=== PATIENT | male | born 1955 | race Caucasian/White ===

== ENCOUNTER 2020-10-02 19:31 | Emergency (ER) | payer OTHER, SELFPAY ==
--- NOTE | 2020-10-02 | ECG_ITS ---
Test Reason : CHEST PAIN Blood Pressure : / mmHG Vent. Rate : 066 BPM Atrial Rate : 066 BPM P-R Int : 194 ms QRS Dur : 096 ms QT Int : 420 ms P-R-T Axes : 051 048 073 degrees QTc Int : 440 ms Normal sinus rhythm Cannot rule out Inferior infarct , age undetermined - could be normal variant Nonspecific ST and T wave abnormality Abnormal ECG When compared with ECG of 11-APR-2020 12:07, Minimal criteria for Inferior infarct are now Present T wave inversion no longer evident in Inferior leads Referred By: Generic ED Physician Electronically Signed By:SHANEKA FERGUSON
[2020-10-02 20:00] VITALS: BP 192/101; PULSE 70; RESP 16; TEMP 36.8; O2SAT 98; BMI 23.7
--- NOTE | 2020-10-02 21:23 | PC.NURSE ---
CALLED FOR ROOM ASSIGNMENT AT 2099 AND AGAIN NOW AT 2122. NO RESPONSE, PATIENT LWT
== END 2020-10-02 21:20 | disposition left against medical advice (07) ==
PROVIDERS: Emergency Provider Emergency Medicine; PCP Physician Assistant
DX: R07.9 Chest pain, unspecified (principal); J44.9 Chronic obstructive pulmonary disease, unspecified; I10 Essential (primary) hypertension; I25.2 Old myocardial infarction; F17.210 Nicotine dependence, cigarettes, uncomplicated
CPT/HCPCS: 93005; 99282; 99283

== ENCOUNTER 2020-10-03 16:14 | Emergency (ER) | payer OTHER, SELFPAY ==
--- NOTE | 2020-10-03 16:16 | ECG_ITS ---
Test Reason : CHEST PAIN Blood Pressure : / mmHG Vent. Rate : 056 BPM Atrial Rate : 056 BPM P-R Int : 184 ms QRS Dur : 094 ms QT Int : 446 ms P-R-T Axes : 060 067 060 degrees QTc Int : 430 ms Sinus bradycardia Nonspecific T wave abnormality Borderline ECG When compared with ECG of 02-OCT-2020 19:51, No significant change was found Referred By: Generic ED Physician Electronically Signed By:SHANEKA FERGUSON
== END 2020-10-03 18:19 | disposition left against medical advice (07) ==
PROVIDERS: Emergency Provider Emergency Medicine; PCP Physician Assistant
DX: R07.9 Chest pain, unspecified (principal); J44.9 Chronic obstructive pulmonary disease, unspecified; I10 Essential (primary) hypertension; I25.2 Old myocardial infarction; F17.210 Nicotine dependence, cigarettes, uncomplicated
CPT/HCPCS: 93005; 99283

== ENCOUNTER 2020-10-03 16:58 | Outpatient (REF) | payer OTHER, SELFPAY ==
[2020-10-03 18:05] LABS: MANUAL DIFF FLAG NO
[2020-10-03 18:15] LABS: Basophils Percent Auto 0.5 % (0-2); Eosinophils Absolute Auto 0.3 X10*3/uL (0.0-0.4); Hematocrit 48.2 % (42-52); Hemoglobin 16.3 g/dl (14.0-18.0); Imm Gran Abs Auto 0.02 X10*3/uL (0.00-0.03); Imm Gran Pct Auto 0.3 % (0.0-0.4); Lymphocytes Absolute Auto 2.1 X10*3/uL (1.2-4.9); Lymphocytes Percent Auto 27.8 % (20-40); Mean Corpuscular HGB Conc 33.8 g/dl (31.0-36.0); Mean Corpuscular Hemoglobin 30.7 pg (27.0-33.0); Mean Corpuscular Volume 90.8 fL (80-98); Mean Platelet Volume 9.5 fL (9.4-12.4); Monocytes Absolute Auto 0.8 X10*3/uL (0.1-1.2); Monocytes Percent Auto 9.9 % (2-11); Neutrophils Absolute Auto 4.4 X10*3/uL (2.0-8.3); Neutrophils Percent Auto 57.5 % (45-73); Platelet Count 241 X10*3/uL (160-400); Red Blood Count 5.31 X10*6/uL (4.60-5.80); Red Cell Distribution Width 12.6 % (11.0-16.0); White Blood Count 7.7 X10*3/uL (4.8-10.8)
[2020-10-03 18:31] LABS: Estimated Average Glucose 105 mg/dL; Hemoglobin A1c % 5.3 %
[2020-10-03 18:34] LABS: Creatinine Urine 54.85 mg/dL; Microalbum/Creatinine Ratio Ur 12.7 ug/mg cr
[2020-10-03 18:36] LABS: Alanine Aminotransferase 23 U/L (0-40); Albumin Level 4.2 g/dL (3.5-5.0); Alkaline Phosphatase 105 U/L (39-117); Anion Gap 16 (12-20); Aspartate Amino Transferase 26 U/L (5-37); Bilirubin Total 0.6 mg/dL (0.0-1.0); Blood Urea Nitrogen 19 mg/dL (9-16); Calcium 9.2 mg/dL (8.4-10.2); Carbon Dioxide 24 mmol/L (22-29); Chloride 101 mmol/L (96-108); Cholesterol 196 mg/dL; Estimated Glomerular Filt Rate > 60; Glucose Fasting 81 mg/dL (60-99); HDL Cholesterol 48 mg/dL; LDL Cholesterol Calculated 134 mg/dl; Potassium 4.2 mmol/L (3.3-5.1); Sodium 137 mmol/L (135-145); Total Protein 7.2 g/dL (6.5-8.0); Triglycerides 73 mg/dL
[2020-10-03 18:57] LABS: TSH reflex Free T4 1.16 uIU/mL (0.32-4.0)
== END 2020-10-03 16:59 | disposition home or self-care (01) ==
LOC: HO.LAB 16:58
PROVIDERS: PCP Physician Assistant; Visit Provider Physician Assistant
DX: I10 Essential (primary) hypertension (principal); I25.118 Atherosclerotic heart disease of native coronary artery with other forms of angina pectoris; Z95.5 Presence of coronary angioplasty implant and graft
CPT/HCPCS: 36415; 80053; 80061; 82043; 83036; 84443; 85025

== ENCOUNTER 2020-10-04 16:06 | Outpatient (REF) | payer OTHER, SELFPAY ==
[2020-10-08 15:22] LABS: Testosterone, Free 35.5 pg/mL (35.0-155.0); Testosterone, Total 390 ng/dL (250-1100)
== END 2020-10-04 16:07 | disposition home or self-care (01) ==
LOC: HO.LAB 16:06
PROVIDERS: PCP Physician Assistant; Visit Provider Physician Assistant
DX: Z79.890 Hormone replacement therapy (principal)
CPT/HCPCS: 36415; 84402; 84403

== ENCOUNTER 2020-10-08 12:03 | Emergency (ER) | payer OTHER, SELFPAY ==
[2020-10-08] VITALS (7 sets, daily range): BP systolic 153–195; BP diastolic 94–120; PULSE 64–73; RESP 16–18; TEMP 36.5–36.8; O2SAT 95–100; BMI 23.6
--- NOTE | 2020-10-08 | ECG_ITS ---
Test Reason : CP Blood Pressure : / mmHG Vent. Rate : 069 BPM Atrial Rate : 069 BPM P-R Int : 168 ms QRS Dur : 090 ms QT Int : 424 ms P-R-T Axes : 065 059 014 degrees QTc Int : 454 ms Normal sinus rhythm Nonspecific ST changes Abnormal ECG When compared with ECG of 03-OCT-2020 16:23, Nonspecific T wave abnormality, improved in Lateral leads Referred By: Generic ED Physician Electronically Signed By:Alverto Mcfadden
--- NOTE | ~2020-10-08 | XR_ITS ---
EXAMINATION: XR CHEST CLINICAL INFORMATION: Chest pain, SOB. COMPARISON: Chest 04/11/2020 TECHNIQUE: Frontal view of the chest was obtained. FINDINGS: The lungs are well-expanded and clear of acute process. The heart size and pulmonary vascularity is normal. No gross bony abnormality. XR/XR chest 1V IMPRESSION: Unremarkable chest examination.
--- NOTE | 2020-10-08 14:12 | ED.CHESTPAIN ---
HPI - Chest Pain General Chief Complaint: Chest Pain <ALLISON Camara - Last Filed: 10/08/20 16:36> Stated Complaint: CHEST PRESSURE <ALLISON Camara - Last Filed: 10/08/20 16:36> Time Seen by Provider: 10/08/20 12:27 <ALLISON Camara - Last Filed: 10/08/20 16:36> Source: patient <ALLISON Camara Last Filed: 10/08/20 16:36> Mode of arrival: ambulatory <ALLISON Camara - Last Filed: 10/08/20 16:36> Limitations: no limitations <ALLISON Camara Last Filed: 10/08/20 16:36> History of Present Illness HPI narrative: 65 y/o male with history of HTN,. HLD, anxiety, active smoker, CAD s/p RCA stent in 2019 who presents to the ED with intermittent sharp, non-radiating left sided chest pain for the last few weeks. He states he has been in the ER a couple of times in the last few days but ended up leaving because he didn't want to wait. He was recently seen by his PCP who restarted him on his statin, but he has not been taking it due to muscle pains. He reports intermittent compliance with his home meds including plavix, aspirin, lisinopril and metoprolol. He did not take them this morning. 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 He was a heavy smoker for 50+ years, at least 2 packs per day. He reports quitting 2 days ago cold turkey. He denies chest pain at the moment but reports it comes and goes, is sharp in nature and located over his left chest. He denies nausea, jaw pain, arm pain. It happens at rest and with exertion. It goes away with rest. He denies fever, chills, cough. <ALLISON Camara Last Filed: 10/08/20 16:36> MD complaint: chest pain <ALLISON Camara Last Filed: 10/08/20 16:36> Pertinent past history: coronary artery disease and prior HI <ALLISON Camara Last Filed: 10/08/20 16:36> Onset (ago): week(s) <ALLISON Camara - Last Filed: 10/08/20 16:36> Timing of current episode: episodic <ALLISON Camara - Last Filed: 10/08/20 16:36> Prior episodes: Yes <ALLISON Camara - Last Filed: 10/08/20 16:36> Onset: during rest, during exertion and after eating <ALLISON Camara - Last Filed: 10/08/20 16:36> Pain location: left chest <ALLISON Camara - Last Filed: 10/08/20 16:36> Pain radiation: none <ALLISON Camara - Last Filed: 10/08/20 16:36> Severity: moderate <ALLISON Camara - Last Filed: 10/08/20 16:36> Quality: sharp <ALLISON Camara - Last Filed: 10/08/20 16:36> Relieving factors: rest <ALLISON Camara - Last Filed: 10/08/20 16:36> Exacerbating factors: nothing <ALLISON Camara - Last Filed: 10/08/20 16:36> Context: non compliance with medication <ALLISON Camara - Last Filed: 10/08/20 16:36> Associated symptoms: dyspnea <ALLISON Camara - Last Filed: 10/08/20 16:36> Treatment prior to arrival: none <ALLISON Camara - Last Filed: 10/08/20 16:36> Risk Factors Coronary artery disease risk factors: smoking history, hyperlipidemia and hypertension <ALLISON Camara - Last Filed: 10/08/20 16:36> Related Data Home Medications: Home Medications Medication Instructions Recorded Confirmed methocarbamol 500 mg tablet 500 mg PO Q8H 06/14/20 10/02/20 Previous Rx's Medication Instructions Recorded aspirin 81 mg tablet,delayed 81 mg PO DAILY 30 Days #30 tab 06/14/20 release lisinopril 30 mg tablet 30 mg PO DAILY 30 Days #30 tab 06/14/20 ibuprofen 600 mg tablet 600 mg PO Q8H #180 tab 08/02/20 atorvastatin 40 mg tablet 40 mg PO DAILY 90 Days #90 tab 10/04/20 clopidogrel 75 mg tablet 75 mg PO DAILY 90 Days #90 tab 10/04/20 metoprolol succinate 50 mg 50 mg PO DAILY #90 tab 10/17/20 tablet,extended release 24 hr lorazepam 0.5 mg tablet 0.5 mg PO DAILY 5 Days #5 tab 10/19/20 <ALLISON Camara - Last Filed: 10/08/20 16:36> Allergies/Adverse Reactions: Allergies Allergy/AdvReac Type Severity Reaction Status Date / Time tadalafil [From uSamplis] Allergy Unknown anxiety Verified 10/02/20 16:30 <ALLISON Camara - Last Filed: 10/08/20 16:36> Review of Systems Review of Systems: Constitutional: No Fever, No Chills ENT/Mouth: No sore throat, No Rhinorrhea, No Swallowing Difficulty Cardiovascular: + Chest Pain, + SOB, No Orthopnea, No Edema Respiratory: No Cough, No Sputum, No Wheezing, + dyspnea Gastrointestinal: No Nausea, No Vomiting, No Diarrhea, No abdominal Pain Genitourinary: No Dysuria, No Urinary Frequency, No Hematuria Musculoskeletal: + joint pain, + Myalgias Skin: No Skin Lesions, No rash Neuro: No Weakness, No Numbness, No Dizziness, No Headache Psych: No Anxiety/Panic, No Depression Heme/Lymph: No Bruising, No Lymphadenopathy Endocrine: No Polyuria, No Polydipsia <ALLISON Camara - Last Filed: 10/08/20 16:36> [facility] [place] Past Medical History Attestation statement: The following information was validated with the patient. <ALLISON Camara - Last Filed: 10/08/20 16:36> Medical History: Medical History COPD (chronic obstructive pulmonary disease) Hypertension Myocardial infarction <ALLISON Camara Last Filed: 10/08/20 16:36> Surgical History: Surgical History History of coronary artery stent placement History of hernia repair <ALLISON Camara Last Filed: 10/08/20 16:36> Family History Family History: Family History Father No problems noted. Mother No problems noted. Brother Hepatocellular carcinoma <ALLISON Camara - Last Filed: 10/08/20 16:36> Social History Social History: Social History Alcohol intake: never Smoking Status: Current every day smoker Tobacco Type: Cigarette Packs Per Day: 2 <ALLISON Camara - Last Filed: 10/08/20 16:36> Physical Exam Vital Signs: Vital Signs: Last Vital Signs Temp 98.3 F 10/08/20 14:30 Pulse 64 10/08/20 20:07 Resp 18 10/08/20 20:07 BP 163/94 H 10/08/20 20:07 Pulse Ox 96 10/08/20 20:07 Body Mass Index 23.6 Appearance: Alert. Oriented X3. No acute distress. Eyes: Pupils equal, round and reactive to light. ENT: Pharynx normal. Neck: Normal inspection. Neck supple. CVS: Normal heart rate and rhythm. Pulses normal. Mild left anterior chest wall tenderness. Respiratory: No respiratory distress. Breath sounds coarse throughout, no wheezes or rhonchi. Abdomen: Soft and nontender. +BS x4 Skin: Skin warm and dry. Normal skin color. Normal skin turgor. No rashes. Extremities: No lower extremity edema. Diffuse LE muscle tenderness of calves and quariceps bilaterally. No erythema or warmth. Neuro: Oriented X 3. No motor deficit. No sensory deficit. <ALLISON Camara - Last Filed: 10/08/20 16:36> Vital Signs: Last Vital Signs Temp 98.3 F 10/08/20 14:30 Pulse 64 10/08/20 20:07 Resp 18 10/08/20 20:07 BP 163/94 H 10/08/20 20:07 Pulse Ox 96 10/08/20 20:07 Body Mass Index 23.6 <Angy Victoria NP - Last Filed: 10/08/20 20:30> Vital Signs: Last Vital Signs Temp 98.3 F 10/08/20 14:30 Pulse 64 10/08/20 20:07 Resp 18 10/08/20 20:07 BP 163/94 H 10/08/20 20:07 Pulse Ox 96 10/08/20 20:07 Body Mass Index 23.6 <Teofilo Lopez MD - Last Filed: 10/26/20 13:36> Course Course Course Narrative: 65 y/o male with PMH significant for CAD s/p RCA stent in 2019, HTN, HLD, heavy smoker who presents to the ED with intermittent left chest pain for 2 weeks. BP significantly elevated on arrival. Did not take meds today. Denies any sharp left chest pain at this time. Signs and symptoms are concerning for angina, will need to r/o ACS given his history. EKG and labs ordered now. Will give his home BP meds, aspirin and plavix now and reassess. Hold off on nitro for now given he does not have chest pain at this time. <ALLISON Camara - Last Filed: 10/08/20 16:36> I have reviewed the chart <Teofilo Lopez MD - Last Filed: 10/26/20 13:36> Reevaluation(s) Reevaluation #1: BP significantly improved 166/104 after home meds. CXR unremarkable. Troponin 5.6 - will repeat in 3 hours given his clinical picture and risk factors. Will sign out to PM provider who will follow up repeat troponin and reassess the patient for possible discharge. <ALLISON Camara - Last Filed: 10/08/20 16:36> MDM - Chest Pain Medical Records Data Attestation: I reviewed the patient's medical records. <ALLISON Camara - Last Filed: 10/08/20 16:36> Lab Data Attestation: I reviewed the patient's lab results. <ALLISON Camara - Last Filed: 10/08/20 16:36> Result diagrams: : 10/08/20 15:00 10/08/20 15:00 <ALLISON Camara - Last Filed: 10/08/20 16:36> Labs: Lab Results 10/08/20 10/08/20 10/08/20 Range/Units 15:00 15:00 15:00 WBC 6.3 (4.8-10.8) X10*3/uL RBC 5.47 (4.60-5.80) X10*6/uL Hgb 16.8 (14.0-18.0) g/dl Hct 49.7 (42-52) % MCV 90.9 (80-98) fL MCH 30.7 (27.0-33.0) pg MCHC 33.8 (31.0-36.0) g/dl RDW 12.5 (11.0-16.0) % Plt Count 232 (160-400) X10*3/uL MPV 9.1 L (9.4-12.4) fL Immature Gran % (Auto) 0.0 (0.0-0.4) % Neut % (Auto) 59.4 (45-73) % Lymph % (Auto) 27.4 (20-40) % [place] % (Auto) 8.3 (2-11) % Eos % (Auto) 4.3 H (0-4) % Baso % (Auto) 0.6 (0-2) % Lymph # (Auto) 1.7 (1.2-4.9) X10*3/uL [place] # (Auto) 0.5 (0.1-1.2) X10*3/uL Eos # (Auto) 0.3 (0.0-0.4) X10*3/uL Baso # (Auto) 0.0 (0.0-0.2) X10*3/uL Abs Immat Gran (auto) 0.00 (0.00-0.03) X10*3/uL Absolute Neuts (auto) 3.7 (2.0-8.3) X10*3/uL Absolute Nucleated RBC 0.000 (0.0-0.012) X10*3/uL Nucleated RBC % (auto) 0.0 (0.0-0.2) /100WBC PT 12.1 (10.8-13.0) SEC INR 1.0 (0.9-1.1) APTT 35.8 (24.1-38.0) SEC Hold Blue Top SEE NOTE Sodium 137 (135-145) mmol/L Potassium 4.4 (3.3-5.1) mmol/L Chloride 104 (96-108) mmol/L Carbon Dioxide 25 (22-29) mmol/L Anion Gap 12 (12-20) BUN 20 H (9-16) mg/dL Creatinine 0.96 (0.5-1.4) mg/dL Estim Creat Clear Calc 80.2 Estimated GFR > 60 Random Glucose 89 (60-115) mg/dL Calcium 9.3 (8.4-10.2) mg/dL Magnesium 2.1 (1.6-2.6) mg/dL Total Bilirubin 0.7 (0.0-1.0) mg/dL Direct Bilirubin 0.2 (0.0-0.5) mg/dL AST 25 (5-37) U/L ALT 29 (0-40) U/L Alkaline Phosphatase 103 (39-117) U/L Troponin I High Sens (<3.5-35.0) ng/L B-Natriuretic Peptide (<100) pg/mL Total Protein 7.2 (6.5-8.0) g/dL Albumin 4.1 (3.5-5.0) g/dL Urine Color Urine Appearance Urine pH (5.0-8.0) Ur Specific [place] (1.005-1.025) Urine Protein (NEG-TRACE) MG/DL Urine Glucose (UA) (NEG) MG/DL Urine Ketones (NEG) MG/DL Urine Blood (NEG) Urine Nitrite (NEG) Ur Leukocyte Esterase (NEG) Coronavirus (PCR) (Negative) Influenza Type A (PCR) (Negative) Influenza Type B (PCR) (Negative) RSV RNA Qual (PCR) (Negative) 10/08/20 10/08/20 10/08/20 Range/Units 15:00 15:00 15:58 WBC (4.8-10.8) X10*3/uL RBC (4.60-5.80) X10*6/uL Hgb (14.0-18.0) g/dl Hct (42-52) % MCV (80-98) fL MCH (27.0-33.0) pg MCHC (31.0-36.0) g/dl RDW (11.0-16.0) % Plt Count (160-400) X10*3/uL MPV (9.4-12.4) fL Immature Gran % (Auto) (0.0-0.4) % Neut % (Auto) (45-73) % Lymph % (Auto) (20-40) % [place] % (Auto) (2-11) % Eos % (Auto) (0-4) % Baso % (Auto) (0-2) % Lymph # (Auto) (1.2-4.9) X10*3/uL [place] # (Auto) (0.1-1.2) X10*3/uL Eos # (Auto) (0.0-0.4) X10*3/uL Baso # (Auto) (0.0-0.2) X10*3/uL Abs Immat Gran (auto) (0.00-0.03) X10*3/uL Absolute Neuts (auto) (2.0-8.3) X10*3/uL Absolute Nucleated RBC (0.0-0.012) X10*3/uL Nucleated RBC % (auto) (0.0-0.2) /100WBC PT (10.8-13.0) SEC INR (0.9-1.1) APTT (24.1-38.0) SEC Hold Blue Top Sodium (135-145) mmol/L Potassium (3.3-5.1) mmol/L Chloride (96-108) mmol/L Carbon Dioxide (22-29) mmol/L Anion Gap (12-20) BUN (9-16) mg/dL Creatinine (0.5-1.4) mg/dL Estim Creat Clear Calc Estimated GFR Random Glucose (60-115) mg/dL Calcium (8.4-10.2) mg/dL Magnesium (1.6-2.6) mg/dL Total Bilirubin (0.0-1.0) mg/dL Direct Bilirubin (0.0-0.5) mg/dL AST (5-37) U/L ALT (0-40) U/L Alkaline Phosphatase (39-117) U/L Troponin I High Sens 5.6 (<3.5-35.0) ng/L B-Natriuretic Peptide 23 (<100) pg/mL Total Protein (6.5-8.0) g/dL Albumin (3.5-5.0) g/dL Urine Color YELLOW Urine Appearance CLEAR Urine pH 6.0 (5.0-8.0) Ur Specific [place] 1.015 (1.005-1.025) Urine Protein NEG (NEG-TRACE) MG/DL Urine Glucose (UA) NEG (NEG) MG/DL Urine Ketones NEG (NEG) MG/DL Urine Blood NEG (NEG) Urine Nitrite NEG (NEG) Ur Leukocyte Esterase NEG (NEG) Coronavirus (PCR) NEGATIVE (Negative) Influenza Type A (PCR) NEGATIVE (Negative) Influenza Type B (PCR) NEGATIVE (Negative) RSV RNA Qual (PCR) NEGATIVE (Negative) 10/08/20 Range/Units 17:54 WBC (4.8-10.8) X10*3/uL RBC (4.60-5.80) X10*6/uL Hgb (14.0-18.0) g/dl Hct (42-52) % MCV (80-98) fL MCH (27.0-33.0) pg MCHC (31.0-36.0) g/dl RDW (11.0-16.0) % Plt Count (160-400) X10*3/uL MPV (9.4-12.4) fL Immature Gran % (Auto) (0.0-0.4) % Neut % (Auto) (45-73) % Lymph % (Auto) (20-40) % [place] % (Auto) (2-11) % Eos % (Auto) (0-4) % Baso % (Auto) (0-2) % Lymph # (Auto) (1.2-4.9) X10*3/uL [place] # (Auto) (0.1-1.2) X10*3/uL Eos # (Auto) (0.0-0.4) X10*3/uL Baso # (Auto) (0.0-0.2) X10*3/uL Abs Immat Gran (auto) (0.00-0.03) X10*3/uL Absolute Neuts (auto) (2.0-8.3) X10*3/uL Absolute Nucleated RBC (0.0-0.012) X10*3/uL Nucleated RBC % (auto) (0.0-0.2) /100WBC PT (10.8-13.0) SEC INR (0.9-1.1) APTT (24.1-38.0) SEC Hold Blue Top Sodium (135-145) mmol/L Potassium (3.3-5.1) mmol/L Chloride (96-108) mmol/L Carbon Dioxide (22-29) mmol/L Anion Gap (12-20) BUN (9-16) mg/dL Creatinine (0.5-1.4) mg/dL Estim Creat Clear Calc Estimated GFR Random Glucose (60-115) mg/dL Calcium (8.4-10.2) mg/dL Magnesium (1.6-2.6) mg/dL Total Bilirubin (0.0-1.0) mg/dL Direct Bilirubin (0.0-0.5) mg/dL AST (5-37) U/L ALT (0-40) U/L Alkaline Phosphatase (39-117) U/L Troponin I High Sens 4.5 (<3.5-35.0) ng/L B-Natriuretic Peptide (<100) pg/mL Total Protein (6.5-8.0) g/dL Albumin (3.5-5.0) g/dL Urine Color Urine Appearance Urine pH (5.0-8.0) Ur Specific [place] (1.005-1.025) Urine Protein (NEG-TRACE) MG/DL Urine Glucose (UA) (NEG) MG/DL Urine Ketones (NEG) MG/DL Urine Blood (NEG) Urine Nitrite (NEG) Ur Leukocyte Esterase (NEG) Coronavirus (PCR) (Negative) Influenza Type A (PCR) (Negative) Influenza Type B (PCR) (Negative) RSV RNA Qual (PCR) (Negative) <ALLISON Camara - Last Filed: 10/08/20 16:36> Lab Results 10/08/20 10/08/20 10/08/20 Range/Units 15:00 15:00 15:00 WBC 6.3 (4.8-10.8) X10*3/uL RBC 5.47 (4.60-5.80) X10*6/uL Hgb 16.8 (14.0-18.0) g/dl Hct 49.7 (42-52) % MCV 90.9 (80-98) fL MCH 30.7 (27.0-33.0) pg MCHC 33.8 (31.0-36.0) g/dl RDW 12.5 (11.0-16.0) % Plt Count 232 (160-400) X10*3/uL MPV 9.1 L (9.4-12.4) fL Immature Gran % (Auto) 0.0 (0.0-0.4) % Neut % (Auto) 59.4 (45-73) % Lymph % (Auto) 27.4 (20-40) % [place] % (Auto) 8.3 (2-11) % Eos % (Auto) 4.3 H (0-4) % Baso % (Auto) 0.6 (0-2) % Lymph # (Auto) 1.7 (1.2-4.9) X10*3/uL [place] # (Auto) 0.5 (0.1-1.2) X10*3/uL Eos # (Auto) 0.3 (0.0-0.4) X10*3/uL Baso # (Auto) 0.0 (0.0-0.2) X10*3/uL Abs Immat Gran (auto) 0.00 (0.00-0.03) X10*3/uL Absolute Neuts (auto) 3.7 (2.0-8.3) X10*3/uL Absolute Nucleated RBC 0.000 (0.0-0.012) X10*3/uL Nucleated RBC % (auto) 0.0 (0.0-0.2) /100WBC PT 12.1 (10.8-13.0) SEC INR 1.0 (0.9-1.1) APTT 35.8 (24.1-38.0) SEC Hold Blue Top SEE NOTE Sodium 137 (135-145) mmol/L Potassium 4.4 (3.3-5.1) mmol/L Chloride 104 (96-108) mmol/L Carbon Dioxide 25 (22-29) mmol/L Anion Gap 12 (12-20) BUN 20 H (9-16) mg/dL Creatinine 0.96 (0.5-1.4) mg/dL Estim Creat Clear Calc 80.2 Estimated GFR > 60 Random Glucose 89 (60-115) mg/dL Calcium 9.3 (8.4-10.2) mg/dL Magnesium 2.1 (1.6-2.6) mg/dL Total Bilirubin 0.7 (0.0-1.0) mg/dL Direct Bilirubin 0.2 (0.0-0.5) mg/dL AST 25 (5-37) U/L ALT 29 (0-40) U/L Alkaline Phosphatase 103 (39-117) U/L Troponin I High Sens (<3.5-35.0) ng/L B-Natriuretic Peptide (<100) pg/mL Total Protein 7.2 (6.5-8.0) g/dL Albumin 4.1 (3.5-5.0) g/dL Urine Color Urine Appearance Urine pH (5.0-8.0) Ur Specific [place] (1.005-1.025) Urine Protein (NEG-TRACE) MG/DL Urine Glucose (UA) (NEG) MG/DL Urine Ketones (NEG) MG/DL Urine Blood (NEG) Urine Nitrite (NEG) Ur Leukocyte Esterase (NEG) Coronavirus (PCR) (Negative) Influenza Type A (PCR) (Negative) Influenza Type B (PCR) (Negative) RSV RNA Qual (PCR) (Negative) 10/08/20 10/08/20 10/08/20 Range/Units 15:00 15:00 15:58 WBC (4.8-10.8) X10*3/uL RBC (4.60-5.80) X10*6/uL Hgb (14.0-18.0) g/dl Hct (42-52) % MCV (80-98) fL MCH (27.0-33.0) pg MCHC (31.0-36.0) g/dl RDW (11.0-16.0) % Plt Count (160-400) X10*3/uL MPV (9.4-12.4) fL Immature Gran % (Auto) (0.0-0.4) % Neut % (Auto) (45-73) % Lymph % (Auto) (20-40) % [place] % (Auto) (2-11) % Eos % (Auto) (0-4) % Baso % (Auto) (0-2) % Lymph # (Auto) (1.2-4.9) X10*3/uL [place] # (Auto) (0.1-1.2) X10*3/uL Eos # (Auto) (0.0-0.4) X10*3/uL Baso # (Auto) (0.0-0.2) X10*3/uL Abs Immat Gran (auto) (0.00-0.03) X10*3/uL Absolute Neuts (auto) (2.0-8.3) X10*3/uL Absolute Nucleated RBC (0.0-0.012) X10*3/uL Nucleated RBC % (auto) (0.0-0.2) /100WBC PT (10.8-13.0) SEC INR (0.9-1.1) APTT (24.1-38.0) SEC Hold Blue Top Sodium (135-145) mmol/L Potassium (3.3-5.1) mmol/L Chloride (96-108) mmol/L Carbon Dioxide (22-29) mmol/L Anion Gap (12-20) BUN (9-16) mg/dL Creatinine (0.5-1.4) mg/dL Estim Creat Clear Calc Estimated GFR Random Glucose (60-115) mg/dL Calcium (8.4-10.2) mg/dL Magnesium (1.6-2.6) mg/dL Total Bilirubin (0.0-1.0) mg/dL Direct Bilirubin (0.0-0.5) mg/dL AST (5-37) U/L ALT (0-40) U/L Alkaline Phosphatase (39-117) U/L Troponin I High Sens 5.6 (<3.5-35.0) ng/L B-Natriuretic Peptide 23 (<100) pg/mL Total Protein (6.5-8.0) g/dL Albumin (3.5-5.0) g/dL Urine Color YELLOW Urine Appearance CLEAR Urine pH 6.0 (5.0-8.0) Ur Specific [place] 1.015 (1.005-1.025) Urine Protein NEG (NEG-TRACE) MG/DL Urine Glucose (UA) NEG (NEG) MG/DL Urine Ketones NEG (NEG) MG/DL Urine Blood NEG (NEG) Urine Nitrite NEG (NEG) Ur Leukocyte Esterase NEG (NEG) Coronavirus (PCR) NEGATIVE (Negative) Influenza Type A (PCR) NEGATIVE (Negative) Influenza Type B (PCR) NEGATIVE (Negative) RSV RNA Qual (PCR) NEGATIVE (Negative) 10/08/20 Range/Units 17:54 WBC (4.8-10.8) X10*3/uL RBC (4.60-5.80) X10*6/uL Hgb (14.0-18.0) g/dl Hct (42-52) % MCV (80-98) fL MCH (27.0-33.0) pg MCHC (31.0-36.0) g/dl RDW (11.0-16.0) % Plt Count (160-400) X10*3/uL MPV (9.4-12.4) fL Immature Gran % (Auto) (0.0-0.4) % Neut % (Auto) (45-73) % Lymph % (Auto) (20-40) % [place] % (Auto) (2-11) % Eos % (Auto) (0-4) % Baso % (Auto) (0-2) % Lymph # (Auto) (1.2-4.9) X10*3/uL [place] # (Auto) (0.1-1.2) X10*3/uL Eos # (Auto) (0.0-0.4) X10*3/uL Baso # (Auto) (0.0-0.2) X10*3/uL Abs Immat Gran (auto) (0.00-0.03) X10*3/uL Absolute Neuts (auto) (2.0-8.3) X10*3/uL Absolute Nucleated RBC (0.0-0.012) X10*3/uL Nucleated RBC % (auto) (0.0-0.2) /100WBC PT (10.8-13.0) SEC INR (0.9-1.1) APTT (24.1-38.0) SEC Hold Blue Top Sodium (135-145) mmol/L Potassium (3.3-5.1) mmol/L Chloride (96-108) mmol/L Carbon Dioxide (22-29) mmol/L Anion Gap (12-20) BUN (9-16) mg/dL Creatinine (0.5-1.4) mg/dL Estim Creat Clear Calc Estimated GFR Random Glucose (60-115) mg/dL Calcium (8.4-10.2) mg/dL Magnesium (1.6-2.6) mg/dL Total Bilirubin (0.0-1.0) mg/dL Direct Bilirubin (0.0-0.5) mg/dL AST (5-37) U/L ALT (0-40) U/L Alkaline Phosphatase (39-117) U/L Troponin I High Sens 4.5 (<3.5-35.0) ng/L B-Natriuretic Peptide (<100) pg/mL Total Protein (6.5-8.0) g/dL Albumin (3.5-5.0) g/dL Urine Color Urine Appearance Urine pH (5.0-8.0) Ur Specific [place] (1.005-1.025) Urine Protein (NEG-TRACE) MG/DL Urine Glucose (UA) (NEG) MG/DL Urine Ketones (NEG) MG/DL Urine Blood (NEG) Urine Nitrite (NEG) Ur Leukocyte Esterase (NEG) Coronavirus (PCR) (Negative) Influenza Type A (PCR) (Negative) Influenza Type B (PCR) (Negative) RSV RNA Qual (PCR) (Negative) <Angy Victoria NP - Last Filed: 10/08/20 20:30> Lab Results 10/08/20 10/08/20 10/08/20 Range/Units 15:00 15:00 15:00 WBC 6.3 (4.8-10.8) X10*3/uL RBC 5.47 (4.60-5.80) X10*6/uL Hgb 16.8 (14.0-18.0) g/dl Hct 49.7 (42-52) % MCV 90.9 (80-98) fL MCH 30.7 (27.0-33.0) pg MCHC 33.8 (31.0-36.0) g/dl RDW 12.5 (11.0-16.0) % Plt Count 232 (160-400) X10*3/uL MPV 9.1 L (9.4-12.4) fL Immature Gran % (Auto) 0.0 (0.0-0.4) % Neut % (Auto) 59.4 (45-73) % Lymph % (Auto) 27.4 (20-40) % [place] % (Auto) 8.3 (2-11) % Eos % (Auto) 4.3 H (0-4) % Baso % (Auto) 0.6 (0-2) % Lymph # (Auto) 1.7 (1.2-4.9) X10*3/uL [place] # (Auto) 0.5 (0.1-1.2) X10*3/uL Eos # (Auto) 0.3 (0.0-0.4) X10*3/uL Baso # (Auto) 0.0 (0.0-0.2) X10*3/uL Abs Immat Gran (auto) 0.00 (0.00-0.03) X10*3/uL Absolute Neuts (auto) 3.7 (2.0-8.3) X10*3/uL Absolute Nucleated RBC 0.000 (0.0-0.012) X10*3/uL Nucleated RBC % (auto) 0.0 (0.0-0.2) /100WBC PT 12.1 (10.8-13.0) SEC INR 1.0 (0.9-1.1) APTT 35.8 (24.1-38.0) SEC Hold Blue Top SEE NOTE Sodium 137 (135-145) mmol/L Potassium 4.4 (3.3-5.1) mmol/L Chloride 104 (96-108) mmol/L Carbon Dioxide 25 (22-29) mmol/L Anion Gap 12 (12-20) BUN 20 H (9-16) mg/dL Creatinine 0.96 (0.5-1.4) mg/dL Estim Creat Clear Calc 80.2 Estimated GFR > 60 Random Glucose 89 (60-115) mg/dL Calcium 9.3 (8.4-10.2) mg/dL Magnesium 2.1 (1.6-2.6) mg/dL Total Bilirubin 0.7 (0.0-1.0) mg/dL Direct Bilirubin 0.2 (0.0-0.5) mg/dL AST 25 (5-37) U/L ALT 29 (0-40) U/L Alkaline Phosphatase 103 (39-117) U/L Troponin I High Sens (<3.5-35.0) ng/L B-Natriuretic Peptide (<100) pg/mL Total Protein 7.2 (6.5-8.0) g/dL Albumin 4.1 (3.5-5.0) g/dL Urine Color Urine Appearance Urine pH (5.0-8.0) Ur Specific [place] (1.005-1.025) Urine Protein (NEG-TRACE) MG/DL Urine Glucose (UA) (NEG) MG/DL Urine Ketones (NEG) MG/DL Urine Blood (NEG) Urine Nitrite (NEG) Ur Leukocyte Esterase (NEG) Coronavirus (PCR) (Negative) Influenza Type A (PCR) (Negative) Influenza Type B (PCR) (Negative) RSV RNA Qual (PCR) (Negative) 10/08/20 10/08/20 10/08/20 Range/Units 15:00 15:00 15:58 WBC (4.8-10.8) X10*3/uL RBC (4.60-5.80) X10*6/uL Hgb (14.0-18.0) g/dl Hct (42-52) % MCV (80-98) fL MCH (27.0-33.0) pg MCHC (31.0-36.0) g/dl RDW (11.0-16.0) % Plt Count (160-400) X10*3/uL MPV (9.4-12.4) fL Immature Gran % (Auto) (0.0-0.4) % Neut % (Auto) (45-73) % Lymph % (Auto) (20-40) % [place] % (Auto) (2-11) % Eos % (Auto) (0-4) % Baso % (Auto) (0-2) % Lymph # (Auto) (1.2-4.9) X10*3/uL [place] # (Auto) (0.1-1.2) X10*3/uL Eos # (Auto) (0.0-0.4) X10*3/uL Baso # (Auto) (0.0-0.2) X10*3/uL Abs Immat Gran (auto) (0.00-0.03) X10*3/uL Absolute Neuts (auto) (2.0-8.3) X10*3/uL Absolute Nucleated RBC (0.0-0.012) X10*3/uL Nucleated RBC % (auto) (0.0-0.2) /100WBC PT (10.8-13.0) SEC INR (0.9-1.1) APTT (24.1-38.0) SEC Hold Blue Top Sodium (135-145) mmol/L Potassium (3.3-5.1) mmol/L Chloride (96-108) mmol/L Carbon Dioxide (22-29) mmol/L Anion Gap (12-20) BUN (9-16) mg/dL Creatinine (0.5-1.4) mg/dL Estim Creat Clear Calc Estimated GFR Random Glucose (60-115) mg/dL Calcium (8.4-10.2) mg/dL Magnesium (1.6-2.6) mg/dL Total Bilirubin (0.0-1.0) mg/dL Direct Bilirubin (0.0-0.5) mg/dL AST (5-37) U/L ALT (0-40) U/L Alkaline Phosphatase (39-117) U/L Troponin I High Sens 5.6 (<3.5-35.0) ng/L B-Natriuretic Peptide 23 (<100) pg/mL Total Protein (6.5-8.0) g/dL Albumin (3.5-5.0) g/dL Urine Color YELLOW Urine Appearance CLEAR Urine pH 6.0 (5.0-8.0) Ur Specific [place] 1.015 (1.005-1.025) Urine Protein NEG (NEG-TRACE) MG/DL Urine Glucose (UA) NEG (NEG) MG/DL Urine Ketones NEG (NEG) MG/DL Urine Blood NEG (NEG) Urine Nitrite NEG (NEG) Ur Leukocyte Esterase NEG (NEG) Coronavirus (PCR) NEGATIVE (Negative) Influenza Type A (PCR) NEGATIVE (Negative) Influenza Type B (PCR) NEGATIVE (Negative) RSV RNA Qual (PCR) NEGATIVE (Negative) 10/08/20 Range/Units 17:54 WBC (4.8-10.8) X10*3/uL RBC (4.60-5.80) X10*6/uL Hgb (14.0-18.0) g/dl Hct (42-52) % MCV (80-98) fL MCH (27.0-33.0) pg MCHC (31.0-36.0) g/dl RDW (11.0-16.0) % Plt Count (160-400) X10*3/uL MPV (9.4-12.4) fL Immature Gran % (Auto) (0.0-0.4) % Neut % (Auto) (45-73) % Lymph % (Auto) (20-40) % [place] % (Auto) (2-11) % Eos % (Auto) (0-4) % Baso % (Auto) (0-2) % Lymph # (Auto) (1.2-4.9) X10*3/uL [place] # (Auto) (0.1-1.2) X10*3/uL Eos # (Auto) (0.0-0.4) X10*3/uL Baso # (Auto) (0.0-0.2) X10*3/uL Abs Immat Gran (auto) (0.00-0.03) X10*3/uL Absolute Neuts (auto) (2.0-8.3) X10*3/uL Absolute Nucleated RBC (0.0-0.012) X10*3/uL Nucleated RBC % (auto) (0.0-0.2) /100WBC PT (10.8-13.0) SEC INR (0.9-1.1) APTT (24.1-38.0) SEC Hold Blue Top Sodium (135-145) mmol/L Potassium (3.3-5.1) mmol/L Chloride (96-108) mmol/L Carbon Dioxide (22-29) mmol/L Anion Gap (12-20) BUN (9-16) mg/dL Creatinine (0.5-1.4) mg/dL Estim Creat Clear Calc Estimated GFR Random Glucose (60-115) mg/dL Calcium (8.4-10.2) mg/dL Magnesium (1.6-2.6) mg/dL Total Bilirubin (0.0-1.0) mg/dL Direct Bilirubin (0.0-0.5) mg/dL AST (5-37) U/L ALT (0-40) U/L Alkaline Phosphatase (39-117) U/L Troponin I High Sens 4.5 (<3.5-35.0) ng/L B-Natriuretic Peptide (<100) pg/mL Total Protein (6.5-8.0) g/dL Albumin (3.5-5.0) g/dL Urine Color Urine Appearance Urine pH (5.0-8.0) Ur Specific [place] (1.005-1.025) Urine Protein (NEG-TRACE) MG/DL Urine Glucose (UA) (NEG) MG/DL Urine Ketones (NEG) MG/DL Urine Blood (NEG) Urine Nitrite (NEG) Ur Leukocyte Esterase (NEG) Coronavirus (PCR) (Negative) Influenza Type A (PCR) (Negative) Influenza Type B (PCR) (Negative) RSV RNA Qual (PCR) (Negative) <Teofilo Lopez MD - Last Filed: 10/26/20 13:36> ECG Data ECG #1: Attestation: I personally reviewed and interpreted this ECG as follows: <ALLISON Camara - Last Filed: 10/08/20 16:36> ECG interpretation date: 10/08/20 <ALLISON Camara - Last Filed: 10/08/20 16:36> ECG interpretation time: 13:01 <ALLISON Camara - Last Filed: 10/08/20 16:36> Interpretation: normal sinus rhythm, HR 69 bpm, normal QTc, q-wave in inferior leads, no ST segment elevation <ALLISON Camara - Last Filed: 10/08/20 16:36> Scores Heart Score History: -2- highly suspicious <ALLISON Camara - Last Filed: 10/08/20 16:36> ECG: -0- normal <ALLISON Camara - Last Filed: 10/08/20 16:36> Age: -1- >45 - <65 <ALLISON Camara - Last Filed: 10/08/20 16:36> Risk factory: -2- 3 or more risk factors or treated atherosclerosis <ALLISON Camara - Last Filed: 10/08/20 16:36> Troponin: -0- < or = normal limit <ALLISON Camara Last Filed: 10/08/20 16:36> Score: 5 <ALLISON Camara - Last Filed: 10/08/20 16:36> Risk: 16.6% <ALLISON Camara - Last Filed: 10/08/20 16:36> Discharge Plan Discharge Clinical Impression: Atypical chest pain <ALLISON Camara - Last Filed: 10/08/20 16:36> Patient Disposition: Home, Self-Care <ALLISON Camara - Last Filed: 10/08/20 16:36> Instructions: Noncardiac Chest Pain (ED) <ALLISON Camara - Last Filed: 10/08/20 16:36> Additional Instructions: You were evaluated for left-sided chest pain. Your EKG does not indicate any indication of ST elevation or depression, your troponin I was 4.5. This is considered a negative troponin. 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 I have referred her to pulmonology, please call and request an appointment. Congratulations on quitting smoking. Thank you for choosing this emergency department for evaluation. Please follow-up with primary care physician as needed. Return to the emergency department for any new, concerning, or worsening symptoms. <ALLISON Camara - Last Filed: 10/08/20 16:36> Prescriptions: No Action ibuprofen 600 mg tablet 600 mg PO Q8H Qty: 180 RF: 1 atorvastatin 40 mg tablet 40 mg PO DAILY 90 Days Qty: 90 RF: 1 clopidogrel 75 mg tablet 75 mg PO DAILY 90 Days Qty: 90 RF: 0 metoprolol succinate 50 mg tablet extended release 24 hr 50 mg PO DAILY Qty: 90 RF: 1 lorazepam 0.5 mg tablet 0.5 mg PO DAILY 5 Days Qty: 5 RF: 0 methocarbamol 500 mg tablet 500 mg PO Q8H RF: 0 lisinopril 30 mg tablet 30 mg PO DAILY 30 Days Qty: 30 RF: 2 aspirin 81 mg tablet,delayed release (DR/EC) 81 mg PO DAILY 30 Days Qty: 30 RF: 2 <ALLISON Camara - Last Filed: 10/08/20 16:36> Referrals: Alverto Mcfadden MD [Physician] - 2 days (Eval for chest pain) Miguel Angel Black MD [Physician] - 2 days (Intermittent sharp lung pain after quitting smoking) <ALLISON Camara Last Filed: 10/08/20 16:36> Interventions: ED Discharge Assessment Last Done: 10/08/20 21:05 <ALLISON Camara - Last Filed: 10/08/20 16:36> Discharge Date/Time: 10/08/20 21:06 <ALLISON Camara - Last Filed: 10/08/20 16:36>
[2020-10-08] MEDS: Aspirin 325 MG TABLET PO (14:55)
[2020-10-08] MEDS: Clopidogrel Bisulfate 75 MG TABLET PO (14:56)
[2020-10-08] MEDS: Metoprolol Succinate ER 50 MG TAB.ER.24H PO (14:56)
[2020-10-08] MEDS: lisinopriL 10 MG TABLET PO (14:56)
[2020-10-08 15:06] LABS: Basophils Percent Auto 0.6 % (0-2); Eosinophils Absolute Auto 0.3 X10*3/uL (0.0-0.4); Eosinophils Percent Auto 4.3 % (0-4); Hematocrit 49.7 % (42-52); Hemoglobin 16.8 g/dl (14.0-18.0); Lymphocytes Absolute Auto 1.7 X10*3/uL (1.2-4.9); Lymphocytes Percent Auto 27.4 % (20-40); MANUAL DIFF FLAG NO; Mean Corpuscular HGB Conc 33.8 g/dl (31.0-36.0); Mean Corpuscular Hemoglobin 30.7 pg (27.0-33.0); Mean Corpuscular Volume 90.9 fL (80-98); Mean Platelet Volume 9.1 fL (9.4-12.4); Monocytes Absolute Auto 0.5 X10*3/uL (0.1-1.2); Monocytes Percent Auto 8.3 % (2-11); Neutrophils Absolute Auto 3.7 X10*3/uL (2.0-8.3); Neutrophils Percent Auto 59.4 % (45-73); Platelet Count 232 X10*3/uL (160-400); Red Blood Count 5.47 X10*6/uL (4.60-5.80); Red Cell Distribution Width 12.5 % (11.0-16.0); White Blood Count 6.3 X10*3/uL (4.8-10.8)
[2020-10-08 15:13] LABS: Prothrombin Time 12.1 SEC (10.8-13.0)
[2020-10-08 15:15] LABS: Partial Thromboplastin Time 35.8 SEC (24.1-38.0)
[2020-10-08 15:37] LABS: Alanine Aminotransferase 29 U/L (0-40); Albumin Level 4.1 g/dL (3.5-5.0); Alkaline Phosphatase 103 U/L (39-117); Anion Gap 12 (12-20); Aspartate Amino Transferase 25 U/L (5-37); Bilirubin Direct 0.2 mg/dL (0.0-0.5); Bilirubin Total 0.7 mg/dL (0.0-1.0); Blood Urea Nitrogen 20 mg/dL (9-16); Calcium 9.3 mg/dL (8.4-10.2); Carbon Dioxide 25 mmol/L (22-29); Chloride 104 mmol/L (96-108); Creatinine Clr Calc Pharmacy 80.2; Estimated Glomerular Filt Rate > 60; Glucose Random 89 mg/dL (60-115); Magnesium 2.1 mg/dL (1.6-2.6); Potassium 4.4 mmol/L (3.3-5.1); Sodium 137 mmol/L (135-145); Total Protein 7.2 g/dL (6.5-8.0)
[2020-10-08 15:42] LABS: B Type Natriuretic Peptide 23 pg/mL (<100); Troponin-I High Sensitivity 5.6 ng/L (<3.5-35.0)
--- NOTE | 2020-10-08 15:55 | PC.NURSE ---
resting quietly in bed. nsr on monitor. c/o consistent left sided chest pain radiates to left arm. ski npwd. unlabored resp.. pt states he missed am meds but recieved them in ed. pain is not reproducable. stopped smoking 2 days ago.
[2020-10-08 16:07] LABS: Glucose Urine UA NEG (NEG); Leukocyte Esterase Urine NEG (NEG); Nitrite Urine NEG (NEG); Specific Gravity - Urine 1.015 (1.005-1.025); Urine Blood NEG (NEG); Urine Ketones NEG (NEG); Urine Protein NEG (NEG-TRACE)
[2020-10-08 16:10] LABS: Appearance Urine CLEAR; Color Urine YELLOW
[2020-10-08 17:18] LABS: Influenza A PCR NEGATIVE (Negative); Influenza B PCR NEGATIVE (Negative); Resp Syncy Virus RNA Qual PCR NEGATIVE (Negative); SARS COV2 PCR INHOUSE NEGATIVE (Negative)
[2020-10-08 18:52] LABS: Troponin-I High Sensitivity 4.5 ng/L (<3.5-35.0)
== END 2020-10-08 21:06 | disposition home or self-care (01) ==
PROVIDERS: Physician Assistant; Emergency Provider Emergency Medicine; PCP Physician Assistant
DX: R07.89 Other chest pain (principal); Z20.822 Contact with and (suspected) exposure to COVID-19; I10 Essential (primary) hypertension; E78.5 Hyperlipidemia, unspecified; F41.9 Anxiety disorder, unspecified; J44.9 Chronic obstructive pulmonary disease, unspecified; F17.210 Nicotine dependence, cigarettes, uncomplicated; Z79.01 Long term (current) use of anticoagulants; Z79.82 Long term (current) use of aspirin; Z79.899 Other long term (current) drug therapy; Z79.890 Hormone replacement therapy; Z95.5 Presence of coronary angioplasty implant and graft
CPT/HCPCS: 0241U; 36415; 71045; 80048; 80076; 81003; 83735; 83880; 84484; 85025; 85610; 85730; 93005; 99284; 99285

== ENCOUNTER → 2020-11-14 15:16 | Outpatient (BNVA) | payer OTHER, SELFPAY | PROVIDERS: PCP Physician Assistant; Referring Provider Physician Assistant; Visit Provider Internal Medicine Cardiovascular Disease | DX: I25.118 Atherosclerotic heart disease of native coronary artery with other forms of angina pectoris (principal); I10 Essential (primary) hypertension; R06.00 Dyspnea, unspecified; M79.606 Pain in leg, unspecified | CPT/HCPCS: 93005; 99212 ==

== ENCOUNTER 2020-11-29 00:30 | Emergency (ER) | payer OTHER, SELFPAY | END 2020-11-29 01:59 | disposition left against medical advice (07) | LOC: HO.ED 01:58 | PROVIDERS: Emergency Provider Emergency Medicine; PCP Physician Assistant | DX: T50.901A Poisoning by unspecified drugs, medicaments and biological substances, accidental (unintentional), initial encounter (principal); X58.XXXA Exposure to other specified factors, initial encounter ==

== ENCOUNTER 2020-11-29 08:39 | Emergency (ER) | payer OTHER, SELFPAY ==
--- NOTE | ~2020-11-29 | XR_ITS ---
EXAMINATION: XR CHEST CLINICAL INFORMATION: Shortness of breath, weakness, numbness. COMPARISON: Chest radiographs 10/08/2020, 04/11/2020 TECHNIQUE: Portable upright AP x2 views of the chest was obtained. FINDINGS: There is mild hyperinflation similar to prior studies. The lungs are clear. There is no airspace consolidation or groundglass opacity. No pneumothorax or pleural reaction or effusion. The heart is normal in size. The vascularity is normal. The hilar and mediastinal contours are normal. No visible acute bony abnormality. XR/XR chest 1V IMPRESSION: No acute intrathoracic disease.
--- NOTE | ~2020-11-29 | CT_ITS ---
EXAMINATION: CT HEAD WITHOUT CONTRAST CLINICAL INFORMATION: Numbness, weakness COMPARISON: CT had noncontrast 12/03/2019 TECHNIQUE: Contiguous axial imaging was performed from the skull base to vertex without intravenous administration of contrast. Additional 2-D coronal and sagittal reformatted images are generated on the CT workstation and uploaded to PACS. This CT examination was performed using dose optimization techniques as appropriate, variously including the following: *Automated exposure control *Adjustment of mA and/or kV according to patient size (this includes techniques or standardized protocols for targeted exams where dose is matched to indication/reason for exam; i.e. extremities or head) *Use of iterative reconstruction technique DLP: 656 mGy-cm FINDINGS: There is no intracranial hemorrhage, hematoma, or extra-axial fluid collection. The ventricles are normal in size. There is no hydrocephalus, edema, or mass effect. The carrion-white matter differentiation appears symmetric. There is no visible acute territorial infarct or mass lesion. The calvarium appears intact. There is no pneumocephalus or orbital emphysema. There are no air-fluid levels in the visualized sinuses or middle ears or mastoids. There is scattered mucosal thickening ethmoid, left inferior frontal and left maxillary sinus. CT/CT head/brain wo con IMPRESSION: No acute intracranial abnormality.
[2020-11-29 09:29] VITALS: BP 161/87; PULSE 56; RESP 16; TEMP 36.4; O2SAT 97; BMI 22.7
--- NOTE | 2020-11-29 09:39 | ECG_ITS ---
Test Reason : WEAKNESS Blood Pressure : / mmHG Vent. Rate : 052 BPM Atrial Rate : 052 BPM P-R Int : 202 ms QRS Dur : 100 ms QT Int : 454 ms P-R-T Axes : 067 066 068 degrees QTc Int : 422 ms Sinus bradycardia Otherwise normal ECG When compared with ECG of 08-OCT-2020 12:13, Nonspecific T wave abnormality has replaced inverted T waves in Inferior leads Referred By: Alicia Farias Electronically Signed By:ROXANNA CHENEY MD
--- NOTE | 2020-11-29 09:41 | ED.WEAKNESS ---
HPI - Weakness General Chief complaint: Weakness Stated complaint: weakness Time Seen by Provider: 11/29/20 09:26 Source: patient Mode of arrival: ambulatory Limitations: no limitations History of Present Illness HPI Narrative: 65 y/o male with history of CAD s/p RCA stent in 2019, PVD s/p stent, HTN, HLD, anxiety, active smoker since the age of 7 who presents to the ER with 1 week of generalized weakness and reports his head and neck feel numb. He quit smoking about 1 month ago cold turkey. He has been smoking 1-2 packs of cigarettes since he was 7 years old. He started smoking again a couple weeks after he quit, slowly building his way back up to 2 packs per day. He feels like he has nicotine toxicity. He reports yesterday at work in the heat he couldn't do his usual work. He felt generally weak, nauseated and SOB more than his usual. He reports not taking his Plavix for 10 days and feels like this is also contributing. He denies chest pain, fever, chills. He has had 1 dose of the COVID vaccine and is due for the next 1 next week. He denies and numbness or tingling in his extremities. He denies focal weakness. No speech difficulties or facial droop. MD Complaint: generalized weakness Onset (ago): week(s) (1) Duration: constant Location: generalized Migration: none Severity: moderate Quality: numbness (head and neck) Relieving factors: rest Exacerbating factors: exertion Associated symptoms: nausea/vomiting, shortness of breath and other (pre-syncope, feels as though he might pass out) Related Data Previous Rx's Medication Instructions Recorded clopidogrel 75 mg tablet 75 mg PO DAILY 90 Days #90 tab 10/04/20 metoprolol succinate 50 mg 50 mg PO DAILY #90 tab 10/17/20 tablet,extended release 24 hr aspirin 81 mg tablet,delayed 81 mg PO DAILY 90 Days #90 tab 11/14/20 release ibuprofen 600 mg tablet 600 mg PO Q8H #180 tab 11/14/20 lorazepam 0.5 mg tablet 0.5 mg PO DAILY PRN 5 Days #5 tab 11/14/20 Allergies Allergy/AdvReac Type Severity Reaction Status Date / Time tadalafil [From Cialis] Allergy Unknown anxiety Verified 10/02/20 16:30 Review of Systems Review of Systems: Constitutional: No Fever, No Chills ENT/Mouth: No sore throat, No Rhinorrhea, No Swallowing Difficulty Eyes: No Eye Pain, No Swelling, No Redness Cardiovascular: No Chest Pain, + SOB, No Orthopnea, No Edema Respiratory: + Cough, No Sputum, No Wheezing, + dyspnea Gastrointestinal: + Nausea, No Vomiting, No Diarrhea, No abdominal Pain, No Hematochezia, No Melena Genitourinary: No Dysuria, No Urinary Frequency, No Hematuria Musculoskeletal: No joint pain, + Myalgias Skin: No Skin Lesions, No rash Neuro: + Weakness, + Numbness, No Dizziness, + Headache Psych: + Anxiety/Panic, No Depression Heme/Lymph: No Bruising, No Lymphadenopathy Endocrine: No Polyuria, No Polydipsia [facility] Past Medical History Attestation statement: The following information was validated with the patient. Medical History COPD (chronic obstructive pulmonary disease) Hypertension Myocardial infarction Surgical History History of coronary artery stent placement History of hernia repair Family History Family History Father No problems noted. Mother No problems noted. Brother Hepatocellular carcinoma Social History Social History Alcohol intake: never Smoking Status: Current every day smoker Tobacco Type: Cigarette Packs Per Day: 2 Advance Directives: Yes Advance Directives Information Provided: No Advance Directives on File: No Physical Exam Vital Signs: Vital Signs: Last Vital Signs Temp 97.6 F 11/29/20 09:29 Pulse 56 11/29/20 09:29 Resp 16 11/29/20 09:29 BP 161/87 H 11/29/20 09:29 Pulse Ox 97 11/29/20 09:29 Body Mass Index 22.7 Appearance: Alert. Oriented X3. No acute distress. Eyes: Pupils equal, round and reactive to light. ENT: Pharynx normal. Neck: Normal inspection. Neck supple. CVS: Normal heart rate and rhythm. Pulses normal. Respiratory: No respiratory distress. Breath sounds normal. Abdomen: Soft and nontender. +BS x4 Skin: Skin warm and dry. Normal skin color. Normal skin turgor. No rashes. Extremities: No lower extremity edema. Neuro: Oriented X 3. No motor deficit. No sensory deficit. Steady gait. Speaks in complete sentences. Course Course Course Narrative: 65 y/o male with multiple comorbidities presenting with generalized weakness and reports of a numb sensation in his head and neck x1 week in the setting of heavy smoking. His neuro examination is nonfocal. Symptoms are non-debilitating. Doubt CVA, not a tPA candidate anyhow. Will proceed with CT head, EKG, lab workup and check Viral PCR. Reevaluation(s) Reevaluation #1: EKG sinus bradycardia, which he has a history of in the past. BP stable 160's. CT head is normal. Metabolic workup is unremarkable. Patient sleeping comfortable. Exam remains non-focal and he is feeling okay. Patient with generalized weakness likely due to poor diet and excessive cigarette smoking. Lifestyle changes were discussed and patient encouraged to f/u with Cardiology for further workup. He is hemodynamically stable and comfortable with d/c home. MDM - Weakness Medical Records Attestation: I reviewed the patient's medical records. Lab Data Attestation: I reviewed the patient's lab results. Result diagrams: 11/29/20 10:06 11/29/20 10:06 Labs: Lab Results 11/29/20 11/29/20 11/29/20 Range/Units 10:06 10:06 10:06 WBC 5.8 (4.8-10.8) X10*3/uL RBC 4.93 (4.60-5.80) X10*6/uL Hgb 15.1 (14.0-18.0) g/dl Hct 44.4 (42-52) % MCV 90.1 (80-98) fL MCH 30.6 (27.0-33.0) pg MCHC 34.0 (31.0-36.0) g/dl RDW 13.4 (11.0-16.0) % Plt Count 248 (160-400) X10*3/uL MPV 9.4 (9.4-12.4) fL Immature Gran % (Auto) 0.2 (0.0-0.4) % Neut % (Auto) 58.9 (45-73) % Lymph % (Auto) 24.4 (20-40) % [place] % (Auto) 11.3 H (2-11) % Eos % (Auto) 4.5 H (0-4) % Baso % (Auto) 0.7 (0-2) % Lymph # (Auto) 1.4 (1.2-4.9) X10*3/uL [place] # (Auto) 0.7 (0.1-1.2) X10*3/uL Eos # (Auto) 0.3 (0.0-0.4) X10*3/uL Baso # (Auto) 0.0 (0.0-0.2) X10*3/uL Abs Immat Gran (auto) 0.01 (0.00-0.03) X10*3/uL Absolute Neuts (auto) 3.4 (2.0-8.3) X10*3/uL Absolute Nucleated RBC 0.000 (0.0-0.012) X10*3/uL Nucleated RBC % (auto) 0.0 (0.0-0.2) /100WBC PT 12.2 (10.8-13.0) SEC INR 1.0 (0.9-1.1) APTT 33.6 (24.1-38.0) SEC Hold Blue Top SEE NOTE Sodium 139 (135-145) mmol/L Potassium 4.4 (3.3-5.1) mmol/L Chloride 107 (96-108) mmol/L Carbon Dioxide 26 (22-29) mmol/L Anion Gap 10 L (12-20) BUN 24 H (9-16) mg/dL Creatinine 0.99 (0.5-1.4) mg/dL Estim Creat Clear Calc 76.7 Estimated GFR > 60 Random Glucose 96 (60-115) mg/dL Calcium 9.4 (8.4-10.2) mg/dL Magnesium 2.2 (1.6-2.6) mg/dL Total Bilirubin 0.4 (0.0-1.0) mg/dL Direct Bilirubin 0.2 (0.0-0.5) mg/dL AST 20 (5-37) U/L ALT 23 (0-40) U/L Alkaline Phosphatase 106 (39-117) U/L Troponin I High Sens (<3.5-35.0) ng/L B-Natriuretic Peptide (<100) pg/mL Total Protein 6.8 (6.5-8.0) g/dL Albumin 4.0 (3.5-5.0) g/dL Coronavirus (PCR) (Negative) Influenza Type A (PCR) (Negative) Influenza Type B (PCR) (Negative) RSV RNA Qual (PCR) (Negative) 11/29/20 11/29/20 Range/Units 10:06 10:06 WBC (4.8-10.8) X10*3/uL RBC (4.60-5.80) X10*6/uL Hgb (14.0-18.0) g/dl Hct (42-52) % MCV (80-98) fL MCH (27.0-33.0) pg MCHC (31.0-36.0) g/dl RDW (11.0-16.0) % Plt Count (160-400) X10*3/uL MPV (9.4-12.4) fL Immature Gran % (Auto) (0.0-0.4) % Neut % (Auto) (45-73) % Lymph % (Auto) (20-40) % [place] % (Auto) (2-11) % Eos % (Auto) (0-4) % Baso % (Auto) (0-2) % Lymph # (Auto) (1.2-4.9) X10*3/uL [place] # (Auto) (0.1-1.2) X10*3/uL Eos # (Auto) (0.0-0.4) X10*3/uL Baso # (Auto) (0.0-0.2) X10*3/uL Abs Immat Gran (auto) (0.00-0.03) X10*3/uL Absolute Neuts (auto) (2.0-8.3) X10*3/uL Absolute Nucleated RBC (0.0-0.012) X10*3/uL Nucleated RBC % (auto) (0.0-0.2) /100WBC PT (10.8-13.0) SEC INR (0.9-1.1) APTT (24.1-38.0) SEC Hold Blue Top Sodium (135-145) mmol/L Potassium (3.3-5.1) mmol/L Chloride (96-108) mmol/L Carbon Dioxide (22-29) mmol/L Anion Gap (12-20) BUN (9-16) mg/dL Creatinine (0.5-1.4) mg/dL Estim Creat Clear Calc Estimated GFR Random Glucose (60-115) mg/dL Calcium (8.4-10.2) mg/dL Magnesium (1.6-2.6) mg/dL Total Bilirubin (0.0-1.0) mg/dL Direct Bilirubin (0.0-0.5) mg/dL AST (5-37) U/L ALT (0-40) U/L Alkaline Phosphatase (39-117) U/L Troponin I High Sens 3.5 (<3.5-35.0) ng/L B-Natriuretic Peptide 47 (<100) pg/mL Total Protein (6.5-8.0) g/dL Albumin (3.5-5.0) g/dL Coronavirus (PCR) NEGATIVE (Negative) Influenza Type A (PCR) NEGATIVE (Negative) Influenza Type B (PCR) NEGATIVE (Negative) RSV RNA Qual (PCR) NEGATIVE (Negative) ECG Data Attestation: I personally reviewed and interpreted this ECG as follows: ECG interpretation date: 11/29/20 ECG interpretation time: 10:03 Prior ECG tracings: available for review Interpretation: sinus bradycardia, HR 52 bpm, 1st degree AV block with IA interval 202ms, no ST segment depressions or elevations history of sinus bradycardia in September 2020 Discharge Plan Discharge Clinical Impression: Bradycardia, sinus Patient Disposition: Home, Self-Care Instructions: Bradycardia (ED), Weakness (ED) Additional Instructions: Your workup today in the ER was negative. Suggest rest, no strenuous activity. Drink plenty of water and avoid fast food and soda. Do your best to cut back on smoking cigarettes. This may be contributing to feeling unwell. Recommend follow up with Cardiology for further workup. Follow up with your doctor in 1 week. If you have worsening symptoms or any new or concerning symptoms come back to the ER for further evaluation. Prescriptions: No Action clopidogrel 75 mg tablet 75 mg PO DAILY 90 Days Qty: 90 RF: 0 metoprolol succinate 50 mg tablet extended release 24 hr 50 mg PO DAILY Qty: 90 RF: 1 ibuprofen 600 mg tablet 600 mg PO Q8H Qty: 180 RF: 1 lorazepam 0.5 mg tablet 0.5 mg PO DAILY PRN (Reason: anxiety) 5 Days Qty: 5 RF: 0 aspirin 81 mg tablet,delayed release (DR/EC) 81 mg PO DAILY 90 Days Qty: 90 RF: 2 Referrals: Alverto Mcfadden MD [Physician] - 2 days (bradycardia) Stand Alone Forms: Work/School Release
[2020-11-29 10:19] LABS: MANUAL DIFF FLAG NO
[2020-11-29 10:22] LABS: Basophils Percent Auto 0.7 % (0-2); Eosinophils Absolute Auto 0.3 X10*3/uL (0.0-0.4); Eosinophils Percent Auto 4.5 % (0-4); Hematocrit 44.4 % (42-52); Hemoglobin 15.1 g/dl (14.0-18.0); Imm Gran Abs Auto 0.01 X10*3/uL (0.00-0.03); Imm Gran Pct Auto 0.2 % (0.0-0.4); Lymphocytes Absolute Auto 1.4 X10*3/uL (1.2-4.9); Lymphocytes Percent Auto 24.4 % (20-40); Mean Corpuscular Hemoglobin 30.6 pg (27.0-33.0); Mean Corpuscular Volume 90.1 fL (80-98); Mean Platelet Volume 9.4 fL (9.4-12.4); Monocytes Absolute Auto 0.7 X10*3/uL (0.1-1.2); Monocytes Percent Auto 11.3 % (2-11); Neutrophils Absolute Auto 3.4 X10*3/uL (2.0-8.3); Neutrophils Percent Auto 58.9 % (45-73); Platelet Count 248 X10*3/uL (160-400); Red Blood Count 4.93 X10*6/uL (4.60-5.80); Red Cell Distribution Width 13.4 % (11.0-16.0); White Blood Count 5.8 X10*3/uL (4.8-10.8)
[2020-11-29 10:30] LABS: Prothrombin Time 12.2 SEC (10.8-13.0)
[2020-11-29 10:33] LABS: Partial Thromboplastin Time 33.6 SEC (24.1-38.0)
[2020-11-29 10:58] LABS: Alanine Aminotransferase 23 U/L (0-40); Alkaline Phosphatase 106 U/L (39-117); Anion Gap 10 (12-20); Aspartate Amino Transferase 20 U/L (5-37); Bilirubin Direct 0.2 mg/dL (0.0-0.5); Bilirubin Total 0.4 mg/dL (0.0-1.0); Blood Urea Nitrogen 24 mg/dL (9-16); Calcium 9.4 mg/dL (8.4-10.2); Carbon Dioxide 26 mmol/L (22-29); Chloride 107 mmol/L (96-108); Creatinine Clr Calc Pharmacy 76.7; Estimated Glomerular Filt Rate > 60; Glucose Random 96 mg/dL (60-115); Magnesium 2.2 mg/dL (1.6-2.6); Potassium 4.4 mmol/L (3.3-5.1); Sodium 139 mmol/L (135-145); Total Protein 6.8 g/dL (6.5-8.0)
[2020-11-29 10:59] LABS: Influenza A PCR NEGATIVE (Negative); Influenza B PCR NEGATIVE (Negative); Resp Syncy Virus RNA Qual PCR NEGATIVE (Negative); SARS COV2 PCR INHOUSE NEGATIVE (Negative)
[2020-11-29 11:01] LABS: B Type Natriuretic Peptide 47 pg/mL (<100); Troponin-I High Sensitivity 3.5 ng/L (<3.5-35.0)
== END 2020-11-29 13:28 | disposition home or self-care (01) ==
PROVIDERS: Physician Assistant; Emergency Provider Emergency Medicine Emergency Medical Services; PCP Physician Assistant
DX: R00.1 Bradycardia, unspecified (principal); R53.1 Weakness; Z20.822 Contact with and (suspected) exposure to COVID-19; T45.526A Underdosing of antithrombotic drugs, initial encounter; Y92.009 Unspecified place in unspecified non-institutional (private) residence as the place of occurrence of the external cause; I10 Essential (primary) hypertension; E78.5 Hyperlipidemia, unspecified; F41.9 Anxiety disorder, unspecified; F17.210 Nicotine dependence, cigarettes, uncomplicated
CPT/HCPCS: 0241U; 36415; 70450; 71045; 80048; 80076; 83735; 83880; 84484; 85025; 85610; 85730; 93005; 99283; 99284

== ENCOUNTER 2021-01-22 19:52 | Emergency (ER) | payer OTHER, SELFPAY ==
--- NOTE | ~2021-01-22 | XR_ITS ---
EXAMINATION: XR CHEST CLINICAL INFORMATION: Weakness COMPARISON: 11/29/2020 TECHNIQUE: Frontal view of the chest was obtained. FINDINGS: No significant abnormality is noted involving the heart, lungs, mediastinum, bony thorax or soft tissues. Bilateral nipple shadows are seen. XR/XR chest 1V IMPRESSION: Unremarkable examination.
[2021-01-22 20:44] VITALS: BP 158/102; PULSE 72; RESP 16; TEMP 36.6; O2SAT 98; BMI 23.0
--- NOTE | 2021-01-22 20:51 | ECG_ITS ---
Test Reason : FATIGUE/SOB Blood Pressure : / mmHG Vent. Rate : 056 BPM Atrial Rate : 056 BPM P-R Int : 194 ms QRS Dur : 100 ms QT Int : 436 ms P-R-T Axes : 070 068 051 degrees QTc Int : 420 ms Sinus bradycardia Otherwise normal ECG When compared with ECG of 29-NOV-2020 09:59, No significant change was found Referred By: Generic ED Physician Electronically Signed By:Alverto Mcfadden
[2021-01-22 21:54] VITALS: BP 164/97; PULSE 65; RESP 16; O2SAT 98
--- NOTE | 2021-01-22 21:55 | PC.NURSE ---
IV established, labs and EKG obtained. VSS. Pt awaiting primary MD flores.
[2021-01-22 22:00] LABS: MANUAL DIFF FLAG NO
[2021-01-22 22:01] LABS: Basophils Absolute Auto 0.1 X10*3/uL (0.0-0.2); Basophils Percent Auto 0.7 % (0-2); Eosinophils Absolute Auto 0.5 X10*3/uL (0.0-0.4); Eosinophils Percent Auto 7.2 % (0-4); Hematocrit 44.2 % (42-52); Hemoglobin 15.1 g/dl (14.0-18.0); Imm Gran Abs Auto 0.01 X10*3/uL (0.00-0.03); Imm Gran Pct Auto 0.1 % (0.0-0.4); Lymphocytes Absolute Auto 2.3 X10*3/uL (1.2-4.9); Mean Corpuscular HGB Conc 34.2 g/dl (31.0-36.0); Mean Corpuscular Hemoglobin 31.3 pg (27.0-33.0); Mean Corpuscular Volume 91.5 fL (80-98); Mean Platelet Volume 9.4 fL (9.4-12.4); Monocytes Absolute Auto 0.8 X10*3/uL (0.1-1.2); Neutrophils Absolute Auto 3.8 X10*3/uL (2.0-8.3); Platelet Count 252 X10*3/uL (160-400); Red Blood Count 4.83 X10*6/uL (4.60-5.80); Red Cell Distribution Width 13.3 % (11.0-16.0); White Blood Count 7.5 X10*3/uL (4.8-10.8)
[2021-01-22 22:23] LABS: Anion Gap 14 (12-20); Blood Urea Nitrogen 21 mg/dL (9-16); Calcium 9.4 mg/dL (8.4-10.2); Carbon Dioxide 25 mmol/L (22-29); Chloride 105 mmol/L (96-108); Creatinine Clr Calc Pharmacy 66.9; Estimated Glomerular Filt Rate > 60; Glucose Random 91 mg/dL (60-115); Potassium 4.5 mmol/L (3.3-5.1); Sodium 139 mmol/L (135-145)
[2021-01-22 22:30] LABS: Troponin-I High Sensitivity 3.6 ng/L (<3.5-35.0)
--- NOTE | 2021-01-22 22:41 | ED.GENADULT ---
HPI - General Adult General Chief complaint: General Medical Stated complaint: weakness Time Seen by Provider: 01/22/21 22:27 Source: patient Mode of arrival: ambulatory Limitations: no limitations History of Present Illness HPI narrative: Patient comes emergency room stating that he does not feel right. Patient states that he stopped taking his medication for his blood pressure and for his heart approximately 10 days ago. Patient states there was no reason why he is taking it, he just did not want take it. Patient denies chest pain, no shortness of breath, patient complaining also of a callus in his left toe Related Data Previous Rx's Medication Instructions Recorded clopidogrel 75 mg tablet 75 mg PO DAILY 90 Days #90 tab 10/04/20 metoprolol succinate 50 mg 50 mg PO DAILY #90 tab 10/17/20 tablet,extended release 24 hr aspirin 81 mg tablet,delayed 81 mg PO DAILY 90 Days #90 tab 11/14/20 release ibuprofen 600 mg tablet 600 mg PO Q8H #180 tab 11/14/20 lorazepam 0.5 mg tablet 0.5 mg PO DAILY PRN 5 Days #5 tab 11/14/20 terbinafine HCl 1 appl TOPICAL BID #15 g 01/22/21 Allergies Allergy/AdvReac Type Severity Reaction Status Date / Time tadalafil [From Cialis] Allergy Unknown anxiety Verified 01/22/21 20:43 Review of Systems Review of Systems: Constitutional : No Weight loss, No Fever, No Chills, No Night Sweats, No Fatigue, No Malaise ENT/Mouth : No Hearing loss, No Ear Pain, No Nasal Congestion, No Sinus Pain, No Hoarseness, No sore throat, No Rhinorrhea, No Swallowing Difficulty Eyes: No Eye Pain, No Swelling, No Redness, No Foreign Body, No Discharge, No Vision Changes Cardiovascular : No Chest Pain, No SOB, No Dyspnea on Exertion, No Orthopnea, No Edema, No Palpitations Respiratory : No Cough, No Sputum, No Wheezing, No Smoke Exposure, No Dyspnea Gastrointestinal : No Nausea, No Vomiting, No Diarrhea, No Constipation, No abdominal Pain, No Hematochezia, No Melena Genitourinary : no irregular bleeding, No Dysuria, No Urinary Frequency, No Hematuria, No Urinary Incontinence, No Urgency, No Flank Pain, No Urinary Flow Changes, No Hesitancy Musculoskeletal : No joint pain, No Myalgias, No Joint Swelling Skin : Complaining of a callus in his left toe Neuro : No Weakness, No Numbness, No Paresthesias, No Loss of Consciousness, No Dizziness, No Headache Psych : No Anxiety/Panic, No Depression, No SI/HI/AH/VH, No Social Issues, Heme/Lymph: No Bruising, No Bleeding,No Lymphadenopathy Endocrine : No Polyuria, No Polydipsia, No Temperature Intolerance [facility] Past Medical History Medical History COPD (chronic obstructive pulmonary disease) Hypertension Myocardial infarction Surgical History History of coronary artery stent placement History of hernia repair Family History Family History Father No problems noted. Mother No problems noted. Brother Hepatocellular carcinoma Social History Social History Alcohol intake: never Cigarette Packs Per Day: 2 Advance Directives: No Advance Directives Information Provided: Yes Physical Exam Vital Signs: Vital Signs: Last Vital Signs Temp 97.9 F 01/22/21 20:44 Pulse 65 01/22/21 21:54 Resp 16 01/22/21 21:54 BP 164/97 H 01/22/21 21:54 Pulse Ox 98 01/22/21 21:54 Body Mass Index 23.0 Appearance: Alert. Oriented X3. No acute distress. Well-appearing Eyes: Pupils equal, round and reactive to light. ENT: Pharynx normal. Neck: Normal inspection. Neck supple. No lymph nodes noted. No crepitus CVS: Normal heart rate and rhythm. Pulses normal. Normal S1 and S2 Respiratory: No respiratory distress. Breath sounds normal. No Wheezing. No rales Abdomen: Soft and nontender. No rigidity. No distention. good BS x4 Skin: Skin warm and dry. Normal skin color. Normal skin turgor. Toe on the left foot has a callus in the dorsal aspect Extremities: No lower extremity edema. No Lacerations. No Rash Neuro: Oriented X 3. No motor deficit. No sensory deficit. Moving all extermities. No slurred speech. Course Course Course Narrative: Discussed the labs with the patient, troponin negative, EKG unremarkable. Patient instructed to start taking his medications. Patient states he does not need a prescription for refill of his meds, he has plenty at home. Medical Decision Making Lab Data Result diagrams: 01/22/21 21:54 01/22/21 21:54 Labs: Lab Results 01/22/21 01/22/21 01/22/21 Range/Units 21:54 21:54 21:54 WBC 7.5 (4.8-10.8) X10*3/uL RBC 4.83 (4.60-5.80) X10*6/uL Hgb 15.1 (14.0-18.0) g/dl Hct 44.2 (42-52) % MCV 91.5 (80-98) fL MCH 31.3 (27.0-33.0) pg MCHC 34.2 (31.0-36.0) g/dl RDW 13.3 (11.0-16.0) % Plt Count 252 (160-400) X10*3/uL MPV 9.4 (9.4-12.4) fL Immature Gran % (Auto) 0.1 (0.0-0.4) % Neut % (Auto) 50.0 (45-73) % Lymph % (Auto) 31.0 (20-40) % [place] % (Auto) 11.0 (2-11) % Eos % (Auto) 7.2 H (0-4) % Baso % (Auto) 0.7 (0-2) % Lymph # (Auto) 2.3 (1.2-4.9) X10*3/uL [place] # (Auto) 0.8 (0.1-1.2) X10*3/uL Eos # (Auto) 0.5 H (0.0-0.4) X10*3/uL Baso # (Auto) 0.1 (0.0-0.2) X10*3/uL Abs Immat Gran (auto) 0.01 (0.00-0.03) X10*3/uL Absolute Neuts (auto) 3.8 (2.0-8.3) X10*3/uL Absolute Nucleated RBC 0.000 (0.0-0.012) X10*3/uL Nucleated RBC % (auto) 0.0 (0.0-0.2) /100WBC Sodium 139 (135-145) mmol/L Potassium 4.5 (3.3-5.1) mmol/L Chloride 105 (96-108) mmol/L Carbon Dioxide 25 (22-29) mmol/L Anion Gap 14 (12-20) BUN 21 H (9-16) mg/dL Creatinine 1.18 (0.5-1.4) mg/dL Estim Creat Clear Calc 66.9 Estimated GFR > 60 Random Glucose 91 (60-115) mg/dL Calcium 9.4 (8.4-10.2) mg/dL Troponin I High Sens 3.6 (<3.5-35.0) ng/L Imaging Data Chest x-ray: Radiologist's impression: No significant abnormality is noted involving the heart, lungs, mediastinum, bony thorax or soft tissues. Bilateral nipple shadows are seen. XR/XR chest 1V IMPRESSION: Unremarkable examination. ECG Data Attestation: I personally reviewed and interpreted this ECG as follows: (Sinus bradycardia, heart rate 56, no ST segment depression or elevation, no T-wave inversion) Discharge Plan Discharge Clinical Impression: Pain in toe Patient Disposition: Home, Self-Care Instructions: Common Wart (ED) Additional Instructions: Please follow-up with your primary care physician tomorrow. If you have any worsening or new symptoms, please return to the emergency room or call 911 Prescriptions: New terbinafine HCl 1 % cream 1 appl topical BID Qty: 15 RF: 0 No Action clopidogrel 75 mg tablet 75 mg PO DAILY 90 Days Qty: 90 RF: 0 metoprolol succinate 50 mg tablet extended release 24 hr 50 mg PO DAILY Qty: 90 RF: 1 ibuprofen 600 mg tablet 600 mg PO Q8H Qty: 180 RF: 1 lorazepam 0.5 mg tablet 0.5 mg PO DAILY PRN (Reason: anxiety) 5 Days Qty: 5 RF: 0 aspirin 81 mg tablet,delayed release (DR/EC) 81 mg PO DAILY 90 Days Qty: 90 RF: 2
== END 2021-01-22 23:43 | disposition home or self-care (01) ==
PROVIDERS: Emergency Provider Emergency Medicine; PCP Physician Assistant
DX: M79.675 Pain in left toe(s) (principal); I10 Essential (primary) hypertension; Z91.14 Patient's other noncompliance with medication regimen; F17.210 Nicotine dependence, cigarettes, uncomplicated; Z95.5 Presence of coronary angioplasty implant and graft
CPT/HCPCS: 36415; 71045; 80048; 84484; 85025; 93005; 99284

== ENCOUNTER 2021-03-08 09:53 | Emergency (ER) | payer OTHER, SELFPAY ==
[2021-03-08] VITALS (11 sets, daily range): BP systolic 131–167; BP diastolic 71–92; PULSE 50–63; RESP 15–18; TEMP 36.3–36.6; O2SAT 97–100; BMI 24.3
--- NOTE | 2021-03-08 11:09 | ECG_ITS ---
Test Reason : WEAKNESS Blood Pressure : / mmHG Vent. Rate : 055 BPM Atrial Rate : 055 BPM P-R Int : 206 ms QRS Dur : 092 ms QT Int : 438 ms P-R-T Axes : 056 055 076 degrees QTc Int : 419 ms Sinus bradycardia Nonspecific T wave abnormality Abnormal ECG When compared with ECG of 22-JAN-2021 21:53, No significant change was found Referred By: Emily Garcia Electronically Signed By:RITIKA SIMON
--- NOTE | 2021-03-08 11:31 | ED.WEAKNESS ---
HPI - Weakness General Chief complaint: Weakness Stated complaint: headache Time Seen by Provider: 03/08/21 10:12 Source: patient Mode of arrival: ambulatory History of Present Illness HPI Narrative: 65-year-old male with a past medical history of COPD, CAD s/p stent placement, HTN, presenting to the ED complaining of intermittent head spasms x2 days. Reports associated full body weakness. Denies fever, chills, nausea/vomiting, visual change/loss, CP/SOB, abdominal pain, nausea/vomiting, numbness/tingling MD Complaint: generalized weakness Related Data Previous Rx's Medication Instructions Recorded aspirin 81 mg tablet,delayed 81 mg PO DAILY 90 Days #90 tab 11/14/20 release ibuprofen 600 mg tablet 600 mg PO Q8H #180 tab 11/14/20 terbinafine HCl 1 % topical cream 1 appl TOPICAL BID #15 g 01/22/21 clopidogrel 75 mg tablet 75 mg PO DAILY 90 Days #90 tab 02/13/21 metoprolol succinate 50 mg 50 mg PO DAILY #90 tab 02/13/21 tablet,extended release 24 hr lisinopril 30 mg tablet 30 mg PO DAILY 90 Days #90 tab 02/14/21 lorazepam 0.5 mg tablet 0.5 mg PO DAILY PRN 5 Days #5 tab 02/14/21 tlovsxsipp-ednohrqyyvqlo-xepzcnsw 1 cap PO Q4-6H PRN #14 cap 03/08/21 50 mg-300 mg-40 mg capsule (Fioricet) Allergies Allergy/AdvReac Type Severity Reaction Status Date / Time tadalafil [From Cialis] Allergy Unknown anxiety Verified 02/13/21 14:32 Review of Systems Review of Systems: Constitutional: No Fever, No Chills, No Fatigue, No Malaise ENT/Mouth: No Ear Pain, No Sinus Pain, No sore throat Eyes: No Eye Pain, No Vision Changes Cardiovascular: No Chest Pain, No SOB Respiratory: No Cough, No Dyspnea Gastrointestinal: No Nausea, No Vomiting, No Diarrhea, No Constipation, No Abdominal pain Genitourinary: No Dysuria, No Urinary Frequency, No Hematuria, No Urinary Incontinence, No Urgency, No Flank Pain Musculoskeletal: No joint pain, + Myalgias, No Joint Swelling Skin: No Skin Lesions, No rash Neuro: + Weakness, No Numbness, No Paresthesias, No Dizziness, + Headache Yes all other systems are reviewed and are negative Neurologic: Denies Abnormal speech present [facility] Past Medical History Attestation statement: The following information was validated with the patient. Medical History COPD (chronic obstructive pulmonary disease) Hypertension Myocardial infarction Surgical History History of coronary artery stent placement History of hernia repair Family History Family History Father No problems noted. Mother No problems noted. Brother Hepatocellular carcinoma Social History Social History Housing: Other Housing Other:: van Alcohol intake: never Patient Tobacco Use Status: Current everyday Tobacco user Tobacco use type: Cigarette Cigarette Packs Per Day: 2 Cigarettes Per Day: 40 e-Cigarette/Vaping Use: Never Used Advance Directives: No Advance Directives Information Provided: No service: No Current occupational status: unemployed Physical Exam Vital Signs: Vital Signs: Last Vital Signs Temp 97.8 F 03/08/21 16:23 Pulse 56 03/08/21 16:23 Resp 16 03/08/21 16:23 BP 166/92 H 03/08/21 16:23 Pulse Ox 100 03/08/21 16:23 Body Mass Index 24.3 Const: General: cooperative and healthy appearing Orientation/consciousness: patient oriented x3 Limitations: no limitations HENMT: Head: Yes normal to inspection Ears: hearing grossly normal bilaterally General nose exam: Normal external nose present Face and sinus: Yes normal facial exam Eyes: General: appearance normal, both eyes and all related structures Pupils: Equal, round and reactive pupils present EOM: EOMs intact bilaterally Neck: Neck: Yes normal visual inspection, Yes no lymphadenopathy and Yes no meningeal signs Resp: Effort & Inspection: normal respiratory effort Auscultation: clear to auscultation bilaterally, no rales, no rhonchi and no wheezes Cardio: Rate: regular rate Heart sounds: S1 normal heart sound present and S2 normal heart sound present GI: Inspection: Yes normal to inspection Palpation (GI): Soft to palpation, nontender and no guarding Skin: Rashes: no rashes Wounds: no wounds Neuro: General: patient oriented x3, gait normal, tone normal, moves all extremities, no meningeal signs, no focal motor deficits and CN's II-XI intact bilaterally Cranial nerves: Yes Equal, round and reactive pupils present Cognition (Neuro): normal cognition Speech: No Abnormal speech present Gait exam (Neuro): Normal gait present Motor exam (neuro): 5/5 motor strength present throughout, Pronator motor function not present and no tremor noted Coordination: uioqov-ef-uohw test normal Romberg Test: Negative Extrem: General: Yes normal to inspection and Yes no pedal edema Course Course Course Narrative: -1311--labs unremarkable. COVID-19 negative -orthostatics are positive >> patient reports dizziness upon standing during orthostatics. Will give additional L IVF and repeat -1639--repeat orthostatic vital signs negative/improved after IVF. Patient reports symptomatic improvement. Worrisome signs and symptoms and strict return precautions discussed MDM - Weakness MDM Narrative Medical decision making narrative: 65-year-old male with a past medical history of COPD, CAD s/p stent placement, HTN, presenting to the ED complaining of intermittent head spasms x2 days. Reports associated full body weakness. On exam VSS, NAD, well appearing, no focal neuro deficits. Concern for complicated migraine headache vs viral syndrome/COVID-19 vs metabolic abnormalities. R/o infectious etiology. Low concern for meningitis/encephalitis, SAH, CVA/TIA, CVT Plan: EKG, labs, UA, IVF, Sx Tx, Reassess Medical Records Attestation: I reviewed the patient's medical records. Lab Data Attestation: I reviewed the patient's lab results. Result diagrams: 03/08/21 11:45 03/08/21 11:45 Labs: Lab Results 03/08/21 03/08/21 03/08/21 Range/Units 11:45 11:45 11:45 WBC 8.2 (4.8-10.8) X10*3/uL RBC 4.39 L (4.60-5.80) X10*6/uL Hgb 14.0 (14.0-18.0) g/dl Hct 40.2 L (42-52) % MCV 91.6 (80-98) fL MCH 31.9 (27.0-33.0) pg MCHC 34.8 (31.0-36.0) g/dl RDW 13.0 (11.0-16.0) % Plt Count 253 (160-400) X10*3/uL MPV 9.2 L (9.4-12.4) fL Immature Gran % (Auto) 0.4 (0.0-0.4) % Neut % (Auto) 58.9 (45-73) % Lymph % (Auto) 25.5 (20-40) % [place] % (Auto) 10.4 (2-11) % Eos % (Auto) 4.4 H (0-4) % Baso % (Auto) 0.4 (0-2) % Lymph # (Auto) 2.1 (1.2-4.9) X10*3/uL [place] # (Auto) 0.9 (0.1-1.2) X10*3/uL Eos # (Auto) 0.4 (0.0-0.4) X10*3/uL Baso # (Auto) 0.0 (0.0-0.2) X10*3/uL Abs Immat Gran (auto) 0.03 (0.00-0.03) X10*3/uL Absolute Neuts (auto) 4.8 (2.0-8.3) X10*3/uL Absolute Nucleated RBC 0.000 (0.0-0.012) X10*3/uL Nucleated RBC % (auto) 0.0 (0.0-0.2) /100WBC Sodium 139 (135-145) mmol/L Potassium 3.8 (3.3-5.1) mmol/L Chloride 106 (96-108) mmol/L Carbon Dioxide 28 (22-29) mmol/L Anion Gap 9 L (12-20) BUN 19 H (9-16) mg/dL Creatinine 1.05 (0.5-1.4) mg/dL Estim Creat Clear Calc 71.0 Estimated GFR > 60 Random Glucose 97 (60-115) mg/dL Calcium 8.7 D (8.4-10.2) mg/dL Magnesium 2.0 (1.6-2.6) mg/dL Total Bilirubin 0.4 (0.0-1.0) mg/dL Direct Bilirubin 0.2 (0.0-0.5) mg/dL AST 20 (5-37) U/L ALT 28 (0-40) U/L Alkaline Phosphatase 101 (39-117) U/L Total Protein 6.2 L (6.5-8.0) g/dL Albumin 3.6 (3.5-5.0) g/dL Urine Color Urine Appearance Urine pH (5.0-8.0) Ur Specific [place] (1.005-1.025) Urine Protein (NEG-TRACE) MG/DL Urine Glucose (UA) (NEG) MG/DL Urine Ketones (NEG) MG/DL Urine Blood (NEG) Urine Nitrite (NEG) Ur Leukocyte Esterase (NEG) COVID-19 ([facility]) Negative (Negative) COVID-19 Clin Com See Note 03/08/21 Range/Units 11:45 WBC (4.8-10.8) X10*3/uL RBC (4.60-5.80) X10*6/uL Hgb (14.0-18.0) g/dl Hct (42-52) % MCV (80-98) fL MCH (27.0-33.0) pg MCHC (31.0-36.0) g/dl RDW (11.0-16.0) % Plt Count (160-400) X10*3/uL MPV (9.4-12.4) fL Immature Gran % (Auto) (0.0-0.4) % Neut % (Auto) (45-73) % Lymph % (Auto) (20-40) % [place] % (Auto) (2-11) % Eos % (Auto) (0-4) % Baso % (Auto) (0-2) % Lymph # (Auto) (1.2-4.9) X10*3/uL [place] # (Auto) (0.1-1.2) X10*3/uL Eos # (Auto) (0.0-0.4) X10*3/uL Baso # (Auto) (0.0-0.2) X10*3/uL Abs Immat Gran (auto) (0.00-0.03) X10*3/uL Absolute Neuts (auto) (2.0-8.3) X10*3/uL Absolute Nucleated RBC (0.0-0.012) X10*3/uL Nucleated RBC % (auto) (0.0-0.2) /100WBC Sodium (135-145) mmol/L Potassium (3.3-5.1) mmol/L Chloride (96-108) mmol/L Carbon Dioxide (22-29) mmol/L Anion Gap (12-20) BUN (9-16) mg/dL Creatinine (0.5-1.4) mg/dL Estim Creat Clear Calc Estimated GFR Random Glucose (60-115) mg/dL Calcium (8.4-10.2) mg/dL Magnesium (1.6-2.6) mg/dL Total Bilirubin (0.0-1.0) mg/dL Direct Bilirubin (0.0-0.5) mg/dL AST (5-37) U/L ALT (0-40) U/L Alkaline Phosphatase (39-117) U/L Total Protein (6.5-8.0) g/dL Albumin (3.5-5.0) g/dL Urine Color YELLOW Urine Appearance CLEAR Urine pH 6.0 (5.0-8.0) Ur Specific [place] <= 1.005 (1.005-1.025) Urine Protein NEG (NEG-TRACE) MG/DL Urine Glucose (UA) NEG (NEG) MG/DL Urine Ketones NEG (NEG) MG/DL Urine Blood NEG (NEG) Urine Nitrite NEG (NEG) Ur Leukocyte Esterase NEG (NEG) COVID-19 ([facility]) (Negative) COVID-19 Clin Com Discharge Plan Discharge Clinical Impression: Headache, Orthostatic dizziness Patient Disposition: Home, Self-Care Instructions: Acute Headache (ED) Additional Instructions: Your blood work was reassuring today in the ED Your blood pressure was initially low after standing however after fluids given improved, make sure your pushing/drinking plenty of fluids at home Fioricet headache medication, take as needed If her symptoms persist or worsen, become unbearable, you have constant worsening headache, chest pain or shortness of breath, persistent dizziness read return to the ED Please follow-up with your doctor Prescriptions: New wihzwnoxaf-wbepqxtuegcpz-hdgi [Fioricet] 50-300-40 mg capsule 1 cap PO Q4-6H PRN (Reason: headache) Qty: 14 RF: 0 No Action ibuprofen 600 mg tablet 600 mg PO Q8H Qty: 180 RF: 1 aspirin 81 mg tablet,delayed release (DR/EC) 81 mg PO DAILY 90 Days Qty: 90 RF: 2 lorazepam 0.5 mg tablet 0.5 mg PO DAILY PRN (Reason: anxiety) 5 Days Qty: 5 RF: 0 lisinopril 30 mg tablet 30 mg PO DAILY 90 Days Qty: 90 RF: 1 terbinafine HCl 1 % cream 1 appl topical BID Qty: 15 RF: 0 clopidogrel 75 mg tablet 75 mg PO DAILY 90 Days Qty: 90 RF: 0 metoprolol succinate 50 mg tablet extended release 24 hr 50 mg PO DAILY Qty: 90 RF: 1 Referrals: Anuj Lopez PA-C [Primary Care Provider] - 2 days
[2021-03-08] MEDS: Metoclopramide HCl 10 MG/2 ML VIAL IVPUSH (11:47)
[2021-03-08] MEDS: Acetaminophen 325 MG TABLET 650 MG PO (11:47)
[2021-03-08] MEDS: 0.9 % Sodium Chloride 1,000 ML 999 ML IVCONT ×2 (11:47→13:29)
[2021-03-08 11:59] LABS: MANUAL DIFF FLAG NO
[2021-03-08 12:03] LABS: Basophils Percent Auto 0.4 % (0-2); Eosinophils Absolute Auto 0.4 X10*3/uL (0.0-0.4); Eosinophils Percent Auto 4.4 % (0-4); Hematocrit 40.2 % (42-52); Imm Gran Abs Auto 0.03 X10*3/uL (0.00-0.03); Imm Gran Pct Auto 0.4 % (0.0-0.4); Lymphocytes Absolute Auto 2.1 X10*3/uL (1.2-4.9); Lymphocytes Percent Auto 25.5 % (20-40); Mean Corpuscular HGB Conc 34.8 g/dl (31.0-36.0); Mean Corpuscular Hemoglobin 31.9 pg (27.0-33.0); Mean Corpuscular Volume 91.6 fL (80-98); Mean Platelet Volume 9.2 fL (9.4-12.4); Monocytes Absolute Auto 0.9 X10*3/uL (0.1-1.2); Monocytes Percent Auto 10.4 % (2-11); Neutrophils Absolute Auto 4.8 X10*3/uL (2.0-8.3); Neutrophils Percent Auto 58.9 % (45-73); Platelet Count 253 X10*3/uL (160-400); Red Blood Count 4.39 X10*6/uL (4.60-5.80); White Blood Count 8.2 X10*3/uL (4.8-10.8)
[2021-03-08 12:18] LABS: Appearance Urine CLEAR; Color Urine YELLOW; Glucose Urine UA NEG (NEG); Leukocyte Esterase Urine NEG (NEG); Nitrite Urine NEG (NEG); Specific Gravity - Urine <= 1.005 (1.005-1.025); Urine Blood NEG (NEG); Urine Ketones NEG (NEG); Urine Protein NEG (NEG-TRACE)
[2021-03-08 12:29] LABS: Alanine Aminotransferase 28 U/L (0-40); Albumin Level 3.6 g/dL (3.5-5.0); Alkaline Phosphatase 101 U/L (39-117); Anion Gap 9 (12-20); Aspartate Amino Transferase 20 U/L (5-37); Bilirubin Direct 0.2 mg/dL (0.0-0.5); Bilirubin Total 0.4 mg/dL (0.0-1.0); Blood Urea Nitrogen 19 mg/dL (9-16); Calcium 8.7 mg/dL (8.4-10.2); Carbon Dioxide 28 mmol/L (22-29); Chloride 106 mmol/L (96-108); Estimated Glomerular Filt Rate > 60; Glucose Random 97 mg/dL (60-115); Potassium 3.8 mmol/L (3.3-5.1); Sodium 139 mmol/L (135-145); Total Protein 6.2 g/dL (6.5-8.0)
[2021-03-08 12:31] LABS: COVID-19 Test Negative (Negative)
[2021-03-08] MEDS: Butalb/Acetamin/Caff 50/325/40 TABLET 1 TAB PO (13:29)
[2021-03-08] MEDS: diphenhydrAMINE HCL 50 MG/ML VIAL 12.5 MG IVPUSH (13:29)
== END 2021-03-08 16:50 | disposition home or self-care (01) ==
PROVIDERS: Physician Assistant; Emergency Provider Emergency Medicine; PCP Physician Assistant
DX: R51.9 Headache, unspecified (principal); R53.1 Weakness; R42 Dizziness and giddiness; I10 Essential (primary) hypertension; E78.5 Hyperlipidemia, unspecified; F17.210 Nicotine dependence, cigarettes, uncomplicated; I25.2 Old myocardial infarction; Z79.890 Hormone replacement therapy; Z95.5 Presence of coronary angioplasty implant and graft; Z79.82 Long term (current) use of aspirin; Z79.899 Other long term (current) drug therapy
CPT/HCPCS: 36415; 80048; 80076; 81003; 83735; 85025; 87635; 93005; 96361; 96374; 96375; 99284; 99285; J1200; J2765

== ENCOUNTER 2021-03-24 15:35 | Emergency (ER) | payer OTHER, SELFPAY | END 2021-03-24 21:19 | disposition left against medical advice (07) | PROVIDERS: Emergency Provider Emergency Medicine; PCP Physician Assistant | DX: R51.9 Headache, unspecified (principal) ==

== ENCOUNTER 2021-04-03 07:50 | Outpatient (REF) | payer OTHER, SELFPAY ==
[2021-04-03 08:46] LABS: Hematocrit 47.8 % (42-52); Hemoglobin 16.2 g/dl (14.0-18.0); Mean Corpuscular HGB Conc 33.9 g/dl (31.0-36.0); Mean Corpuscular Hemoglobin 30.8 pg (27.0-33.0); Mean Corpuscular Volume 90.9 fL (80-98); Mean Platelet Volume 9.7 fL (9.4-12.4); Platelet Count 264 X10*3/uL (160-400); Red Blood Count 5.26 X10*6/uL (4.60-5.80); Red Cell Distribution Width 13.3 % (11.0-16.0); White Blood Count 6.8 X10*3/uL (4.8-10.8)
[2021-04-03 09:11] LABS: Alanine Aminotransferase 32 U/L (0-40); Albumin Level 4.2 g/dL (3.5-5.0); Alkaline Phosphatase 127 U/L (39-117); Anion Gap 11 (12-20); Aspartate Amino Transferase 29 U/L (5-37); Bilirubin Total 0.8 mg/dL (0.0-1.0); Blood Urea Nitrogen 11 mg/dL (9-16); Calcium 9.7 mg/dL (8.4-10.2); Carbon Dioxide 28 mmol/L (22-29); Chloride 104 mmol/L (96-108); Cholesterol 220 mg/dL; Estimated Glomerular Filt Rate > 60; Glucose Fasting 87 mg/dL (60-99); HDL Cholesterol 62 mg/dL; LDL Cholesterol Calculated 142 mg/dl; Potassium 4.4 mmol/L (3.3-5.1); Sodium 139 mmol/L (135-145); Total Protein 7.2 g/dL (6.5-8.0); Triglycerides 81 mg/dL
[2021-04-03 09:30] LABS: Creatinine Urine 77.52 mg/dL; Microalbum/Creatinine Ratio Ur 11.6 ug/mg cr
[2021-04-03 09:33] LABS: TSH reflex Free T4 0.82 uIU/mL (0.32-4.0)
[2021-04-03 09:38] LABS: Estimated Average Glucose 105 mg/dL; Hemoglobin A1c % 5.3 %
== END 2021-04-03 07:51 | disposition home or self-care (01) ==
LOC: HO.LAB 07:50
PROVIDERS: PCP Physician Assistant; Visit Provider Physician Assistant
DX: Z12.5 Encounter for screening for malignant neoplasm of prostate (principal); I25.118 Atherosclerotic heart disease of native coronary artery with other forms of angina pectoris; I10 Essential (primary) hypertension
CPT/HCPCS: 36415; 80053; 80061; 82043; 83036; 84153; 84443; 85027

== ENCOUNTER 2021-07-06 15:06 | Emergency (ER) | payer OTHER, SELFPAY | END 2021-07-06 19:17 | disposition left against medical advice (07) | PROVIDERS: Emergency Provider Emergency Medicine; PCP Physician Assistant | DX: K08.89 Other specified disorders of teeth and supporting structures (principal) ==

== ENCOUNTER 2021-07-07 06:35 | Emergency (ER) | payer OTHER, SELFPAY ==
[2021-07-07 06:47] VITALS: BP 178/99; PULSE 69; RESP 20; O2SAT 96; BMI 23.7
--- NOTE | 2021-07-07 07:55 | ED.DENTAL ---
HPI - Dental/Oral General Chief complaint: Dental/Oral Stated complaint: Dental pain Time Seen by Provider: 07/07/21 06:52 Source: patient Mode of arrival: ambulatory Limitations: no limitations History of Present Illness MD Complaint: tooth pain Location: Tooth # (12) Teeth map: 1. Onset (ago): day(s) (2) Duration: constant Severity: moderate Relieving factors: nothing Exacerbating factors: chewing and cold Context: history of dental caries and poor dental care Associated symptoms: gum swelling Treatment prior to arrival: none Related Data Previous Rx's Medication Instructions Recorded aspirin 81 mg tablet,delayed 81 mg PO DAILY 90 Days #90 tab 11/14/20 release terbinafine HCl 1 % topical cream 1 appl TOPICAL BID #15 g 01/22/21 clopidogrel 75 mg tablet 75 mg PO DAILY 90 Days #90 tab 02/13/21 metoprolol succinate 50 mg 50 mg PO DAILY #90 tab 02/13/21 tablet,extended release 24 hr lisinopril 30 mg tablet 30 mg PO DAILY 90 Days #90 tab 02/14/21 gwlydttoye-gfwicmthgjlvd-dhduiqyd 1 cap PO Q4-6H PRN #14 cap 03/26/21 50 mg-300 mg-40 mg capsule (Fioricet) bupropion HCl 150 mg tablet,12 hr 150 mg PO BID 30 Days #60 tab 04/02/21 sustained-release (Wellbutrin SR) tamsulosin 0.4 mg capsule 0.4 mg PO DAILY 30 Days #30 cap 04/02/21 atorvastatin 40 mg tablet 40 mg PO DAILY 90 Days #90 tab 04/04/21 nicotine 14 mg/24 hr daily 1 patch TRANSDERMAL DAILY 14 Days 05/02/21 transdermal patch #14 ea nicotine 21 mg/24 hr daily 1 patch TRANSDERMAL DAILY 14 Days 05/02/21 transdermal patch #14 ea nicotine (polacrilex) 4 mg gum 4 mg BUCCAL Q2H 15 Days #50 ea 05/06/21 ibuprofen 600 mg tablet 600 mg PO Q8H #180 tab 07/02/21 lorazepam 0.5 mg tablet 0.5 mg PO DAILY PRN 5 Days #5 tab 07/02/21 tadalafil 20 mg tablet (Cialis) 20 mg PO DAILY 4 Days #4 tab 07/02/21 amoxicillin 875 mg-potassium 1 tab PO BID #14 tab 07/07/21 clavulanate 125 mg tablet (Augmentin) Allergies Allergy/AdvReac Type Severity Reaction Status Date / Time tadalafil [From Cialis] Allergy Unknown anxiety Verified 07/02/21 14:46 Review of Systems Review of Systems: Constitutional : No Fever, No Chills ENT/Mouth : No swallowing difficulty, no change in voice, positive dental pain, positive jaw pain, no facial swelling Eyes: No Eye Pain, No Swelling Cardiovascular : No Chest Pain, No SOB Respiratory : No Cough, No Sputum Gastrointestinal : No Nausea, No Vomiting, No Diarrhea Genitourinary : No Dysuria Musculoskeletal : No Myalgias Skin : No rash Neuro : No Weakness, No Numbness, No Headache PMFSH Past Medical History Medical History COPD (chronic obstructive pulmonary disease) Hypertension Myocardial infarction Surgical History History of coronary artery stent placement History of hernia repair Family History Family History Father No problems noted. Mother No problems noted. Brother Hepatocellular carcinoma Social History Social History Housing: Other Housing Other:: van Alcohol intake: never Patient Tobacco Use Status: Current everyday Tobacco user Tobacco use type: Cigarette Cigarette Packs Per Day: 2 Cigarettes Per Day: 40 e-Cigarette/Vaping Use: Never Used Advance Directives: No Advance Directives Information Provided: No service: No Current occupational status: unemployed Physical Exam Vital Signs: Vital Signs: Last Vital Signs Pulse 69 07/07/21 06:47 Resp 20 07/07/21 06:47 BP 178/99 H 07/07/21 06:47 Pulse Ox 96 07/07/21 06:47 BMI result Body Mass Index 23.7 Appearance: Alert. Oriented X3. No acute distress. Eyes: Pupils equal, round and reactive to light. ENT: L upper canine area gum is mildly red and indurated but no fluctuance no trismus no abscess felt Neck: Normal inspection. Neck supple. no mass felt CVS: Pulses normal. Respiratory: No respiratory distress. Abdomen: atraumatic Skin: Skin warm and dry. Normal skin color. Extremities: No lower extremity edema. Neuro: Oriented X 3. No motor deficit. No sensory deficit. MDM - Dental/Oral MDM Narrative Medical decision making narrative: 65 yo male with hx of CAD, HTN here with c/o L upper tooth pain there is some mild erythema but no swelling or overt abscess noted no deeper space infection noted - start on augmentin he has a dentist he can see. Stable for DC not toxic Discharge Plan Discharge Clinical Impression: Pain, dental Patient Disposition: Home, Self-Care Instructions: Toothache (ED) Additional Instructions: return to ED for any worsening symptoms or concerns monitor for redness, swelling, drainage, increased pain Prescriptions: New amoxicillin-pot clavulanate [Augmentin] 875-125 mg tablet 1 tab PO BID Qty: 14 RF: 0 No Action aspirin 81 mg tablet,delayed release (DR/EC) 81 mg PO DAILY 90 Days Qty: 90 RF: 2 lisinopril 30 mg tablet 30 mg PO DAILY 90 Days Qty: 90 RF: 1 zotfznutzr-tbtecuimjtign-thkk [Fioricet] 50-300-40 mg capsule 1 cap PO Q4-6H PRN (Reason: headache) Qty: 14 RF: 0 tamsulosin 0.4 mg capsule 0.4 mg PO DAILY 30 Days Qty: 30 RF: 3 atorvastatin 40 mg tablet 40 mg PO DAILY 90 Days Qty: 90 RF: 1 nicotine 21 mg/24 hr patch 24 hour 1 patch transdermal DAILY 14 Days Qty: 14 RF: 0 nicotine 14 mg/24 hr patch 24 hour 1 patch transdermal DAILY 14 Days Qty: 14 RF: 0 nicotine (polacrilex) 4 mg gum 4 mg buccal Q2H 15 Days Qty: 50 RF: 2 terbinafine HCl 1 % cream 1 appl topical BID Qty: 15 RF: 0 clopidogrel 75 mg tablet 75 mg PO DAILY 90 Days Qty: 90 RF: 0 metoprolol succinate 50 mg tablet extended release 24 hr 50 mg PO DAILY Qty: 90 RF: 1 tadalafil [Cialis] 20 mg tablet 20 mg PO DAILY 4 Days Qty: 4 RF: 0 lorazepam 0.5 mg tablet 0.5 mg PO DAILY PRN (Reason: anxiety) 5 Days Qty: 5 RF: 0 ibuprofen 600 mg tablet 600 mg PO Q8H Qty: 180 RF: 1 bupropion HCl [Wellbutrin SR] 150 mg tablet sustained-release 12 hr 150 mg PO BID 30 Days Qty: 60 RF: 2
[2021-07-07] MEDS: Amoxicillin/Potassium Clav 875 MG TABLET PO (07:59)
== END 2021-07-07 08:05 | disposition home or self-care (01) ==
PROVIDERS: Emergency Provider Emergency Medicine; PCP Physician Assistant
DX: K08.89 Other specified disorders of teeth and supporting structures (principal); F17.200 Nicotine dependence, unspecified, uncomplicated; I10 Essential (primary) hypertension
CPT/HCPCS: 99283

== ENCOUNTER 2021-10-03 14:44 | Outpatient (REF) | payer OTHER, MEDICAID, SELFPAY ==
--- NOTE | ~2021-10-03 | XR_ITS ---
EXAMINATION: XR SHOULDER, LEFT CLINICAL INFORMATION: Left shoulder pain. COMPARISON: None TECHNIQUE: AP external rotation, Grashey, scapular Y, and axillary views of the left shoulder. FINDINGS: Moderate acromioclavicular marginal osteophytes. Tiny adjacent capsular calcification. No glenohumeral joint space narrowing or marginal osteophytes. No osseous erosion. No fracture or dislocation. Posterior calcification measuring up to 0.7 cm which may represent distal infraspinatus calcific tendinitis. XR/XR shoulder LT min 2V IMPRESSION: 1. Moderate acromioclavicular osteoarthritis. 2. Posterior soft tissue calcification measuring 0.7 cm may represent distal infraspinatus calcific tendinitis.
== END 2021-10-03 14:45 | disposition home or self-care (01) ==
LOC: HO.XRAY 14:44
PROVIDERS: PCP Physician Assistant; Visit Provider Internal Medicine
DX: M25.512 Pain in left shoulder (principal)
CPT/HCPCS: 73030

== ENCOUNTER 2021-12-03 06:11 | Outpatient (REF) | payer OTHER, MEDICAID, SELFPAY ==
[2021-12-03 07:25] LABS: Hematocrit 48.3 % (42.0-52.0); Hemoglobin 15.9 g/dl (14.0-18.0); Mean Corpuscular HGB Conc 32.9 g/dl (31.0-36.0); Mean Corpuscular Volume 91.1 fL (80.0-98.0); Mean Platelet Volume 9.9 fL (9.4-12.4); Platelet Count 264 X10*3/uL (160-400); Red Cell Distribution Width 13.2 % (11.0-16.0); White Blood Count 5.3 X10*3/uL (4.8-10.8)
[2021-12-03 07:40] LABS: Estimated Average Glucose 108 mg/dL; Hemoglobin A1c % 5.4 %
[2021-12-03 07:53] LABS: Alanine Aminotransferase 37 U/L (0-40); Albumin Level 4.2 g/dL (3.5-5.0); Alkaline Phosphatase 119 U/L (39-117); Anion Gap 13 (12-20); Aspartate Amino Transferase 29 U/L (5-37); Bilirubin Total 0.6 mg/dL (0.0-1.0); Blood Urea Nitrogen 17 mg/dL (9-16); Calcium 9.7 mg/dL (8.4-10.2); Carbon Dioxide 27 mmol/L (22-29); Chloride 104 mmol/L (96-108); Cholesterol 192 mg/dL; Estimated Glomerular Filt Rate > 60; Glucose Fasting 109 mg/dL (60-99); HDL Cholesterol 55 mg/dL; LDL Cholesterol Calculated 126 mg/dl; Sodium 139 mmol/L (135-145); Total Protein 7.7 g/dL (6.5-8.0); Triglycerides 56 mg/dL
[2021-12-03 08:16] LABS: Prostate Specific Antigen Scr 2.08 ng/mL (<0.05-4.0); TSH reflex Free T4 2.02 uIU/mL (0.32-4.0)
[2021-12-03 10:34] LABS: Creatinine Urine 96.28 mg/dL; Microalbum/Creatinine Ratio Ur 17.6 ug/mg cr
== END 2021-12-03 06:12 | disposition home or self-care (01) ==
LOC: HO.LAB 06:11
PROVIDERS: PCP Physician Assistant; Visit Provider Internal Medicine
DX: Z12.5 Encounter for screening for malignant neoplasm of prostate (principal); I25.118 Atherosclerotic heart disease of native coronary artery with other forms of angina pectoris; I10 Essential (primary) hypertension
CPT/HCPCS: 36415; 80053; 80061; 82043; 83036; 84153; 84443; 85027

== ENCOUNTER 2022-01-20 16:19 | Outpatient (REF) | payer OTHER, MEDICAID, SELFPAY ==
--- NOTE | ~2022-01-20 | CT_ITS ---
EXAMINATION: CT CHEST SCREENING CLINICAL INFORMATION: Current smoker. 50 pack year history. COMPARISON: Previous chest CT September 2018 TECHNIQUE: Multidetector volumetric CT imaging of the chest is performed without contrast using low dose technique. Additional 2D coronal and sagittal reformatted images and axial 3D maximum intensity projection (MIP) images are generated on the CT workstation. This CT examination was performed using dose optimization techniques as appropriate, variously including the following: *Automated exposure control *Adjustment of mA and/or kV according to patient size (this includes techniques or standardized protocols for targeted exams where dose is matched to indication/reason for exam; i.e. extremities or head) *Use of iterative reconstruction technique DLP: 54 mGy-cm FINDINGS: LUNGS: There is evidence of emphysema. There are new clustered 1 to 2 mm peribronchial nodules in the left upper lobe suggestive of tree-in-bud appearance or airways disease. Otherwise small pulmonary nodules are stable. Largest pulmonary nodule is a 5 mm right upper lobe nodule along the diaphragmatic pleural surface axial image 434 series 4. The lungs are otherwise clear. MEDIASTINUM: There is coronary artery calcification. The mediastinum is otherwise normal. PLEURA: There is no pleural effusion. No pleural mass or thickening. AXILLA: No lymphadenopathy. Right posterior chest wall/scapular lipoma that is stable. UPPER ABDOMEN: Unremarkable OSSEOUS STRUCTURES: There are degenerative changes of the spine. CT/CT lung screening IMPRESSION: Emphysema. New clustered peribronchial small left upper lobe nodules probably representing tree-in-bud appearance or airways disease. Otherwise pulmonary nodules are stable. Mild coronary artery calcified. ASSESSMENT: Lung-RADS category 2: Benign RECOMMENDATION: Annual low-dose chest CT follow-up recommended.
== END 2022-01-20 16:20 | disposition home or self-care (01) ==
LOC: HO.CT 16:19
PROVIDERS: Visit Provider Physician Assistant Medical
DX: Z87.891 Personal history of nicotine dependence (principal)
CPT/HCPCS: 71271

== ENCOUNTER 2022-02-01 20:04 | Emergency (ER) | payer OTHER, MEDICAID, SELFPAY ==
[2022-02-01 20:19] VITALS: BP 173/86; PULSE 62; RESP 14; TEMP 37; BMI 23.0
== END 2022-02-01 22:07 | disposition left against medical advice (07) ==
PROVIDERS: Emergency Provider Emergency Medicine; PCP Physician Assistant
DX: R22.40 Localized swelling, mass and lump, unspecified lower limb (principal); I10 Essential (primary) hypertension; E78.5 Hyperlipidemia, unspecified; Z59.00 Homelessness unspecified; F17.200 Nicotine dependence, unspecified, uncomplicated; Z79.890 Hormone replacement therapy; Z95.5 Presence of coronary angioplasty implant and graft
CPT/HCPCS: 99281

== ENCOUNTER 2022-02-24 11:04 | Outpatient (REF) | payer OTHER, MEDICAID, SELFPAY ==
[2022-02-24 12:05] LABS: Hematocrit 42.8 % (42.0-52.0); Hemoglobin 14.4 g/dl (14.0-18.0); Mean Corpuscular HGB Conc 33.6 g/dl (31.0-36.0); Mean Corpuscular Hemoglobin 30.2 pg (27.0-33.0); Mean Corpuscular Volume 89.7 fL (80.0-98.0); Platelet Count 250 X10*3/uL (160-400); Red Blood Count 4.77 X10*6/uL (4.60-5.80); White Blood Count 7.3 X10*3/uL (4.8-10.8)
[2022-02-24 12:52] LABS: Alanine Aminotransferase 23 U/L (0-40); Albumin Level 4.1 g/dL (3.5-5.0); Alkaline Phosphatase 117 U/L (39-117); Anion Gap 13 (12-20); Aspartate Amino Transferase 21 U/L (5-37); Bilirubin Total 0.7 mg/dL (0.0-1.0); Blood Urea Nitrogen 14 mg/dL (9-16); Calcium 9.1 mg/dL (8.4-10.2); Carbon Dioxide 25 mmol/L (22-29); Chloride 102 mmol/L (96-108); Cholesterol 156 mg/dL; Estimated Glomerular Filt Rate > 60; Glucose Fasting 95 mg/dL (60-99); HDL Cholesterol 52 mg/dL; LDL Cholesterol Calculated 93 mg/dl; Potassium 4.4 mmol/L (3.3-5.1); Sodium 136 mmol/L (135-145); Total Protein 7.1 g/dL (6.5-8.0); Triglycerides 55 mg/dL
[2022-02-24 13:04] LABS: TSH reflex Free T4 1.35 uIU/mL (0.32-4.0)
== END 2022-02-24 11:05 | disposition home or self-care (01) ==
LOC: HO.LAB 11:04
PROVIDERS: PCP Physician Assistant; Visit Provider Physician Assistant
DX: I10 Essential (primary) hypertension (principal); I25.118 Atherosclerotic heart disease of native coronary artery with other forms of angina pectoris
CPT/HCPCS: 36415; 80053; 80061; 84443; 85027

== ENCOUNTER → 2022-04-07 12:35 | Outpatient (REF) | payer OTHER, MEDICAID, SELFPAY ==
--- NOTE | 2022-04-07 12:40 | ECG_ITS ---
Test Reason : [id number] Blood Pressure : / mmHG Vent. Rate : 053 BPM Atrial Rate : 053 BPM P-R Int : 200 ms QRS Dur : 098 ms QT Int : 442 ms P-R-T Axes : 068 073 068 degrees QTc Int : 414 ms Sinus bradycardia Otherwise normal ECG When compared with ECG of 08-MAR-2021 11:38, Nonspecific T wave abnormality no longer evident in Inferior leads Nonspecific T wave abnormality no longer evident in Lateral leads Referred By: Anuj Lopez Electronically Signed By:RITIKA SIMON
== END ==
LOC: HO.CARD 12:35
PROVIDERS: PCP Physician Assistant; Visit Provider Physician Assistant
DX: Z01.818 Encounter for other preprocedural examination (principal)
CPT/HCPCS: 93005

== ENCOUNTER → 2022-05-14 13:13 | Outpatient (BNVA) | payer OTHER, MEDICAID, SELFPAY | PROVIDERS: PCP Physician Assistant; Referring Provider Physician Assistant; Visit Provider Internal Medicine Cardiovascular Disease | DX: I25.118 Atherosclerotic heart disease of native coronary artery with other forms of angina pectoris (principal); I10 Essential (primary) hypertension; R06.00 Dyspnea, unspecified; E78.2 Mixed hyperlipidemia; Z95.5 Presence of coronary angioplasty implant and graft; F17.210 Nicotine dependence, cigarettes, uncomplicated | CPT/HCPCS: 99212 ==

== ENCOUNTER → 2022-05-28 09:45 | Outpatient (REF) | payer OTHER, MEDICAID, SELFPAY ==
--- NOTE | 2022-05-28 09:48 | CA_ITS ---
Acquisition Time: 2022-05-28 10:03:50 Total Exercise Time: 00:09:10 Test Indications: Dyspnea Medications: AYORVASTATIN BUPROPION CLOPIDOGREL LISINOPRIL METOPROLOL TAMSULOSIN Protocol: LOPEZ Max HR: 101 BPM 65% of Pred: 155 BPM Max BP: 142/088 mmHG Max Work Load: 10.3 METS Exercise stress test with exercise 9 min 10 sec of Lopez protocol, achieving 65% MPHR, 10.2 METs ( baseline heart rate 34% MPHR) with fatigue and need to stop, without anginal symptoms, , with blunted heart rate and normotensive response to exercise, with few PACs noted in earrly recovery, with nondiagnostic EKG for ischemia due to suboptimal heart rate. Pt took Metoprolol xl 50mg this am, prior to test. Test reviewed with Dr Perez. Referred By: Alverto Mcfadden Overread By: CHUY BRADSHAW
== END ==
LOC: HO.CARD 09:45
PROVIDERS: Visit Provider Internal Medicine Cardiovascular Disease
DX: R06.00 Dyspnea, unspecified (principal)
CPT/HCPCS: 93017

== ENCOUNTER 2023-01-28 15:53 | Outpatient (REF) | payer OTHER, MEDICAID, SELFPAY ==
--- NOTE | ~2023-01-28 | CT_ITS ---
EXAMINATION: LUNG CANCER SCREENING CT CHEST WITHOUT CONTRAST CLINICAL INFORMATION: Current smoker with 50 pack year history COMPARISON: 01/20/2022 TECHNIQUE: Multidetector volumetric CT imaging of the chest was obtained noncontrast using low dose screening CT technique. Axial thin section 0.625 mm reformations in soft tissue and lung windows were obtained. Sagittal and coronal reformations were obtained. Axial MIP images were also created and reviewed. This CT examination was performed using dose optimization techniques as appropriate, variously including the following: *Automated exposure control *Adjustment of mA and/or kV according to patient size (this includes techniques or standardized protocols for targeted exams where dose is matched to indication/reason for exam; i.e. extremities or head) *Use of iterative reconstruction technique TOTAL EXAM DLP: 55.54 mGy-cm FINDINGS: PULMONARY NODULES (see chappell images): No suspicious pulmonary nodules. There are a few stable pulmonary nodules measuring less than 3 mm as shown on the chappell images. Regional micronodules in the left upper lobe laterally have decreased in size/number from prior. LUNGS / PLEURA: Mild emphysema. Diffuse moderate bronchial wall thickening without bronchiectasis. No pleural effusion or pneumothorax. MEDIASTINUM / MARY ELLEN: Heart normal in size without pericardial effusion. Great vessels normal caliber. No lymphadenopathy. Coronary calcifications present. Imaged thyroid gland unremarkable. CHEST WALL / AXILLA: Unremarkable. UPPER ABDOMEN: Included portions grossly unremarkable allowing for limitations in technique. OSSEOUS STRUCTURES: No acute or suspicious osseous abnormalities. CT/CT lung screening IMPRESSION: * No evidence of pulmonary malignancy. * Mild emphysema and chronic airways disease. ASSESSMENT: Lung RADS category: 2. Benign appearance or behavior. Nodules with a very low likelihood of becoming a clinically active cancer due to size or lack of growth. Continue annual screening with low-dose CT in 12 months. Probability of malignancy less than 1%. RECOMMENDATION: Follow up low dose CT chest in 1 year.
== END 2023-01-28 15:54 | disposition home or self-care (01) ==
LOC: HO.CT 15:53
PROVIDERS: PCP Physician Assistant; Visit Provider Physician Assistant Medical
DX: Z12.2 Encounter for screening for malignant neoplasm of respiratory organs (principal); F17.210 Nicotine dependence, cigarettes, uncomplicated
CPT/HCPCS: 71271

== ENCOUNTER 2023-03-16 07:47 | Emergency (ER) | payer OTHER, MEDICAID, SELFPAY ==
[2023-03-16 07:53] VITALS: BP 179/104; PULSE 58; RESP 20; TEMP 36.6; O2SAT 98; BMI 25.1
--- NOTE | 2023-03-16 08:06 | PC.NURSE ---
r inner ear itch x 1wk. unsure if something got inside his ear. itch starting to become painful.
--- NOTE | 2023-03-16 08:36 | ED.EAR ---
HPI - Ear Problem General Chief complaint: Skin/Abscess/Foreign Body Stated complaint: r ear itchy swollen Time Seen by Provider: 03/16/23 08:06 Source: patient Mode of arrival: ambulatory Limitations: no limitations History of Present Illness HPI Narrative: The 67-year-old male history of homelessness, coronary artery disease, retention, hyperlipidemia, on testosterone replacement therapy, rectal dysfunction, anxiety with a history significant for CAD S/P stent placement, HTN, HDL, SU presenting to the ED with right inner ear itch x1 week thinks it is infected. He reports his right ear feels full States he is unsure if something is in the ear he thinks his Neutrogena facial clenser got in his hear. Denies discharge from the ear, decreased hearing, tinnitus, fevers, chills, nausea, vomiting, cp, sob, recent illness, recent swimming. Related Data Previous Rx's Medication Instructions Recorded blood pressure test kit-medium #1 ea 03/03/22 aspirin 81 mg tablet,delayed 81 mg PO DAILY #90 tabs 05/14/22 release (Adult Aspirin Regimen) atorvastatin 40 mg tablet 40 mg PO DAILY 90 days #90 tabs 05/14/22 metoprolol succinate 50 mg 50 mg PO DAILY 90 days #90 tabs 05/14/22 tablet,extended release 24 hr lisinopril 30 mg tablet 30 mg PO DAILY 90 days #90 tabs 12/25/22 bupropion HCl 150 mg tablet,12 hr 150 mg PO BID 90 days #180 tabs 03/10/23 sustained-release ibuprofen 600 mg tablet 600 mg PO Q6H 15 days #60 tabs 03/10/23 amoxicillin 875 mg-potassium 1 tab PO BID 10 days #20 tabs 03/16/23 clavulanate 125 mg tablet ciprofloxacin 0.3 %-dexamethasone 4 drp otic (ears) BID 7 days #7.5 03/16/23 0.1 % ear drops,suspension mL (Ciprodex) Allergies Allergy/AdvReac Type Severity Reaction Status Date / Time tadalafil [From Cialis] Allergy Unknown anxiety Verified 12/25/22 16:02 Review of Systems Review of Systems: Constitutional : No Weight loss, No Fever, No Chills, No Fatigue, No Malaise ENT/Mouth : No sore throat, No Rhinorrhea, + ear discomfort Eyes: No Eye Pain, No Swelling, No Redness Cardiovascular : No Chest Pain, No SOB, No Dyspnea on Exertion, No Orthopnea, No Edema, No Palpitations Respiratory : No Cough, No Sputum, No Wheezing Gastrointestinal : No Nausea, No Vomiting, No Diarrhea, No Constipation, No abdominal Pain, No Hematochezia, No Melena Genitourinary : No Dysuria, No Urinary Frequency, No Hematuria, Musculoskeletal : No joint pain, No Myalgias, No Joint Swelling Skin : No Skin Lesions, No rash Neuro : No Weakness, No Numbness, No Dizziness, No Headache Psych : No Anxiety/Panic, No Depression All other systems reviewed and are negative Yes all other systems are reviewed and are negative [facility] Past Medical History Attestation statement: The following information was validated with the patient. Source: old records reviewed and nursing notes reviewed Medical History (Updated 03/16/23 @ 08:40 by ALLISON Edouard) CAD (coronary artery disease) COPD (chronic obstructive pulmonary disease) History of MS (myocardial infarction) Hypertension Left shoulder pain Nicotine dependence, cigarettes, uncomplicated Surgical History (Updated 02/10/23 @ 07:37 by Teresa Ramsey PA-C) History of colonoscopy History of coronary artery stent placement (~2018) History of hernia repair (~1970) Family History Family History Father No problems noted. Mother No problems noted. Brother Hepatocellular carcinoma Social History Social History Housing: Other Housing Other:: van Alcohol intake: current Alcohol intake frequency: holidays/special occasions only Patient Tobacco Use Status: Current everyday Tobacco user Tobacco use type: Cigarette Cigarette Packs Per Day: 1.5 Cigarettes Per Day: 30 Years Smoked: 58 +/- e-Cigarette/Vaping Use: Never Used Second Hand Smoke Exposure: Yes Advance Directives: No Advance Directives Information Provided: No service: No Current occupational status: unemployed Cognitive needs: No Hearing needs: No Vision needs: No Physical Exam Vital Signs: Vital Signs: Last Vital Signs Temp 97.8 F 03/16/23 07:53 Pulse 58 03/16/23 07:53 Resp 20 03/16/23 07:53 BP 179/104 H 03/16/23 07:53 Pulse Ox 98 03/16/23 07:53 O2 Del Method Room Air 03/16/23 07:53 BMI result Body Mass Index 25.1 vss Appearance: Alert.? Oriented X3.? No acute distress.? Head: Normocephalic, atraumatic, no step-offs or deformities Eyes: Pupils equal, round and reactive to light.? ENT: Pharynx normal.??External ears normal, TM on R bullging w/ errythema and sligt effusion, also R. EC w/ edema and erythema. Errythamatous L ECand TM however no bulging or edemal. + discomfort w/ manipulation of right external ear. No discomfort w/ manipulation of L ear. . No mastoid tenderness. Neck: Normal inspection.? Neck supple.? CVS: Normal heart rate and rhythm.? Pulses normal.? Respiratory: No respiratory distress.? Breath sounds normal.? Abdomen: Soft and nontender.? Skin: Skin warm and dry.? Normal skin color.? Normal skin turgor.? Extremities: No lower extremity edema.? No calf ttp. 5/5 strength to bilateral upper and lower extremities Neuro: Oriented X 3.? No motor deficit.? No sensory deficit. CN 2-12 intact Medical Decision Making Medical Decision Making [facility] Narrative: 0845 67-year-old male presents with right-sided ear pain for over a week Physical exam significant for Pharynx normal.??External ears normal, TM on R bullging w/ errythema and sligt effusion, also R. EC w/ edema and erythema. Errythamatous L EC and TM however no bulging or edemal. + discomfort w/ manipulation of right external ear. No discomfort w/ manipulation of L ear. . No mastoid tenderness. Concern for otitis media and otitis externa of right ear. No signs of mastoiditis, malignant otitis, perforated tympanic membrane. No signs of meningitis, patent airway. Plan- dc w/ oral atbx and ciprodex drops. Advised to follow up with PCP in ears nose and throat doctor necessary. Educated on worrisome signs and symptoms and when to return. Patient verbalizes understanding. Plan at this time is discharged home with PCP follow-up. Differential Diagnosis Differential Diagnoses: The differential diagnosis associated with the presentation includes Concern for otitis media and otitis externa of right ear. No signs of mastoiditis, malignant otitis, perforated tympanic membrane. No signs of meningitis, patent airway. Admission/Observation Consideration of admission/observation: Escalation of care including admission/observation considered No indication Tests considered The following testing was considered but not selected: Vital signs stable, obtaining labs and imaging would not change my diagnosis and treatment plan. No indication Prescription Management I considered prescription management with: Antibiotic Core Measures AMI core measures followed: Yes Measure exclusions: not indicated Critical Care Time Critical Care Time Critical Care Time: No Discharge Plan Discharge Clinical Impression: Otitis externa, Otitis media Patient Disposition: Home, Self-Care Instructions: Otitis Externa (DC), Ear Infection (ED) Additional Instructions: Take your medications as prescribed. If you were prescribed antibiotics today, it is important that you take your medication to their entirety, do not skip any doses, do not finish them early. Follow-up with your primary care provider this week. You may need follow up with ENT Return to the emergency department with new or worsening symptoms. Such as fevers, chills, chest pain, shortness of breath, nausea, vomiting, dizziness, headache, vision changes, lethargy In case of emergency call 911 Prescriptions: New amoxicillin-pot clavulanate 875-125 mg tablet 1 tab PO BID 10 Days Qty: 20 0RF ciprofloxacin-dexamethasone [Ciprodex] 0.3-0.1 % drops,suspension 4 drp otic (ears) BID 7 Days Qty: 7.5 0RF No Action bupropion HCl 150 mg tablet sustained-release 12 hr 150 mg PO BID 90 Days Qty: 180 0RF ibuprofen 600 mg tablet 600 mg PO Q6H 15 Days Qty: 60 0RF (DME) blood pressure test kit-medium Kit See Rx Instructions .Route Qty: 1 0RF Rx Instructions: As directed lisinopril 30 mg tablet 30 mg PO DAILY 90 Days Qty: 90 4RF aspirin [Adult Aspirin Regimen] 81 mg tablet,delayed release (DR/EC) 81 mg PO DAILY Qty: 90 4RF Rx Instructions: Not to be taken with Ibuprofen. atorvastatin 40 mg tablet 40 mg PO DAILY 90 Days Qty: 90 4RF metoprolol succinate 50 mg tablet extended release 24 hr 50 mg PO DAILY 90 Days Qty: 90 4RF Referrals: ED Physician,Generic [Emergency Provider] - 2 days Stand Alone Forms: Work/School Release
[2023-03-16 08:48] VITALS: BP 199/95; PULSE 55; RESP 18
== END 2023-03-16 08:55 | disposition home or self-care (01) ==
PROVIDERS: Emergency Provider Emergency Medicine; PCP Physician Assistant
DX: H60.91 Unspecified otitis externa, right ear (principal); H92.01 Otalgia, right ear; F17.210 Nicotine dependence, cigarettes, uncomplicated; I25.10 Atherosclerotic heart disease of native coronary artery without angina pectoris; Z59.00 Homelessness unspecified; Z71.6 Tobacco abuse counseling; Z79.899 Other long term (current) drug therapy
CPT/HCPCS: 99283

== ENCOUNTER 2023-03-30 06:15 | Emergency (ER) | payer OTHER, MEDICAID, SELFPAY ==
[2023-03-30 06:21] VITALS: BP 181/98; PULSE 59; RESP 20; TEMP 36.4; O2SAT 96; BMI 23.0
--- NOTE | 2023-03-30 07:32 | ED.EAR ---
HPI - Ear Problem General Chief complaint: Ear Problems Stated complaint: Ear Pain Time Seen by Provider: 03/30/23 07:26 Source: patient Mode of arrival: ambulatory Limitations: no limitations History of Present Illness HPI Narrative: 67 yo male with a PMHx significant for CAD, GA with RCA stent, HTN, HDL, current smoker, and SU presents to the ED today for evaluation of right ear discomfort x1 day. Reports recently completing course of Augmentin for right ear infection 3 days ago. Denies pain in the right ear and states it feels numb . Denies fever, chills, headache, jaw pain, eye pain, vision changes, ear drainage, hearing loss, decreased hearing, or FB sensation. Related Data Previous Rx's Medication Instructions Recorded blood pressure test kit-medium #1 ea 03/03/22 atorvastatin 40 mg tablet 40 mg PO DAILY 90 days #90 tabs 05/14/22 metoprolol succinate 50 mg 50 mg PO DAILY 90 days #90 tabs 05/14/22 tablet,extended release 24 hr lisinopril 30 mg tablet 30 mg PO DAILY 90 days #90 tabs 12/25/22 bupropion HCl 150 mg tablet,12 hr 150 mg PO BID 90 days #180 tabs 03/10/23 sustained-release ibuprofen 600 mg tablet 600 mg PO Q6H 15 days #60 tabs 03/10/23 amoxicillin 875 mg-potassium 1 tab PO BID 7 days #14 tabs 03/30/23 clavulanate 125 mg tablet aspirin 81 mg tablet,delayed 81 mg PO DAILY #90 tabs 03/30/23 release (Adult Aspirin Regimen) ciprofloxacin 0.3 %-dexamethasone 4 drp otic (ear) right BID 7 days 03/30/23 0.1 % ear drops,suspension #7.5 mL (Ciprodex) Allergies Allergy/AdvReac Type Severity Reaction Status Date / Time tadalafil [From Cialis] Allergy Unknown anxiety Verified 03/30/23 15:07 Review of Systems Review of Systems: Constitutional: No fever, No chills, No fatigue, No malaise ENT/Mouth: + right ear discomfort, No hearing loss, No nasal congestion, No sinus pain, No rhinorrhea, No sore throat Eyes: No eye pain, No swelling, No redness, No vision changes, No foreign body, No discharge Cardio: No chest pain, No palpitations, No dyspnea on exertion, No orthopnea, No edema Respiratory: No SOB, No cough, No sputum, No wheezing, No dyspnea, No hemoptysis GI: No nausea, No vomiting, No hematemesis, No abdominal pain, No diarrhea, No constipation, No hematochezia, No melena : No irregular bleeding, No dysuria, No frequency, No urgency, No hesitancy, No hematuria, No flank pain, No urinary flow changes, No urinary incontinence or retention MSK: No back pain, No neck pain, No joint pain, No myalgias Skin: No skin lesions, No rashes Neuro: No weakness, No numbness, No paresthesias, No LOC, No dizziness, No headache PMF Past Medical History Attestation statement: The following information was validated with the patient. Source: old records reviewed and nursing notes reviewed Medical History History of GA (myocardial infarction) Nicotine dependence, cigarettes, uncomplicated Left shoulder pain COPD (chronic obstructive pulmonary disease) Hypertension CAD (coronary artery disease) Surgical History History of colonoscopy History of coronary artery stent placement (~2018) History of hernia repair (~1969) Family History Family History Father No problems noted. Mother No problems noted. Brother Hepatocellular carcinoma Social History Social History Housing: Other Housing Other:: van Alcohol intake: current Alcohol intake frequency: holidays/special occasions only Patient Tobacco Use Status: Current everyday Tobacco user Tobacco use type: Cigarette Cigarette Packs Per Day: 1.5 Cigarettes Per Day: 30 Years Smoked: 58 +/- e-Cigarette/Vaping Use: Never Used Second Hand Smoke Exposure: Yes service: No Current occupational status: unemployed Cognitive needs: No Hearing needs: No Vision needs: No Physical Exam Vital Signs: Vital Signs: Last Vital Signs Temp 97.5 F 03/30/23 06:21 Pulse 59 03/30/23 06:21 Resp 20 03/30/23 06:21 BP 181/98 H 03/30/23 06:21 Pulse Ox 96 03/30/23 06:21 O2 Del Method Room Air 03/30/23 06:21 BMI result Body Mass Index 23.0 VItal signs stable, afebrile General: Nontoxic appearing. NAD Skin: Warm and dry. No rashes or lesions. Head: Normocephalic, atraumatic. EENT: PERRLA. EOM intact. Pharynx normal. External ears normal. No discomfort with manipulation of bilateral ears. No mastoid tenderness or edema bilaterally. Right EAC with edema and erythema, TM without erythema or effusion. Left EAC clear, TM without erythema or effusion. Neck: Supple without LAD. Normal ROM. Trachea midline. Cardiac: Chest wall symmetric. RRR. S1 and S1 appreciated. No MRG. No JVD. Lungs: CTA bilaterally. No rales, rhonchi, or wheezes. Normal respiratory effort without accessory muscle use. Abdomen: No visible lesions or scars. Soft, non-tender, non-distended. Ext: Upper and lower extremities atraumatic. Full ROM throughout. Capillary refill <2 seconds in all extremities. Pulses 2+ equal b/l. No edema, cyanosis, or clubbing. . Medical Decision Making Medical Decision Making MDM Narrative: 67 yo male with a PMHx significant for CAD, GA with RCA stent, HTN, HDL, current smoker, and SU presents [facility] ED today for evaluation of right ear discomfort x1 day. VSS. Non toxic appearing. Patient's ear exam notable for erythemaous and edematous right EAC without bulging or erythema of the TM > likely otitis externa, low suspicion for recurrent otitis media. No mastoid tenderness > unlikely mastoiditis or malignant otitis externa. Will discharge patient home with ciprodex drops. Discussed prompt return precautions. Answered all patient's questions. Patient agreeable with plan. Patient stable for discharge. Differential Diagnosis Differential Diagnoses: The differential diagnosis associated with the presentation includes Patient's ear exam notable for erythemaous and edematous right EAC without bulging or erythema of the TM > likely otitis externa, low suspicion for recurrent otitis media. No mastoid tenderness > unlikely mastoiditis or malignant otitis externa. Admission/Observation Not indicated Lab Data Not indicated External Record Review External record reviewed: Inpatient record Prescription Management I considered prescription management with: Antibiotic Critical Care Time Critical Care Time Critical Care Time: No Discharge Plan Discharge Clinical Impression: Otitis externa Qualifiers: Otitis externa type: unspecified type Chronicity: acute Laterality: right Qualified Code(s): H60.501 - Unspecified acute noninfective otitis externa, right ear Patient Disposition: Home, Self-Care Instructions: Otitis Externa (ED) Additional Instructions: Your right ear canal is inflamed. Cipro-Dex drops have been sent to your pharmacy. Put 4 drops into the affected ear as needed. Take motrin/ tylenol as needed for pain or discomfort. Return to the ED if you develop a fever, intense ear pain, N/V, or discharge from the ear. In case of emergency call 911. Prescriptions: New ciprofloxacin-dexamethasone [Ciprodex] 0.3-0.1 % drops,suspension 4 drp otic (ear) right BID 7 Days Qty: 7.5 0RF No Action bupropion HCl 150 mg tablet sustained-release 12 hr 150 mg PO BID 90 Days Qty: 180 0RF ibuprofen 600 mg tablet 600 mg PO Q6H 15 Days Qty: 60 0RF (DME) blood pressure test kit-medium Kit See Rx Instructions .Route Qty: 1 0RF Rx Instructions: As directed lisinopril 30 mg tablet 30 mg PO DAILY 90 Days Qty: 90 4RF amoxicillin-pot clavulanate 875-125 mg tablet 1 tab PO BID 7 Days Qty: 14 0RF aspirin [Adult Aspirin Regimen] 81 mg tablet,delayed release (DR/EC) 81 mg PO DAILY Qty: 90 4RF Rx Instructions: Not to be taken with Ibuprofen. atorvastatin 40 mg tablet 40 mg PO DAILY 90 Days Qty: 90 4RF metoprolol succinate 50 mg tablet extended release 24 hr 50 mg PO DAILY 90 Days Qty: 90 4RF Referrals: Anuj Lopez PA-C [Primary Care Provider] - Stand Alone Forms: Work/School Release Interventions: ED Discharge Assessment Last Done: 03/30/23 08:17 Discharge Date/Time: 03/30/23 08:17
== END 2023-03-30 08:17 | disposition home or self-care (01) ==
PROVIDERS: Emergency Provider Emergency Medicine; PCP Physician Assistant
DX: H60.501 Unspecified acute noninfective otitis externa, right ear (principal)
CPT/HCPCS: 99283

== ENCOUNTER 2023-03-30 14:43 | Outpatient (AMB) | payer OTHER, MEDICAID, SELFPAY ==
[2023-03-30 14:52] VITALS: BP 172/100; PULSE 48; O2SAT 100; BMI 23.5
--- NOTE | 2023-03-30 14:52 | MHC.PC.OV ---
Vital Signs 03/30/23 14:52 Height 5 ft 11 in Weight 168 lb 9 oz BMI 23.5 BP 172/100 H Blood Pressure Location Lt brachial Position Sitting Pulse 48 L Pulse Source Pulse Oximeter Pulse Oximetry (%) 100 Oxygen Delivery Method Room Air Intake Visit Reasons: 3mth f/u Intake Note: Patient is here to follow-up after a visit the emergency department at [facility] on 03/30/23 for Ear pain, gien Ciprodex ear drops. 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 Required: No Accompanied by: Self / Same As Patient Allergies tadalafil [From [employer]] Allergy (Unknown, Verified 03/30/23 15:07) anxiety Medication List - Last Reconciled 03/30/23 by Anuj Lopez PA-C aspirin (Adult Aspirin Regimen) 81 mg PO DAILY atorvastatin 40 mg PO DAILY 90 days blood pressure test kit-medium As directed bupropion HCl 150 mg PO BID 90 days ciprofloxacin-dexamethasone 0.3-0.1 % (Ciprodex) 4 drps otic (ear) right BID 7 days ibuprofen 600 mg PO Q6H 15 days lisinopril 30 mg PO DAILY 90 days metoprolol succinate ER 50 mg PO DAILY 90 days Tobacco use date assessed: 12/25/22 Fall risk assessment: No Falls in past year Last assessed Fall Risk: 03/30/23 Dental Screening Dental Screen Date: 03/30/23 Did you have a dental visit in the last 12 months?: No Did you have a dental problem in the last 6 months where you did not have access to dental care?: No Was dental information given to patient?: Patient declined HPI 3mth f/u HPI Details Patient is a 67-year-old male here today for follow-up visit. ? Patient has a past medical history significant for coronary artery disease, hypertension, hyperlipidemia, smoker, homeless. Patient recently seen at the [facility] for acute left ear pain and was prescribed ear drops. He previously presented with similar symptoms and was diagnosed with otitis externa placed on Augmentin which he reports at day 7 of courses his symptoms of ear congestion and head numbness was resolving. CHRONIC MEDICAL CONDITIONS--> . Hypertension:? Does not monitor his blood pressure at home, he reports he is somewhat compliant with the use of his lisinopril and metoprolol.? Blood pressure today elevated. He reports drinking a couple of cups of coffee today. Does admit to drinking Energy drinks on a daily basis due to his fatigue at times. 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 .. Tobacco dependence:? He reports he has been able to drastically reduced the amount of smoking he has done with with Wellbutrin.? Unfortunately continues to smoke a few cigarettes per day.? He reports very difficult to stop smoking as he uses it as a past time. .. History of coronary artery disease:? Patient has had a stent placement 2019 and continues on anti-platelet therapy and beta-lizzy. Unfortunately continues to smoke and does use daily energy? drinks. He does understand he needs to quit smoking and continues on Wellbutrin 150 ESR which has managed to help reduce his smoking. He otherwise denies any overt shortness of breath, chest discomforts or palpitations.? 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 which was normal. Most recent lipid panel improved though LDL still suboptimal for his cardiac condition.? He is somewhat compliant with statin use. [facility] Medical History History of [place] (myocardial infarction) Nicotine dependence, cigarettes, uncomplicated Left shoulder pain COPD (chronic obstructive pulmonary disease) Hypertension CAD (coronary artery disease) Surgical History History of colonoscopy History of coronary artery stent placement (~2018) History of hernia repair (~1969) Family History Father No problems noted. Mother No problems noted. Brother Hepatocellular carcinoma Social History Housing: Other Housing Other:: van Alcohol intake: current Alcohol intake frequency: holidays/special occasions only Patient Tobacco Use Status: Current everyday Tobacco user Tobacco use type: Cigarette Cigarette Packs Per Day: 1.5 Cigarettes Per Day: 30 Years Smoked: 58 +/- e-Cigarette/Vaping Use: Never Used Second Hand Smoke Exposure: Yes service: No Current occupational status: unemployed Cognitive needs: No Hearing needs: No Vision needs: No Questionnaire Thrive Questionnaire Date Thrive assessed: 09/24/22 SU-7 AMB Questionnaire SU-7 Date SU - 7 assessed: 09/24/22 Source: Developed by Drs. Agustin Gan, Jamee Friedman, Tom Fermin and colleagues, with an educational aman from [employer]. Review of Systems Const Denies headache(s) Eyes Denies loss of vision ENT Denies vertigo, Denies dizziness, Denies headache(s) and Denies sore throat Card Denies chest pain, Denies leg edema and Denies lightheadedness Resp Denies cough, Denies hemoptysis and Denies wheezing GI Denies abdominal pain, Denies melena, Denies constipation, Denies diarrhea and Denies vomiting Denies dysuria, Denies urinary frequency and Denies urinary urgency Musc Denies arthralgias, Denies joint swelling, Denies numbness and Denies tingling Neuro Denies Abnormal speech present, Denies behavioral changes, Denies vertigo, Denies dizziness, Denies headache(s), Denies loss of vision, Denies memory loss, Denies numbness and Denies tingling Psych Denies anxiety, Denies behavioral changes, Denies depression, Denies memory loss and Denies panic attacks Jameson/Lymph Denies easy bleeding and Denies easy bruising Aller/Immun Denies wheezing Physical exam (Primary Care) Vital Signs: Last Vital Signs Pulse 48 L 03/30/23 14:52 BP 172/100 H 03/30/23 14:52 Pulse Ox 100 03/30/23 14:52 Oxygen Delivery Method Room Air 03/30/23 14:52 BMI result Body Mass Index 23.5 Tobacco/Smoking Status: Tobacco use Status Tobacco use date assessed 12/25/22 03/30/23 14:53 Patient Tobacco Use Status Current everyday Tobacco 03/30/23 14:53 Tobacco use type Cigarette 03/30/23 14:53 e-Cigarette/Vaping Use Never Used 03/30/23 14:53 Thrive Assessment: Date of Thrive Assessment Date Thrive assessed 09/24/22 03/30/23 14:53 Const General: healthy appearing, no acute distress, alert and awake Nutritional Appearance: well nourished Orientation/consciousness: oriented to person, oriented to place and oriented to time HENMT Other: RIGHT EXTERNAL CANAL ERYTHEMATOUS, RIGHT TM SLIGHTLY BULGING AND ERYTHEMATOUS Ears: TM's normal bilaterally General nose exam: Normal nasal mucous membranes and turbinates present Eyes Conjunctivae: conjunctivae normal Sclerae: sclerae normal Pupils: Equal, round and reactive pupils present Neck Neck: Yes no lymphadenopathy and Yes no JVD Thyroid: Thyroid normal Carotids: no bruits Resp Effort & Inspection: normal respiratory effort and not tachypneic Auscultation: no crackles, no rales, no rhonchi and no wheezes Cardio Rate: regular rate Rhythm: regular rhythm Heart sounds: no murmurs and normal S1 and S2 GI Palpation (GI): Soft to palpation, nontender, no hepatomegaly and no splenomegaly Auscultation: normal bowel sounds Skin General skin exam: no rashes or lesions noted and dry skin Neuro General: oriented to person, oriented to place and oriented to time Cranial nerves: Yes Equal, round and reactive pupils present Speech: No Abnormal speech present Gait exam (Neuro): Normal gait present Motor exam (neuro): no tremor noted Extrem Right upper extremity: full ROM Left upper extremity: full ROM Right lower extremity: full ROM; no edema Left lower extremity: full ROM; no edema Psych Mental Status: mental status grossly normal Speech and movement: Normal speech and movement present Affect: normal affect Attitude: cooperative Thought process: Normal thought process present Assessment and Plan Assessment & Plan (1) Otitis externa: Code(s): H60.90 - Unspecified otitis externa, unspecified ear Qualifiers: Chronicity: acute Laterality: right Otitis externa type: unspecified type Qualified Code(s): H60.501 - Unspecified acute noninfective otitis externa, right ear Plan: On physical exam patient appears to have otitis externa with a erythematous external canal. Reports some resolution of his ear congestion and right-sided head numbness with oral antibiotics. Will supply him with more oral antibiotics as he felt it was helpful.. (2) Tobacco dependence: Code(s): F17.200 - Nicotine dependence, unspecified, uncomplicated Plan: Has been started on Wellbutrin which has him reduce his smoking though unfortunately continues to smoke. He feels somewhat ready to quit though has to get over mental block. (3) CAD (coronary artery disease): Comment: (STEMI 09/23/18 - s/p RCA stent; NSTEMI 10/01/18) Code(s): I25.10 - Atherosclerotic heart disease of [place] coronary artery without angina pectoris Qualifiers: Associated angina: with stable angina Coronary Disease-Associated Artery/Lesion type: [place] artery [place] vs. transplanted heart: [place] heart Qualified Code(s): I25.118 - Atherosclerotic heart disease of [place] coronary artery with other forms of angina pectoris Plan: Continues on aspirin therapy, beta-lizzy and statin therapy. Advised to get lipid panel done aseptic fasting to evaluate for appropriate LDL below 70. (4) HTN (hypertension): Code(s): I10 - Essential (primary) hypertension Qualifiers: Hypertension type: essential hypertension Qualified Code(s): I10 - Essential (primary) hypertension Plan: Patient's blood pressure elevated today in office. Will continue his current dose of lisinopril with goal blood pressure to remain below 140/90. Advised to do home blood pressure monitoring (5) HLD (hyperlipidemia): Code(s): E78.5 - Hyperlipidemia, unspecified Qualifiers: Hyperlipidemia type: mixed hyperlipidemia Qualified Code(s): E78.2 - Mixed hyperlipidemia Plan: Goal LDL to be below 70 Medications: New amoxicillin-pot clavulanate 875-125 mg 1 tab PO BID 7 days 14 tabs 0RF H60.501 - Unspecified acute noninfective otitis externa, right ear Refilled aspirin (Adult Aspirin Regimen) Not to be taken with Ibuprofen. 81 mg PO DAILY 90 tabs 4RF Coding Level of Care Code Est Pt Level 4 (86678) Diagnoses Acute otitis externa of right ear, unspecified type H60.501 Chronicity: acute Laterality: right Otitis externa type: unspecified type Tobacco dependence F17.200 Coronary artery disease of [place] artery of [place] heart with stable angina pectoris I25.118 Associated angina: with stable angina Coronary Disease-Associated Artery/Lesion type: [place] artery [place] vs. transplanted heart: [place] heart Essential hypertension I10 Hypertension type: essential hypertension Mixed hyperlipidemia E78.2 Hyperlipidemia type: mixed hyperlipidemia
== END 2023-03-30 15:28 | disposition home or self-care (01) ==
PROVIDERS: PCP Physician Assistant; Visit Provider Physician Assistant
DX: H60.501 Unspecified acute noninfective otitis externa, right ear (principal); F17.200 Nicotine dependence, unspecified, uncomplicated; I25.118 Atherosclerotic heart disease of native coronary artery with other forms of angina pectoris; I10 Essential (primary) hypertension; E78.2 Mixed hyperlipidemia
CPT/HCPCS: 99214

== ENCOUNTER 2023-03-30 15:35 | Outpatient (REF) | payer OTHER, MEDICAID, SELFPAY ==
[2023-03-30 16:47] LABS: Hematocrit 46.6 % (42.0-52.0); Hemoglobin 15.5 g/dl (14.0-18.0); Mean Corpuscular HGB Conc 33.3 g/dl (31.0-36.0); Mean Corpuscular Hemoglobin 30.5 pg (27.0-33.0); Mean Corpuscular Volume 91.6 fL (80.0-98.0); Mean Platelet Volume 9.9 fL (9.4-12.4); Platelet Count 246 X10*3/uL (160-400); Red Blood Count 5.09 X10*6/uL (4.60-5.80); Red Cell Distribution Width 13.8 % (11.0-16.0); White Blood Count 8.8 X10*3/uL (4.8-10.8)
[2023-03-30 17:20] LABS: Alanine Aminotransferase 23 U/L (0-40); Albumin Level 4.3 g/dL (3.5-5.0); Alkaline Phosphatase 109 U/L (39-117); Anion Gap 11 (12-20); Aspartate Amino Transferase 23 U/L (5-37); Bilirubin Total 0.6 mg/dL (0.0-1.0); Blood Urea Nitrogen 16 mg/dL (9-16); Calcium 9.7 mg/dL (8.4-10.2); Carbon Dioxide 27 mmol/L (22-29); Chloride 105 mmol/L (96-108); Cholesterol 141 mg/dL (<200); Estimated Glomerular Filt Rate 58; Glucose Fasting 102 mg/dL (60-99); HDL Cholesterol 56 mg/dL (>40); LDL Cholesterol Calculated 72 mg/dL (<100); Sodium 139 mmol/L (135-145); Total Protein 7.7 g/dL (6.5-8.0); Triglycerides 65 mg/dL (<150)
[2023-03-30 17:33] LABS: Prostate Specific Antigen Scr 2.87 ng/mL (<0.05-4.0)
[2023-03-30 18:33] LABS: Creatinine Urine 85.82 mg/dL; Microalbum/Creatinine Ratio Ur 9.3 ug/mg cr (<30)
== END 2023-03-30 15:36 | disposition home or self-care (01) ==
LOC: HO.LAB 15:35
PROVIDERS: PCP Physician Assistant; Visit Provider Physician Assistant
DX: Z12.5 Encounter for screening for malignant neoplasm of prostate (principal); I25.118 Atherosclerotic heart disease of native coronary artery with other forms of angina pectoris; I10 Essential (primary) hypertension; R68.82 Decreased libido
CPT/HCPCS: 36415; 80053; 80061; 82043; 82570; 84153; 84402; 84403; 85027

== ENCOUNTER 2023-04-10 16:18 | Emergency (ER) | payer OTHER, MEDICAID, SELFPAY ==
--- NOTE | ~2023-04-10 | CT_ITS ---
EXAMINATION: CT INNER EAR TEMPORAL BONES CLINICAL INFORMATION: Right mastoid tenderness. COMPARISON: None. TECHNIQUE: Multidetector helical was performed in the axial plane with generation of oblique axial and coronal reformatted projections. This CT examination was performed using dose optimization techniques as appropriate, variously including the following: *Automated exposure control *Adjustment of mA and/or kV according to patient size (this includes techniques or standardized protocols for targeted exams where dose is matched to indication/reason for exam; i.e. extremities or head) *Use of iterative reconstruction technique DLP: 238 mGy-cm. FINDINGS: Right: The external auditory canal is mildly opacified along its deep portion with associated mild thickening of the tympanic membrane. Prussak's space is mildly opacified but the scutum remains sharp. There is mild middle ear opacification with opacification of the round window niche. The tegmen is intact. The ossicular chain is intact. The facial nerve has a normal course. The inner ear structures are normally formed. The internal auditory canal is normal in size. The mastoid air cells are normally pneumatized but moderately opacified. No definite septal destruction is seen. There is no significant stranding within the external tissues. The carotid canal and jugular bulb appear normal. No bony erosion or destruction is seen. Left: The external auditory canal appears normal. The tympanic membrane is not thickened. The middle ear cavity is well-aerated. The scutum is sharp. Prussak's space is clear. The tegmen is intact. The ossicular chain is intact. The facial nerve has a normal course. The inner ear structures are normally formed. The internal auditory canal is normal in size. The mastoid air cells are normally pneumatized and well-aerated. The carotid canal and jugular bulb appear normal. No bony erosion or destruction is seen. Additional findings: There is mild nasal sinus mucosal thickening without fluid levels. No gross intracranial abnormality is seen. The orbits are unremarkable. CT/CT mastoid IMPRESSION: 1. On the right, the mastoid air cells are moderately opacified. Mild opacification of the middle ear cavity with opacification of the round window niche. Mild opacification of the deep portion of the external auditory canal with associated mild thickening of the tympanic membrane. No definite bony erosion or destruction. 2. On the left, the mastoid and middle ear cavities are clear.
[2023-04-10 16:25] VITALS: BP 196/97; PULSE 53; RESP 18; TEMP 36; O2SAT 97; BMI 24.3
--- NOTE | 2023-04-10 16:25 | ED_ITS ---
HPI - Ear Problem General Chief complaint: Ear Problems Stated complaint: Ear ache/Meds are not working Time Seen by Provider: 04/10/23 16:58 Source: patient Mode of arrival: ambulatory Limitations: no limitations History of Present Illness HPI Narrative: This is a 67-year-old male presenting to the emergency department for evaluation of right-sided ear pain and pain behind right ear for the past 4 weeks. Patient tells me that his pain has been constant, unchanged she has been on multiple courses of p.o. antibiotics as well as ear drops with little to no relief. The pain behind his right ear is new. Reports fatigue, malaise and feeling of disequilibrium. He reports that a young age eat ruptured his right tympanic membrane however he is not sure if this is contributing. Has not yet seen a specialist. Denies headache, vision changes, fevers, chills, nausea, vomiting, chest pain and shortness of breath. Related Data Previous Rx's Medication Instructions Recorded blood pressure test kit-medium #1 ea 03/03/22 atorvastatin 40 mg tablet 40 mg PO DAILY 90 days #90 tabs 05/14/22 metoprolol succinate 50 mg 50 mg PO DAILY 90 days #90 tabs 05/14/22 tablet,extended release 24 hr lisinopril 30 mg tablet 30 mg PO DAILY 90 days #90 tabs 12/25/22 bupropion HCl 150 mg tablet,12 hr 150 mg PO BID 90 days #180 tabs 03/10/23 sustained-release ibuprofen 600 mg tablet 600 mg PO Q6H 15 days #60 tabs 03/10/23 ciprofloxacin 0.3 %-dexamethasone 4 drp otic (ear) right BID 7 days 03/30/23 0.1 % ear drops,suspension #7.5 mL (Ciprodex) amoxicillin 875 mg-potassium 1 tab PO BID 7 days #14 tabs 03/31/23 clavulanate 125 mg tablet aspirin 81 mg tablet,delayed 81 mg PO DAILY #90 tabs 03/31/23 release (Adult Aspirin Regimen) levofloxacin 750 mg tablet 750 mg PO DAILY 10 days #10 tabs 04/10/23 Allergies Allergy/AdvReac Type Severity Reaction Status Date / Time tadalafil [From Cialis] Allergy Unknown anxiety Verified 04/10/23 16:25 Review of Systems 2 Review of Systems: Constitutional : No Weight loss, No Fever, No Chills, No Fatigue, No Malaise ENT/Mouth : No sore throat, No Rhinorrhea, + ear pain Eyes: No Eye Pain, No Swelling, No Redness Cardiovascular : No Chest Pain, No SOB, No Dyspnea on Exertion, No Orthopnea, No Edema, No Palpitations Respiratory : No Cough, No Sputum, No Wheezing Gastrointestinal : No Nausea, No Vomiting, No Diarrhea, No Constipation, No abdominal Pain, No Hematochezia, No Melena Genitourinary : No Dysuria, No Urinary Frequency, No Hematuria, Musculoskeletal : No joint pain, No Myalgias, No Joint Swelling Skin : No Skin Lesions, No rash Neuro : No Weakness, No Numbness, No Dizziness, No Headache Psych : No Anxiety/Panic, No Depression All other systems reviewed and are negative Yes all other systems are reviewed and are negative [facility] Past Medical History Attestation statement: The following information was validated with the patient. Source: old records reviewed and nursing notes reviewed Medical History History of [place] (myocardial infarction) Nicotine dependence, cigarettes, uncomplicated Left shoulder pain COPD (chronic obstructive pulmonary disease) Hypertension CAD (coronary artery disease) Surgical History History of colonoscopy History of coronary artery stent placement (~2018) History of hernia repair (~1969) Family History Family History Father No problems noted. Mother No problems noted. Brother Hepatocellular carcinoma Social History Social History Housing: Other Housing Other:: van Alcohol intake: current Alcohol intake frequency: holidays/special occasions only Patient Tobacco Use Status: Current everyday Tobacco user Tobacco use type: Cigarette Cigarette Packs Per Day: 1.5 Cigarettes Per Day: 30 Years Smoked: 58 +/- e-Cigarette/Vaping Use: Never Used Second Hand Smoke Exposure: Yes Advance Directives: No Advance Directives Information Provided: Yes service: No Current occupational status: unemployed Cognitive needs: No Hearing needs: No Vision needs: No Physical Exam 2 Vital Signs: Vital Signs: Last Vital Signs Temp 96.8 F 04/10/23 16:25 Pulse 53 04/10/23 16:25 Resp 18 04/10/23 16:25 BP 196/97 H 04/10/23 16:25 Pulse Ox 97 04/10/23 16:25 O2 Del Method Room Air 04/10/23 16:25 BMI result Body Mass Index 24.3 vss Appearance: Alert.? Oriented X3.? No acute distress.? Head: Normocephalic, atraumatic, no step-offs or deformities Eyes: Pupils equal, round and reactive to light.? ENT: Pharynx normal.?+ mastoid tenderness to the right, right ear canal and tympanic membrane erythematous, tympanic membrane does appear to be bulging. No discomfort with manipulation of right external ear. Normal left ear canal, tympanic membrane and external manipulation. No mastoid tenderness on the left. Neck: Normal inspection.? Neck supple.? CVS: Normal heart rate and rhythm.? Pulses normal.? Respiratory: No respiratory distress.? Breath sounds normal.? Abdomen: Soft and nontender.? Skin: Skin warm and dry.? Normal skin color.? Normal skin turgor.? Extremities: No lower extremity edema.? No calf ttp. 5/5 strength to bilateral upper and lower extremities Neuro: Oriented X 3.? No motor deficit.? No sensory deficit. CN 2-12 intact Course Course Course Narrative: This is an RME: Additional HPI, ROS, PE not included below will be deferred to primary provider. Patient is a 67-year-old male who presents emergency department for re-evaluation otitis externa which he has been seen here 2 times during the past month. He endorses persistent symptoms,dizziness, impaired balance, headache, ear feels numb, tinnitus, pain, denies drainage. States that he was taking oral ABX x17 days, completed yesterday, and topical ABX. Primarily is the impaired balance that is most bothersome for time. Plan: serum labs Reevaluation(s) Reevaluation #1: Patient's CT scan showing the mastoid air cells with moderately opacified. Mild opacification of the middle ear cavity with opacification of the round window known. I did discuss the CT results with my attending and this case with who recommends discharge home with Levaquin. Will have him follow-up with ENT. Went over strict return precautions. Educated patient on diagnosis and treatment plan, answered all question, patient verbalizes understanding. At this time patient will be discharged home, advised to return with new or worsening symptoms. Educated on worrisome signs and symptoms and when to return. At this time I feel comfortable discharge home. Time: 18:55 Medical Decision Making Medical Decision Making [facility] Narrative: 1742 67-year-old male presents with right-sided ear pain, disequilibrium, fatigue and malaise for the past 4 weeks. Has taken multiple p.o. antibiotics as well as ear drops with little to no relief Physical exam significant for Pharynx normal.?+ mastoid tenderness to the right, right ear canal and tympanic membrane erythematous, tympanic membrane does appear to be bulging. No discomfort with manipulation of right external ear. Normal left ear canal, tympanic membrane and external manipulation. No mastoid tenderness on the left. Concerns for complicated otitis media/recurrent versus otitis media simple versus mastoiditis. No signs of ruptured/perforated tympanic membrane no signs of malignant otitis. Will rule out abscess with CT. Plan labs, imaging. Differential Diagnosis Differential Diagnoses: The differential diagnosis associated with the presentation includes Concerns for complicated otitis media/recurrent versus otitis media simple versus mastoiditis. No signs of ruptured/perforated tympanic membrane no signs of malignant otitis. Will rule out abscess with CT. Admission/Observation Consideration of admission/observation: Escalation of care including admission/observation considered Unlikely Lab Data [facility] Lab Attestation statement: I reviewed the patient's lab results. 04/10/23 16:45 04/10/23 16:45 Labs: Lab Results 04/10/23 Range/Units 16:45 WBC 7.4 (4.8-10.8) X10*3/uL RBC 4.67 (4.60-5.80) X10*6/uL Hgb 14.3 (14.0-18.0) g/dl Hct 42.0 (42.0-52.0) % MCV 89.9 (80.0-98.0) fL MCH 30.6 (27.0-33.0) pg MCHC 34.0 (31.0-36.0) g/dl RDW 13.2 (11.0-16.0) % Plt Count 235 (160-400) X10*3/uL MPV 9.5 (9.4-12.4) fL Immature Gran % (Auto) 0.1 (0.0-0.4) % Neut % (Auto) 52.5 (45-73) % Lymph % (Auto) 32.2 (20-40) % [place] % (Auto) 7.9 (2-11) % Eos % (Auto) 6.5 H (0-4) % Baso % (Auto) 0.8 (0-2) % Lymph # (Auto) 2.4 (1.2-4.9) X10*3/uL [place] # (Auto) 0.6 (0.1-1.2) X10*3/uL Eos # (Auto) 0.5 H (0.0-0.4) X10*3/uL Baso # (Auto) 0.1 (0.0-0.2) X10*3/uL Abs Immat Gran (auto) 0.01 (0.00-0.03) X10*3/uL Absolute Neuts (auto) 3.9 (2.0-8.3) x10*3/uL Absolute Nucleated RBC 0.000 (0.0-0.012) X10*3/uL Nucleated RBC % (auto) 0.0 (0.0-0.2) /100WBC ESR 5 (0-15) MM/HR Sodium 141 (135-145) mmol/L Potassium 4.0 (3.3-5.1) mmol/L Chloride 107 (96-108) mmol/L Carbon Dioxide 23 (22-29) mmol/L Anion Gap 15 (12-20) BUN 15 (9-16) mg/dL Creatinine 1.02 (0.5-1.4) mg/dL Estim Creat Clear Calc 73.5 Estimated GFR > 60 Random Glucose 117 H (60-115) mg/dL Calcium 9.4 (8.4-10.2) mg/dL Total Bilirubin 0.5 (0.0-1.0) mg/dL AST 24 (5-37) U/L ALT 17 (0-40) U/L Alkaline Phosphatase 98 (39-117) U/L Total Protein 7.2 (6.5-8.0) g/dL Albumin 4.1 (3.5-5.0) g/dL Critical Care Time Critical Care Time Critical Care Time: No Discharge Plan Discharge Clinical Impression: Mastoiditis Patient Disposition: Home, Self-Care Instructions: Mastoiditis (ED) Additional Instructions: Take your medications as prescribed. If you were prescribed antibiotics today, it is important that you take your medication to their entirety, do not skip any doses, do not finish them early. Follow-up with your primary care provider this week. Return to the emergency department with new or worsening symptoms. Such as fevers, chills, chest pain, shortness of breath, nausea, vomiting, dizziness, headache, vision changes, lethargy In case of emergency call 911 Levaquin is an antibiotic that belongs to the fluoroquinolone antibiotic class these antibiotics are known to have a side effect/black box warning of tendon rupture, rare but can occure if you experience pain to joints please discontinue this medication. Follow-up with ears nose and throat. CT/CT mastoid IMPRESSION: 1. On the right, the mastoid air cells are moderately opacified. Mild opacification of the middle ear cavity with opacification of the round window niche. Mild opacification of the deep portion of the external auditory canal with associated mild thickening of the tympanic membrane. No definite bony erosion or destruction. 2. On the left, the mastoid and middle ear cavities are clear. Prescriptions: New levofloxacin 750 mg tablet 750 mg PO DAILY 10 Days Qty: 10 0RF No Action bupropion HCl 150 mg tablet sustained-release 12 hr 150 mg PO BID 90 Days Qty: 180 0RF ibuprofen 600 mg tablet 600 mg PO Q6H 15 Days Qty: 60 0RF amoxicillin-pot clavulanate 875-125 mg tablet 1 tab PO BID 7 Days Qty: 14 0RF aspirin [Adult Aspirin Regimen] 81 mg tablet,delayed release (DR/EC) 81 mg PO DAILY Qty: 90 4RF Rx Instructions: Not to be taken with Ibuprofen. ciprofloxacin-dexamethasone [Ciprodex] 0.3-0.1 % drops,suspension 4 drp otic (ear) right BID 7 Days Qty: 7.5 0RF (DME) blood pressure test kit-medium Kit See Rx Instructions .Route Qty: 1 0RF Rx Instructions: As directed lisinopril 30 mg tablet 30 mg PO DAILY 90 Days Qty: 90 4RF atorvastatin 40 mg tablet 40 mg PO DAILY 90 Days Qty: 90 4RF metoprolol succinate 50 mg tablet extended release 24 hr 50 mg PO DAILY 90 Days Qty: 90 4RF Referrals: Anuj Lopez PA-C [Primary Care Provider] - 2 days Michael Reed [Physician] - 1 day Stand Alone Forms: Work/School Release
[2023-04-10 16:50] LABS: MANUAL DIFF FLAG NO
[2023-04-10 16:51] LABS: Basophils Absolute Auto 0.1 X10*3/uL (0.0-0.2); Basophils Percent Auto 0.8 % (0-2); Eosinophils Absolute Auto 0.5 X10*3/uL (0.0-0.4); Eosinophils Percent Auto 6.5 % (0-4); Hemoglobin 14.3 g/dl (14.0-18.0); Imm Gran Abs Auto 0.01 X10*3/uL (0.00-0.03); Imm Gran Pct Auto 0.1 % (0.0-0.4); Lymphocytes Absolute Auto 2.4 X10*3/uL (1.2-4.9); Lymphocytes Percent Auto 32.2 % (20-40); Mean Corpuscular Hemoglobin 30.6 pg (27.0-33.0); Mean Corpuscular Volume 89.9 fL (80.0-98.0); Mean Platelet Volume 9.5 fL (9.4-12.4); Monocytes Absolute Auto 0.6 X10*3/uL (0.1-1.2); Monocytes Percent Auto 7.9 % (2-11); Neutrophils Absolute Auto 3.9 x10*3/uL (2.0-8.3); Neutrophils Percent Auto 52.5 % (45-73); Platelet Count 235 X10*3/uL (160-400); Red Blood Count 4.67 X10*6/uL (4.60-5.80); Red Cell Distribution Width 13.2 % (11.0-16.0); White Blood Count 7.4 X10*3/uL (4.8-10.8)
[2023-04-10 17:07] LABS: Alanine Aminotransferase 17 U/L (0-40); Albumin Level 4.1 g/dL (3.5-5.0); Alkaline Phosphatase 98 U/L (39-117); Anion Gap 15 (12-20); Aspartate Amino Transferase 24 U/L (5-37); Bilirubin Total 0.5 mg/dL (0.0-1.0); Blood Urea Nitrogen 15 mg/dL (9-16); Calcium 9.4 mg/dL (8.4-10.2); Carbon Dioxide 23 mmol/L (22-29); Chloride 107 mmol/L (96-108); Creatinine Clr Calc Pharmacy 73.5; Estimated Glomerular Filt Rate > 60; Glucose Random 117 mg/dL (60-115); Sodium 141 mmol/L (135-145); Total Protein 7.2 g/dL (6.5-8.0)
[2023-04-10 17:32] LABS: Erythrocyte Sedimentation Rate 5 MM/HR (0-15)
== END 2023-04-10 19:48 | disposition home or self-care (01) ==
PROVIDERS: Nurse Practitioner Family; Emergency Provider Emergency Medicine; PCP Physician Assistant
DX: H70.93 Unspecified mastoiditis, bilateral (principal); H92.03 Otalgia, bilateral; F17.210 Nicotine dependence, cigarettes, uncomplicated; Z71.6 Tobacco abuse counseling; Z79.899 Other long term (current) drug therapy
CPT/HCPCS: 36415; 70481; 80053; 85025; 85652; 99282; 99284

== ENCOUNTER 2023-04-13 13:16 | Outpatient (AMB) | payer OTHER, MEDICAID, SELFPAY ==
[2023-04-13 13:20] VITALS: BP 152/72; PULSE 58; RESP 16; O2SAT 98; BMI 24.1
--- NOTE | 2023-04-13 13:20 | A.OFFPC_ITS ---
Vital Signs 04/13/23 13:20 Height 5 ft 10 in Weight 168 lb BMI 24.1 BP 152/72 H Blood Pressure Location Lt brachial Position Sitting Respiration 16 Pulse 58 Pulse Source Pulse Oximeter Pulse Oximetry (%) 98 Oxygen Delivery Method Room Air Intake Visit Reasons: ear infection Intake Note: Pt is here for ?right ear infection. Rib Builder Required: No Accompanied by: Self / Same As Patient Allergies tadalafil [From Cialis] Allergy (Unknown, Verified 04/13/23 13:26) anxiety Medication List - Last Reconciled 04/13/23 by Anuj Lopez PA-C aspirin (Adult Aspirin Regimen) 81 mg PO DAILY atorvastatin 40 mg PO DAILY 90 days blood pressure test kit-medium As directed bupropion HCl 150 mg PO BID 90 days ibuprofen 600 mg PO Q6H 15 days levofloxacin 750 mg PO DAILY 10 days lisinopril 30 mg PO DAILY 90 days metoprolol succinate ER 50 mg PO DAILY 90 days Tobacco use date assessed: 12/25/22 Fall risk assessment: No Falls in past year Last assessed Fall Risk: 04/13/23 Dental Screening Dental Screen Date: 04/13/23 Did you have a dental visit in the last 12 months?: Yes Did you have a dental problem in the last 6 months where you did not have access to dental care?: No Was dental information given to patient?: Patient has dentist HPI ear infection HPI Details Patient is a 67-year-old male here today for an ER follow-up visit patient did continue to have ER and had pain with reports right posterior ear pain and numbness over the right side of his head. He attributes some of this d ue to having injuries several years ago to his head. While in the ER CT of mastoid showing-- >On the right, the mastoid air cells are moderately opacified. Mild opacification of the middle ear cavity with opacification of the round window niche. Mild opacification of the deep portion of the external auditory canal with associated mild thickening of the tympanic membrane. No definite bony erosion or destruction. Patient has been placed on levofloxacin and is on day 3 of treatment in feels somewhat better. He does report feeling cool and clammy on occasion at night. Having trouble sleeping. Has been using ibuprofen which has been helpful. [facility] Medical History History of [place] (myocardial infarction) Nicotine dependence, cigarettes, uncomplicated Left shoulder pain COPD (chronic obstructive pulmonary disease) Hypertension CAD (coronary artery disease) Surgical History History of colonoscopy History of coronary artery stent placement (~2018) History of hernia repair (~1970) Family History Father No problems noted. Mother No problems noted. Brother Hepatocellular carcinoma Social History Housing: Other Housing Other:: van Alcohol intake: current Alcohol intake frequency: holidays/special occasions only Patient Tobacco Use Status: Current everyday Tobacco user Tobacco use type: Cigarette Cigarette Packs Per Day: 1.5 Cigarettes Per Day: 30 Years Smoked: 58 +/- e-Cigarette/Vaping Use: Never Used Second Hand Smoke Exposure: Yes service: No Current occupational status: unemployed Cognitive needs: No Hearing needs: No Vision needs: No Questionnaire Thrive Questionnaire Date Thrive assessed: 09/24/22 SU-7 AMB Questionnaire SU-7 Date SU - 7 assessed: 09/24/22 Source: Developed by Drs. Agustin Gan, Jamee Friedman, Tom Fermin and colleagues, with an educational aman from [employer]. Review of Systems Const Denies headache(s) Eyes Denies loss of vision ENT Denies vertigo, Denies dizziness, Denies headache(s) and Denies sore throat Card Denies chest pain, Denies leg edema and Denies lightheadedness Resp Denies cough, Denies hemoptysis and Denies wheezing GI Denies abdominal pain, Denies melena, Denies constipation, Denies diarrhea and Denies vomiting Denies dysuria, Denies urinary frequency and Denies urinary urgency Musc Denies arthralgias, Denies joint swelling, Denies numbness and Denies tingling Neuro Denies Abnormal speech present, Denies behavioral changes, Denies vertigo, Denies dizziness, Denies headache(s), Denies loss of vision, Denies memory loss, Denies numbness and Denies tingling Psych Denies anxiety, Denies behavioral changes, Denies depression, Denies memory loss and Denies panic attacks [place]/Lymph Denies easy bleeding and Denies easy bruising Aller/Immun Denies wheezing Physical exam (Primary Care) Vital Signs: Last Vital Signs Pulse 58 04/13/23 13:20 Resp 16 04/13/23 13:20 BP 152/72 H 04/13/23 13:20 Pulse Ox 98 04/13/23 13:20 Oxygen Delivery Method Room Air 04/13/23 13:20 BMI result Body Mass Index 24.1 Tobacco/Smoking Status: Tobacco use Status Tobacco use date assessed 12/25/22 04/13/23 13:22 Patient Tobacco Use Status Current everyday Tobacco 04/13/23 13:22 Tobacco use type Cigarette 04/13/23 13:22 e-Cigarette/Vaping Use Never Used 04/13/23 13:22 Thrive Assessment: Date of Thrive Assessment Date Thrive assessed 09/24/22 04/13/23 13:22 Const General: healthy appearing, no acute distress, alert and awake Nutritional Appearance: well nourished Orientation/consciousness: oriented to person, oriented to place and oriented to time HENMT Ears: TM's normal bilaterally General nose exam: Normal nasal mucous membranes and turbinates present Eyes Conjunctivae: conjunctivae normal Sclerae: sclerae normal Pupils: Equal, round and reactive pupils present Neck Neck: Yes no lymphadenopathy and Yes no JVD Thyroid: Thyroid normal Carotids: no bruits Resp Effort & Inspection: normal respiratory effort and not tachypneic Auscultation: no crackles, no rales, no rhonchi and no wheezes Cardio Rate: regular rate Rhythm: regular rhythm Heart sounds: no murmurs and normal S1 and S2 GI Palpation (GI): Soft to palpation, nontender, no hepatomegaly and no splenomegaly Auscultation: normal bowel sounds Skin General skin exam: no rashes or lesions noted and dry skin Neuro General: oriented to person, oriented to place and oriented to time Cranial nerves: Yes Equal, round and reactive pupils present Speech: No Abnormal speech present Gait exam (Neuro): Normal gait present Motor exam (neuro): no tremor noted Extrem Right upper extremity: full ROM Left upper extremity: full ROM Right lower extremity: full ROM; no edema Left lower extremity: full ROM; no edema Psych Mental Status: mental status grossly normal Speech and movement: Normal speech and movement present Affect: normal affect Attitude: cooperative Thought process: Normal thought process present Assessment and Plan Assessment & Plan (1) Mastoiditis: Code(s): H70.90 - Unspecified mastoiditis, unspecified ear Qualifiers: Laterality: right Qualified Code(s): H70.91 - Unspecified mastoiditis, right ear Plan: Patient with evidence of mastoiditis on CT. Has been on several different antibiotics and most recently on levofloxacin. Feels somewhat better though would like to see ENT specialist for further evaluation recommendation.. Orders: Referrals Ear/Nose/Throat Referral H70.90 - Unspecified mastoiditis, unspecified ear Medications: Refilled ibuprofen 600 mg PO Q6H 15 days 60 tabs 0RF M51.9 - Unspecified thoracic, thoracolumbar and lumbosacral intervertebral disc disorder Coding Level of Care Code Est Pt Level 3 (84780) Diagnoses Mastoiditis of right side H70.91 Laterality: right
== END 2023-04-13 14:00 | disposition home or self-care (01) ==
LOC: HO.HMGH 13:16
PROVIDERS: PCP Physician Assistant; Visit Provider Physician Assistant
DX: H70.91 Unspecified mastoiditis, right ear (principal)
CPT/HCPCS: 99213

== ENCOUNTER 2023-05-27 15:08 | Outpatient (REF) | payer OTHER, MEDICAID, SELFPAY ==
[2023-05-27 16:55] LABS: Appearance Urine Clear; Color Urine Yellow; Glucose Urine UA Negative (Negative); Leukocyte Esterase Urine Negative (Negative); Nitrite Urine Negative (Negative); PH 7.5 (5.0-9.0); Urine Blood Negative (Negative); Urine Ketones Negative (Negative); Urine Protein Negative (Neg-Trace)
== END 2023-05-27 15:09 | disposition home or self-care (01) ==
LOC: HO.LAB 15:08
PROVIDERS: Visit Provider Physician Assistant
DX: R30.0 Dysuria (principal); N48.6 Induration penis plastica
CPT/HCPCS: 81003

== ENCOUNTER 2023-06-30 15:39 | Outpatient (AMB) | payer OTHER, MEDICAID, SELFPAY ==
[2023-06-30 15:51] VITALS: BP 174/90; PULSE 64; RESP 17; BMI 24.4
--- NOTE | 2023-06-30 15:51 | A.OFFPC_ITS ---
Vital Signs 06/30/23 15:51 Height 5 ft 10 in Weight 170 lb 6 oz BMI 24.4 BP 174/90 H Blood Pressure Location Lt brachial Position Sitting Respiration 17 Pulse 64 Pulse Source Palpation Intake Visit Reasons: f/u CAD/ HTN Holistic Health Practitioner Required: No Accompanied by: Self / Same As Patient Allergies tadalafil [From Cialis] Allergy (Unknown, Verified 06/30/23 16:12) anxiety Medication List - Last Reconciled 06/30/23 by Anuj Lopez PA-C aspirin (Adult Aspirin Regimen) 81 mg PO DAILY atorvastatin 40 mg PO DAILY 90 days blood pressure test kit-medium As directed bupropion HCl 150 mg PO BID 90 days ibuprofen 600 mg PO Q6H 15 days lisinopril 30 mg PO DAILY 90 days metoprolol succinate ER 50 mg PO DAILY 90 days Tobacco use date assessed: 12/25/22 Fall risk assessment: No Falls in past year Last assessed Fall Risk: 06/30/23 Dental Screening Dental Screen Date: 06/30/23 Did you have a dental visit in the last 12 months?: Yes Did you have a dental problem in the last 6 months where you did not have access to dental care?: No Was dental information given to patient?: Patient has dentist HPI f/u CAD/ HTN HPI Details Patient is a 67-year-old male here today for follow-up visit. ? Patient has a past medical history significant for coronary artery disease, hypertension, hyperlipidemia, smoker, homeless. Concern--> reports he has an upcoming appointment with a urologist. Did have weak urinary stream though also reporting he has a curvature to his penis when erect. Likely has Peyronie's disease and would like treatment for this. CHRONIC MEDICAL CONDITIONS--> . Hypertension:? Does not monitor his blood pressure at home, he reports he is compliant with the use of his blood pressure medication . Blood pressure today elevated. He reports drinking a couple energy drinks today which he does on a regular basis. 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 .. Tobacco dependence:? He reports he has been able to drastically reduced the amount of smoking he has done with with Wellbutrin.? Unfortunately continues to smoke a few cigarettes per day.? He reports very difficult to stop smoking as he uses it as a past time. .. History of coronary artery disease:? Patient has had a stent placement 2019 and continues on anti-platelet therapy and beta-lizzy. Unfortunately continues to smoke and does use daily energy? drinks. He does understand he needs to quit smoking and continues on Wellbutrin 150 ESR which has managed to help reduce his smoking. He otherwise denies any overt shortness of breath, chest discomforts or palpitations.? 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 which was normal. Most recent lipid panel improved though LDL still suboptimal for his cardiac condition.? He is somewhat compliant with statin use. [facility] Medical History History of CT (myocardial infarction) Nicotine dependence, cigarettes, uncomplicated Left shoulder pain COPD (chronic obstructive pulmonary disease) Hypertension CAD (coronary artery disease) Surgical History History of colonoscopy History of coronary artery stent placement (~2018) History of hernia repair (~1969) Family History Father No problems noted. Mother No problems noted. Brother Hepatocellular carcinoma Social History Housing: Other Housing Other:: van Alcohol intake: current Alcohol intake frequency: holidays/special occasions only Patient Tobacco Use Status: Current everyday Tobacco user Tobacco use type: Cigarette Cigarette Packs Per Day: 1.5 Cigarettes Per Day: 30 Years Smoked: 58 +/- e-Cigarette/Vaping Use: Never Used Second Hand Smoke Exposure: Yes service: No Current occupational status: unemployed Cognitive needs: No Hearing needs: No Vision needs: No Questionnaire Thrive Questionnaire Date Thrive assessed: 09/24/22 SU-7 AMB Questionnaire SU-7 Date SU - 7 assessed: 09/24/22 Source: Developed by Drs. Agustin Gan, Jamee Friedman, Tom Fermin and colleagues, with an educational aman from [employer]. Review of Systems Const Denies headache(s) Eyes Denies loss of vision ENT Denies vertigo, Denies dizziness, Denies headache(s) and Denies sore throat Card Denies chest pain, Denies leg edema and Denies lightheadedness Resp Denies cough, Denies hemoptysis and Denies wheezing GI Denies abdominal pain, Denies melena, Denies constipation, Denies diarrhea and Denies vomiting Denies dysuria, Denies urinary frequency and Denies urinary urgency Musc Denies arthralgias, Denies joint swelling, Denies numbness and Denies tingling Neuro Denies Abnormal speech present, Denies behavioral changes, Denies vertigo, Denies dizziness, Denies headache(s), Denies loss of vision, Denies memory loss, Denies numbness and Denies tingling Psych Denies anxiety, Denies behavioral changes, Denies depression, Denies memory loss and Denies panic attacks Jameson/Lymph Denies easy bleeding and Denies easy bruising Aller/Immun Denies wheezing Physical exam (Primary Care) Vital Signs: Last Vital Signs Pulse 64 06/30/23 15:51 Resp 17 06/30/23 15:51 BP 174/90 H 06/30/23 15:51 BMI result Body Mass Index 24.4 Tobacco/Smoking Status: Tobacco use Status Tobacco use date assessed 12/25/22 06/30/23 15:56 Patient Tobacco Use Status Current everyday Tobacco 06/30/23 15:56 Tobacco use type Cigarette 06/30/23 15:56 e-Cigarette/Vaping Use Never Used 06/30/23 15:56 Thrive Assessment: Date of Thrive Assessment Date Thrive assessed 09/24/22 06/30/23 15:56 Const General: healthy appearing, no acute distress, alert and awake Nutritional Appearance: well nourished Orientation/consciousness: oriented to person, oriented to place and oriented to time [facility] Ears: TM's normal bilaterally General nose exam: Normal nasal mucous membranes and turbinates present Eyes Conjunctivae: conjunctivae normal Sclerae: sclerae normal Pupils: Equal, round and reactive pupils present Neck Neck: Yes no lymphadenopathy and Yes no JVD Thyroid: Thyroid normal Carotids: no bruits Resp Effort & Inspection: normal respiratory effort and not tachypneic Auscultation: no crackles, no rales, no rhonchi and no wheezes Cardio Rate: regular rate Rhythm: regular rhythm Heart sounds: no murmurs and normal S1 and S2 GI Palpation (GI): Soft to palpation, nontender, no hepatomegaly and no splenomegaly Auscultation: normal bowel sounds Skin General skin exam: no rashes or lesions noted and dry skin Neuro General: oriented to person, oriented to place and oriented to time Cranial nerves: Yes Equal, round and reactive pupils present Speech: No Abnormal speech present Gait exam (Neuro): Normal gait present Motor exam (neuro): no tremor noted Extrem Right upper extremity: full ROM Left upper extremity: full ROM Right lower extremity: full ROM; no edema Left lower extremity: full ROM; no edema Psych Mental Status: mental status grossly normal Speech and movement: Normal speech and movement present Affect: normal affect Attitude: cooperative Thought process: Normal thought process present Assessment and Plan Assessment & Plan (1) Tobacco dependence: Code(s): F17.200 - Nicotine dependence, unspecified, uncomplicated Plan: Has been started on Wellbutrin which has him reduce his smoking though unfortunately continues to smoke. He feels somewhat ready to quit though has to get over mental block. (2) CAD (coronary artery disease): Comment: (STEMI 09/23/18 - s/p RCA stent; NSTEMI 10/01/18) Code(s): I25.10 - Atherosclerotic heart disease of [place] coronary artery without angina pectoris Qualifiers: Associated angina: with stable angina Coronary Disease-Associated Artery/Lesion type: [place] artery [place] vs. transplanted heart: [place] heart Qualified Code(s): I25.118 - Atherosclerotic heart disease of [place] coronary artery with other forms of angina pectoris Plan: Continues on aspirin therapy, beta-lizzy and statin therapy. Advised to get lipid panel done aseptic fasting to evaluate for appropriate LDL below 70. (3) HTN (hypertension): Code(s): I10 - Essential (primary) hypertension Qualifiers: Hypertension type: essential hypertension Qualified Code(s): I10 - Essential (primary) hypertension Plan: Patient's blood pressure elevated today in office. Advised on increasing his lisinopril dose though he declines at this time. Will continue his current dose of lisinopril with goal blood pressure to remain below 140/90. Advised to do home blood pressure monitoring (4) HLD (hyperlipidemia): Code(s): E78.5 - Hyperlipidemia, unspecified Qualifiers: Hyperlipidemia type: mixed hyperlipidemia Qualified Code(s): E78.2 - Mixed hyperlipidemia Plan: Patient continues on moderate statin potency. He does report being fairly compliant with the use of his cholesterol medication on a daily basis. Most recent LDL at 72 Goal LDL to be below 70 Orders: Orders Comprehensive [place]. Panel Fast 06/30/23 I25.118 - Atherosclerotic heart disease of [place] coronary artery with other forms of angina pectoris Complete Blood Count no Diff 06/30/23 I10 - Essential (primary) hypertension Lipid Panel 06/30/23 I25.118 - Atherosclerotic heart disease of [place] coronary artery with other forms of angina pectoris Medications: New lorazepam 0.5 mg PO DAILY 7 days PRN 7 tabs 0RF anxiety F41.1 - Generalized anxiety disorder Coding Level of Care Code Est Pt Level 4 (55156) Diagnoses Tobacco dependence F17.200 Coronary artery disease of [place] artery of [place] heart with stable angina pectoris I25.118 Associated angina: with stable angina Coronary Disease-Associated Artery/Lesion type: [place] artery [place] vs. transplanted heart: [place] heart Essential hypertension I10 Hypertension type: essential hypertension Mixed hyperlipidemia E78.2 Hyperlipidemia type: mixed hyperlipidemia
== END 2023-06-30 16:34 | disposition home or self-care (01) ==
PROVIDERS: PCP Physician Assistant; Visit Provider Physician Assistant
DX: F17.200 Nicotine dependence, unspecified, uncomplicated (principal); I25.118 Atherosclerotic heart disease of native coronary artery with other forms of angina pectoris; I10 Essential (primary) hypertension; E78.2 Mixed hyperlipidemia
CPT/HCPCS: 99214

== ENCOUNTER 2023-07-22 15:04 | Outpatient (AMB) | payer OTHER, MEDICAID, SELFPAY ==
--- NOTE | 2023-07-22 15:23 | A.OFFVIS_ITS ---
Intake Intake Visit Reasons: Poor urinary stream Intake Note: NEW Patient presents today to established treatment for Poor Urinary Stream: Meds- None Allergies to Antibiotic- No Known Allergies Blood Thinner- Aspirin Post Void Residual: 94 mL Emergency Telecommunications Dispatcher Required: No Accompanied by: Self / Same As Patient Allergies tadalafil [From Cialis] Allergy (Unknown, Verified 07/22/23 15:24) anxiety Medication List - Last Reconciled 07/22/23 by Brian Mireles MD aspirin (Adult Aspirin Regimen) 81 mg PO DAILY atorvastatin 40 mg PO DAILY 90 days blood pressure test kit-medium As directed bupropion HCl 150 mg PO BID 90 days ibuprofen 600 mg PO Q6H 15 days lisinopril 30 mg PO DAILY 90 days lorazepam 0.5 mg PO DAILY PRN 7 days metoprolol succinate ER 50 mg PO DAILY 90 days tamsulosin (Flomax) 0.4 mg PO DAILY HPI HPI Comments History of Present Illness Details Guru is a 67-year-old male who is here for evaluation for weak urinary stream. Past Medical history includes coronary artery disease, hypertension, nicotine dependence The patient complains of urinary frequency, nocturia cough, urinary hesitency. He denies dysuria or gross hematuria, history of nicotine use, has been using cigarettes for over 45 years. I have discussed workup to include evaluation of the urinary tract of renal and bladder ultrasound. UA--negative leukocytes or blood, PVR 94 mL Prostate exam-mild to moderate enlargement of the prostate smooth. PSA 03/31/2023-- 2.87 Plan: For renal ultrasound Tamsulosin Follow-up in 2 months [facility] Medical History (Updated 07/22/23 @ 17:21 by Brian Mireles MD) Weak urinary stream History of [place] (myocardial infarction) Nicotine dependence, cigarettes, uncomplicated Left shoulder pain COPD (chronic obstructive pulmonary disease) Hypertension CAD (coronary artery disease) Surgical History History of colonoscopy History of coronary artery stent placement (~2018) History of hernia repair (~1969) Family History Father No problems noted. Mother No problems noted. Brother Hepatocellular carcinoma Social History Housing: Other Housing Other:: van Alcohol intake: current Alcohol intake frequency: holidays/special occasions only Patient Tobacco Use Status: Current everyday Tobacco user Tobacco use type: Cigarette Cigarette Packs Per Day: 1.5 Cigarettes Per Day: 30 Years Smoked: 58 +/- e-Cigarette/Vaping Use: Never Used Second Hand Smoke Exposure: Yes service: No Current occupational status: unemployed Cognitive needs: No Hearing needs: No Vision needs: No Review of Systems Const All systems reviewed & are unremarkable except as noted in HPI and below Reports no additional complaints Eyes Reports no additional complaints ENT Reports no additional complaints Card Denies dyspnea Resp Denies cough and Denies dyspnea GI Reports no additional complaints Musc Reports no additional complaints Skin/Breast Denies rash and Denies unusual bruising Neuro Reports no additional complaints Psych Reports no additional complaints Endo Reports no additional complaints Jameson/Lymph Reports no additional complaints Aller/Immun Reports no additional complaints Physical Exam Const General: healthy appearing, no acute distress and well developed Orientation/consciousness: patient oriented x3 HEENT Head: Yes normocephalic and Yes atraumatic Eyes Conjunctivae: conjunctivae normal Neck Neck: Yes normal visual inspection Chest Chest palpation & inspection: normal inspection of the chest Resp Effort & Inspection: normal respiratory effort Cardio Rate: regular rate GI Inspection: Yes normal to inspection Palpation (GI): Soft to palpation Other: Prostate Exam: mildly enlarged, smooth Penis: normal penis Scrotum: scrotum normal Skin General skin exam: no rashes or lesions noted Neuro General: patient oriented x3 Extrem General: No pedal edema Psych Appearance: grossly normal Affect: normal affect Office Procedures Post Void Residual Post Residual Void Post Void Residual (PVR): [id number] Void Residual by ultrasound Results AMB Urinalysis, Automated UA Leukoctes 0 Elizabeth/uL Last Edit by ROLANDA Johnson on 07/22/23 15:33 UA Nitrite Negative Last Edit by ROLANDA Johnson on 07/22/23 15:33 UA Urobilinogen 0.2 mg/dL Last Edit by Danica Rahman A on 07/22/23 15:3 3 UA Protein 0 mg/dL Last Edit by Danica Rahman, A on 07/22/23 15:33 UA pH 7.0 Last Edit by Danica Rahman, A on 07/22/23 15:33 UA Blood 0 Bertin/uL Last Edit by Danica Rahman, A on 07/22/23 15:33 UA Specific [place] 1.010 Last Edit by Danica Rahman, A on 07/22/23 15: 33 UA Ketone Negative Last Edit by Danica Rahman A on 07/22/23 15:33 UA Bilirubin 0 mg/dL Last Edit by Danica Rahman A on 07/22/23 15:33 UA Glucose 0 mg/dL Last Edit by Danica Rahman A on 07/22/23 15:33 Results Reviewed Results Reviewed: Laboratory Last Values Urine pH (Auto) 7.0 07/22/23 15:31 Specific [place] (Auto) 1.010 07/22/23 15:31 Urine Protein (Auto) 0 mg/dL 07/22/23 15:31 Glucose (UA)(Auto) 0 mg/dL 07/22/23 15:31 Urine Ketones (Auto) Negative 07/22/23 15:31 Urine Blood (Auto) 0 Bertin/uL 07/22/23 15:31 Urine Nitrite (Auto) Negative 07/22/23 15:31 Urine Bilirubin (Auto) 0 mg/dL 07/22/23 15:31 Urine Urobilinogen (Auto) 0.2 mg/dL 07/22/23 15:31 Leukocyte Esterase (Auto) 0 Elizabeth/uL 07/22/23 15:31 Assessment & Plan Assessment & Plan (1) Weak urinary stream: Code(s): R39.12 - Poor urinary stream (2) BPH loc w urin obs/LUTS: Code(s): N40.1 - Benign prostatic hyperplasia with lower urinary tract symptoms (3) Nicotine dependence: Code(s): F17.200 - Nicotine dependence, unspecified, uncomplicated Plan For renal ultrasound Tamsulosin Follow-up in 2 months Orders: Orders AMB Urinalysis Automated Today Z13.9 - Encounter for screening, unspecified AMB Post Void Residual by ultrasound Today N39.8 - Other specified disorders of urinary system US retroperitoneal comp 1 Month N40.1 - Benign prostatic hyperplasia with lower urinary tract symptoms, R39.12 - Poor urinary stream Medications: New tamsulosin (Flomax) 0.4 mg PO DAILY 90 caps 1RF Patient Instructions: The patient had an opportunity to ask questions regarding treatment plan. All questions were answered. Laboratory studies and physical exam results were discussed and reviewed in detail. No major barriers to understanding were identified. The patient expressed understanding and agreement with the above treatment plan. The patient is aware they should contact our office by phone for worsening of their current condition or the appearance of new symptoms. Compliance is encouraged with any medications and followup testing that is ordered. It is a privilege to be allowed the opportunity to participate in the urologic care of your patient. If you have any questions or concerns regarding treatment for the above conditions please do not hesitate to contact me. The office telephone contact is [phone]. This note is constructed in part using voice recognition software. While every effort has been made to ensure accuracy salesperson books errors may have been included. Yours sincerely, Brian Mireles MD Coding Level of Care Code New Pt Level 4 (28328) Diagnoses Weak urinary stream R39.12 BPH loc w urin obs/LUTS N40.1 Nicotine dependence F17.200 CPT Codes Post Residual Void - PVR CPT Code: 16911-Viyb Void Residual by ultrasound ([id number])
== END 2023-07-22 16:23 | disposition home or self-care (01) ==
PROVIDERS: PCP Physician Assistant; Visit Provider Urology
DX: N40.1 Benign prostatic hyperplasia with lower urinary tract symptoms (principal); R39.12 Poor urinary stream; F17.200 Nicotine dependence, unspecified, uncomplicated; Z13.9 Encounter for screening, unspecified
CPT/HCPCS: 99204; 99214

== ENCOUNTER → 2023-07-22 15:04 | Outpatient (BNVA) | payer OTHER, MEDICAID, SELFPAY | PROVIDERS: PCP Physician Assistant; Visit Provider Urology | DX: N40.1 Benign prostatic hyperplasia with lower urinary tract symptoms (principal); R39.12 Poor urinary stream; F17.210 Nicotine dependence, cigarettes, uncomplicated | CPT/HCPCS: 51798; 81003; 99202 ==

== ENCOUNTER 2023-08-14 13:10 | Outpatient (REF) | payer OTHER, MEDICAID, SELFPAY ==
--- NOTE | ~2023-08-14 | US_ITS ---
EXAMINATION: US RETROPERITONEAL COMPLETE (RENAL) CLINICAL INFORMATION: Poor urinary stream. COMPARISON: CT abdomen and pelvis 08/09/2019. TECHNIQUE: Real-time imaging of the kidneys and bladder. FINDINGS: RIGHT KIDNEY: 10.2 x 4.1 x 5.3 cm (SAG x AP x TRV). The kidney is normal in size, contour, and echogenicity. Renal cortical thickness is normal. No calculi or focal parenchymal lesions. No hydronephrosis. LEFT KIDNEY: 11.5 x 5.0 x 5.5 cm (SAG x AP x TRV). The kidney is normal in size, contour, and echogenicity. Renal cortical thickness is normal. No renal calculi or hydronephrosis. Lower pole 1.1 cm benign-appearing cyst. BLADDER: Well distended and normal. Bilateral ureteral jets are demonstrated. Prevoid bladder volume is 263 mL. Postvoid bladder volume is 57.6 mL. Enlarged prostate, volume 76.7 mL. US/US retroperitoneal comp IMPRESSION: * Prostatomegaly with large postvoid residual of 57.6 mL. * Benign-appearing left renal cyst. Followup imaging is not routinely recommended for benign appearing cysts.
== END 2023-08-14 13:11 | disposition home or self-care (01) ==
LOC: HO.US 13:10
PROVIDERS: PCP Physician Assistant; Visit Provider Urology
DX: R39.12 Poor urinary stream (principal); N40.1 Benign prostatic hyperplasia with lower urinary tract symptoms
CPT/HCPCS: 76770

== ENCOUNTER 2023-09-15 13:32 | Outpatient (AMB) | payer OTHER, MEDICAID, SELFPAY ==
--- NOTE | 2023-09-15 13:33 | A.OFFVIS_ITS ---
Intake Intake Visit Reasons: 8w/US Intake Note: Patient presents today to for a follow-up on US Results: Meds- Tamsulosin Allergies to Antibiotic- No Known Allergies Blood Thinner- Aspirin Post Void Residual: 40 mL Team Assembler Required: No Accompanied by: Self / Same As Patient Allergies tadalafil [From Cialis] Allergy (Unknown, Verified 09/15/23 13:34) anxiety Medication List - Last Reconciled 09/15/23 by Brian Mireles MD aspirin (Adult Aspirin Regimen) 81 mg PO DAILY atorvastatin 40 mg PO DAILY 90 days blood pressure test kit-medium As directed bupropion HCl 150 mg PO BID 90 days ibuprofen 600 mg PO Q6H 15 days lisinopril 30 mg PO DAILY 90 days lorazepam 0.5 mg PO DAILY PRN 7 days metoprolol succinate ER 50 mg PO DAILY 90 days tamsulosin (Flomax) 0.4 mg PO DAILY HPI HPI Comments History of Present Illness Details 09/15/2023--Guru is here for follow-up t o review renal ultrasound results. He was initially evaluated on 07/22/2023 for complaints of weak urinary stream. He was started on tamsulosin. He states that the medication is helping with his urinary stream. He complains of back pain he has brought a copy of a prior MRI of the lumbar spine states that he has seen prior neurosurgery and was told that there was not surgery that could be done. I have discussed that he should discuss this further with his PCP to obtain a referral from his primary care physician to re-evaluate his back symptoms. Past medical history significant for CAD, nicotine dependence. Renal ultrasound 08/14/2023--right kidney masses were parenchymal lesions, left kidney 1.1 cm benign cyst, BLADDER: Well distended and normal. Bilateral ureteral jets are demonstrated. Prevoid bladder volume is 263 mL. Postvoid bladder volume is 57.6 mL. Enlarged prostate, volume 76.7 mL. Review of chart: 07/22/2023 Guru is a 67-year-old male who is here for evaluation for weak urinary stream. Past Medical history includes coronary artery disease, hypertension, nicotine dependence The patient complains of urinary frequency, nocturia cough, urinary hesitency. He denies dysuria or gross hematuria, history of nicotine use, has been using cigarettes for over 45 years. I have discussed workup to include evaluation of the urinary tract of renal and bladder ultrasound. UA--negative leukocytes or blood, PVR 94 mL--Prostate exam-mild to moderate enlargement of the prostate smooth. PSA 03/31/2023-- 2.87 Plan: For renal ultrasound, Tamsulosin, Follow-up in 2 months 09/15/2023--PLAN: Continue tamsulosin. Follow-up in 1 year PSA screening [facility] Medical History Weak urinary stream History of [place] (myocardial infarction) Nicotine dependence, cigarettes, uncomplicated Left shoulder pain COPD (chronic obstructive pulmonary disease) Hypertension CAD (coronary artery disease) Surgical History History of colonoscopy History of coronary artery stent placement (~2018) History of hernia repair (~1970) Family History Father No problems noted. Mother No problems noted. Brother Hepatocellular carcinoma Social History Housing: Other Housing Other:: van Alcohol intake: current Alcohol intake frequency: holidays/special occasions only Patient Tobacco Use Status: Current everyday Tobacco user Tobacco use type: Cigarette Cigarette Packs Per Day: 1.5 Cigarettes Per Day: 30 Years Smoked: 59 +/- e-Cigarette/Vaping Use: Never Used Second Hand Smoke Exposure: Yes service: No Current occupational status: unemployed Cognitive needs: No Hearing needs: No Vision needs: No Review of Systems Const All systems reviewed & are unremarkable except as noted in HPI and below Reports no additional complaints Eyes Reports no additional complaints ENT Reports no additional complaints Card Denies dyspnea Resp Denies cough and Denies dyspnea GI Reports no additional complaints Musc Reports no additional complaints Skin/Breast Denies rash and Denies unusual bruising Neuro Reports no additional complaints Psych Reports no additional complaints Endo Reports no additional complaints Jameson/Lymph Reports no additional complaints Aller/Immun Reports no additional complaints Office Procedures Post Void Residual Post Residual Void Post Void Residual (PVR): [id number] Void Residual by ultrasound Results AMB Urinalysis, Automated UA Leukoctes 0 Elizabeth/uL Last Edit by Danica Rahman Monica on 09/15/23 13:55 UA Nitrite Negative Last Edit by Danica Rahman [facility] on 09/15/23 13:55 UA Urobilinogen 0.2 mg/dL Last Edit by Danica Rahman [facility] on 09/15/23 13:5 5 UA Protein 15 mg/dL Last Edit by Danica Rahman [facility] on 09/15/23 13:55 UA pH 6.5 Last Edit by Danica Rahman [facility] on 09/15/23 13:55 UA Blood 0 Bertin/uL Last Edit by Danica Rahman [facility] on 09/15/23 13:55 UA Specific [place] 1.010 Last Edit by Danica Rahman [facility] on 09/15/23 13: 55 UA Ketone Negative Last Edit by Danica Rahman [facility] on 09/15/23 13:55 UA Bilirubin 0 mg/dL Last Edit by Danica Rahman [facility] on 09/15/23 13:55 UA Glucose 0 mg/dL Last Edit by Danica Rahman [facility] on 09/15/23 13:55 Results Reviewed Results Reviewed: Laboratory Last Values Urine pH (Auto) 6.5 09/15/23 13:35 Specific [place] (Auto) 1.010 09/15/23 13:35 Urine Protein (Auto) 15 mg/dL 09/15/23 13:35 Glucose (UA)(Auto) 0 mg/dL 09/15/23 13:35 Urine Ketones (Auto) Negative 09/15/23 13:35 Urine Blood (Auto) 0 Bertin/uL 09/15/23 13:35 Urine Nitrite (Auto) Negative 09/15/23 13:35 Urine Bilirubin (Auto) 0 mg/dL 09/15/23 13:35 Urine Urobilinogen (Auto) 0.2 mg/dL 09/15/23 13:35 Leukocyte Esterase (Auto) 0 Elizabeth/uL 09/15/23 13:35 Date of Service: 08/14/23 EXAMINATION: US RETROPERITONEAL COMPLETE (RENAL) CLINICAL INFORMATION: Poor urinary stream. COMPARISON: CT abdomen and pelvis 08/09/2019. TECHNIQUE: Real-time imaging of the kidneys and bladder. FINDINGS: RIGHT KIDNEY: 10.2 x 4.1 x 5.3 cm (SAG x AP x TRV). The kidney is normal in size, contour, and echogenicity. Renal cortical thickness is normal. No calculi or focal parenchymal lesions. No hydronephrosis. LEFT KIDNEY: 11.5 x 5.0 x 5.5 cm (SAG x AP x TRV). The kidney is normal in size, contour, and echogenicity. Renal cortical thickness is normal. No renal calculi or hydronephrosis. Lower pole 1.1 cm benign-appearing cyst. BLADDER: Well distended and normal. Bilateral ureteral jets are demonstrated. Prevoid bladder volume is 263 mL. Postvoid bladder volume is 57.6 mL. Enlarged prostate, volume 76.7 mL. IMPRESSION: * Prostatomegaly with large postvoid residual of 57.6 mL. * Benign-appearing left renal cyst. Followup imaging is not routinely recommended for benign appearing cysts. Assessment & Plan Assessment & Plan (1) Weak urinary stream: Code(s): R39.12 - Poor urinary stream (2) BPH loc w urin obs/LUTS: Code(s): N40.1 - Benign prostatic hyperplasia with lower urinary tract symptoms (3) Nicotine dependence: Code(s): F17.200 - Nicotine dependence, unspecified, uncomplicated Plan Continue tamsulosin. Follow-up in 1 year PSA screening Orders: Orders AMB Urinalysis Automated Today Z13.9 - Encounter for screening, unspecified AMB Post Void Residual by ultrasound Today N39.8 - Other specified disorders of urinary system Medications: Refilled tamsulosin (Flomax) 0.4 mg PO DAILY 90 caps 3RF Patient Instructions: The patient had an opportunity to ask questions regarding treatment plan. All questions were answered. Imaging, Laboratory studies and physical exam results were discussed and reviewed in detail. No major barriers to understanding were identified. The patient expressed understanding and agreement with the above treatment plan. The patient is aware they should contact our office by phone for worsening of their current condition or the appearance of new symptoms. Compliance is encouraged with any medications and followup testing that is ordered. It is a privilege to be allowed the opportunity to participate in the urologic care of your patient. If you have any questions or concerns regarding treatment for the above conditions please do not hesitate to contact me. The office telephone contact is [phone]. This note is constructed in part using voice recognition software. While every effort has been made to ensure accuracy advertising assistant manager errors may have been included. Yours sincerely, Brian Mireles MD Coding Level of Care Code Est Pt Level 3 (17842) Diagnoses Weak urinary stream R39.12 BPH loc w urin obs/LUTS N40.1 Nicotine dependence F17.200 CPT Codes Post Residual Void - PVR CPT Code: 05144-Tvsq Void Residual by ultrasound ([id number])
== END 2023-09-15 14:40 | disposition home or self-care (01) ==
PROVIDERS: PCP Physician Assistant; Visit Provider Urology
DX: N40.1 Benign prostatic hyperplasia with lower urinary tract symptoms (principal); R39.12 Poor urinary stream; F17.200 Nicotine dependence, unspecified, uncomplicated; Z13.9 Encounter for screening, unspecified
CPT/HCPCS: 99213

== ENCOUNTER → 2023-09-15 13:32 | Outpatient (BNVA) | payer OTHER, MEDICAID, SELFPAY | PROVIDERS: PCP Physician Assistant; Visit Provider Urology | DX: N40.1 Benign prostatic hyperplasia with lower urinary tract symptoms (principal); R39.12 Poor urinary stream; F17.210 Nicotine dependence, cigarettes, uncomplicated | CPT/HCPCS: 51798; 81003; 99212 ==

== ENCOUNTER 2023-10-13 18:59 | Emergency (ER) | payer OTHER, MEDICAID, SELFPAY ==
--- NOTE | ~2023-10-13 | XR_ITS ---
EXAMINATION: XR chest 2V CLINICAL INFORMATION: Chest pain COMPARISON: Prior chest x-ray 01/22/2021 TECHNIQUE: XR chest 2V, 2 Views Lungs and Quyen: Both lungs are clear. Pleura: Normal. Costophrenic angles are sharp. No pneumothorax. Heart: The heart is normal in size. Mediastinum: The mediastinum is within normal limits.. Bones: Skeletal structures included are normal for patient's age. XR/XR chest 2V IMPRESSION: No radiographic evidence of acute cardiopulmonary disease.
[2023-10-13 19:24] VITALS: BP 178/112; PULSE 66; RESP 18; TEMP 36.7; O2SAT 99; BMI 24.0
--- NOTE | 2023-10-13 19:25 | ED.WEAKNESS ---
HPI - Weakness General Chief complaint: General Medical Stated complaint: Weakness Time Seen by Provider: 10/13/23 23:15 Source: patient Mode of arrival: ambulatory Limitations: no limitations History of Present Illness HPI Narrative: Patient is a 68-year-old male presents emergency department for evaluation of weakness and fatigue over the past 4 days. He states that he recently began using testosterone which he is receiving from a friend and has been injecting over the past month. By his account he believed that the needles he had been using for this injection have been clean, paste purchasing them from the pharmacy. He reports most recently with his injection he took 1 of the needles out of his bag which he thinks that he may have once before, but states that he cleaned it by dipping the needle into alcohol prior to his injection, though now he is worried that this is what is resulting in his fatigue and weakness. Denies concern maybe may have been given something testosterone for injection. Reports associated diffuse anterior chest pain and shortness of breath intermittently. He denies headaches, vision changes, dizziness, lightheadedness, neck pain, nausea, vomiting, abdominal pain, numbness or tingling of the extremities, urogenital symptoms. Related Data Previous Rx's Medication Instructions Recorded blood pressure test kit-medium #1 ea 03/03/22 aspirin 81 mg tablet,delayed 81 mg PO DAILY #90 tabs 06/24/23 release (Adult Aspirin Regimen) bupropion HCl 150 mg tablet,12 hr 150 mg PO BID 90 days #180 tabs 06/24/23 sustained-release lisinopril 30 mg tablet 30 mg PO DAILY 90 days #90 tabs 06/24/23 metoprolol succinate 50 mg 50 mg PO DAILY 90 days #90 tabs 06/24/23 tablet,extended release 24 hr lorazepam 0.5 mg tablet 0.5 mg PO DAILY PRN anxiety 7 days 06/30/23 #7 tabs ibuprofen 600 mg tablet 600 mg PO Q6H 15 days #60 tabs 09/15/23 tamsulosin 0.4 mg capsule (Flomax) 0.4 mg PO DAILY #90 caps 09/15/23 atorvastatin 40 mg tablet 40 mg PO DAILY 90 days #90 tabs 09/23/23 Allergies Allergy/AdvReac Type Severity Reaction Status Date / Time tadalafil [From Cialis] Allergy Unknown anxiety Verified 10/13/23 19:29 Review of Systems Review of Systems: Yes all other systems are reviewed and are negative [facility] Past Medical History Attestation statement: The following information was validated with the patient. Source: old records reviewed Medical History Weak urinary stream History of LA (myocardial infarction) Nicotine dependence, cigarettes, uncomplicated Left shoulder pain COPD (chronic obstructive pulmonary disease) Hypertension CAD (coronary artery disease) Surgical History History of colonoscopy History of coronary artery stent placement (~2018) History of hernia repair (~1969) Family History Family History Father No problems noted. Mother No problems noted. Brother Hepatocellular carcinoma Social History Social History Housing: Other Housing Other:: van Alcohol intake: current Alcohol intake frequency: holidays/special occasions only Patient Tobacco Use Status: Current everyday Tobacco user Tobacco use type: Cigarette Cigarette Packs Per Day: 1.5 Cigarettes Per Day: 30 Years Smoked: 58 +/- e-Cigarette/Vaping Use: Never Used Second Hand Smoke Exposure: Yes Advance Directives: No Advance Directives Information Provided: No service: No Current occupational status: unemployed Cognitive needs: No Hearing needs: No Vision needs: No Physical Exam Vital Signs: Vital Signs: Last Vital Signs Temp 97.9 F 10/13/23 23:18 Pulse 61 10/13/23 23:18 Resp 18 10/13/23 23:18 BP 180/92 H 10/13/23 23:18 Pulse Ox 99 10/13/23 23:18 O2 Del Method Room Air 10/13/23 23:18 BMI result Body Mass Index 24.0 Appearance: Alert.?Oriented to person, place and time. No acute distress.?Normal affect. Eyes: Pupils equal, round and reactive to light.? ENT: Pharynx normal.?? Neck: Normal inspection.? Neck supple.?? CVS: Heart sounds normal. Normal heart rate and rhythm.? Pulses normal.?? Respiratory: No respiratory distress.? Lung sounds clear to auscultation bilaterally?? Abdomen: Soft and non-tender. Normoactive bowel sounds. Skin: Skin warm and dry.? Normal skin color.? Extremities: No lower extremity edema.? No calf ttp? Neuro: Moves all extremities spontaneously. Sensation intact bilaterally. CN II-XII intact. No focal neuro deficits. Ambulates with normal steady gait. Course Course Course Narrative: This is a Rapid Medical Examination (RME) in triage, full HPI, ROS, assessment and plan per primary provider in the Main ED. 68 yo male with history of CAD s/p stent, COPD, heavy smoker, HTN, HLD, anxiety presents to the ER for evaluation of weakness and fatigue for the last 4 days. He states it started after using testosterone that he buys from a friend. He has been taking it for a month. +chest pain/SOB Plan: basic labs, viral studies, CXR, EKG Reevaluation(s) Reevaluation #1: He remains hypertensive 180/92, though diastolic blood pressure is improved when compared to arrival. CBC is without leukocytosis or anemia, no sign of clear, cytosis. No electrolyte derangement. LILLIAN. Mildly elevated AST/ALT, otherwise unremarkable transaminases/bilirubin. No abdominal pain, nausea, vomiting suggest acute hepatic pathology.. High sensitive troponin below detectable limits, EKG without acute ischemic findings, do not suspect ACS as etiology for symptoms.. TSH within normal range. Influenza/RSV/COVID-19 testing is negative. CXR is without acute cardiopulmonary abnormality. Urinalysis is without evidence of infection. Injection sites to abdomen without signs of overlying cellulitis or infection. At this time feel that is stable for discharge home and outpatient follow-up primary care provider Time: 00:29 Medical Decision Making Medical Decision Making MDM Narrative: Patient is a 68-year-old male with past medical history of coronary artery disease with RCA stent, NSTEMI, urinary retention, hyperlipidemia, anxiety, hypertension, COPD presenting to emergency department for evaluation of fatigue and weakness. Will obtain CBC to evaluate for leukocytosis/ anemia, CMP and lipase to evaluate for abnormal electrolytes /abnormal renal function/ abnormal hepatic/biliary function, EKG and troponin to evaluate for ischemia/ACS. Chest x-ray to evaluate for consolidation/ infiltrate/ mass/ pulmonary congestion and Urinalysis. Differential Diagnosis Differential Diagnoses: The differential diagnosis associated with the presentation includes (Anemia, abnormal thyroid function, viral syndrome, electrolyte abnormality, renal dysfunction) Admission/Observation Consideration of admission/observation: Escalation of care including admission/observation considered (See narrative above and course narrative for further detail) Lab Data MDM Lab Attestation statement: I reviewed the patient's lab results. (See course narrative for further detail) 10/13/23 19:34 10/13/23 19:34 Labs: Lab Results 10/13/23 10/14/23 Range/Units 19:34 00:07 WBC 7.6 (4.8-10.8) X10*3/uL RBC 5.14 (4.60-5.80) X10*6/uL Hgb 15.5 (14.0-18.0) g/dl Hct 45.6 (42.0-52.0) % MCV 88.7 (80.0-98.0) fL MCH 30.2 (27.0-33.0) pg MCHC 34.0 (31.0-36.0) g/dl RDW 13.9 (11.0-16.0) % Plt Count 244 (160-400) X10*3/uL MPV 9.1 L (9.4-12.4) fL Immature Gran % (Auto) 0.1 (0.0-0.4) % Neut % (Auto) 50.6 (45-73) % Lymph % (Auto) 32.2 (20-40) % Andrews % (Auto) 10.3 (2-11) % Eos % (Auto) 6.1 H (0-4) % Baso % (Auto) 0.7 (0-2) % Lymph # (Auto) 2.4 (1.2-4.9) X10*3/uL Andrews # (Auto) 0.8 (0.1-1.2) X10*3/uL Eos # (Auto) 0.5 H (0.0-0.4) X10*3/uL Baso # (Auto) 0.1 (0.0-0.2) X10*3/uL Abs Immat Gran (auto) 0.01 (0.00-0.03) X10*3/uL Absolute Neuts (auto) 3.8 (2.0-8.3) x10*3/uL Absolute Nucleated RBC 0.000 (0.0-0.012) X10*3/uL Nucleated RBC % (auto) 0.0 (0.0-0.2) /100WBC Sodium 138 (135-145) mmol/L Potassium 3.9 (3.3-5.1) mmol/L Chloride 107 (96-108) mmol/L Carbon Dioxide 25 (22-29) mmol/L Anion Gap 10 L (12-20) BUN 21 H (9-16) mg/dL Creatinine 1.20 (0.5-1.4) mg/dL Estim Creat Clear Calc 63.6 Estimated GFR > 60 Random Glucose 100 (60-115) mg/dL Calcium 9.2 (8.4-10.2) mg/dL Magnesium 2.2 (1.6-2.6) mg/dL Total Bilirubin 0.4 (0.0-1.0) mg/dL Direct Bilirubin 0.2 (0.0-0.5) mg/dL AST 50 H (5-37) U/L ALT 51 H (0-40) U/L Alkaline Phosphatase 112 (39-117) U/L Troponin I High Sens < 2.7 (<3.5-35.0) ng/L Total Protein 7.1 (6.5-8.0) g/dL Albumin 3.9 (3.5-5.0) g/dL TSH 1.07 (0.32-4.0) uIU/mL Urine Color Yellow Urine Appearance Clear Urine pH 7.0 (5.0-9.0) Ur Specific Hewitt 1.010 (1.005-1.025) Urine Protein Negative (Neg-Trace) mg/dL Urine Glucose (UA) Negative (Negative) mg/dL Urine Ketones Negative (Negative) mg/dL Urine Blood Negative (Negative) Urine Nitrite Negative (Negative) Ur Leukocyte Esterase Negative (Negative) Influenza Type A (PCR) NEGATIVE (Negative) Influenza Type B (PCR) NEGATIVE (Negative) RSV RNA Qual (PCR) NEGATIVE (Negative) SARS-CoV-2 RNA (RT-PCR) NEGATIVE (Negative) Independent Interpretation I performed an independent interpretation of an: EKG and Plain X-Ray (No infiltrate, no effusions) Interpretation: Rate:61 Rhythm:? Normal sinus rhythm Normal P waves.? Normal SHARON.?? Normal QRS complex.?? ST T wave :??No ST elevation, no ST depression, no T-wave inversion qTC:406 The study has been interpreted contemporaneously by me. Radiology Impression Discussion of test interpretation with radiology: I have reviewed the radiologist's reading. Radiologist Impression: XR/XR chest 2V IMPRESSION: No radiographic evidence of acute cardiopulmonary disease. External Record Review External record reviewed: Outpatient record Discharge Plan Discharge Clinical Impression: Fatigue Patient Disposition: Home, Self-Care Instructions: Fatigue (ED) Additional Instructions: Follow-up with your primary care provider. Return back to emergency department any new or worsening symptoms or concerns. Prescriptions: No Action aspirin [Adult Aspirin Regimen] 81 mg tablet,delayed release (DR/EC) 81 mg PO DAILY Qty: 90 4RF Rx Instructions: Not to be taken with Ibuprofen. bupropion HCl 150 mg tablet sustained-release 12 hr 150 mg PO BID 90 Days Qty: 180 0RF lisinopril 30 mg tablet 30 mg PO DAILY 90 Days Qty: 90 4RF metoprolol succinate 50 mg tablet extended release 24 hr 50 mg PO DAILY 90 Days Qty: 90 4RF ibuprofen 600 mg tablet 600 mg PO Q6H 15 Days Qty: 60 0RF atorvastatin 40 mg tablet 40 mg PO DAILY 90 Days Qty: 90 4RF lorazepam 0.5 mg tablet 0.5 mg PO DAILY PRN (Reason: anxiety) 7 Days Qty: 7 0RF (DME) blood pressure test kit-medium Kit See Rx Instructions .Route Qty: 1 0RF Rx Instructions: As directed tamsulosin [Flomax] 0.4 mg capsule 0.4 mg PO DAILY Qty: 90 3RF Referrals: Anuj Lopez PA-C [Primary Care Provider] -
--- NOTE | 2023-10-13 19:28 | ECG_ITS ---
Test Reason : CHEST PAIN Blood Pressure : / mmHG Vent. Rate : 061 BPM Atrial Rate : 061 BPM P-R Int : 200 ms QRS Dur : 094 ms QT Int : 404 ms P-R-T Axes : 059 055 061 degrees QTc Int : 406 ms Normal sinus rhythm Nonspecific ST and T wave abnormality Abnormal ECG When compared with ECG of 07-APR-2022 12:39, No significant change was found Referred By: Alicia Farias Electronically Signed By:ROXANNA CHENEY MD
[2023-10-13 19:45] LABS: MANUAL DIFF FLAG NO
[2023-10-13 19:50] LABS: Basophils Absolute Auto 0.1 X10*3/uL (0.0-0.2); Basophils Percent Auto 0.7 % (0-2); Eosinophils Absolute Auto 0.5 X10*3/uL (0.0-0.4); Eosinophils Percent Auto 6.1 % (0-4); Hematocrit 45.6 % (42.0-52.0); Hemoglobin 15.5 g/dl (14.0-18.0); Imm Gran Abs Auto 0.01 X10*3/uL (0.00-0.03); Imm Gran Pct Auto 0.1 % (0.0-0.4); Lymphocytes Absolute Auto 2.4 X10*3/uL (1.2-4.9); Lymphocytes Percent Auto 32.2 % (20-40); Mean Corpuscular Hemoglobin 30.2 pg (27.0-33.0); Mean Corpuscular Volume 88.7 fL (80.0-98.0); Mean Platelet Volume 9.1 fL (9.4-12.4); Monocytes Absolute Auto 0.8 X10*3/uL (0.1-1.2); Monocytes Percent Auto 10.3 % (2-11); Neutrophils Absolute Auto 3.8 x10*3/uL (2.0-8.3); Neutrophils Percent Auto 50.6 % (45-73); Platelet Count 244 X10*3/uL (160-400); Red Blood Count 5.14 X10*6/uL (4.60-5.80); Red Cell Distribution Width 13.9 % (11.0-16.0); White Blood Count 7.6 X10*3/uL (4.8-10.8)
[2023-10-13 20:01] LABS: Alanine Aminotransferase 51 U/L (0-40); Albumin Level 3.9 g/dL (3.5-5.0); Alkaline Phosphatase 112 U/L (39-117); Anion Gap 10 (12-20); Aspartate Amino Transferase 50 U/L (5-37); Bilirubin Direct 0.2 mg/dL (0.0-0.5); Bilirubin Total 0.4 mg/dL (0.0-1.0); Blood Urea Nitrogen 21 mg/dL (9-16); Calcium 9.2 mg/dL (8.4-10.2); Carbon Dioxide 25 mmol/L (22-29); Chloride 107 mmol/L (96-108); Creatinine Clr Calc Pharmacy 63.6; Estimated Glomerular Filt Rate > 60; Glucose Random 100 mg/dL (60-115); Magnesium 2.2 mg/dL (1.6-2.6); Potassium 3.9 mmol/L (3.3-5.1); Sodium 138 mmol/L (135-145); Total Protein 7.1 g/dL (6.5-8.0)
[2023-10-13 20:08] LABS: Troponin-I High Sensitivity < 2.7 ng/L (<3.5-35.0)
[2023-10-13 20:21] LABS: TSH reflex Free T4 1.07 uIU/mL (0.32-4.0)
[2023-10-13 20:22] LABS: Influenza A PCR NEGATIVE (Negative); Influenza B PCR NEGATIVE (Negative); Resp Syncy Virus RNA Qual PCR NEGATIVE (Negative); SARS COV2 PCR INHOUSE NEGATIVE (Negative)
[2023-10-13 23:18] VITALS: BP 180/92; PULSE 61; RESP 18; TEMP 36.6; O2SAT 99
[2023-10-14 00:21] LABS: Appearance Urine Clear; Color Urine Yellow; Glucose Urine UA Negative (Negative); Leukocyte Esterase Urine Negative (Negative); Nitrite Urine Negative (Negative); Urine Blood Negative (Negative); Urine Ketones Negative (Negative); Urine Protein Negative (Neg-Trace)
[2023-10-14 00:27] LABS: Amphetamine Screen Urine Not Detected (Not Detect); Barbiturates, Urine Not Detected (Not Detect); Benzodiazepines Screen Urine Not Detected (Not Detect); Cannabinoid Screen Urine POSITIVE (Not Detect); Cocaine Screen Urine Not Detected (Not Detect); Fentanyl, urine Not Detected (Not Detect); Opiate Screen Urine Not Detected (Not Detect); Phencyclidine Screen Urine Not Detected (Not Detect)
[2023-10-14 00:56] VITALS: BP 100/92; PULSE 61; RESP 18; TEMP 36.6; O2SAT 99
== END 2023-10-14 00:57 | disposition home or self-care (01) ==
PROVIDERS: Physician Assistant; Emergency Provider Emergency Medicine; PCP Physician Assistant
DX: R53.83 Other fatigue (principal); R53.1 Weakness; I10 Essential (primary) hypertension; I25.10 Atherosclerotic heart disease of native coronary artery without angina pectoris; J44.9 Chronic obstructive pulmonary disease, unspecified; F17.210 Nicotine dependence, cigarettes, uncomplicated; I25.2 Old myocardial infarction; Z03.818 Encounter for observation for suspected exposure to other biological agents ruled out
CPT/HCPCS: 0241U; 36415; 71046; 80048; 80076; 80307; 81003; 83735; 84443; 84484; 85025; 93005; 99283; 99284

== ENCOUNTER → 2023-10-13 19:28 | Outpatient (BNV) | payer OTHER, MEDICAID, SELFPAY | PROVIDERS: Emergency Provider Emergency Medicine; PCP Physician Assistant; Visit Provider Internal Medicine Cardiovascular Disease | DX: R94.31 Abnormal electrocardiogram [ECG] [EKG] (principal); R07.9 Chest pain, unspecified | CPT/HCPCS: 93010 ==

== ENCOUNTER 2023-11-12 14:42 | Emergency (ER) | payer OTHER, MEDICAID, SELFPAY ==
--- NOTE | 2023-11-12 15:29 | ED_ITS ---
HPI - General Adult General Chief complaint: General Medical Stated complaint: not feeling well passing out headache Time Seen by Provider: 11/12/23 16:07 Source: patient and old records reviewed Mode of arrival: ambulatory Limitations: no limitations History of Present Illness HPI narrative: Patient is a 68-year-old male with history of CAD status post stent, COPD, smoker, HTN, HLD, anxiety presenting to the emergency department reporting that while driving today he felt lightheaded and needed to order puller. He denies syncope or loss of consciousness. Denies chest pain, palpitations or shortness of breath. Denies abdominal pain, nausea, vomiting, diarrhea, constipation, melena, hematochezia. Denies any dysuria, urgency, hematuria or other urinary symptoms. States that he did take Sudafed for allergy symptoms today. He reports known history of high blood pressure and states he has been taking his lisinopril as prescribed but is also drinking several energy drinks per day. Has also been trying to quit smoking and only smoked a few cigarettes today. MD complaint: fatigue Onset (ago): hour(s) Treatments prior to arrival: none Related Data Previous Rx's ?Medication ?Instructions ?Recorded blood pressure test kit-medium #1 ea 03/03/22 aspirin 81 mg tablet,delayed 81 mg PO DAILY #90 tabs 06/24/23 release (Adult Aspirin Regimen) bupropion HCl 150 mg tablet,12 hr 150 mg PO BID 90 days #180 tabs 06/24/23 sustained-release lisinopril 30 mg tablet 30 mg PO DAILY 90 days #90 tabs 06/24/23 metoprolol succinate 50 mg 50 mg PO DAILY 90 days #90 tabs 06/24/23 tablet,extended release 24 hr lorazepam 0.5 mg tablet 0.5 mg PO DAILY PRN anxiety 7 days 06/30/23 #7 tabs ibuprofen 600 mg tablet 600 mg PO Q6H 15 days #60 tabs 09/15/23 tamsulosin 0.4 mg capsule (Flomax) 0.4 mg PO DAILY #90 caps 09/15/23 atorvastatin 40 mg tablet 40 mg PO DAILY 90 days #90 tabs 09/23/23 Allergies Allergy/AdvReac Type Severity Reaction Status Date / Time tadalafil [From Cialis] Allergy Unknown anxiety Verified 11/12/23 15:35 Review of Systems 2 Review of Systems: As per HPI. Yes all other systems are reviewed and are negative Constitutional: Constitutional: Reports as per HPI [facility] Past Medical History Medical History Weak urinary stream History of [place] (myocardial infarction) Nicotine dependence, cigarettes, uncomplicated Left shoulder pain COPD (chronic obstructive pulmonary disease) Hypertension CAD (coronary artery disease) Surgical History History of colonoscopy History of coronary artery stent placement (~2018) History of hernia repair (~1969) Family History Family History Father No problems noted. Mother No problems noted. Brother Hepatocellular carcinoma Social History Social History Housing: Other Housing Other:: van Alcohol intake: current Alcohol intake frequency: holidays/special occasions only Patient Tobacco Use Status: Current everyday Tobacco user Tobacco use type: Cigarette Cigarette Packs Per Day: 1.5 Cigarettes Per Day: 30 Years Smoked: 58 +/- e-Cigarette/Vaping Use: Never Used Second Hand Smoke Exposure: Yes Advance Directives: No Advance Directives Information Provided: No service: No Current occupational status: unemployed Cognitive needs: No Hearing needs: No Vision needs: No Physical Exam ED Vital Signs: Vital Signs - 24 hr 11/12/23 15:31 Temperature 97.8 F Pulse Rate 69 Respiratory Rate 18 Blood Pressure 170/99 H Pulse Oximetry 97 Oxygen Delivery Method Room Air BMI result Body Mass Index 24.0 Vital signs have been reviewed and appear to be correct. Blood pressure elevated. Heart rate normal. Respiratory rate normal. Temperature normal. Oxygen saturation normal. Const General: cooperative, healthy appearing and no acute distress Orientation/consciousness: oriented to person, oriented to place, oriented to time and patient oriented x3 Limitations: no limitations HENMT Head: Yes normocephalic and Yes atraumatic Ears: external ears normal General nose exam: Normal external nose present Face and sinus: Yes face symmetric Mouth: oropharynx normal and moist mucous membranes Throat: Yes uvula midline Eyes Pupils: Equal, round and reactive pupils present Neck Neck: Yes normal visual inspection and Yes supple Resp Effort & Inspection: normal respiratory effort and able to speak in complete sentences Auscultation: clear to auscultation bilaterally Cardio Rate: regular rate Rhythm: regular rhythm Heart sounds: S1 normal heart sound present and S2 normal heart sound present GI Palpation (GI): Soft to palpation and nontender Auscultation: normoactive bowel sounds General: Yes no CVA tenderness Back/Spine/Pelvis Back: no CVA tenderness Skin General skin exam: elasticity normal and turgor normal Neuro General: oriented to person, oriented to place, oriented to time, patient oriented x3, moves all extremities, no focal motor deficits and CN's II-XI intact bilaterally Cranial nerves: Yes Equal, round and reactive pupils present Cognition (Neuro): normal cognition Extrem General: Yes full ROM, Yes no pedal edema and Yes no calf tenderness Psych Mental Status: mental status grossly normal Affect: normal affect Thought process: Normal thought process present Course Course Course Narrative: This is a rapid medical exam completed by Shilpa ROSENBAUMN: Additional HPI, ROS, PE not included below will be deferred to primary provider. Not feeling well today with weakness and feeling as if he was going to pass out. Reports that he is feeling improvement in symptoms at this time and reports that he took sudafed and drank an energy drink. BP high in triage Medical Decision Making Medical Decision Making MDM Narrative: Patient is a 68-year-old male with history of CAD status post stent, COPD, smoker, HTN, HLD, anxiety presenting to the emergency department reporting that while driving today he felt lightheaded and needed to order puller. On exam patient is awake, A+Ox3, VS WNL, afebrile, normal neurological exam without focal deficits, physical exam findings as above. Given reported symptoms and physical exam findings, initial differential includes anemia, electrolyte abnormality, UTI, viral illness. You will ACS unlikely but will obtain EKG and troponin. Labs notable for no leukocytosis, no anemia, no significant electrolyte abnormalities, mildly elevated BUN but patient tolerating p.o. fluids without difficulty, troponin negative. EKG shows normal sinus rhythm. Viral serology negative. Urinalysis is without evidence of infection. Feel patient is stable for discharge home at this time. Encouraged patient to increase fluid intake but decreased energy drink intake. Instructed patient to follow-up with primary care provider. Return precautions discussed at bedside. Patient verbalized understanding of and agreement with plan. Differential Diagnosis Differential Diagnoses: The differential diagnosis associated with the presentation includes As per [facility]. Admission/Observation Consideration of admission/observation: Escalation of care including admission/observation considered Patient would have been admitted to the hospital had their work up had any findings where hospital admission was appropriate and their clinical presentation warranted hospital admission. Lab Data [facility] Lab Attestation statement: I reviewed the patient's lab results. As per [facility] 11/12/23 15:55 11/12/23 15:55 Labs: Lab Results 11/12/23 11/12/23 11/12/23 Range/Units 15:53 15:55 17:22 WBC 6.7 (4.8-10.8) X10*3/uL RBC 4.70 (4.60-5.80) X10*6/uL Hgb 14.2 (14.0-18.0) g/dl Hct 41.2 L (42.0-52.0) % MCV 87.7 (80.0-98.0) fL MCH 30.2 (27.0-33.0) pg MCHC 34.5 (31.0-36.0) g/dl RDW 14.4 (11.0-16.0) % Plt Count 236 (160-400) X10*3/uL MPV 9.5 (9.4-12.4) fL Immature Gran % (Auto) 0.1 (0.0-0.4) % Neut % (Auto) 50.9 (45-73) % Lymph % (Auto) 28.3 (20-40) % Chambers % (Auto) 12.7 H (2-11) % Eos % (Auto) 7.0 H (0-4) % Baso % (Auto) 1.0 (0-2) % Lymph # (Auto) 1.9 (1.2-4.9) X10*3/uL Chambers # (Auto) 0.9 (0.1-1.2) X10*3/uL Eos # (Auto) 0.5 H (0.0-0.4) X10*3/uL Baso # (Auto) 0.1 (0.0-0.2) X10*3/uL Abs Immat Gran (auto) 0.01 (0.00-0.03) X10*3/uL Absolute Neuts (auto) 3.4 (2.0-8.3) x10*3/uL Absolute Nucleated RBC 0.000 (0.0-0.012) X10*3/uL Nucleated RBC % (auto) 0.0 (0.0-0.2) /100WBC Sodium 137 (135-145) mmol/L Potassium 3.9 (3.3-5.1) mmol/L Chloride 103 (96-108) mmol/L Carbon Dioxide 26 (22-29) mmol/L Anion Gap 12 (12-20) BUN 21 H (9-16) mg/dL Creatinine 1.18 (0.5-1.4) mg/dL Estim Creat Clear Calc 64.6 Estimated GFR > 60 Random Glucose 79 (60-115) mg/dL Calcium 9.4 (8.4-10.2) mg/dL Total Bilirubin 0.4 (0.0-1.0) mg/dL AST 31 (5-37) U/L ALT 34 (0-40) U/L Alkaline Phosphatase 113 (39-117) U/L Troponin I High Sens (<3.5-35.0) ng/L Total Protein 6.8 (6.5-8.0) g/dL Albumin 3.8 (3.5-5.0) g/dL Urine Color Yellow Urine Appearance Clear Urine pH 6.5 (5.0-9.0) Ur Specific Jordan 1.015 (1.005-1.025) Urine Protein Negative (Neg-Trace) mg/dL Urine Glucose (UA) Negative (Negative) mg/dL Urine Ketones Negative (Negative) mg/dL Urine Blood Negative (Negative) Urine Nitrite Negative (Negative) Ur Leukocyte Esterase Negative (Negative) Influenza Type A (PCR) NEGATIVE (Negative) Influenza Type B (PCR) NEGATIVE (Negative) RSV RNA Qual (PCR) NEGATIVE (Negative) SARS-CoV-2 RNA (RT-PCR) NEGATIVE (Negative) 11/12/23 Range/Units 17:29 WBC (4.8-10.8) X10*3/uL RBC (4.60-5.80) X10*6/uL Hgb (14.0-18.0) g/dl Hct (42.0-52.0) % MCV (80.0-98.0) fL MCH (27.0-33.0) pg MCHC (31.0-36.0) g/dl RDW (11.0-16.0) % Plt Count (160-400) X10*3/uL MPV (9.4-12.4) fL Immature Gran % (Auto) (0.0-0.4) % Neut % (Auto) (45-73) % Lymph % (Auto) (20-40) % Chambers % (Auto) (2-11) % Eos % (Auto) (0-4) % Baso % (Auto) (0-2) % Lymph # (Auto) (1.2-4.9) X10*3/uL Chambers # (Auto) (0.1-1.2) X10*3/uL Eos # (Auto) (0.0-0.4) X10*3/uL Baso # (Auto) (0.0-0.2) X10*3/uL Abs Immat Gran (auto) (0.00-0.03) X10*3/uL Absolute Neuts (auto) (2.0-8.3) x10*3/uL Absolute Nucleated RBC (0.0-0.012) X10*3/uL Nucleated RBC % (auto) (0.0-0.2) /100WBC Sodium (135-145) mmol/L Potassium (3.3-5.1) mmol/L Chloride (96-108) mmol/L Carbon Dioxide (22-29) mmol/L Anion Gap (12-20) BUN (9-16) mg/dL Creatinine (0.5-1.4) mg/dL Estim Creat Clear Calc Estimated GFR Random Glucose (60-115) mg/dL Calcium (8.4-10.2) mg/dL Total Bilirubin (0.0-1.0) mg/dL AST (5-37) U/L ALT (0-40) U/L Alkaline Phosphatase (39-117) U/L Troponin I High Sens < 2.7 (<3.5-35.0) ng/L Total Protein (6.5-8.0) g/dL Albumin (3.5-5.0) g/dL Urine Color Urine Appearance Urine pH (5.0-9.0) Ur Specific Jordan (1.005-1.025) Urine Protein (Neg-Trace) mg/dL Urine Glucose (UA) (Negative) mg/dL Urine Ketones (Negative) mg/dL Urine Blood (Negative) Urine Nitrite (Negative) Ur Leukocyte Esterase (Negative) Influenza Type A (PCR) (Negative) Influenza Type B (PCR) (Negative) RSV RNA Qual (PCR) (Negative) SARS-CoV-2 RNA (RT-PCR) (Negative) External Record Review External record reviewed: Inpatient record, Office record and Outpatient record Discharge Plan Discharge Clinical Impression: Dehydration, Light-headedness Patient Disposition: Home, Self-Care Instructions: Dehydration (ED), Lightheadedness (ED) Additional Instructions: You were evaluated in the emergency department today for feeling lightheaded. Your evaluation did not show evidence of conditions requiring emergent medical treatment at this time. We recommend that you increase your fluid intake but cut back on the energy drinks. Please follow-up with your primary care provider this week. Return to the emergency department if you develop chest pain, shortness of breath or difficulty breathing, palpitations, dizziness, lightheadedness, fainting, severe headaches, changes in vision, persistent vomiting, fever or any other concerning symptoms. Prescriptions: No Action aspirin [Adult Aspirin Regimen] 81 mg tablet,delayed release (DR/EC) 81 mg PO DAILY Qty: 90 4RF Rx Instructions: Not to be taken with Ibuprofen. bupropion HCl 150 mg tablet sustained-release 12 hr 150 mg PO BID 90 Days Qty: 180 0RF lisinopril 30 mg tablet 30 mg PO DAILY 90 Days Qty: 90 4RF metoprolol succinate 50 mg tablet extended release 24 hr 50 mg PO DAILY 90 Days Qty: 90 4RF ibuprofen 600 mg tablet 600 mg PO Q6H 15 Days Qty: 60 0RF atorvastatin 40 mg tablet 40 mg PO DAILY 90 Days Qty: 90 4RF lorazepam 0.5 mg tablet 0.5 mg PO DAILY PRN (Reason: anxiety) 7 Days Qty: 7 0RF (DME) blood pressure test kit-medium Kit See Rx Instructions .Route Qty: 1 0RF Rx Instructions: As directed tamsulosin [Flomax] 0.4 mg capsule 0.4 mg PO DAILY Qty: 90 3RF Print Language: Divehi
[2023-11-12 15:31] VITALS: BP 170/99; PULSE 69; RESP 18; TEMP 36.6; O2SAT 97; BMI 24.0
[2023-11-12 16:03] LABS: MANUAL DIFF FLAG NO
[2023-11-12 16:13] LABS: Basophils Absolute Auto 0.1 X10*3/uL (0.0-0.2); Eosinophils Absolute Auto 0.5 X10*3/uL (0.0-0.4); Hematocrit 41.2 % (42.0-52.0); Hemoglobin 14.2 g/dl (14.0-18.0); Imm Gran Abs Auto 0.01 X10*3/uL (0.00-0.03); Imm Gran Pct Auto 0.1 % (0.0-0.4); Lymphocytes Absolute Auto 1.9 X10*3/uL (1.2-4.9); Lymphocytes Percent Auto 28.3 % (20-40); Mean Corpuscular HGB Conc 34.5 g/dl (31.0-36.0); Mean Corpuscular Hemoglobin 30.2 pg (27.0-33.0); Mean Corpuscular Volume 87.7 fL (80.0-98.0); Mean Platelet Volume 9.5 fL (9.4-12.4); Monocytes Absolute Auto 0.9 X10*3/uL (0.1-1.2); Monocytes Percent Auto 12.7 % (2-11); Neutrophils Absolute Auto 3.4 x10*3/uL (2.0-8.3); Neutrophils Percent Auto 50.9 % (45-73); Platelet Count 236 X10*3/uL (160-400); Red Cell Distribution Width 14.4 % (11.0-16.0); White Blood Count 6.7 X10*3/uL (4.8-10.8)
[2023-11-12 16:21] LABS: Alanine Aminotransferase 34 U/L (0-40); Albumin Level 3.8 g/dL (3.5-5.0); Alkaline Phosphatase 113 U/L (39-117); Anion Gap 12 (12-20); Aspartate Amino Transferase 31 U/L (5-37); Bilirubin Total 0.4 mg/dL (0.0-1.0); Blood Urea Nitrogen 21 mg/dL (9-16); Calcium 9.4 mg/dL (8.4-10.2); Carbon Dioxide 26 mmol/L (22-29); Chloride 103 mmol/L (96-108); Creatinine Clr Calc Pharmacy 64.6; Estimated Glomerular Filt Rate > 60; Glucose Random 79 mg/dL (60-115); Potassium 3.9 mmol/L (3.3-5.1); Sodium 137 mmol/L (135-145); Total Protein 6.8 g/dL (6.5-8.0)
[2023-11-12 16:52] LABS: Influenza A PCR NEGATIVE (Negative); Influenza B PCR NEGATIVE (Negative); Resp Syncy Virus RNA Qual PCR NEGATIVE (Negative); SARS COV2 PCR INHOUSE NEGATIVE (Negative)
--- NOTE | 2023-11-12 17:02 | ECG_ITS ---
Test Reason : head ache Blood Pressure : / mmHG Vent. Rate : 060 BPM Atrial Rate : 060 BPM P-R Int : 206 ms QRS Dur : 094 ms QT Int : 428 ms P-R-T Axes : 053 046 038 degrees QTc Int : 428 ms Normal sinus rhythm Nonspecific T wave abnormality Abnormal ECG When compared with ECG of 13-OCT-2023 19:30, No significant change was found Referred By: Emily Gagnon Electronically Signed By:SHANEKA FERGUSON
[2023-11-12 17:33] LABS: Appearance Urine Clear; Color Urine Yellow; Glucose Urine UA Negative (Negative); Leukocyte Esterase Urine Negative (Negative); Nitrite Urine Negative (Negative); PH 6.5 (5.0-9.0); Specific Gravity - Urine 1.015 (1.005-1.025); Urine Blood Negative (Negative); Urine Ketones Negative (Negative); Urine Protein Negative (Neg-Trace)
[2023-11-12 17:58] LABS: Troponin-I High Sensitivity < 2.7 ng/L (<3.5-35.0)
[2023-11-12 18:34] VITALS: BP 170/99; PULSE 69; RESP 18; TEMP 36.6; O2SAT 97
== END 2023-11-12 18:35 | disposition home or self-care (01) ==
PROVIDERS: Nurse Practitioner Family; Registered Nurse Emergency; Emergency Provider Emergency Medicine; PCP Physician Assistant
DX: E86.0 Dehydration (principal); R42 Dizziness and giddiness; R51.9 Headache, unspecified; R94.31 Abnormal electrocardiogram [ECG] [EKG]; Z03.818 Encounter for observation for suspected exposure to other biological agents ruled out; Z79.899 Other long term (current) drug therapy
CPT/HCPCS: 0241U; 36415; 80053; 81003; 84484; 85025; 93005; 99283

== ENCOUNTER → 2023-11-12 17:02 | Outpatient (BNV) | payer OTHER, MEDICAID, SELFPAY | PROVIDERS: Emergency Provider Emergency Medicine; PCP Physician Assistant; Visit Provider Internal Medicine | DX: R94.31 Abnormal electrocardiogram [ECG] [EKG] (principal) | CPT/HCPCS: 93010 ==

== ENCOUNTER 2023-12-23 17:34 | Emergency (ER) | payer OTHER, MEDICAID, SELFPAY | END 2023-12-23 19:59 | disposition left against medical advice (07) | PROVIDERS: Emergency Provider Emergency Medicine; PCP Physician Assistant | DX: Z53.21 Procedure and treatment not carried out due to patient leaving prior to being seen by health care provider (principal) ==

== ENCOUNTER 2024-01-03 13:41 | Emergency (ER) | payer OTHER, MEDICAID, SELFPAY ==
[2024-01-03 13:46] VITALS: BP 176/95; PULSE 61; RESP 16; TEMP 36.8; O2SAT 100; BMI 26.5
--- NOTE | 2024-01-03 13:49 | ECG_ITS ---
Test Reason : FATIGUE Blood Pressure : / mmHG Vent. Rate : 056 BPM Atrial Rate : 056 BPM P-R Int : 204 ms QRS Dur : 094 ms QT Int : 424 ms P-R-T Axes : 064 056 046 degrees QTc Int : 409 ms Sinus bradycardia Nonspecific T wave abnormality Abnormal ECG When compared with ECG of 12-NOV-2023 17:37, No significant change was found Referred By: Buddy Davies Electronically Signed By:ROXANNA CHENEY MD
--- NOTE | 2024-01-03 13:53 | ED_ITS ---
HPI - General Adult General Chief complaint: General Medical Stated complaint: Low BP? Time Seen by Provider: 01/03/24 16:49 Source: patient Mode of arrival: ambulatory Limitations: no limitations History of Present Illness ED Provider: Dolores Sanchez PA-C HPI narrative: 68-year-old male with history pertinent for CAD, HTN, HLD, smoking presenting for evaluation of feeling 'out of it'. States that this morning he ate breakfast and feels like it digested really slowly. Denies abdominal pain, nausea. vomiting, diarrhea. Also reports that he went to [facility] ED 3 days ago for generalized weakness, was discharged same day and felt better until this afternoon when he started to feel like he was tired, generally weak, and having slow digestion. States that he has not had much to eat and is hungry. He is also concerned that his blood pressure was elevated when he had it taken here even though he took his lisinopril this morning. Denies fevers, chills, chest pain, shortness of breath, headache or vision changes. States that his primary concern is the slow digestion, as the weakness and feeling tired have been going on for years. MD complaint: Abnormal digestion Onset (ago): hour(s) Treatments prior to arrival: none Related Data Previous Rx's ?Medication ?Instructions ?Recorded blood pressure test kit-medium #1 ea 03/03/22 aspirin 81 mg tablet,delayed 81 mg PO DAILY #90 tabs 06/24/23 release (Adult Aspirin Regimen) bupropion HCl 150 mg tablet,12 hr 150 mg PO BID 90 days #180 tabs 06/24/23 sustained-release lisinopril 30 mg tablet 30 mg PO DAILY 90 days #90 tabs 06/24/23 metoprolol succinate 50 mg 50 mg PO DAILY 90 days #90 tabs 06/24/23 tablet,extended release 24 hr lorazepam 0.5 mg tablet 0.5 mg PO DAILY PRN anxiety 7 days 06/30/23 #7 tabs ibuprofen 600 mg tablet 600 mg PO Q6H 15 days #60 tabs 09/15/23 tamsulosin 0.4 mg capsule (Flomax) 0.4 mg PO DAILY #90 caps 09/15/23 atorvastatin 40 mg tablet 40 mg PO DAILY 90 days #90 tabs 09/23/23 Allergies Allergy/AdvReac Type Severity Reaction Status Date / Time tadalafil [From Tony] Allergy Unknown anxiety Verified 01/03/24 13:46 Review of Systems 2 Constitutional: Constitutional: Reports no additional constitutional complaints, Denies chills, Denies fever(s), Reports lethargy, Denies night sweats and Reports weakness Eyes: Eyes: Reports no additional eye complaints, Denies blurry vision, Denies change in vision, Denies diplopia, Denies eye discharge, Denies loss of vision and Denies eye pain ENT: Denies dizziness Cardiovascular: Cardiovascular: Reports no additional cardiovascular complaints, Denies chest pain, Denies lightheadedness, Denies Loss of Consciousness and Denies dyspnea Respiratory: Respiratory: Reports no additional respiratory complaints and Denies dyspnea Gastrointestinal: Gastrointestinal: Reports no additional gastrointestinal complaints, Denies abdominal pain, Denies melena, Denies hematochezia, Denies change in bowel habits, Denies change in stool character, Denies vomiting and Reports other ('slow digestion') Genitourinary: Genitourinary: Reports no additional male genitourinary complaints, Denies hematuria, Denies oliguria, Denies difficulty urinating, Denies dysuria, Denies urinary frequency, Denies urinary hesitancy, Denies urinary incontinence and Denies urinary urgency Musculoskeletal: Musculoskeletal: Reports no additional musculoskeletal complaints, Denies numbness and Denies tingling Neurologic: Denies dizziness, Denies loss of vision, Denies numbness, Denies tingling and Reports weakness Psychiatric: Psychiatric: Reports no additional psychiatric complaints Endocrine: Endocrine: Reports no additional endocrine complaints Hematologic/Lymphatic: Hematologic/Lymphatic: Reports no additional hematologic/lymphatic complaints Allergic/Immunologic: Allergic/Immunologic: Reports no additional allergic/immunologic complaints [facility] Past Medical History Attestation statement: The following information was validated with the patient. Source: old records reviewed and nursing notes reviewed Medical History Weak urinary stream History of CO (myocardial infarction) Nicotine dependence, cigarettes, uncomplicated Left shoulder pain COPD (chronic obstructive pulmonary disease) Hypertension CAD (coronary artery disease) Surgical History History of colonoscopy History of coronary artery stent placement (~2018) History of hernia repair (~1969) Family History Family History Father No problems noted. Mother No problems noted. Brother Hepatocellular carcinoma Social History Social History Housing: Other Housing Other:: van Alcohol intake: current Alcohol intake frequency: holidays/special occasions only Patient Tobacco Use Status: Current everyday Tobacco user Tobacco use type: Cigarette Cigarette Packs Per Day: 1.5 Cigarettes Per Day: 30 Years Smoked: 58 +/- e-Cigarette/Vaping Use: Never Used Second Hand Smoke Exposure: Yes Advance Directives: No Advance Directives Information Provided: No Do you have a plan to hurt others: No Plan service: No Current occupational status: unemployed Cognitive needs: No Hearing needs: No Vision needs: No Physical Exam ED Vital Signs: Vital Signs - 24 hr 01/03/24 13:46 01/03/24 16:00 01/03/24 18:03 Temperature 98.2 F 98.2 F 98.2 F Pulse Rate 61 49 L 49 L Respiratory Rate 16 18 18 Blood Pressure 176/95 H 179/94 H 179/94 H Pulse Oximetry 100 98 Oxygen Delivery Method Room Air Room Air Room Air BMI result Body Mass Index 26.5 Const General: cooperative, no acute distress, alert and awake Nutritional Appearance: well nourished Orientation/consciousness: patient oriented x3 Limitations: no limitations HENMT Head: Yes normal to inspection and Yes atraumatic Ears: hearing grossly normal bilaterally and external ears normal General nose exam: Normal external nose present, no nasal discharge noted and no epistaxis Face and sinus: Yes normal facial exam, No abrasion and No laceration Mouth: Normal oral and palatal mucosa present, no drooling and no muffled voice Eyes General: appearance normal, both eyes and all related structures Periorbital: periorbital findings normal Eyelids: Yes eyelids normal Conjunctivae: conjunctivae normal Pupils: Equal, round and reactive pupils present EOM: EOMs intact bilaterally Neck Neck: Yes normal visual inspection, Yes full ROM and Yes no lymphadenopathy Chest Chest palpation & inspection: normal inspection of the chest Resp Effort & Inspection: normal respiratory effort and able to speak in complete sentences Auscultation: clear to auscultation bilaterally, no crackles, no rales, no rhonchi and no wheezes Cardio Rate: bradycardic Rhythm: regular rhythm Heart sounds: no click, no gallops, no murmurs and no rubs GI Inspection: Yes normal to inspection Palpation (GI): Soft to palpation, nontender, no guarding, no hepatosplenomegaly and No Rebound tenderness present Auscultation: normal bowel sounds Neuro General: patient oriented x3, moves all extremities and no focal motor deficits Cranial nerves: Yes Equal, round and reactive pupils present and Yes Bilaterally intact EOM present Cognition (Neuro): normal cognition Motor exam (neuro): 5/5 motor strength present throughout, no tremor noted and Normal motor muscle tone present throughout Sensory Exam: Normal double simultaneous stimulation for sensation Coordination: [id number] test normal Extrem General: Yes normal to inspection, Yes full ROM and Yes capillary refill normal Psych Appearance: grossly normal Mental Status: mental status grossly normal Affect: normal affect Attitude: cooperative Thought process: Normal thought process present Thought content: Normal thought content present Insight: Good insight present (Psych) Course Course Course Narrative: RME: Done by ALLISON Girard. 68-year-old male presents to ED for generalized weakness described as lethargy. Patient states his blood pressure low. She states blood pressure was low at [facility] 2 days ago and was dehydrated was given fluids for better. Patient denies any chest pain, shortness of breath, slurred speech, facial droop, or paralysis of extremities. NIH score is 0. Due to history of STEMI patient will have EKG labs ordered. Medical Decision Making Medical Decision Making [facility] Narrative: Patient is a 68 year old assigned male at with a history of CAD, HTN, HLD, and SU presenting to the emergency department today with concerns about digestion. Patient's physical exam was unremarkable. Patient's blood work was unremarkable. Patient's EKG was unremarkable. I explained my physical exam findings as well as all test results to the patient. I answered all questions asked by the patient. I stressed the importance of the patient taking his medication as prescribed. I stressed the importance of the patient following up with his primary care provider and a GI specialist. I stressed the importance of the patient returning to the emergency department immediately if his symptoms were to worsen or if he were to develop any dizziness, shortness of breath, difficulty breathing, chest pain, blurry vision, loss of vision, nausea, vomiting, abdominal pain, fever, chills, back pain, or any other complaints. Patient verbalized agreement and understanding with this treatment plan and discharge. Differential Diagnosis Differential Diagnoses: The differential diagnosis associated with the presentation includes Epigastric pain Digestion issues Slow motility Admission/Observation Consideration of admission/observation: Escalation of care including admission/observation considered Patient would have been admitted to the hospital had his work up had any findings where hospital admission was appropriate and his clinical presentation warranted hospital admission. Lab Data [facility] Lab Attestation statement: I reviewed the patient's lab results. My interpretation of these results are in the [facility] Rationale portion of this note. 01/03/24 14:09 01/03/24 14:09 Labs: Lab Results 01/03/24 Range/Units 14:09 WBC 7.5 (4.8-10.8) X10*3/uL RBC 4.65 (4.60-5.80) X10*6/uL Hgb 14.4 (14.0-18.0) g/dl Hct 41.6 L (42.0-52.0) % MCV 89.5 (80.0-98.0) fL MCH 31.0 (27.0-33.0) pg MCHC 34.6 (31.0-36.0) g/dl RDW 13.5 (11.0-16.0) % Plt Count 264 (160-400) X10*3/uL MPV 9.8 (9.4-12.4) fL Immature Gran % (Auto) 0.3 (0.0-0.4) % Neut % (Auto) 57.2 (45-73) % Lymph % (Auto) 25.3 (20-40) % Crockett % (Auto) 11.8 H (2-11) % Eos % (Auto) 4.9 H (0-4) % Baso % (Auto) 0.5 (0-2) % Lymph # (Auto) 1.9 (1.2-4.9) X10*3/uL Crockett # (Auto) 0.9 (0.1-1.2) X10*3/uL Eos # (Auto) 0.4 (0.0-0.4) X10*3/uL Baso # (Auto) 0.0 (0.0-0.2) X10*3/uL Abs Immat Gran (auto) 0.02 (0.00-0.03) X10*3/uL Absolute Neuts (auto) 4.3 (2.0-8.3) x10*3/uL Absolute Nucleated RBC 0.000 (0.0-0.012) X10*3/uL Nucleated RBC % (auto) 0.0 (0.0-0.2) /100WBC PT 11.6 (11.1-13.3) SEC INR 1.0 (0.9-1.1) APTT 31.6 (26.0-36.8) SEC Sodium 138 (135-145) mmol/L Potassium 3.9 (3.3-5.1) mmol/L Chloride 105 (96-108) mmol/L Carbon Dioxide 24 (22-29) mmol/L Anion Gap 13 (12-20) BUN 17 H (9-16) mg/dL Creatinine 0.93 (0.5-1.4) mg/dL Estim Creat Clear Calc 82.0 Estimated GFR > 60 Random Glucose 107 (60-115) mg/dL Calcium 9.5 (8.4-10.2) mg/dL Magnesium 1.9 (1.6-2.6) mg/dL Total Bilirubin 0.6 (0.0-1.0) mg/dL AST 24 (5-37) U/L ALT 26 (0-40) U/L Alkaline Phosphatase 107 (39-117) U/L Troponin I High Sens < 2.7 (<3.5-35.0) ng/L Total Protein 6.9 (6.5-8.0) g/dL Albumin 3.8 (3.5-5.0) g/dL Influenza Type A (PCR) NEGATIVE (Negative) Influenza Type B (PCR) NEGATIVE (Negative) RSV RNA Qual (PCR) NEGATIVE (Negative) SARS-CoV-2 RNA (RT-PCR) NEGATIVE (Negative) Independent Interpretation I performed an independent interpretation of an: EKG Interpretation: Vent. Rate: 056 BPM Atrial Rate: 056 BPM P-R Int: 204 ms QRS Dur: 094 ms QT Int: 424 ms P-R-T Axes: 064 056 046 degrees QTc Int: 409 ms Sinus bradycardia Nonspecific T wave abnormality Abnormal ECG When compared with ECG of 12-NOV-2023 17:37, No significant change was found [id number]/ [id number] Discharge Plan Discharge Clinical Impression: Weakness, Chronic GERD Patient Disposition: Home, Self-Care Instructions: Gastroesophageal Reflux Disease (DC), Weakness (ED) Additional Instructions: Follow up with your primary care provider and a GI specialist. Return to the emergency department immediately if your symptoms worsen or if you develop any dizziness, shortness of breath, difficulty breathing, chest pain, blurry vision, loss of vision, nausea, vomiting, abdominal pain, fever, chills, back pain, or any other complaints. Prescriptions: No Action aspirin [Adult Aspirin Regimen] 81 mg tablet,delayed release (DR/EC) 81 mg PO DAILY Qty: 90 4RF Rx Instructions: Not to be taken with Ibuprofen. bupropion HCl 150 mg tablet sustained-release 12 hr 150 mg PO BID 90 Days Qty: 180 0RF lisinopril 30 mg tablet 30 mg PO DAILY 90 Days Qty: 90 4RF metoprolol succinate 50 mg tablet extended release 24 hr 50 mg PO DAILY 90 Days Qty: 90 4RF ibuprofen 600 mg tablet 600 mg PO Q6H 15 Days Qty: 60 0RF atorvastatin 40 mg tablet 40 mg PO DAILY 90 Days Qty: 90 4RF lorazepam 0.5 mg tablet 0.5 mg PO DAILY PRN (Reason: anxiety) 7 Days Qty: 7 0RF (DME) blood pressure test kit-medium Kit See Rx Instructions .Route Qty: 1 0RF Rx Instructions: As directed tamsulosin [Flomax] 0.4 mg capsule 0.4 mg PO DAILY Qty: 90 3RF Referrals: [facility] [Provider Group] (Call to establish and follow up with a GI specialist. ) Anuj Lopez PA-C [Primary Care Provider] - Interventions: ED Discharge Assessment Last Done: 01/03/24 18:03 Discharge Date/Time: 01/03/24 18:06 Print Language: French
[2024-01-03 14:15] LABS: MANUAL DIFF FLAG NO
[2024-01-03 14:22] LABS: Prothrombin Time 11.6 SEC (11.1-13.3)
[2024-01-03 14:25] LABS: Partial Thromboplastin Time 31.6 SEC (26.0-36.8)
[2024-01-03 14:32] LABS: Basophils Percent Auto 0.5 % (0-2); Eosinophils Absolute Auto 0.4 X10*3/uL (0.0-0.4); Eosinophils Percent Auto 4.9 % (0-4); Hematocrit 41.6 % (42.0-52.0); Hemoglobin 14.4 g/dl (14.0-18.0); Imm Gran Abs Auto 0.02 X10*3/uL (0.00-0.03); Imm Gran Pct Auto 0.3 % (0.0-0.4); Lymphocytes Absolute Auto 1.9 X10*3/uL (1.2-4.9); Lymphocytes Percent Auto 25.3 % (20-40); Mean Corpuscular HGB Conc 34.6 g/dl (31.0-36.0); Mean Corpuscular Volume 89.5 fL (80.0-98.0); Mean Platelet Volume 9.8 fL (9.4-12.4); Monocytes Absolute Auto 0.9 X10*3/uL (0.1-1.2); Monocytes Percent Auto 11.8 % (2-11); Neutrophils Absolute Auto 4.3 x10*3/uL (2.0-8.3); Neutrophils Percent Auto 57.2 % (45-73); Platelet Count 264 X10*3/uL (160-400); Red Blood Count 4.65 X10*6/uL (4.60-5.80); Red Cell Distribution Width 13.5 % (11.0-16.0); White Blood Count 7.5 X10*3/uL (4.8-10.8)
[2024-01-03 14:37] LABS: Alanine Aminotransferase 26 U/L (0-40); Albumin Level 3.8 g/dL (3.5-5.0); Alkaline Phosphatase 107 U/L (39-117); Anion Gap 13 (12-20); Aspartate Amino Transferase 24 U/L (5-37); Bilirubin Total 0.6 mg/dL (0.0-1.0); Blood Urea Nitrogen 17 mg/dL (9-16); Calcium 9.5 mg/dL (8.4-10.2); Carbon Dioxide 24 mmol/L (22-29); Chloride 105 mmol/L (96-108); Estimated Glomerular Filt Rate > 60; Glucose Random 107 mg/dL (60-115); Magnesium 1.9 mg/dL (1.6-2.6); Potassium 3.9 mmol/L (3.3-5.1); Sodium 138 mmol/L (135-145); Total Protein 6.9 g/dL (6.5-8.0)
[2024-01-03 14:55] LABS: Troponin-I High Sensitivity < 2.7 ng/L (<3.5-35.0)
[2024-01-03 14:56] LABS: Influenza A PCR NEGATIVE (Negative); Influenza B PCR NEGATIVE (Negative); Resp Syncy Virus RNA Qual PCR NEGATIVE (Negative); SARS COV2 PCR INHOUSE NEGATIVE (Negative)
[2024-01-03 16:00] VITALS: BP 179/94; PULSE 49; RESP 18; TEMP 36.8; O2SAT 98
[2024-01-03 18:03] VITALS: BP 179/94; PULSE 49; RESP 18; TEMP 36.8
== END 2024-01-03 18:06 | disposition home or self-care (01) ==
PROVIDERS: Physician Assistant; Emergency Provider Internal Medicine; PCP Physician Assistant
DX: R53.83 Other fatigue (principal); I10 Essential (primary) hypertension; I25.10 Atherosclerotic heart disease of native coronary artery without angina pectoris; E78.5 Hyperlipidemia, unspecified; J44.9 Chronic obstructive pulmonary disease, unspecified; F41.1 Generalized anxiety disorder; K21.9 Gastro-esophageal reflux disease without esophagitis; R53.1 Weakness; R94.31 Abnormal electrocardiogram [ECG] [EKG]; Z03.818 Encounter for observation for suspected exposure to other biological agents ruled out
CPT/HCPCS: 0241U; 80053; 83735; 84484; 85025; 85610; 85730; 93005; 99283; 99284

== ENCOUNTER → 2024-01-03 13:49 | Outpatient (BNV) | payer OTHER, MEDICAID, SELFPAY | PROVIDERS: Emergency Provider Internal Medicine; PCP Physician Assistant; Visit Provider Internal Medicine Cardiovascular Disease | DX: R94.31 Abnormal electrocardiogram [ECG] [EKG] (principal) | CPT/HCPCS: 93010 ==

== ENCOUNTER 2024-03-17 15:51 | Outpatient (AMB) | payer OTHER, MEDICAID, SELFPAY ==
--- NOTE | 2024-03-17 15:54 | MHC.PC.OV ---
Vital Signs 03/17/24 15:58 03/17/24 16:10 Height 5 ft 11 in Weight 163 lb 4 oz BMI 22.8 BP 122/84 140/82 H Blood Pressure Location Lt brachial Position Sitting Pulse 107 H Pulse Source Pulse Oximeter Pulse Oximetry (%) 99 Oxygen Delivery Method Room Air Intake Visit Reasons: Annual PE Intake Note: Patient is here today for a physical. Ship'S Officer Required: No Accompanied by: Self / Same As Patient Allergies tadalafil [From I-Marketlis] Allergy (Unknown, Verified 03/17/24 16:02) anxiety Medication List - Last Reconciled 03/17/24 by Anuj Lopez PA-C aspirin (Adult Aspirin Regimen) 81 mg PO DAILY atorvastatin 40 mg PO DAILY 90 days blood pressure test kit-medium As directed bupropion HCl SR 150 mg PO BID 90 days ibuprofen 600 mg PO Q6H 15 days lisinopril 30 mg PO DAILY 90 days lorazepam 0.5 mg PO DAILY PRN 7 days metoprolol succinate ER 50 mg PO DAILY 90 days tamsulosin (Flomax) 0.4 mg PO DAILY Tobacco use date assessed: 03/17/24 Fall risk assessment: No Falls in past year Last assessed Fall Risk: 03/17/24 Dental Screening Dental Screen Date: 03/17/24 Did you have a dental visit in the last 12 months?: Yes Did you have a dental problem in the last 6 months where you did not have access to dental care?: No Was dental information given to patient?: Patient has dentist HPI Annual PE HPI Details Patient is a 68-year-old male here today for routine annual physical ? Patient has a past medical history significant for coronary artery disease, hypertension, hyperlipidemia, smoker, homeless. He is now homeless again living in his van. 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 Not interested in living in any mcc. He does have enough money at times to get a hotel room from time to time. CHRONIC MEDICAL CONDITIONS--> . Hypertension:? Does not monitor his blood pressure at home, he reports he is compliant with the use of his blood pressure medication . Blood pressure today acceptable. He reports drinking a couple energy drinks today which he does on a regular basis. HE ALSO ADMITS TO NOW INJECTING ANABOLIC STEROIDS.. 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 .. Tobacco dependence:? He reports he has been able to drastically reduced the amount of smoking he has done with with Wellbutrin.? Unfortunately continues to smoke a few cigarettes per day.? He reports very difficult to stop smoking as he uses it as a past time. .. History of coronary artery disease:? Patient has had a stent placement 2019 and continues on anti-platelet therapy and beta-lizzy. Unfortunately continues to smoke and does use daily energy? drinks. He does understand he needs to quit smoking and continues on Wellbutrin 150 ESR which has managed to help reduce his smoking. He otherwise denies any overt shortness of breath, chest discomforts or palpitations.? Has followed up with his shell coremaker and has gotten cardiac stress test (May 2022)? which was normal. Most recent lipid panel improved though LDL still suboptimal for his cardiac condition.? He is somewhat compliant with statin use. Colorectal cancer screening: Colonoscopy done in 2019, normal repeat 10 years Vaccines: Up-to-date with COVID vaccine, pneumonia vaccine and tetanus vaccine,considering RSV Laboratory Tests 04/10/23 16:45 Random Glucose 117 H [facility] Medical History Weak urinary stream History of NE (myocardial infarction) Nicotine dependence, cigarettes, uncomplicated Left shoulder pain COPD (chronic obstructive pulmonary disease) Hypertension CAD (coronary artery disease) Surgical History History of colonoscopy History of coronary artery stent placement (~2018) History of hernia repair (~1969) Family History (Updated 03/17/24 @ 16:08 by Anuj Lopez PA-C) Father CAD (coronary artery disease) Mother No problems noted. Brother Hepatocellular carcinoma Social History (Updated 03/17/24 @ 16:09 by Anuj Lopez PA-C) Housing: Other Housing Other:: van Alcohol intake: current Alcohol intake frequency: holidays/special occasions only Alcohol type: beer Patient Tobacco Use Status: Current everyday Tobacco user Tobacco use type: Cigarette Cigarette Packs Per Day: 1.5 Cigarettes Per Day: 30 Years Smoked: 58 +/- e-Cigarette/Vaping Use: Never Used Second Hand Smoke Exposure: Yes service: No Current occupational status: unemployed Cognitive needs: No Hearing needs: No Vision needs: No Questionnaire PHQ-9 Over the last 2 weeks, how often have you been bothered by any of the following problems? 1. Little interest or pleasure in doing things: not at all 2. Feeling down, depressed, or hopeless: not at all 3. Trouble falling or staying asleep, or sleeping too much: not at all 4. Feeling tired or having little energy: not at all 5. Poor appetite or overeating: not at all 6. Feeling bad about yourself - or that you are a failure or have let yourself or your family down: not at all 7. Trouble concentrating on things, such as reading the newspaper or watching television: not at all 8. Moving or speaking so slowly that other people could have noticed. Or the opposite - being so fidgety or restless that you have been moving around a lot more than usual: not at all 9. Thoughts that you would be better off or of hurting yourself in some way: not at all Total score: 0 Depression Screening Interpretation: Negative Depression Screening Done: Yes 31547 - PHQ-9 Billing: Yes Source: Developed by Drs. Agustin Gan, Jamee Friedman, Tom Fermin and colleagues, with an educational aman from [employer]. Thrive Questionnaire Date Thrive assessed: 03/17/24 I am a: Patient What is your living situation today?: I do not have a steady places to live I choose not to answer this question Within the past 12 months, did the food you bought not last and you didn't have the money to get more?: Sometimes True Within the past 12 months, did you worry whether your food would run out before you got money to buy more?: I choose not to answer this question Do you have trouble paying for medicines?: Yes Do you have trouble getting transportation to medical appointments?: No Do you have trouble paying your heating and electricity bill?: No Do you have trouble taking care of your child, family member or friend?: I choose not to answer this question Do you have trouble with day-to-day activities such as bathing, preparing meals, shopping, managing finances, etc.?: No Are you currently unemployed and looking for a job?: No Are you interested in more education?: No Please select the resources that you would like help with: Housing/Senior Living and Food Currently or been in a relationship where the following occur: I choose not to answer THRIVE Score: 2 AUDIT C Alcohol Use Questionnaire (AUDIT-C) 1. How often do you have a drink containing alcohol?: Monthly or less 2. How many drinks containing alcohol do you have on a typical day when you are drinking?: 1 or 2 3. How often do you have six or more drinks on one occasion?: Never Total Score: 1 SU-7 AMB Questionnaire SU-7 Date SU - 7 assessed: 03/17/24 Feeling nervous, anxious, or on edge: 0 = Not at all Not being able to stop or control worryin = Not at all Worrying too much about different things: 0 = Not at all Trouble relaxin = Not at all Being so restless that it is hard to sit still: 0 = Not at all Becoming easily annoyed or irritable: 0 = Not at all Feeling afraid as if something awful might happen: 0 = Not at all Total SU-7 score (0-4 normal; 5-9 mild; 10-14 moderate; 15-21 severe): 0 Source: Developed by Drs. Agustin Gan, Jamee Friedman, Tom Fermin and colleagues, with an educational aman from [employer]. SU-7 Assessment Billing SU-7 Assessment Tool: SU-7 Assessment 70157 Review of Systems Const Denies body aches, Denies chills, Denies excessive sweating, Denies fatigue, Denies fever(s) and Denies headache(s) Eyes Denies blurry vision ENT Denies dysphagia, Denies vertigo, Denies dizziness, Denies headache(s), Denies hearing loss and Denies tinnitus Card Denies chest pain, Denies chest pain with activity, Denies syncope, Denies irregular heart rhythm and Denies dyspnea Resp Denies chest congestion, Denies cough, Denies hemoptysis, Denies dyspnea and Denies wheezing GI Denies abdominal pain, Denies melena, Denies hematochezia, Denies coffee ground emesis, Denies dysphagia, Denies diarrhea, Denies nausea and Denies vomiting Denies difficulty urinating, Denies dysuria, Denies urinary frequency, Denies urinary hesitancy and Denies urinary urgency Musc Denies arthralgias, Denies limited range of motion, Denies muscle cramps and Denies muscle weakness Skin/Breast Denies rash and Denies skin ulcer Neuro Denies Abnormal speech present, Denies confusion, Denies vertigo, Denies dizziness, Denies syncope, Denies headache(s), Denies memory loss and Denies seizure-like activity Psych Denies anxiety, Denies confusion, Denies depression, Denies memory loss, Denies panic attacks and Denies paranoia Endo Denies excessive sweating, Denies fatigue, Denies flushing, Denies polydipsia and Denies polyuria Aller/Immun Denies wheezing Physical exam (Primary Care) Vital Signs: Last Vital Signs Pulse 107 H 03/17/24 15:58 BP 140/82 H 03/17/24 16:10 Pulse Ox 99 03/17/24 15:58 Oxygen Delivery Method Room Air 03/17/24 15:58 BMI result Body Mass Index 22.8 Tobacco/Smoking Status: Tobacco use Status Tobacco use date assessed 03/17/24 03/17/24 15:57 Patient Tobacco Use Status Current everyday Tobacco 03/17/24 16:09 Tobacco use type Cigarette 03/17/24 16:09 e-Cigarette/Vaping Use Never Used 03/17/24 16:09 Are you ready to quit: No Tobacco cessation counseling provided: Yes Items discussed: Nicotine replacement Relapse Prevention: discussed the importance of a supportive environment, discussed negative mood or depression after quitting, weight gain after smoking is common and discussed dietary, exercise and/or lifestyle changes Number of minutes spent counselin CPT code: 60489 - 4-10 Minutes PHQ-9: PHQ-9 Score PHQ-9: Total score 0 03/17/24 16:03 Depression Screening Interpretation: Negative Thrive Assessment: Date of Thrive Assessment Date Thrive assessed 03/17/24 03/17/24 15:57 Currently or been in a relationship where the following occur: I choose not to answer Const General: cooperative, comfortable, no acute distress, alert and awake; No confusion Orientation/consciousness: oriented to person, oriented to place, patient oriented x3 and No confusion HENMT Head: Yes normocephalic Ears: external ears normal and TM's normal bilaterally Face and sinus: No sinus tenderness Mouth: Normal oral and palatal mucosa present and tongue normal Teeth and gingiva: dentition normal and gingiva normal Throat: Yes posterior oropharynx normal, Yes tonsils normal and Yes uvula midline Eyes Conjunctivae: conjunctivae normal Sclerae: sclerae normal Pupils: Equal, round and reactive pupils present EOM: EOMs intact bilaterally Direct Ophthalmoscopy: No no photophobia Neck Neck: Yes no lymphadenopathy, No tender and Yes no JVD Thyroid: Thyroid normal Carotids: no bruits Chest Chest palpation & inspection: no tenderness Resp Effort & Inspection: normal respiratory effort, no audible wheezes, not labored and no stridor Auscultation: no crackles, no rales, no rhonchi and no wheezes Cardio Jugular venous distension: no JVD Rate: regular rate, not bradycardic and not tachycardic Rhythm: regular rhythm Bruits: no carotid bruits Peripheral pulses: Peripheral pulses 2+ throughout GI Inspection: Yes normal to inspection, No abdominal wall ecchymosis and No visible herniation Palpation (GI): Soft to palpation, nontender, no guarding, not rigid and No hepatosplenomegaly present Auscultation: normoactive bowel sounds General: Yes no CVA tenderness Back/Spine/Pelvis Back: no CVA tenderness and No back tenderness Cervical Spine: cervical ROM normal Thoracic/Lumbar Spine: thoracic and lumbar spine normal to inspection, straight leg raise negative bilaterally, No thoraco-lumbar ROM limited and No lumbar spinal tenderness Skin Lesions: no lesions Rashes: no rashes Wounds: no wounds Neuro General: oriented to person, oriented to place, patient oriented x3, CN's II-XI intact bilaterally and No confusion Cranial nerves: Yes Equal, round and reactive pupils present and Yes Normal accommodation reflex present Cognition (Neuro): normal cognition Speech: No Abnormal speech present Gait exam (Neuro): Normal gait present Motor exam (neuro): 5/5 motor strength present throughout Extrem Right upper extremity: full ROM; no cyanosis Left upper extremity: full ROM; no cyanosis Right lower extremity: no edema Left lower extremity: no edema Psych Appearance: grossly normal Mental Status: mental status grossly normal Affect: normal affect Attitude: cooperative Thought process: Normal thought process present Assessment and Plan Assessment & Plan (1) Annual physical exam: Code(s): Z00.00 - Encounter for general adult medical examination without abnormal findings (2) Tobacco dependence: Code(s): F17.200 - Nicotine dependence, unspecified, uncomplicated Plan: Has been started on Wellbutrin which has him reduce his smoking though unfortunately continues to smoke. He feels somewhat ready to quit though has to get over mental block. (3) CAD (coronary artery disease): Comment: (STEMI 09/23/18 - s/p RCA stent; NSTEMI 10/01/18) Code(s): I25.10 - Atherosclerotic heart disease of [place] coronary artery without angina pectoris Qualifiers: Associated angina: with stable angina Coronary Disease-Associated Artery/Lesion type: [place] artery [place] vs. transplanted heart: [place] heart Qualified Code(s): I25.118 - Atherosclerotic heart disease of [place] coronary artery with other forms of angina pectoris Plan: Continues on aspirin therapy, beta-lizzy and statin therapy. Advised to get lipid panel done aseptic fasting to evaluate for appropriate LDL below 70. Unfortunately continues to smoke and does admit to injecting anabolic steroids from time to time. He does admit his diet has been fairly poor and still drinks energy drinks on a daily basis. (4) HTN (hypertension): Code(s): I10 - Essential (primary) hypertension Qualifiers: Hypertension type: essential hypertension Qualified Code(s): I10 - Essential (primary) hypertension Plan: Patient's blood pressure stable today in office. Advised on increasing his lisinopril dose though he declines at this time. Will continue his current dose of lisinopril with goal blood pressure to remain below 140/90. Advised to do home blood pressure monitoring (5) HLD (hyperlipidemia): Code(s): E78.5 - Hyperlipidemia, unspecified Qualifiers: Hyperlipidemia type: mixed hyperlipidemia Qualified Code(s): E78.2 - Mixed hyperlipidemia Plan: Patient continues on moderate statin potency. He does report being fairly compliant with the use of his cholesterol medication on a daily basis. Most recent LDL at 72 Goal LDL to be below 70 (6) Homeless: Code(s): Z59.00 - Homelessness unspecified Plan: As per HPI patient now living in his van and an occasional hotel room. Was living in [place] in a apartment though had a disagreement with the landlord. He is not interested in living in any [facility] at this time reporting there are drug addicts there Orders: Orders Complete Blood Count no Diff 03/17/24 I10 - Essential (primary) hypertension Prostate Specific Antigen Scr 03/17/24 N52.9 - Male erectile dysfunction, unspecified, Z12.5 - Encounter for screening for malignant neoplasm of prostate Microalbumin, Random (w Creat) 03/17/24 I10 - Essential (primary) hypertension Testosterone, Free/Total 03/17/24 R68.82 - Decreased libido Comprehensive [place]. Panel Fast 03/17/24 I10 - Essential (primary) hypertension Lipid Panel 03/17/24 E78.2 - Mixed hyperlipidemia Varicella IgG Antibody 03/17/24 Z78.9 - Other specified health status Patient Instructions: Goal: Blood pressure to be below 140/90, LDL to be optimally below 70 Barrier: Adherence to physical activity and healthy eating habits Coding Level of Care Code Est Pt Prev Care >65y(11267) Diagnoses Annual physical exam Z00.00 Tobacco dependence F17.200 Coronary artery disease of [place] artery of [place] heart with stable angina pectoris I25.118 Associated angina: with stable angina Coronary Disease-Associated Artery/Lesion type: [place] artery [place] vs. transplanted heart: [place] heart Essential hypertension I10 Hypertension type: essential hypertension Mixed hyperlipidemia E78.2 Hyperlipidemia type: mixed hyperlipidemia Homeless Z59.00 Additional Codes SU-7 Assessment Billing - SU-7 Assessment Tool: SU-7 Assessment 66854 ([id number]) Vital Signs *Quality* - CPT code: 88919 - 4-10 Minutes ([id number])
[2024-03-17 15:58] VITALS: BP 122/84; PULSE 107; O2SAT 99; BMI 22.8
[2024-03-17 16:10] VITALS: BP 140/82
== END 2024-03-17 16:29 | disposition home or self-care (01) ==
PROVIDERS: PCP Physician Assistant; Visit Provider Physician Assistant
DX: Z00.00 Encounter for general adult medical examination without abnormal findings (principal); I25.118 Atherosclerotic heart disease of native coronary artery with other forms of angina pectoris; F17.210 Nicotine dependence, cigarettes, uncomplicated; I10 Essential (primary) hypertension; E78.2 Mixed hyperlipidemia; Z59.00 Homelessness unspecified
CPT/HCPCS: 99397

== ENCOUNTER 2024-07-02 08:14 | Emergency (ER) | payer OTHER, MEDICAID, SELFPAY ==
--- NOTE | ~2024-07-02 | CT_ITS ---
Examination: CT brain and CT cervical spine without contrast. CLINICAL INDICATION: Fall with head strike. COMPARISON: CT brain 04/10/2023 TECHNIQUE: 2 mm thin axial and reformatted 2 minute thin sagittal and coronal images of brain were obtained. Subsequently axial 3 mm thin and reformatted 2 mm thin sagittal and coronal images of cervical spine were obtained. DLP 1051. This CT examination was performed using dose optimization techniques as appropriate, variously including the following: *Automated exposure control. *Adjustment of mA and/or kV according to patient size (this includes techniques or standardized protocols for targeted exams where dose is matched to indication/reason for exam; i.e. extremities or head). *Use of iterative reconstruction technique imaging Findings: Brain: There is no acute intra-axial, extra-axial bleed, masses or midline shift. There is no acute infarction evolution. There is no edema the larry to white matter differentiation is maintained normal. The lateral ventricles are symmetrical in size and configuration without enlargement. Bone windows reveal no calvarial abnormality. Bilateral paranasal sinuses and mastoid sinuses are well-aerated with mild mucoperiosteal thickening right maxillary, ethmoid and bilateral frontal sinuses. There is no scalp soft tissue abnormality. Cervical spine: There is maintained cervical lordosis. Grade 1 anterolisthesis C4 over C5 is noted. Rest of the alignment is preserved. There is severe loss of C5-6 and C6-7 disc levels, endplate lucency and diffuse sclerosis of the C5, C6 and partially C7 vertebra. There is moderate ventral and posterior spondylosis at the C5-6 and C6-7 disc levels. There is no visible acute fracture or dislocation. The craniovertebral junction and the C1-C2 alignment is normal. The prevertebral and paravertebral soft tissues are normal. The lung apices are clear. CT/CT cervical spine wo IV con IMPRESSION: 1. No acute intracranial process seen. 2. 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 3. Grade 1 anterolisthesis C4 over C5. There is no visible acute fracture or dislocation. 4. Severe degenerative disc changes C5-6 and C6-7 disc levels with moderate ventral and posterior spondylosis. Electronically signed by: Noah Wolfe MD 07/02/2024 09:28 AM [facility] [place], [place]
--- NOTE | ~2024-07-02 | XR_ITS ---
EXAMINATION: Thoracic spine and left shoulder. CLINICAL INDICATION: Fall. Pain. COMPARISON: Left shoulder 10/03/2021. TECHNIQUE: Left shoulder 4 views. Thoracic spine 3 views. FINDINGS: THORACIC SPINE: There is normal thoracic kyphosis. The vertebral heights, alignment and disc heights are normal. There is no visible acute fracture, dislocation or subluxation seen. There is mild right T8-9 spondylosis. No visible acute fracture or lytic process seen. The soft tissues are normal. LEFT SHOULDER: The glenohumeral and AC joint spaces maintain normal. There is no visible acute fracture, dislocation or lytic process seen. The soft tissues are normal. XR/XR thoracic spine 2V IMPRESSION: Unremarkable dorsal spine exam. Unremarkable left shoulder exam. Electronically signed by: Noah Wolfe MD 07/02/2024 08:59 AM [facility]
--- NOTE | ~2024-07-02 | CT_ITS ---
Examination: CT brain and CT cervical spine without contrast. CLINICAL INDICATION: Fall with head strike. COMPARISON: CT brain 04/10/2023 TECHNIQUE: 2 mm thin axial and reformatted 2 minute thin sagittal and coronal images of brain were obtained. Subsequently axial 3 mm thin and reformatted 2 mm thin sagittal and coronal images of cervical spine were obtained. DLP 1051. This CT examination was performed using dose optimization techniques as appropriate, variously including the following: *Automated exposure control. *Adjustment of mA and/or kV according to patient size (this includes techniques or standardized protocols for targeted exams where dose is matched to indication/reason for exam; i.e. extremities or head). *Use of iterative reconstruction technique imaging Findings: Brain: There is no acute intra-axial, extra-axial bleed, masses or midline shift. There is no acute infarction evolution. There is no edema the larry to white matter differentiation is maintained normal. The lateral ventricles are symmetrical in size and configuration without enlargement. Bone windows reveal no calvarial abnormality. Bilateral paranasal sinuses and mastoid sinuses are well-aerated with mild mucoperiosteal thickening right maxillary, ethmoid and bilateral frontal sinuses. There is no scalp soft tissue abnormality. Cervical spine: There is maintained cervical lordosis. Grade 1 anterolisthesis C4 over C5 is noted. Rest of the alignment is preserved. There is severe loss of C5-6 and C6-7 disc levels, endplate lucency and diffuse sclerosis of the C5, C6 and partially C7 vertebra. There is moderate ventral and posterior spondylosis at the C5-6 and C6-7 disc levels. There is no visible acute fracture or dislocation. The craniovertebral junction and the C1-C2 alignment is normal. The prevertebral and paravertebral soft tissues are normal. The lung apices are clear. CT/CT head/brain wo IV con IMPRESSION: 1. No acute intracranial process seen. 2. 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 3. Grade 1 anterolisthesis C4 over C5. There is no visible acute fracture or dislocation. 4. Severe degenerative disc changes C5-6 and C6-7 disc levels with moderate ventral and posterior spondylosis. Electronically signed by: Noah Wolfe MD 07/02/2024 09:28 AM [facility] [place]
--- NOTE | ~2024-07-02 | XR_ITS ---
EXAMINATION: Thoracic spine and left shoulder. CLINICAL INDICATION: Fall. Pain. COMPARISON: Left shoulder 10/03/2021. TECHNIQUE: Left shoulder 4 views. Thoracic spine 3 views. FINDINGS: THORACIC SPINE: There is normal thoracic kyphosis. The vertebral heights, alignment and disc heights are normal. There is no visible acute fracture, dislocation or subluxation seen. There is mild right T8-9 spondylosis. No visible acute fracture or lytic process seen. The soft tissues are normal. LEFT SHOULDER: The glenohumeral and AC joint spaces maintain normal. There is no visible acute fracture, dislocation or lytic process seen. The soft tissues are normal. XR/XR shoulder LT min 2V IMPRESSION: Unremarkable dorsal spine exam. Unremarkable left shoulder exam. Electronically signed by: Noah Wolfe MD 07/02/2024 08:59 AM [facility]
[2024-07-02 08:20] VITALS: BP 188/111; PULSE 66; RESP 18; TEMP 36.6; O2SAT 98; BMI 23.0
--- NOTE | 2024-07-02 08:32 | ECG_ITS ---
Test Reason : HTN Blood Pressure : / mmHG Vent. Rate : 060 BPM Atrial Rate : 060 BPM P-R Int : 192 ms QRS Dur : 096 ms QT Int : 426 ms P-R-T Axes : 060 048 071 degrees QTc Int : 426 ms Normal sinus rhythm Normal ECG When compared with ECG of 03-JAN-2024 13:57, No significant changes seen Referred By: Emily Gagnon Electronically Signed By:SHANEKA FERGUSON
--- NOTE | 2024-07-02 08:32 | ED_ITS ---
HPI - General Adult General Chief complaint: Fall Stated complaint: fall Time Seen by Provider: 07/02/24 08:27 Source: patient Mode of arrival: ambulatory Limitations: no limitations History of Present Illness ED Provider: Chelsi CEBALLOS narrative: Patient is a 68-year-old male with history of CAD, HTN, COPD, STEMI in 2019 presenting to the emergency department with complaint of left shoulder pain, neck and upper back pain after a slip and fall last night. States he was getting into his car at [facility] and slipped on the ground due to snow/ice, causing him to fall backwards. He reports positive head strike, unsure of loss of consciousness, notes I was dazed for a few seconds. Took ibuprofen this morning prior to arrival. BP elevated, reports drinking an energy drink prior to arrival. Denies current headache, visual changes, nausea or vomiting. Denies any weakness, numbness or tingling to extremities. MD complaint: left shoulder pain Onset (ago): hour(s) Treatments prior to arrival: NSAID Related Data Previous Rx's ?Medication ?Instructions ?Recorded blood pressure test kit-medium #1 ea 03/03/22 aspirin 81 mg tablet,delayed 81 mg PO DAILY #90 tabs 06/24/23 release (Adult Aspirin Regimen) bupropion HCl 150 mg tablet,12 hr 150 mg PO BID 90 days #180 tabs 06/24/23 sustained-release lisinopril 30 mg tablet 30 mg PO DAILY 90 days #90 tabs 06/24/23 metoprolol succinate 50 mg 50 mg PO DAILY 90 days #90 tabs 06/24/23 tablet,extended release 24 hr lorazepam 0.5 mg tablet 0.5 mg PO DAILY PRN anxiety 7 days 06/30/23 #7 tabs tamsulosin 0.4 mg capsule (Flomax) 0.4 mg PO DAILY #90 caps 09/15/23 atorvastatin 40 mg tablet 40 mg PO DAILY 90 days #90 tabs 09/23/23 ibuprofen 600 mg tablet 600 mg PO Q6H 15 days #60 tabs 03/07/24 Allergies Allergy/AdvReac Type Severity Reaction Status Date / Time tadalafil [From Cialis] Allergy Unknown anxiety Verified 07/02/24 08:24 Review of Systems Review of Systems: As per HPI. Yes all other systems are reviewed and are negative Constitutional: Constitutional: Reports as per HPI [facility] Past Medical History Medical History (Updated 07/02/24 @ 09:51 by Emily Gagnon NP) Weak urinary stream History of [place] (myocardial infarction) Nicotine dependence, cigarettes, uncomplicated Left shoulder pain COPD (chronic obstructive pulmonary disease) Hypertension CAD (coronary artery disease) Surgical History History of colonoscopy History of coronary artery stent placement (~2018) History of hernia repair (~1970) Family History Family History (Updated 03/17/24 @ 16:08 by Anuj Lopez PA-C) Father CAD (coronary artery disease) Mother No problems noted. Brother Hepatocellular carcinoma Social History Social History (Updated 03/17/24 @ 16:09 by Anuj Lopez PA-C) Housing: Other Housing Other:: van Alcohol intake: current Alcohol intake frequency: holidays/special occasions only Alcohol type: beer Patient Tobacco Use Status: Current everyday Tobacco user Tobacco use type: Cigarette Cigarette Packs Per Day: 1.5 Cigarettes Per Day: 30 Years Smoked: 58 +/- Smoked in Last 30 Days: Yes e-Cigarette/Vaping Use: Never Used Second Hand Smoke Exposure: Yes Use of substances other than those prescribed or required for medical reasons: Yes Substance Use Type: Marijuana Substance Use Frequency: Weekly Last Used Substance: Days (ago) Any prior treatment program specific to substance use: No Advance Directives: No Advance Directives Information Provided: No Do you have a plan to hurt others: No Plan service: No Current occupational status: unemployed Cognitive needs: No Hearing needs: No Vision needs: No Physical Exam ED Vital Signs: Vital Signs - 24 hr 07/02/24 08:20 Temperature 97.8 F Pulse Rate 66 Respiratory Rate 18 Blood Pressure 188/111 H Pulse Oximetry 98 Oxygen Delivery Method Room Air BMI result Body Mass Index 23.0 Vital signs have been reviewed and appear to be correct. Blood pressure elevated. Heart rate normal. Respiratory rate normal. Temperature normal. Oxygen saturation normal. Const General: cooperative, healthy appearing and no acute distress Nutritional Appearance: average body habitus Orientation/consciousness: oriented to person, oriented to place, oriented to time and patient oriented x3 Limitations: no limitations HENMT Head: Yes normal to inspection, Yes normocephalic, No Davidson's sign, Yes scalp tenderness (left occipital area) and No periorbital ecchymosis Ears: external ears normal, TM's normal bilaterally and EAC's normal General nose exam: Normal external nose present and Normal nasal mucous membranes and turbinates present Face and sinus: Yes face symmetric Mouth: Normal oral and palatal mucosa present, oropharynx normal and moist mucous membranes Throat: Yes uvula midline Eyes Pupils: Equal, round and reactive pupils present EOM: EOMs intact bilaterally Neck Neck: Yes normal visual inspection, Yes full ROM, Yes trachea midline and Yes supple Chest Chest palpation & inspection: normal inspection of the chest Resp Effort & Inspection: normal respiratory effort and able to speak in complete sentences Auscultation: clear to auscultation bilaterally Cardio Rate: regular rate Rhythm: regular rhythm Heart sounds: S1 normal heart sound present and S2 normal heart sound present GI Palpation (GI): Soft to palpation and nontender Auscultation: normoactive bowel sounds General: Yes no CVA tenderness Back/Spine/Pelvis Back: no CVA tenderness Cervical Spine: normal cervical lordosis, cervical ROM normal, cervical muscular tenderness (left posterior and lateral), pain with cervical ROM, No Cervical spine tenderness and No step off deformity Thoracic/Lumbar Spine: thoracic and lumbar spine normal to inspection, thoraco- lumbar ROM normal, straight leg raise negative bilaterally, pain with thoraco- lumbar ROM, paraspinal muscle tenderness on the left in the upper thoracic, thoracic spinal tenderness at T8 and at T9 and No lumbar spinal tenderness Pelvis: no pain with anterior-posterior compression and no pain with lateral compression Skin General skin exam: elasticity normal and turgor normal Neuro General: oriented to person, oriented to place, oriented to time, patient oriented x3, gait normal, tone normal, moves all extremities, Normal light touch and pain sensation, no focal motor deficits, CN's II-XI intact bilaterally and deep tendon reflexes 2+ bilaterally Cranial nerves: Yes Equal, round and reactive pupils present Cognition (Neuro): normal cognition Motor exam (neuro): 5/5 motor strength present throughout, Normal motor muscle tone present throughout and Motor abnormalities not present Sensory Exam: Normal double simultaneous stimulation for sensation Coordination: [id number] test normal, [id number] test normal and Romberg test negative Extrem General: Yes full ROM, Yes no pedal edema and Yes no calf tenderness Left upper extremity: shoulder/upper arm Details: inspection abnormal, tenderness Location: of the A-C joint and normal ROM and hand Details: vascular exam Details: radial pulse present and normal capillary refill Psych Mental Status: mental status grossly normal Affect: normal affect Thought process: Normal thought process present Medical Decision Making Medical Decision Making [facility] Narrative: Patient is a 68-year-old male with history of CAD, HTN, COPD, STEMI in 2019 presenting to the emergency department with complaint of left shoulder pain, neck and upper back pain after a slip and fall last night. On exam patient is awake, A+Ox3, VS WNL, afebrile, normal neurological exam without focal deficits, physical exam findings as above. Given reported symptoms and physical exam findings, initial differential includes ICH, skull or cervical vertebral fracture or subluxation, thoracic vertebral fracture or subluxation, left shoulder contusion versus fracture, less likely dislocation. X-ray shoulder and thoracic spine notable for no evidence of fracture, dislocation, or subluxation. CT head and c-spine notable for no evidence of ICH, skull or cervical vertebral fracture. My interpretation is in agreement with the radiologist's interpretation. Results discussed with patient and all questions answered. Will refer to ortho for ongoing symptoms. Return precautions discussed at bedside. Will send prescriptions for cyclobenzaprine and lidocaine patches. Patient verbalized understanding of and agreement with plan. Differential Diagnosis Differential Diagnoses: The differential diagnosis associated with the presentation includes As per [facility] Admission/Observation Consideration of admission/observation: Escalation of care including admission/observation considered Patient would have been admitted to the hospital had their work up had any findings where hospital admission was appropriate and their clinical presentation warranted hospital admission. Independent Interpretation I performed an independent interpretation of an: EKG (normal sinus rhythm, rate 60bm, normal CA interval and QTc), Plain X-Ray and CT Scan Interpretation: X-ray shoulder and thoracic spine notable for no evidence of fracture, dislocation, or subluxation. CT head and c-spine notable for no evidence of ICH, skull or cervical vertebral fracture. Radiology Impression Discussion of test interpretation with radiology: I have reviewed the radiologist's reading. Radiologist Impression: FINDINGS: THORACIC SPINE: There is normal thoracic kyphosis. The vertebral heights, alignment and disc heights are normal. There is no visible acute fracture, dislocation or subluxation seen. There is mild right T8-9 spondylosis. No visible acute fracture or lytic process seen. The soft tissues are normal. LEFT SHOULDER: The glenohumeral and AC joint spaces maintain normal. There is no visible acute fracture, dislocation or lytic process seen. The soft tissues are normal. XR/XR thoracic spine 2V IMPRESSION: Unremarkable dorsal spine exam. Unremarkable left shoulder exam. CT/CT cervical spine wo IV con IMPRESSION: 1. No acute intracranial process seen. 2. 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 3. Grade 1 anterolisthesis C4 over C5. There is no visible acute fracture or dislocation. 4. Severe degenerative disc changes C5-6 and C6-7 disc levels with moderate ventral and posterior spondylosis. External Record Review External record reviewed: Inpatient record, Office record and Outpatient record Prescription Management I considered prescription management with: Pain Medication and Other Discharge Plan Discharge Clinical Impression: Contusion of left shoulder, Fall Patient Disposition: Home, Self-Care Instructions: Contusion in Adults (ED) Additional Instructions: You were evaluated in the emergency department today for injuries sustained after a fall. Your imaging did not show evidence of any conditions requiring emergent medical treatment. It is likely you will feel more sore today and tomorrow before slowly improving. We recommend that you take 650mg Tylenol or 600mg ibuprofen every 6 hours as needed for pain. You are being prescribed a muscle relaxer called cyclobenzaprine which you can take every 8 hours as needed. You are also being prescribed topical lidocaine patches which you can apply to affected area for up to 12 hours in a 24 hour period. Follow up with the orthopedic office for ongoing symptoms. Call to schedule an appointment, they will not call you. Return to the emergency department if you develop new or concerning symptoms. Prescriptions: No Action aspirin [Adult Aspirin Regimen] 81 mg tablet,delayed release (DR/EC) 81 mg PO DAILY Qty: 90 4RF Rx Instructions: Not to be taken with Ibuprofen. bupropion HCl 150 mg tablet sustained-release 12 hr 150 mg PO BID 90 Days Qty: 180 0RF lisinopril 30 mg tablet 30 mg PO DAILY 90 Days Qty: 90 4RF metoprolol succinate 50 mg tablet extended release 24 hr 50 mg PO DAILY 90 Days Qty: 90 4RF atorvastatin 40 mg tablet 40 mg PO DAILY 90 Days Qty: 90 4RF ibuprofen 600 mg tablet 600 mg PO Q6H 15 Days Qty: 60 0RF lorazepam 0.5 mg tablet 0.5 mg PO DAILY PRN (Reason: anxiety) 7 Days Qty: 7 0RF (DME) blood pressure test kit-medium Kit See Rx Instructions .Route Qty: 1 0RF Rx Instructions: As directed tamsulosin [Flomax] 0.4 mg capsule 0.4 mg PO DAILY Qty: 90 3RF Referrals: [facility] – [place] [facility] [Provider Group] - 2 weeks Stand Alone Forms: Work/School Release Print Language: Thai
[2024-07-02 10:28] VITALS: BP 151/74; PULSE 66; RESP 14; TEMP 36.5; O2SAT 99
== END 2024-07-02 10:30 | disposition home or self-care (01) ==
PROVIDERS: Emergency Provider Emergency Medicine Emergency Medical Services; PCP Physician Assistant
DX: S40.012A Contusion of left shoulder, initial encounter (principal); W00.0XXA Fall on same level due to ice and snow, initial encounter; R51.9 Headache, unspecified; Y93.89 Activity, other specified; Y92.481 Parking lot as the place of occurrence of the external cause; Y99.9 Unspecified external cause status
CPT/HCPCS: 70450; 72070; 72125; 73030; 93005; 99284

== ENCOUNTER → 2024-07-02 08:32 | Outpatient (BNV) | payer OTHER, MEDICAID, SELFPAY | PROVIDERS: Emergency Provider Emergency Medicine Emergency Medical Services; PCP Physician Assistant; Visit Provider Internal Medicine | DX: I10 Essential (primary) hypertension (principal) | CPT/HCPCS: 93010 ==

== ENCOUNTER 2024-07-25 08:36 | Outpatient (AMB) | payer OTHER, SELFPAY ==
[2024-07-25 08:44] VITALS: BP 140/96; PULSE 67; O2SAT 99; BMI 23.9
--- NOTE | 2024-07-25 08:44 | A.OFFPC_ITS ---
Vital Signs 3 07/25/24 08:44 Height 5 ft 11 in Weight 171 lb 2 oz BMI 23.9 BP 140/96 H Blood Pressure Location Lt brachial Position Sitting Pulse 67 Pulse Source Pulse Oximeter Pulse Oximetry (%) 99 Oxygen Delivery Method Room Air Intake Visit Reasons: [facility] [place] 07/02 fall Allergies tadalafil [From Cialis] Allergy (Unknown, Verified 07/25/24 08:57) anxiety Medication List - Last Reconciled 07/25/24 by Anuj Lopez PA-C aspirin (Adult Aspirin Regimen) 81 mg PO DAILY atorvastatin 40 mg PO DAILY 90 days blood pressure test kit-medium As directed bupropion HCl SR 150 mg PO BID 90 days cyclobenzaprine 5 mg PO TID PRN ibuprofen 600 mg PO Q6H PRN ibuprofen 600 mg PO Q6H 15 days lidocaine 5% 1 patch topical DAILY lisinopril 30 mg PO DAILY 90 days lorazepam 0.5 mg PO DAILY PRN 7 days metoprolol succinate ER 50 mg PO DAILY 90 days tamsulosin (Flomax) 0.4 mg PO DAILY Tobacco use date assessed: 07/25/24 Fall risk assessment: 1 Fall in past year Last assessed Fall Risk: 07/25/24 Dental Screening Dental Screen Date: 07/25/24 Did you have a dental visit in the last 12 months?: Yes Did you have a dental problem in the last 6 months where you did not have access to dental care?: No Was dental information given to patient?: Patient has dentist HPI [facility] [place] 07/02 fall 2 HPI0 Details Patient is a 68-year-old male here today for an ER follow-up visit. ? Patient has a past medical history significant for coronary artery disease, hypertension, hyperlipidemia, smoker, homeless. He was seen in June of 2024 for acute fall injuring his left shoulder, Hit his head. He underwent CTA of head and neck without any intracranial pathology though was found to have pretty severe cervical spine vertebral disease. He was discharged with muscle relaxer to use for his pain. He is interested now in doing physical therapy to his cervical spine. He reports he is not able to work as he has been in pain . 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 Brother Hepatocellular carcinoma Social History Housing: Other Housing Other:: van Alcohol intake: current Alcohol intake frequency: holidays/special occasions only Alcohol type: beer Patient Tobacco Use Status: Current everyday Tobacco user Tobacco use type: Cigarette Cigarette Packs Per Day: 1.5 Cigarettes Per Day: 30 Years Smoked: 58 +/- Packs Per Year: 0 Packs per year/per ci.00 e-Cigarette/Vaping Use: Never Used Second Hand Smoke Exposure: Yes Substance Use Type: Marijuana service: No Current occupational status: unemployed Cognitive needs: No Hearing needs: No Vision needs: No Questionnaire Thrive Questionnaire Date Thrive assessed: 07/25/24 AUDIT C Alcohol Use Questionnaire (AUDIT-C) 1. How often do you have a drink containing alcohol?: Monthly or less 2. How many drinks containing alcohol do you have on a typical day when you are drinking?: 1 or 2 3. How often do you have six or more drinks on one occasion?: Never Total Score: 1 SU-7 AMB Questionnaire SU-7 Date SU - 7 assessed: 03/17/24 Source: Developed by Drs. Agustin Gan, Jamee Friedman, Tom Fermin and colleagues, with an educational aman from [employer]. Review of Systems Const Reports headache(s) Eyes Denies loss of vision ENT Denies vertigo, Denies dizziness, Reports headache(s), Reports neck pain and Denies sore throat Card Denies chest pain, Denies leg edema and Denies lightheadedness Resp Denies cough, Denies hemoptysis and Denies wheezing GI Denies abdominal pain, Denies melena, Denies constipation, Denies diarrhea and Denies vomiting Denies dysuria, Denies urinary frequency and Denies urinary urgency Musc Details: + left shoulder pain Reports back pain, Denies arthralgias, Denies joint swelling, Reports neck pain, Denies numbness and Denies tingling Neuro Denies Abnormal speech present, Denies behavioral changes, Denies vertigo, Denies dizziness, Reports headache(s), Denies loss of vision, Denies memory loss, Denies numbness and Denies tingling Psych Denies anxiety, Denies behavioral changes, Denies depression, Denies memory loss and Denies panic attacks Jameson/Lymph Denies easy bleeding and Denies easy bruising Aller/Immun Denies wheezing Physical exam (Primary Care) Vital Signs: Last Vital Signs Pulse 67 07/25/24 08:44 BP 140/96 H 07/25/24 08:44 Pulse Ox 99 07/25/24 08:44 Oxygen Delivery Method Room Air 07/25/24 08:44 BMI result Body Mass Index 23.9 Tobacco/Smoking Status: Tobacco use Status Tobacco use date assessed 07/25/24 07/25/24 08:48 Patient Tobacco Use Status Current everyday Tobacco 07/25/24 08:48 Tobacco use type Cigarette 07/25/24 08:48 e-Cigarette/Vaping Use Never Used 07/25/24 08:48 Thrive Assessment: Date of Thrive Assessment Date Thrive assessed 07/25/24 07/25/24 08:48 Const General: healthy appearing, no acute distress, alert and awake Nutritional Appearance: well nourished Orientation/consciousness: oriented to person, oriented to place and oriented to time HENMT Ears: TM's normal bilaterally General nose exam: Normal nasal mucous membranes and turbinates present Eyes Conjunctivae: conjunctivae normal Sclerae: sclerae normal Pupils: Equal, round and reactive pupils present Neck Neck: Yes no lymphadenopathy and Yes no JVD Thyroid: Thyroid normal Carotids: no bruits Chest Chest/axillae images: 2 1. PAIN TO PALPATION IN THE AREA OUTLINED. Resp Effort & Inspection: normal respiratory effort and not tachypneic Auscultation: no crackles, no rales, no rhonchi and no wheezes Cardio Rate: regular rate Rhythm: regular rhythm Heart sounds: no murmurs and normal S1 and S2 GI Palpation (GI): Soft to palpation, nontender, no hepatomegaly and no splenomegaly Auscultation: normal bowel sounds Skin General skin exam: no rashes or lesions noted and dry skin Neuro General: oriented to person, oriented to place and oriented to time Cranial nerves: Yes Equal, round and reactive pupils present Speech: No Abnormal speech present Gait exam (Neuro): Normal gait present Motor exam (neuro): no tremor noted Extrem Right upper extremity: full ROM Left upper extremity: full ROM Right lower extremity: full ROM; no edema Left lower extremity: full ROM; no edema Psych Mental Status: mental status grossly normal Speech and movement: Normal speech and movement present Affect: normal affect Attitude: cooperative Thought process: Normal thought process present Coding Level of Care Code Est Pt Level 4 (77737) Diagnoses Status post fall Z91.81 Cervical spine pain M54.2 Left shoulder tendinitis M77.8 Assessment & Plan Assessment & Plan (1) Status post fall: Code(s): Z91.81 - History of falling Category: Medical Plan: As per HPI (2) Cervical spine pain: Code(s): M54.2 - Cervicalgia Category: Medical Plan: As per HPI patient's CT of neck showing pretty severe arthritis in cervical spine. Will likely benefit from physical therapy due to his has been fall and reporting neck pain most consistent with musculoskeletal injury. Will continue patient with p.r.n. use of NSAID and muscle relaxer for his pain. Has been using an [id number] supplement which has really helped reduce his muscular pain as well. (3) Left shoulder tendinitis: Code(s): M77.8 - Other enthesopathies, not elsewhere classified Category: Medical Plan: As above Orders: Orders 2 PT Evaluation and Treatment Today M54.2 - Cervicalgia, Z91.81 - History of falling Medications: Changed 2 From cyclobenzaprine 5 mg PO TID PRN 10 tabs 0RF muscle spasm M54.2 - Cervicalgia To cyclobenzaprine 5 mg PO TID 5 days PRN 15 tabs 0RF muscle spasm M54.2 - Cervicalgia Refilled 2 ibuprofen 600 mg PO Q6H PRN 20 tabs 0RF pain M54.2 - Cervicalgia
== END 2024-07-25 09:21 | disposition home or self-care (01) ==
PROVIDERS: PCP Physician Assistant; Visit Provider Physician Assistant
DX: Z91.81 History of falling (principal); M54.2 Cervicalgia; M77.8 Other enthesopathies, not elsewhere classified

== ENCOUNTER 2024-08-08 18:10 | Emergency (ER) | payer OTHER, SELFPAY ==
--- NOTE | ~2024-08-08 | CT_ITS ---
CLINICAL HISTORY: head injury, pain CT head without contrast Comparison: CT/[place]/SR - CT HEAD/BRAIN WO IV CON - 07/02/24 08:47 EST Findings: No intra-axial mass, midline shift, hydrocephalus, or acute hemorrhage. Mild diffuse cerebral volume loss. Mild degree of patchy low-density within the periventricular and subcortical white matter. Right maxillary sinus retention cysts. Mastoids clear. The orbits are within normal limits. No skull fracture. IMPRESSION: 1. No acute intracranial findings. This document has been electronically signed by: Aaron Ferrer MD on 08/08/2024 20:48:03
--- NOTE | ~2024-08-08 | CT_ITS ---
CLINICAL HISTORY: injury, pain CT cervical spine without contrast Comparison: CT/SR - CT CERVICAL SPINE WO IV CON - 07/02/24 08:47 EST Findings: Normal vertebral body alignment. Multilevel disc space narrowing and endplate osteophyte formation, as well as facet hypertrophy. No acute fractures or dislocations. Visualized intracranial contents are unremarkable. Soft tissues of the neck are normal. Lung apices are clear. IMPRESSION: No acute findings. This document has been electronically signed by: Aaron Ferrer MD on 08/08/2024 20:23:18
[2024-08-08 18:27] VITALS: BP 159/95; PULSE 70; RESP 16; TEMP 36.4; O2SAT 96; BMI 25.1
--- NOTE | 2024-08-08 18:29 | ED_ITS ---
HPI - General Adult General Chief complaint: Fall Stated complaint: 07/05 slip and fall pain Source: patient Mode of arrival: ambulatory Limitations: no limitations History of Present Illness ED Provider: Dolores Sanchez PA-C HPI narrative: Patient is a 68 year old assigned male at with a history of CAD, HTN, HLD, tobacco use, and SU presenting to the emergency department today with fatigue, left shoulder pain, and feeling off . Patient states that on 07/02/2024 he fell and was seen at [facility] the [place]. Patient states that since then he has continued to feel off with fatigue, left shoulder pain, and a general feeling of being off . Patient states that he has not had any more trauma since then and has not been able to see any specialists yet for this. Patient denies any dizziness, lightheadedness, abdominal pain, nausea, vomiting, fever, chills, blurry vision, double vision, loss of vision, chest pain, difficulty breathing, shortness of breath, back pain, night sweats, pain with urination, increased urinary frequency, increased urinary urgency, blood in his urine or stool, syncope or a near syncopal episode, bowel incontinence, bladder incontinence, or any other complaints at this time. Relieving factors: none Exacerbating factors: none Treatments prior to arrival: none Related Data Previous Rx's ?Medication ?Instructions ?Recorded blood pressure test kit-medium #1 ea 03/03/22 aspirin 81 mg tablet,delayed 81 mg PO DAILY #90 tabs 06/24/23 release (Adult Aspirin Regimen) bupropion HCl 150 mg tablet,12 hr 150 mg PO BID 90 days #180 tabs 06/24/23 sustained-release lisinopril 30 mg tablet 30 mg PO DAILY 90 days #90 tabs 06/24/23 metoprolol succinate 50 mg 50 mg PO DAILY 90 days #90 tabs 06/24/23 tablet,extended release 24 hr lorazepam 0.5 mg tablet 0.5 mg PO DAILY PRN anxiety 7 days 06/30/23 #7 tabs atorvastatin 40 mg tablet 40 mg PO DAILY 90 days #90 tabs 09/23/23 ibuprofen 600 mg tablet 600 mg PO Q6H 15 days #60 tabs 03/07/24 lidocaine 5 % topical patch 1 patch topical DAILY #15 ea 07/02/24 tamsulosin 0.4 mg capsule (Flomax) 0.4 mg PO DAILY #90 caps 07/15/24 cyclobenzaprine 5 mg tablet 5 mg PO TID PRN muscle spasm 5 07/25/24 days #15 tabs ibuprofen 600 mg tablet 600 mg PO Q6H PRN pain #20 tabs 07/25/24 Allergies Allergy/AdvReac Type Severity Reaction Status Date / Time tadalafil [From Cialis] Allergy Unknown anxiety Verified 08/08/24 18:28 Review of Systems Constitutional: Constitutional: Reports no additional constitutional compla ints, Denies chills, Reports fatigue, Denies fever(s), Reports lethargy and Denies night sweats Eyes: Eyes: Reports no additional eye complaints, Denies blurry vision, Denies change in vision, Denies diplopia, Denies eye discharge, Denies loss of vision and Denies eye pain ENT: Denies dizziness Cardiovascular: Cardiovascular: Reports no additional cardiovascular complaints, Denies chest pain, Denies lightheadedness, Denies Loss of Consciousness and Denies dyspnea Respiratory: Respiratory: Reports no additional respiratory complaints and Denies dyspnea Gastrointestinal: Gastrointestinal: Reports no additional gastrointestinal complaints, Denies abdominal pain, Denies melena, Denies hematochezia, Denies change in bowel habits and Denies change in stool character Genitourinary: Genitourinary: Reports no additional male genitourinary complaints, Denies hematuria, Denies oliguria, Denies difficulty urinating, Denies dysuria, Denies urinary frequency, Denies urinary hesitancy, Denies urinary incontinence and Denies urinary urgency Musculoskeletal: Musculoskeletal: Reports no additional musculoskeletal complaints, Denies numbness and Denies tingling Comments: left shoulder pain Neurologic: Denies dizziness, Denies loss of vision, Denies numbness and Denies tingling Psychiatric: Psychiatric: Reports no additional psychiatric complaints Endocrine: Endocrine: Reports no additional endocrine complaints and Reports fatigue Hematologic/Lymphatic: Hematologic/Lymphatic: Reports no additional hematologic/lymphatic complaints Allergic/Immunologic: Allergic/Immunologic: Reports no additional allergic/immunologic complaints PMFSH Past Medical History Attestation statement: The following information was validated with the patient. Source: old records reviewed and nursing notes reviewed Medical History Weak urinary stream History of [place] (myocardial infarction) Nicotine dependence, cigarettes, uncomplicated Left shoulder pain COPD (chronic obstructive pulmonary disease) Hypertension CAD (coronary artery disease) Surgical History History of colonoscopy History of coronary artery stent placement (~2018) History of hernia repair (~1970) Family History Family History Father CAD (coronary artery disease) Mother No problems noted. Brother Hepatocellular carcinoma Social History Social History Housing: Other Housing Other:: van Alcohol intake: current Alcohol intake frequency: holidays/special occasions only Alcohol type: beer Patient Tobacco Use Status: Current everyday Tobacco user Tobacco use type: Cigarette Cigarette Packs Per Day: 1.5 Cigarettes Per Day: 30 Years Smoked: 58 +/- e-Cigarette/Vaping Use: Never Used Second Hand Smoke Exposure: Yes Substance Use Type: Marijuana Advance Directives: No Advance Directives Information Provided: No Do you have a plan to hurt others: No Plan service: No Current occupational status: unemployed Cognitive needs: No Hearing needs: No Vision needs: No Physical Exam ED Vital Signs: Vital Signs - 24 hr 08/08/24 18:27 Temperature 97.6 F Pulse Rate 70 Respiratory Rate 16 Blood Pressure 159/95 H Pulse Oximetry 96 Oxygen Delivery Method Room Air BMI result Body Mass Index 25.1 Const General: cooperative, no acute distress, alert and awake Nutritional Appearance: well nourished Orientation/consciousness: patient oriented x3 Limitations: no limitations HENMT Head: Yes normal to inspection and Yes atraumatic Ears: hearing grossly normal bilaterally and external ears normal General nose exam: Normal external nose present, no nasal discharge noted and no epistaxis Face and sinus: Yes normal facial exam, No abrasion and No laceration Mouth: Normal oral and palatal mucosa present, no drooling and no muffled voice Eyes General: appearance normal, both eyes and all related structures Periorbital: periorbital findings normal Eyelids: Yes eyelids normal Conjunctivae: conjunctivae normal Pupils: Equal, round and reactive pupils present EOM: EOMs intact bilaterally Neck Neck: Yes normal visual inspection, Yes full ROM and Yes no lymphadenopathy Chest Chest palpation & inspection: normal inspection of the chest Resp Effort & Inspection: normal respiratory effort and able to speak in complete sentences GI Inspection: Yes normal to inspection Neuro General: patient oriented x3 and moves all extremities Cranial nerves: Yes Equal, round and reactive pupils present Cognition (Neuro): normal cognition Extrem General: Yes normal to inspection, Yes full ROM and Yes capillary refill normal Psych Appearance: grossly normal Mental Status: mental status grossly normal Affect: normal affect Attitude: cooperative Thought process: Normal thought process present Thought content: Normal thought content present Insight: Good insight present (Psych) Course Course Course Narrative: RME performed by Dolores Sanchez PA-C. Patient is a 68 year old assigned male at presenting to the emergency department with continued left shoulder, head, and back pain. Patient states he was seen here on 07/02/2024 for a slip and fall in the [id number] parking lot. Patient states that she is continuing to have pain and has not been able to be seen by anyone. Patient states that his head continues to bother him the most. Detailed physical exam and review of systems are deferred to the commercial decorator. Imaging ordered. Patient placed back in the waiting room pending room availability and results. Medical Decision Making Medical Decision Making MDM Narrative: Patient is a 68 year old assigned male at with a history of CAD, HTN, HLD, tobacco use, and SU presenting to the emergency department today with fatigue, left shoulder pain, and feeling off . Patient's limited physical exam performed in triage was unremarkable. Patient AOx3 with no signs of confusion or altered mental status. Patient's CT head and c-spne showed no acute process. Patient left the department without completing treatment. Patient left the department before myself or any of the other emergency department clinicians could explain to or review with the patient; physical exam findings, test results, need or lack there of for additional testing, need or lack there of for a procedure to be performed, need or lack there of for hospital admission / transfer, need or lack there of for prescription medication, treatment options, or a treatment plan. Differential Diagnosis Differential Diagnoses: The differential diagnosis associated with the presentation includes Concussion Head injury Chronic left shoulder pain Admission/Observation Consideration of admission/observation: Escalation of care including admission/observation considered Patient would have been admitted to the hospital had he completed his work up and it had any findings where hospital admission was appropriate, his clinical presentation warranted hospital admission, had myself or any other emergency departmental shipping clerk had the ability to discuss need or lack there of for hospital admission, and the patient hadn't left the department without completing treatment. Independent Interpretation I performed an independent interpretation of an: CT Scan Interpretation: My interpretation is in agreement with the radiologist's impression of these imaging studies. Report Number: [id number]: Total DLP = 345.79 mGy-cm CLINICAL HISTORY: injury, pain CT cervical spine without contrast Comparison: CT/SR - CT CERVICAL SPINE WO IV CON - 07/02/24 08:47 EST Findings: Normal vertebral body alignment. Multilevel disc space narrowing and endplate osteophyte formation, as well as facet hypertrophy. No acute fractures or dislocations. Visualized intracranial contents are unremarkable. Soft tissues of the neck are normal. Lung apices are clear. IMPRESSION: No acute findings. This document has been electronically signed by: Aaron Ferrer MD on 08/08/2024 20:23:18 Dictated By: Aaron Ferrer MD Signed By: Electronically signed by Aaron Ferrer MD 08/08/242023 Report Number: [id number]: Total DLP = 709.12 mGy-cm CLINICAL HISTORY: head injury, pain CT head without contrast Comparison: CT/[place]/SR - CT HEAD/BRAIN WO IV CON - 07/02/24 08:47 EST Findings: No intra-axial mass, midline shift, hydrocephalus, or acute hemorrhage. Mild diffuse cerebral volume loss. Mild degree of patchy low-density within the periventricular and subcortical white matter. Right maxillary sinus retention cysts. Mastoids clear. The orbits are within normal limits. No skull fracture. IMPRESSION: 1. No acute intracranial findings. This document has been electronically signed by: Aaron Ferrer MD on 08/08/2024 20:48:03 Dictated By: Aaron Ferrer MD Signed By: Electronically signed by Aaron Ferrer MD 08/08/242048 Radiology Impression Discussion of test interpretation with radiology: I have reviewed the radiologist's reading. Discharge Plan Discharge Clinical Impression: Fatigue Patient Disposition: Left W/O Completing Treatment Prescriptions: No Action aspirin [Adult Aspirin Regimen] 81 mg tablet,delayed release (DR/EC) 81 mg PO DAILY Qty: 90 4RF Rx Instructions: Not to be taken with Ibuprofen. bupropion HCl 150 mg tablet sustained-release 12 hr 150 mg PO BID 90 Days Qty: 180 0RF lisinopril 30 mg tablet 30 mg PO DAILY 90 Days Qty: 90 4RF metoprolol succinate 50 mg tablet extended release 24 hr 50 mg PO DAILY 90 Days Qty: 90 4RF atorvastatin 40 mg tablet 40 mg PO DAILY 90 Days Qty: 90 4RF ibuprofen 600 mg tablet 600 mg PO Q6H 15 Days Qty: 60 0RF tamsulosin [Flomax] 0.4 mg capsule 0.4 mg PO DAILY Qty: 90 0RF lidocaine 5 % adhesive patch,medicated 1 patch topical DAILY Qty: 15 0RF Rx Instructions: leave on most painful area for up to 12 hrs lorazepam 0.5 mg tablet 0.5 mg PO DAILY PRN (Reason: anxiety) 7 Days Qty: 7 0RF (DME) blood pressure test kit-medium Kit See Rx Instructions .Route Qty: 1 0RF Rx Instructions: As directed ibuprofen 600 mg tablet 600 mg PO Q6H PRN (Reason: pain) Qty: 20 0RF cyclobenzaprine 5 mg tablet 5 mg PO TID PRN (Reason: muscle spasm) 5 Days Qty: 15 0RF Discharge Date/Time: 08/08/24 22:22
== END 2024-08-08 22:22 | disposition left against medical advice (07) ==
LOC: HO.ED 22:20
PROVIDERS: Emergency Provider Emergency Medicine; PCP Physician Assistant
DX: R53.83 Other fatigue (principal); M25.512 Pain in left shoulder; R51.9 Headache, unspecified; I10 Essential (primary) hypertension; E78.5 Hyperlipidemia, unspecified; J44.9 Chronic obstructive pulmonary disease, unspecified; I25.2 Old myocardial infarction; F17.210 Nicotine dependence, cigarettes, uncomplicated; F12.90 Cannabis use, unspecified, uncomplicated; Z79.82 Long term (current) use of aspirin; Z79.02 Long term (current) use of antithrombotics/antiplatelets; Z79.899 Other long term (current) drug therapy
CPT/HCPCS: 70450; 72125; 99281; 99284

== ENCOUNTER → 2024-08-08 18:31 | Outpatient (BNV) | payer OTHER, SELFPAY | PROVIDERS: PCP Physician Assistant; Visit Provider Radiology Diagnostic Radiology | DX: M54.2 Cervicalgia (principal); R51.9 Headache, unspecified | CPT/HCPCS: 70450; 72125 ==

== ENCOUNTER 2024-08-10 16:04 | Outpatient (REF) | payer OTHER, SELFPAY ==
[2024-08-10 17:17] LABS: Hematocrit 45.4 % (42.0-52.0); Hemoglobin 15.7 g/dl (14.0-18.0); Mean Corpuscular HGB Conc 34.6 g/dl (31.0-36.0); Mean Corpuscular Hemoglobin 30.7 pg (27.0-33.0); Mean Corpuscular Volume 88.7 fL (80.0-98.0); Mean Platelet Volume 9.9 fL (9.4-12.4); Platelet Count 269 X10*3/uL (160-400); Red Blood Count 5.12 X10*6/uL (4.60-5.80); Red Cell Distribution Width 13.9 % (11.0-16.0); White Blood Count 6.6 X10*3/uL (4.8-10.8)
[2024-08-10 17:58] LABS: Alanine Aminotransferase 49 U/L (0-40); Albumin Level 4.4 g/dL (3.5-5.0); Alkaline Phosphatase 120 U/L (39-117); Anion Gap 11 (12-20); Aspartate Amino Transferase 44 U/L (5-37); Bilirubin Total 0.8 mg/dL (0.0-1.0); Blood Urea Nitrogen 15 mg/dL (9-16); Calcium 9.7 mg/dL (8.4-10.2); Carbon Dioxide 29 mmol/L (22-29); Chloride 101 mmol/L (96-108); Cholesterol 166 mg/dL (<200); Estimated Glomerular Filt Rate > 60; Glucose Fasting 81 mg/dL (60-99); HDL Cholesterol 59 mg/dL (>40); LDL Cholesterol Calculated 91 mg/dL (<100); Potassium 4.3 mmol/L (3.3-5.1); Sodium 137 mmol/L (135-145); Total Protein 8.3 g/dL (6.5-8.0); Triglycerides 82 mg/dL (<150)
[2024-08-10 18:14] LABS: PSA,Total (Free>4and<10) 2.95 ng/mL (0.00-4.00)
[2024-08-10 18:25] LABS: Creatinine Urine 106.44 mg/dL; Microalbum/Creatinine Ratio Ur 13.1 ug/mg cr (<30)
[2024-08-11 17:23] LABS: Varicella IgG Antibody 1.18 S/CO
[2024-08-15 21:18] LABS: Testosterone, Free 44.7 pg/mL (35.0-155.0); Testosterone, Total 828 ng/dL (250-1100)
== END 2024-08-10 16:05 | disposition home or self-care (01) ==
LOC: HO.LAB 16:04
PROVIDERS: Urology; PCP Physician Assistant; Visit Provider Physician Assistant
DX: N40.1 Benign prostatic hyperplasia with lower urinary tract symptoms (principal); N13.8 Other obstructive and reflux uropathy; I10 Essential (primary) hypertension; E78.2 Mixed hyperlipidemia; R68.82 Decreased libido; Z78.9 Other specified health status; Z12.5 Encounter for screening for malignant neoplasm of prostate
CPT/HCPCS: 36415; 80053; 80061; 82043; 82570; 84153; 84402; 84403; 85027; 86787

== ENCOUNTER 2024-09-06 11:49 | Outpatient (AMB) | payer OTHER, SELFPAY ==
--- NOTE | 2024-09-06 11:51 | A.OFFVIS_ITS ---
Intake Visit Reasons: ED f/u-neck and upper back pain Intake Note: This is a 69 year old male who presents for an ED follow up for his neck and upper back. He reports he fell on some ice and landed on his neck and head. This occurred on July 01, 2024. He reports fatigue and pain. He is taking ibuprofen but reports he does not have good relief. Numbness is occuring in his head, he is experiencing headaches. 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 Allergies tadalafil [From [employer]] Allergy (Unknown, Verified 09/06/24 11:57) anxiety Medication List - Last Reconciled 09/06/24 by Evi Copeland RN aspirin (Adult Aspirin Regimen) 81 mg PO DAILY atorvastatin 40 mg PO DAILY 90 days blood pressure test kit-medium As directed bupropion HCl SR 150 mg PO BID 90 days cyclobenzaprine 5 mg PO TID PRN 5 days ibuprofen 600 mg PO Q6H 15 days ibuprofen 600 mg PO Q6H PRN lidocaine 5% 1 patch topical DAILY lisinopril 30 mg PO DAILY 90 days lorazepam 0.5 mg PO DAILY PRN 7 days metoprolol succinate ER 50 mg PO DAILY 90 days tamsulosin (Flomax) 0.4 mg PO DAILY HPI Comments Details: History of CAD, HTN, COPD, STEMI in 2019 with multiple ER visits in the last year. On 07/02/2024, presented to the emergency department with complaint of left shoulder pain, neck and upper back pain after a slip and fall on the night prior. EKG normal sinus rhythm, rate 60bm, normal NV interval and QTc. X-ray shoulder and thoracic spine notable for no evidence of fracture, dislocation, or subluxation. CT head and c-spine notable for no evidence of ICH, skull or cervical vertebral fracture. Went back to ER 08/08/2024 for continued symptoms and fatigue. Repeat CT head no acute intracranial findings. He was seen by PCP in between ER visits. Prescribed cyclobenzaprine and referred to physical therapy for left cervical strain. Head injuries in the past, 1984. Denies other falls besides 07/02/24, which was a mechanical fall/slip on ice. Denies headache or chest pain prior to fall. Since the fall, been more sleepy and fatigued. Constant head is numb on top of his head all day. Headache is daily, few times a day. Neck pain comes with the headache. Right arm feels more shaky. Have not been able to go back to work due to that. 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 Family history - father from heart attack [facility], [facility] Medical History Weak urinary stream History of [place] (myocardial infarction) Nicotine dependence, cigarettes, uncomplicated Left shoulder pain COPD (chronic obstructive pulmonary disease) Hypertension CAD (coronary artery disease) Surgical History History of colonoscopy History of coronary artery stent placement (~2018) History of hernia repair (~1969) Family History Father CAD (coronary artery disease) Mother No problems noted. Brother Hepatocellular carcinoma Social History Housing: Other Housing Other:: van Alcohol intake: current Alcohol intake frequency: holidays/special occasions only Alcohol type: beer Patient Tobacco Use Status: Current everyday Tobacco user Tobacco use type: Cigarette Cigarette Packs Per Day: 1.5 Cigarettes Per Day: 30 Years Smoked: 58 +/- e-Cigarette/Vaping Use: Never Used Second Hand Smoke Exposure: Yes Substance Use Type: Marijuana service: No Current occupational status: unemployed Cognitive needs: No Hearing needs: No Vision needs: No Review of Systems Const All systems reviewed & are unremarkable except as noted in HPI and below Physical Exam Constitutional: Patient appears to be in no acute distress, well nourished and well developed. Patient was appropriately conversant and oriented. Good historian. MSK: Inspection reveals appropriate head and neck positioning. No pain with palpation over the neck musculature. Cervical ROM was full. Spurling's sign negative. Bilateral shoulder, elbow and wrist ROM WNL. No ligamentous laxity or crepitance. No increased effusion. No specific abnormalities or instability found on inspection and palpation of the spine and extremities. Lumbar ROM was full. Strength is 5/5 in all muscle groups tested. No increased tone noted. Neurological: Neurologic examination of the upper and lower extremities was nonfocal with intact sensation, muscle stretch reflexes and without focal motor deficits . Negative pronator drift. Cuevas?s negative bilaterally. Babinski was down going bilaterally. Clonus was negative. Gait is non-antalgic without loss of balance. Patient was able to perform heel walk and toe walk. Poor balance with standing on heels. Results Reviewed Results Reviewed: Ordering Physician: Emily Gagnon NP Date of Service: 07/02/24 Procedure(s): CT cervical spine wo IV con Accession Number(s): [id number] cc: Anuj Lopez PA-C; Emily Gagnon NP~ Examination: CT brain and CT cervical spine without contrast. CLINICAL INDICATION: Fall with head strike. COMPARISON: CT brain 04/10/2023 TECHNIQUE: 2 mm thin axial and reformatted 2 minute thin sagittal and coronal images of brain were obtained. Subsequently axial 3 mm thin and reformatted 2 mm thin sagittal and coronal images of cervical spine were obtained. DLP 1051. This CT examination was performed using dose optimization techniques as appropriate, variously including the following: *Automated exposure control. *Adjustment of mA and/or kV according to patient size (this includes techniques or standardized protocols for targeted exams where dose is matched to indication/reason for exam; i.e. extremities or head). *Use of iterative reconstruction technique imaging Findings: Brain: There is no acute intra-axial, extra-axial bleed, masses or midline shift. There is no acute infarction evolution. There is no edema the larry to white matter differentiation is maintained normal. The lateral ventricles are symmetrical in size and configuration without enlargement. Bone windows reveal no calvarial abnormality. Bilateral paranasal sinuses and mastoid sinuses are well-aerated with mild mucoperiosteal thickening right maxillary, ethmoid and bilateral frontal sinuses. There is no scalp soft tissue abnormality. Cervical spine: There is maintained cervical lordosis. Grade 1 anterolisthesis C4 over C5 is noted. Rest of the alignment is preserved. There is severe loss of C5-6 and C6-7 disc levels, endplate lucency and diffuse sclerosis of the C5, C6 and partially C7 vertebra. There is moderate ventral and posterior spondylosis at the C5-6 and C6-7 disc levels. There is no visible acute fracture or dislocation. The craniovertebral junction and the C1-C2 alignment is normal. The prevertebral and paravertebral soft tissues are normal. The lung apices are clear. CT/CT cervical spine wo IV con IMPRESSION: 1. No acute intracranial process seen. 2. 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 3. Grade 1 anterolisthesis C4 over C5. There is no visible acute fracture or dislocation. 4. Severe degenerative disc changes C5-6 and C6-7 disc levels with moderate ventral and posterior spondylosis. Electronically signed by: Noah Wolfe MD 07/02/2024 09:28 AM EST RP Ordering Physician: Emily Gagnon NP Date of Service: 07/02/24 Procedure(s): XR shoulder LT min 2V Accession Number(s): [id number] cc: Anuj Lopez PA-C; Emily Gagnon NP~ EXAMINATION: Thoracic spine and left shoulder. CLINICAL INDICATION: Fall. Pain. COMPARISON: Left shoulder 10/03/2021. TECHNIQUE: Left shoulder 4 views. Thoracic spine 3 views. FINDINGS: THORACIC SPINE: There is normal thoracic kyphosis. The vertebral heights, alignment and disc heights are normal. There is no visible acute fracture, dislocation or subluxation seen. There is mild right T8-9 spondylosis. No visible acute fracture or lytic process seen. The soft tissues are normal. LEFT SHOULDER: The glenohumeral and AC joint spaces maintain normal. There is no visible acute fracture, dislocation or lytic process seen. The soft tissues are normal. XR/XR shoulder LT min 2V IMPRESSION: Unremarkable dorsal spine exam. Unremarkable left shoulder exam. Electronically signed by: Noah Wolfe MD 07/02/2024 08:59 AM EST RP I reviewed records from the following: ER PCP Assessment & Plan Assessment & Plan (1) Headache: Code(s): R51.9 - Headache, unspecified Category: Medical Qualifiers: Headache type: post-traumatic Headache chronicity pattern: acute headache Intractability: not intractable Qualified Code(s): G44.319 - Acute post-traumatic headache, not intractable (2) Fatigue: Code(s): R53.83 - Other fatigue Category: Medical Qualifiers: Fatigue type: unspecified Qualified Code(s): R53.83 - Other fatigue (3) Neck pain: Code(s): M54.2 - Cervicalgia Category: Medical (4) Arm paresthesia, left: Code(s): R20.2 - Paresthesia of skin Category: Medical (5) Right arm weakness: Code(s): R29.898 - Other symptoms and signs involving the musculoskeletal system Category: Medical Plan Out of all his complaints, I am most concerned about the headache, paresthesias and fatigue. CT scans did not show acute findings. MRI would give us more information. Neck pain, possibly cervicogenic headache? Cervical spondylosis seen on CT. May need MRI also. After further talking with patient, he shared that he is homeless, lives in his car. He is a member of [employer] which is open 24 hours so he can get rest and showers there. He admits maybe that's why he is always fatigued. He is unable to work due to the symptoms/weakness on right arm. He avoids shelters to avoid people involved in drugs. I will see him after MRI brain. Considering neurology consult. Assessment and plan discussed with patient, and patient was agreeable. All questions were answered thoroughly. Steffanie Hermosillo MD, ELIGIO Board Certified, [place] Board of Physical Medicine and Rehabilitation (ABPMR) Board Certified, [place] Board of Electrodiagnostic Medicine (ABEM) Orders: Orders MR head/brain wo con Today M54.2 - Cervicalgia, R20.2 - Paresthesia of skin, R 29.898 - Other symptoms and signs involving the musculoskeletal system, R51.9 - Headache, unspecified, R53.83 - Other fatigue Coding Level of Care Code New Pt Level 4 (71565) Diagnoses Acute post-traumatic headache, not intractable G44.319 Headache type: post-traumatic Headache chronicity pattern: acute headache Intractability: not intractable Fatigue, unspecified type R53.83 Fatigue type: unspecified Neck pain M54.2 Arm paresthesia, left R20.2 Right arm weakness R29.898
== END 2024-09-06 14:54 | disposition home or self-care (01) ==
PROVIDERS: PCP Physician Assistant; Visit Provider Physical Medicine & Rehabilitation
DX: G44.319 Acute post-traumatic headache, not intractable (principal); R53.83 Other fatigue; M54.2 Cervicalgia; R20.2 Paresthesia of skin; R29.898 Other symptoms and signs involving the musculoskeletal system
CPT/HCPCS: 99204

== ENCOUNTER → 2024-09-06 11:49 | Outpatient (BNVA) | payer OTHER, SELFPAY | PROVIDERS: PCP Physician Assistant; Visit Provider Physical Medicine & Rehabilitation | DX: I25.118 Atherosclerotic heart disease of native coronary artery with other forms of angina pectoris (principal); F07.81 Postconcussional syndrome; I10 Essential (primary) hypertension; M54.2 Cervicalgia; I25.2 Old myocardial infarction; Z79.899 Other long term (current) drug therapy; G44.319 Acute post-traumatic headache, not intractable; R53.83 Other fatigue; R20.2 Paresthesia of skin; R29.898 Other symptoms and signs involving the musculoskeletal system | CPT/HCPCS: 96127; 99212 ==

== ENCOUNTER 2024-09-06 14:27 | Outpatient (AMB) | payer MEDICARE, MEDICAID, SELFPAY ==
--- NOTE | 2024-09-06 14:34 | A.OFFPC_ITS ---
Vital Signs 09/06/24 14:35 Height 5 ft 9 in Weight 170 lb 2 oz BMI 25.1 BP 162/90 H Blood Pressure Location Lt brachial Position Sitting Pulse 68 Pulse Source Pulse Oximeter Temp 97.3 F Temp Source Temporal Artery Scan Pulse Oximetry (%) 97 Oxygen Delivery Method Room Air Intake Visit Reasons: f/u CAD/ HLD/ HTN Intake Note: Patient is here to follow up on CAD, HLD, HTN. Accounting Professional Required: No Creative Developer: Not Required per policy Accompanied by: Self / Same As Patient Allergies tadalafil [From Cialis] Allergy (Unknown, Verified 09/06/24 14:56) anxiety Medication List - Last Reconciled 09/06/24 by Anuj Lopez PA-C aspirin (Adult Aspirin Regimen) 81 mg PO DAILY atorvastatin 40 mg PO DAILY 90 days blood pressure test kit-medium As directed bupropion HCl SR 150 mg PO BID 90 days cyclobenzaprine 5 mg PO TID PRN 5 days ibuprofen 600 mg PO Q6H 15 days lidocaine 5% 1 patch topical DAILY lisinopril 30 mg PO DAILY 90 days lorazepam 0.5 mg PO DAILY PRN 7 days metoprolol succinate ER 50 mg PO DAILY 90 days tamsulosin (Flomax) 0.4 mg PO DAILY Tobacco use date assessed: 09/06/24 Fall risk assessment: 1 Fall in past year Last assessed Fall Risk: 09/06/24 Dental Screening Dental Screen Date: 07/25/24 HPI f/u CAD/ HLD/ HTN HPI Details Patient is a 69-year-old male here today for follow-up visit ? Patient has a past medical history significant for coronary artery disease, hypertension, hyperlipidemia, smoker, homeless. He was seen in June of 2024 for acute fall injuring his left shoulder, Hit his head. He underwent CTA of head and neck without any intracranial pathology though was found to have pretty severe cervical spine vertebral disease. He has had his 1st appointment with physiatry today about his neck and head pain. Physiatry once MRI of brain due to his head pain, fatigue and scalp paresthesias. Signs symptoms are concerning for postconcussion syndrome. 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 He reports he has not been able to work as he has been noticing a small central tremor when handling tools. CHRONIC MEDICAL CONDITIONS--> . Hypertension:? Does not monitor his blood pressure at home, he reports he is compliant with the use of his blood pressure medication . Blood pressure today acceptable. He reports drinking a couple energy drinks today which he does on a regular basis. He has been taking lisinopril 15 mg (half tablet of 30mg) . He has stopped injecting anabolic steroids. Recent testosterone level more appropriate. Also still smoking and does understand he needs to quit . .. Tobacco dependence:? He reports he has been able to drastically reduced the amount of smoking he has done with with Wellbutrin.? Unfortunately continues to smoke a few cigarettes per day.? He reports very difficult to stop smoking as he uses it as a past time. .. History of coronary artery disease:? Patient has had a stent placement 2019 and continues on anti-platelet therapy and beta-lizzy. Unfortunately continues to smoke and does use daily energy? drinks. He does understand he needs to quit smoking and continues on Wellbutrin 150 ESR which has managed to help reduce his smoking. He otherwise denies any overt shortness of breath, chest discomforts or palpitations.? 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 which was normal. Most recent lipid panel improved though LDL still suboptimal for his cardiac condition.? Will increase his atorvastatin to maximal dose of 80 mg for better LDL control. Laboratory Tests 08/10/24 16:27 RBC 5.12 Creatinine 0.85 AST 44 H ALT 49 H Alkaline Phosphata se 120 H Total PSA 2.95 Total Testosterone 828 PFSH Medical History Weak urinary stream History of [place] (myocardial infarction) Nicotine dependence, cigarettes, uncomplicated Left shoulder pain COPD (chronic obstructive pulmonary disease) Hypertension CAD (coronary artery disease) Surgical History History of colonoscopy History of coronary artery stent placement (~2018) History of hernia repair (~1969) Family History Father CAD (coronary artery disease) Mother No problems noted. Brother Hepatocellular carcinoma Social History Housing: Other Housing Other:: van Alcohol intake: current Alcohol intake frequency: holidays/special occasions only Alcohol type: beer Patient Tobacco Use Status: Current everyday Tobacco user Tobacco use type: Cigarette Cigarette Packs Per Day: 1 Cigarettes Per Day: 20 Years Smoked: 58 +/- e-Cigarette/Vaping Use: Never Used Second Hand Smoke Exposure: Yes Substance Use Type: Marijuana service: No Current occupational status: unemployed Cognitive needs: No Hearing needs: No Vision needs: No Questionnaire PHQ-9 Over the last 2 weeks, how often have you been bothered by any of the following problems? 1. Little interest or pleasure in doing things: not at all 2. Feeling down, depressed, or hopeless: not at all 3. Trouble falling or staying asleep, or sleeping too much: not at all 4. Feeling tired or having little energy: not at all 5. Poor appetite or overeating: not at all 6. Feeling bad about yourself - or that you are a failure or have let yourself or your family down: not at all 7. Trouble concentrating on things, such as reading the newspaper or watching television: not at all 8. Moving or speaking so slowly that other people could have noticed. Or the opposite - being so fidgety or restless that you have been moving around a lot more than usual: not at all 9. Thoughts that you would be better off or of hurting yourself in some way: not at all Total score: 0 Depression Screening Interpretation: Negative Depression Screening Done: Yes 58086 - PHQ-9 Billing: Yes Source: Developed by Drs. Agustin Gan, Jamee Friedman, Tom Fermin and colleagues, with an educational aman from [employer]. Thrive Questionnaire Date Thrive assessed: 07/25/24 SU-7 AMB Questionnaire SU-7 Date SU - 7 assessed: 09/06/24 Feeling nervous, anxious, or on edge: 0 = Not at all Not being able to stop or control worryin = Not at all Worrying too much about different things: 0 = Not at all Trouble relaxin = Not at all Being so restless that it is hard to sit still: 0 = Not at all Becoming easily annoyed or irritable: 0 = Not at all Feeling afraid as if something awful might happen: 0 = Not at all Total SU-7 score (0-4 normal; 5-9 mild; 10-14 moderate; 15-21 severe): 0 Source: Developed by Drs. Agustin Gan, Jamee Friedman, Tom Fermin and colleagues, with an educational aman from [employer]. Review of Systems Const Reports daytime sleepiness, Reports fatigue and Reports headache(s) Eyes Denies loss of vision ENT Denies vertigo, Denies dizziness, Reports headache(s) and Denies sore throat Card Denies chest pain, Denies leg edema and Denies lightheadedness Resp Denies cough, Denies hemoptysis and Denies wheezing GI Denies abdominal pain, Denies melena, Denies constipation, Denies diarrhea and Denies vomiting Denies dysuria, Denies urinary frequency and Denies urinary urgency Musc Denies arthralgias, Denies joint swelling, Denies numbness and Denies tingling Neuro Denies Abnormal speech present, Denies behavioral changes, Denies vertigo, Denies dizziness, Reports headache(s), Denies loss of vision, Denies memory loss, Denies numbness and Denies tingling Psych Denies anxiety, Denies behavioral changes, Denies depression, Denies memory loss and Denies panic attacks Endo Reports fatigue Jameson/Lymph Denies easy bleeding and Denies easy bruising Aller/Immun Denies wheezing Physical exam (Primary Care) Vital Signs: Last Vital Signs Temp 97.3 F 09/06/24 14:35 Pulse 68 09/06/24 14:35 BP 162/90 H 09/06/24 14:35 Pulse Ox 97 09/06/24 14:35 Oxygen Delivery Method Room Air 09/06/24 14:35 BMI result Body Mass Index 25.1 Tobacco/Smoking Status: Tobacco use Status Tobacco use date assessed 09/06/24 09/06/24 14:42 Patient Tobacco Use Status Current everyday Tobacco 09/06/24 14:42 Tobacco use type Cigarette 09/06/24 14:42 e-Cigarette/Vaping Use Never Used 09/06/24 14:42 PHQ-9: PHQ-9 Score PHQ-9: Total score 0 09/06/24 14:42 Depression Screening Interpretation: Negative Thrive Assessment: Date of Thrive Assessment Date Thrive assessed 07/25/24 09/06/24 14:42 Const General: healthy appearing, no acute distress, alert and awake Nutritional Appearance: well nourished Orientation/consciousness: oriented to person, oriented to place and oriented to time HENMT Ears: TM's normal bilaterally General nose exam: Normal nasal mucous membranes and turbinates present Eyes Conjunctivae: conjunctivae normal Sclerae: sclerae normal Pupils: Equal, round and reactive pupils present Neck Neck: Yes no lymphadenopathy and Yes no JVD Thyroid: Thyroid normal Carotids: no bruits Resp Effort & Inspection: normal respiratory effort and not tachypneic Auscultation: no crackles, no rales, no rhonchi and no wheezes Cardio Rate: regular rate Rhythm: regular rhythm Heart sounds: no murmurs and normal S1 and S2 GI Palpation (GI): Soft to palpation, nontender, no hepatomegaly and no splenomegaly Auscultation: normal bowel sounds Skin General skin exam: no rashes or lesions noted and dry skin Neuro General: oriented to person, oriented to place and oriented to time Cranial nerves: Yes Equal, round and reactive pupils present Speech: No Abnormal speech present Gait exam (Neuro): Normal gait present Motor exam (neuro): no tremor noted Extrem Right upper extremity: full ROM Left upper extremity: full ROM Right lower extremity: full ROM; no edema Left lower extremity: full ROM; no edema Psych Mental Status: mental status grossly normal Speech and movement: Normal speech and movement present Affect: normal affect Attitude: cooperative Thought process: Normal thought process present Coding Level of Care Code Est Pt Level 4 (67007) Diagnoses Post-concussion syndrome F07.81 Coronary artery disease of [place] artery of [place] heart with stable angina pectoris I25.118 Coronary Disease-Associated Artery/Lesion type: [place] artery [place] vs. transplanted heart: [place] heart Associated angina: with stable angina Essential hypertension I10 Hypertension type: essential hypertension Cervical spine pain M54.2 Additional Codes PHQ-9 - 99979 - PHQ-9 Billing: Yes ([id number]) Assessment & Plan Assessment & Plan (1) Post-concussion syndrome: Code(s): F07.81 - Postconcussional syndrome Category: Medical Plan: Patient's signs and symptoms concerning for postconcussion syndrome. Did fall in June of 2024 injuring his his head and shoulder. Reports he continues to be somewhat fatigued, taking frequent naps, having headaches in a mild essential tremor when trying to work.. He will be getting MRI in near future. Will supply patient with Topamax for migraine and postconcussion syndrome. (2) CAD (coronary artery disease): Comment: (STEMI 09/23/18 - s/p RCA stent; NSTEMI 10/01/18) Code(s): I25.10 - Atherosclerotic heart disease of [place] coronary artery without angina pectoris Category: Medical Qualifiers: Coronary Disease-Associated Artery/Lesion type: [place] artery [place] vs. transplanted heart: [place] heart Associated angina: with stable angina Qualified Code(s): I25.118 - Atherosclerotic heart disease of [place] coronary artery with other forms of angina pectoris Plan: Most recent lipid panel showing suboptimal control of his LDL. Optimal LDL to be below 70. Will increase his atorvastatin to 80 mg. (3) HTN (hypertension): Code(s): I10 - Essential (primary) hypertension Category: Medical Qualifiers: Hypertension type: essential hypertension Qualified Code(s): I10 - Essential (primary) hypertension Plan: Patient's blood pressure remains elevated. He has been taking a half a tablet of 30 mg lisinopril. When he takes the whole 30 mg tablet he felt too fatigued. Also continues on metoprolol. Discussed increasing his lisinopril dose though he is apprehensive on this. (4) Cervical spine pain: Code(s): M54.2 - Cervicalgia Category: Medical Plan: Has started physical therapy for his neck pain and getting treatments several times a week. Medications: New topiramate (Topamax) 25 mg PO DAILY 30 days 30 tabs 1RF F07.81 - Postconcussional syndrome baclofen 20 mg PO DAILY 15 days 15 tabs 0RF M54.2 - Cervicalgia atorvastatin 80 mg PO DAILY 90 days 90 tabs 1RF I25.118 - Atherosclerotic heart disease of [place] coronary artery with other forms of angina pectoris Refilled ibuprofen 600 mg PO Q6H 15 days 60 tabs 0RF M51.9 - Unspecified thoracic, thoracolumbar and lumbosacral intervertebral disc disorder blood pressure test kit-medium As directed 1 ea 0RF I10 - Essential (primary) hypertension Discontinued cyclobenzaprine Discontinued Reason: Doctor's Order 5 mg PO TID 5 days PRN 15 tabs 0RF muscle spasm M54.2 - Cervicalgia On Hold atorvastatin Hold Comment: Doctor's Order 40 mg PO DAILY 90 days 90 tabs 4RF Z95.5 - Presence of coronary angioplasty implant and graft
[2024-09-06 14:35] VITALS: BP 162/90; PULSE 68; TEMP 36.3; O2SAT 97; BMI 25.1
== END 2024-09-06 15:28 | disposition home or self-care (01) ==
PROVIDERS: PCP Physician Assistant; Visit Provider Physician Assistant
DX: I10 Essential (primary) hypertension (principal); F07.81 Postconcussional syndrome; I25.118 Atherosclerotic heart disease of native coronary artery with other forms of angina pectoris; M54.2 Cervicalgia

== ENCOUNTER 2024-09-13 18:19 | Outpatient (REF) | payer OTHER, SELFPAY ==
--- NOTE | ~2024-09-13 | MR_ITS ---
CLINICAL HISTORY: R29.898 - Other symptoms and signs involving the musculoskeletal system MR Brain without gadolinium Comparison: CT/CA/SR - CT HEAD/BRAIN WO IV CON - 08/08/24 19:08 EST Findings: No restricted diffusion. Brain volume is appropriate for age. There are numerous T2 hyperintensities within the white matter including flame shaped lesions and involvement of the periventricular white matter. No intracranial mass or hemorrhage. No midline shift. No hydrocephalus. Vascular flow voids are intact. The orbits are normal. The sinuses and mastoid air cells are clear. No focal bone lesion. IMPRESSION: There are numerous T2 hyperintensities within the white matter. The appearance raises the possibility of a demyelinating process such as multiple sclerosis. This document has been electronically signed by: Lindsay Ruano MD on 09/13/2024 19:28:30
== END 2024-09-13 18:20 | disposition home or self-care (01) ==
LOC: HO.MRI 18:19
PROVIDERS: PCP Physician Assistant; Visit Provider Physical Medicine & Rehabilitation
DX: R20.2 Paresthesia of skin (principal); M54.2 Cervicalgia; R51.9 Headache, unspecified; R53.83 Other fatigue; R29.898 Other symptoms and signs involving the musculoskeletal system
CPT/HCPCS: 70551

== ENCOUNTER → 2024-09-13 18:24 | Outpatient (BNV) | payer OTHER, SELFPAY | PROVIDERS: PCP Physician Assistant; Visit Provider Radiology Diagnostic Radiology | DX: R90.82 White matter disease, unspecified (principal) | CPT/HCPCS: 70551 ==

== ENCOUNTER 2024-09-15 13:02 | Outpatient (AMB) | payer MEDICARE, MEDICAID, SELFPAY ==
--- NOTE | 2024-09-15 13:18 | A.OFFVIS_ITS ---
Intake Visit Reasons: 1y/PSA Intake Note: Patient presents today to for a follow-up on US Results: Meds- Tamsulosin Allergies to Antibiotic- No Known Allergies Blood Thinner- Aspirin Post Void Residual: 40 mL TODAY'S PVR:32ML'S [employer] Specialist Required: No Accompanied by: Self / Same As Patient Allergies tadalafil [From [employer]] Allergy (Unknown, Verified 09/15/24 13:25) anxiety Medication List - Last Reconciled 09/15/24 by Brian Mireles MD aspirin (Adult Aspirin Regimen) 81 mg PO DAILY atorvastatin 40 mg PO DAILY 90 days atorvastatin 80 mg PO DAILY 90 days baclofen 20 mg PO DAILY 15 days blood pressure test kit-medium As directed bupropion HCl SR 150 mg PO BID 90 days ibuprofen 600 mg PO Q6H 15 days lidocaine 5% 1 patch topical DAILY lisinopril 30 mg PO DAILY 90 days lorazepam 0.5 mg PO DAILY PRN 7 days metoprolol succinate ER 50 mg PO DAILY 90 days tamsulosin (Flomax) 0.4 mg PO DAILY topiramate (Topamax) 25 mg PO DAILY 30 days HPI Comments Details: 09/15/24---Guru is a 69-year-old male presenting with lower urinary tract symptoms for a one-year follow-up evaluation. Symptoms include frequency, nocturia, and hesitancy, presently managed with tamsulosin 0.4 mg daily. Previous assessments, including a renal ultrasound and prostate-specific antigen screening, were unremarkable. The patient reports cessation of a 62-year smoking habit and a desire to sustain this change. Further evaluations for renal and urinary health will occur in subsequent appointments. Urinary Symptoms Review - Urinary frequency - Nocturia - Hesitancy - Managed with tamsulosin 0.4 mg daily - Reports minor disturbance of sleep due to nocturia - Currently reports improvement with medication Results - Labs: PSA on 08/10/2024:2.95 mg/ml - Tests and Diagnostics: Renal ultrasound on 08/14/2023: Negative for parenchymal lesions or calculi 09/15/2023--Guru is here for follow-up to review renal ultrasound results. He was initially evaluated on 07/22/2023 for complaints of weak urinary stream. He was started on tamsulosin. He states that the medication is helping with his urinary stream. He complains of back pain he has brought a copy of a prior MRI of the lumbar spine states that he has seen prior neurosurgery and was told that there was not surgery that could be done. I have discussed that he should discuss this further with his PCP to obtain a referral from his primary care physician to re-evaluate his back symptoms. Past medical history significant for CAD, nicotine dependence. Renal ultrasound 08/14/2023--right kidney masses were parenchymal lesions, left kidney 1.1 cm benign cyst, BLADDER: Well distended and normal. Bilateral ureteral jets are demonstrated. Prevoid bladder volume is 263 mL. Postvoid bladder volume is 57.6 mL. Enlarged prostate, volume 76.7 mL. 07/22/2023 Guru is a 67-year-old male who is here for evaluation for weak urinary stream. Past Medical history includes coronary artery disease, hypertension, nicotine d ependence The patient complains of urinary frequency, nocturia cough, urinary hesitency. He denies dysuria or gross hematuria, history of nicotine use, has been using cigarettes for over 45 years. I have discussed workup to include evaluation of the urinary tract of renal and bladder ultrasound. UA--negative leukocytes or blood, PVR 94 mL--Prostate exam-mild to moderate enlargement of the prostate smooth. PSA 03/31/2023-- 2.87 Plan: For renal ultrasound, Tamsulosin, Follow-up in 2 months 09/15/2023--PLAN: Continue tamsulosin. Follow-up in 1 year PSA screening [facility] Medical History Weak urinary stream History of [place] (myocardial infarction) Nicotine dependence, cigarettes, uncomplicated Left shoulder pain COPD (chronic obstructive pulmonary disease) Hypertension CAD (coronary artery disease) Surgical History History of colonoscopy History of coronary artery stent placement (~2018) History of hernia repair (~1970) Family History Father CAD (coronary artery disease) Mother No problems noted. Brother Hepatocellular carcinoma Social History Housing: Other Housing Other:: van Alcohol intake: current Alcohol intake frequency: holidays/special occasions only Alcohol type: beer Patient Tobacco Use Status: Current everyday Tobacco user Tobacco use type: Cigarette Cigarette Packs Per Day: 1 Cigarettes Per Day: 20 Years Smoked: 58 +/- e-Cigarette/Vaping Use: Never Used Second Hand Smoke Exposure: Yes Substance Use Type: Marijuana service: No Current occupational status: unemployed Cognitive needs: No Hearing needs: No Vision needs: No Office Procedures Post Void Residual Post Residual Void Post Void Residual (PVR): 32 [id number]-[id number] Void Residual by ultrasound Results AMB Urinalysis, Automated UA Leukoctes 0 Elizabeth/uL Last Edit by BREANA Murillo on 09/15/24 13:34 UA Nitrite Negative Last Edit by BREANA Murillo on 09/15/24 13:34 UA Urobilinogen 0.2 mg/dL Last Edit by BREANA Murillo on 09/15/24 13:3 4 UA Protein 0 mg/dL Last Edit by BREANA Murillo on 09/15/24 13:34 UA pH 6.0 Last Edit by BREANA Murillo on 09/15/24 13:34 UA Blood 0 Bertin/uL Last Edit by BREANA Murillo on 09/15/24 13:34 UA Specific Delmita 1.010 Last Edit by BREANA Murillo on 09/15/24 13: 34 UA Ketone Negative Last Edit by BREANA Murillo on 09/15/24 13:34 UA Bilirubin 0 mg/dL Last Edit by BREANA Murillo on 09/15/24 13:34 UA Glucose 0 mg/dL Last Edit by BREANA Murillo on 09/15/24 13:34 Results Reviewed Results Reviewed: Laboratory Last Values Urine pH (Auto) 6.0 09/15/24 13:33 Specific [place] (Auto) 1.010 09/15/24 13:33 Urine Protein (Auto) 0 mg/dL 09/15/24 13:33 Glucose (UA)(Auto) 0 mg/dL 09/15/24 13:33 Urine Ketones (Auto) Negative 09/15/24 13:33 Urine Blood (Auto) 0 Bertin/uL 09/15/24 13:33 Urine Nitrite (Auto) Negative 09/15/24 13:33 Urine Bilirubin (Auto) 0 mg/dL 09/15/24 13:33 Urine Urobilinogen (Auto) 0.2 mg/dL 09/15/24 13:33 Leukocyte Esterase (Auto) 0 Elizabeth/uL 09/15/24 13:33 Date of Service: 08/14/23 EXAMINATION: US RETROPERITONEAL COMPLETE (RENAL) CLINICAL INFORMATION: Poor urinary stream. COMPARISON: CT abdomen and pelvis 08/09/2019. TECHNIQUE: Real-time imaging of the kidneys and bladder. FINDINGS: RIGHT KIDNEY: 10.2 x 4.1 x 5.3 cm (SAG x AP x TRV). The kidney is normal in size, contour, and echogenicity. Renal cortical thickness is normal. No calculi or focal parenchymal lesions. No hydronephrosis. LEFT KIDNEY: 11.5 x 5.0 x 5.5 cm (SAG x AP x TRV). The kidney is normal in size, contour, and echogenicity. Renal cortical thickness is normal. No renal calculi or hydronephrosis. Lower pole 1.1 cm benign-appearing cyst. BLADDER: Well distended and normal. Bilateral ureteral jets are demonstrated. Prevoid bladder volume is 263 mL. Postvoid bladder volume is 57.6 mL. Enlarged prostate, volume 76.7 mL. IMPRESSION: * Prostatomegaly with large postvoid residual of 57.6 mL. * Benign-appearing left renal cyst. Followup imaging is not routinely recommended for benign appearing cysts. Assessment & Plan Assessment & Plan (1) Weak urinary stream: Code(s): R39.12 - Poor urinary stream Category: Medical (2) BPH loc w urin obs/LUTS: Code(s): N40.1 - Benign prostatic hyperplasia with lower urinary tract symptoms Category: Medical (3) Nicotine dependence: Code(s): F17.200 - Nicotine dependence, unspecified, uncomplicated Category: Medical Qualifiers: Nicotine product type: cigarettes Substance use status: uncomplicated Qualified Code(s): F17.210 - Nicotine dependence, cigarettes, uncomplicated (4) Screening PSA (prostate specific antigen): Code(s): Z12.5 - Encounter for screening for malignant neoplasm of prostate Category: Medical (5) Urinary frequency: Code(s): R35.0 - Frequency of micturition Category: Medical Plan Discussion Notes During today?s discussion, I explained the significance of continuing tamsulosin for managing lower urinary tract symptoms and advised routine evaluations of urinary health annually. We discussed the positive implications of smoking cessation on urinary tract and prostate health, and the patient confirmed the intent to maintain this change. We agreed that PSA monitoring is imperative, and I advised yearly screenings to check for any prostate health changes. The patient was amenable to the plan, understanding the risks associated with nicotine use and the benefits of cessation on reducing potential complications associated with urinary tract cancers. Plan: Flomax 0.4 mg daily due to its effectiveness in relieving symptoms. Monitoring of renal and urinary health will include urinalysis and renal ultrasound if warranted. PSA levels will be checked annually to ensure prostate health. Encouraging complete cessation of smoking is critical to reducing urinary cancer risks. Ongoing cardiovascular health will be managed by the patient's primary care provider to address coronary artery disease.: Orders: Orders AMB Urinalysis Automated Today Z13.9 - Encounter for screening, unspecified PSA,Total (Free>4and<10) 11 Months Z12.5 - Encounter for screening for malignant neoplasm of prostate US retroperitoneal comp 11 Months R35.0 - Frequency of micturition Patient Instructions: Patient Instructions - Continue taking tamsulosin 0.4 mg daily as prescribed. - Follow up annually for urinalysis and assessment of kidney health. - Monitor PSA levels annually. - Maintain cessation of smoking; it reduces the risk of urinary tract cancers. - Report any changes in urinary symptoms immediately. The patient had an opportunity to ask questions regarding treatment plan. The patient expressed understanding and agreement with the above treatment plan. The patient is aware they should contact our office by phone for worsening of their current condition or the appearance of new symptoms. Compliance is en couraged with any medications and followup testing that is ordered. It is a privilege to be allowed the opportunity to participate in the urologic care of your patient. If you have any questions or concerns regarding treatment for the above conditions please do not hesitate to contact me. The office telephone contact is [phone]. This note is constructed in part using voice recognition software. While every effort has been made to ensure accuracy spinner tender errors may have been included. Yours sincerely, Brian Mireles MD Scribe Plan - Not visible on output: Patient was informed and verbally consented to the use of an ambient scribe for clinic note documentation during this visit. Coding Level of Care Code Est Pt Level 4 (12707) Diagnoses Weak urinary stream R39.12 BPH loc w urin obs/LUTS N40.1 Cigarette nicotine dependence without complication F17.210 Nicotine product type: cigarettes Substance use status: uncomplicated Screening PSA (prostate specific antigen) Z12.5 Urinary frequency R35.0 CPT Codes Post Residual Void - PVR CPT Code: 57255-Bauv Void Residual by ultrasound ([id number])
== END 2024-09-15 13:54 | disposition home or self-care (01) ==
PROVIDERS: PCP Physician Assistant; Visit Provider Urology
DX: N40.1 Benign prostatic hyperplasia with lower urinary tract symptoms (principal); R39.12 Poor urinary stream; R35.0 Frequency of micturition; F17.210 Nicotine dependence, cigarettes, uncomplicated; Z13.9 Encounter for screening, unspecified
CPT/HCPCS: 99214

== ENCOUNTER → 2024-09-15 13:02 | Outpatient (BNVA) | payer OTHER, SELFPAY | PROVIDERS: PCP Physician Assistant; Visit Provider Urology | DX: N40.1 Benign prostatic hyperplasia with lower urinary tract symptoms (principal); R35.0 Frequency of micturition; R35.1 Nocturia; R39.11 Hesitancy of micturition; R39.12 Poor urinary stream; Z87.891 Personal history of nicotine dependence; Z79.899 Other long term (current) drug therapy | CPT/HCPCS: 51798; 81003; 99212 ==

== ENCOUNTER 2024-09-19 16:13 | Outpatient (REF) | payer OTHER, SELFPAY ==
--- NOTE | ~2024-09-19 | MR_ITS ---
EXAMINATION: MR CERVICAL SPINE WITHOUT CONTRAST CLINICAL INFORMATION: Radiculopathy, cervical region. COMPARISON: Correlated to CT dated August 08, 2024. TECHNIQUE: MRI of the cervical spine was obtained using routine sequences without contrast. FINDINGS: Craniocervical junction is intact. There is diffuse hypointense T1 and hyperintense T2 STIR signal within the vertebral bodies of C5-C6. Marginal osteophyte formation and endplate irregularity and decreased disc height at C5-6 and C6-7. Grade 1 anterolisthesis C4-5. Grade 1 retrolisthesis C5-6. There is buckling deformity of the dorsal aspect of the thecal sac from C2-3 to C5-6 related to ligamentum flavum hypertrophy. There is a questionable 2 mm hyperintense T2 signal in the left midline cervical spinal cord at C4-5 level only seen on the axial T2 sequence. C2-3: No disc herniation. No neuroforamina stenosis. C3-4: No disc herniation. No neuroforamina stenosis. Facet joint hypertrophy. Hypertrophy of the ligamentum flavum. C4-5: Broad-based disc osteophyte complex formation. Facet joint hypertrophy as well as ligamentum flavum. Reduced AP diameter of the thecal sac. Right neuroforamina and stenosis. C5-6: Broad-based disc osteophyte complex formation. Facet joint and ligamentum flavum hypertrophy. CSF effacement of the thecal sac in a circumferential fashion. Right neuroforamina stenosis. Facet joint hypertrophy bilaterally. C6-7: Broad-based disc osteophyte complex formation. Ligamentum flavum hypertrophy. CSF effacement of the thecal sac. Left neuroforamina stenosis. C7-T1: No disc herniation. No neuroforamina stenosis. Flow-void signal within the main vessels is normal. Codominant vertebral arteries. There is a 1.4 x 2 cm heterogeneous mixed fluid and solid component round lesion in the posterior superficial right parotid gland. No prevertebral compartment hematoma, mass or fluid collection. MR/MR cervical spine wo con IMPRESSION: Severe spondylosis at C5-6 and C6-7 resulting in cord compression without gross cord edema and or myelopathy. Right neuroforamina stenosis at C5-6 and left neuroforamina stenosis at C6-7 on a multifactorial basis. Grade 1 anterolisthesis C4-5 and grade 1 retrolisthesis C5-6 degenerative basis instability secondary to ligamentum flavum injury cannot be excluded.. Probable artifactual focal cord signal at C4-5. 1.4 x 2 cm mixed signal lesion/mass, superficial right parotid gland. Consider benign mixed tumor versus lymphadenopathy among other etiologies.. Electronically signed by: Paulie Pierre MD 09/20/2024 08:12 AM EDT
== END 2024-09-19 16:14 | disposition home or self-care (01) ==
LOC: HO.MRI 16:13
PROVIDERS: PCP Physician Assistant; Visit Provider Physical Medicine & Rehabilitation
DX: M54.12 Radiculopathy, cervical region (principal); R29.898 Other symptoms and signs involving the musculoskeletal system; R20.2 Paresthesia of skin; M54.2 Cervicalgia
CPT/HCPCS: 72141

== ENCOUNTER → 2024-09-19 16:24 | Outpatient (BNV) | payer OTHER, SELFPAY | PROVIDERS: PCP Physician Assistant; Visit Provider Radiology Diagnostic Radiology | DX: M47.812 Spondylosis without myelopathy or radiculopathy, cervical region (principal); M48.02 Spinal stenosis, cervical region | CPT/HCPCS: 72141 ==

== ENCOUNTER 2024-09-29 09:11 | Outpatient (AMB) | payer OTHER, SELFPAY ==
--- NOTE | 2024-09-29 09:11 | A.OFFVIS_ITS ---
Intake Visit Reasons: Tel- Cervical Spine MRI review Intake Note: Guru is a 69 year old male who presents today via telephone for a telehealth visit to review the results of his CT scan for his cervical spine. State he continues to have pain and tightness in his head. He had a headache that lasted 24 hours on Thursday after seeing his chiropractor. Allergies tadalafil [From Cialis] Allergy (Unknown, Verified 09/29/24 09:14) anxiety HPI Comments Details: History of CAD, HTN, COPD, STEMI in 2019 with multiple ER visits in the last year. On 07/02/2024, presented to the emergency department with complaint of left shoulder pain, neck and upper back pain after a slip and fall on the night prior. EKG normal sinus rhythm, rate 60bm, normal NM interval and QTc. X-ray shoulder and thoracic spine notable for no evidence of fracture, dislocation, or subluxation. CT head and c-spine notable for no evidence of ICH, skull or cervical vertebral fracture. Went back to ER 08/08/2024 for continued symptoms and fatigue. Repeat CT head no acute intracranial findings. He was seen by PCP in between ER visits. Prescribed cyclobenzaprine and referred to physical therapy for left cervical strain. Head injuries in the past, 1984. Denies other falls besides 07/02/24, which was a mechanical fall/slip on ice. Denies headache or chest pain prior to fall. Since the fall, been more sleepy and fatigued. Constant head is numb on top of his head all day. Headache is daily, few times a day. Neck pain comes with the headache. Right arm feels more shaky. Have not been able to go back to work due to that. 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 Family history - father from heart attack Telehealth visit today to discuss MRI findings. MRI brain showed increased T2 signals, which I explained to patient can be nonspecific. With then ordered an MRI cervical spine. 1. MRI cervical spine shows spondylosis causing possible cord compression, could explain his weakness and falls and poor balance. We have agreed to refer him to Neurosurgery. 2. Incidental finding of 1.4 x 2 cm mixed signal lesion/mass, superficial right parotid gland. Consider benign mixed tumor versus lymphadenopathy among other etiologies.. I have reached out to PCP brittny COOPER, who has in turn referred patient to ENT for biopsy be it patient is aware but he has not received any phone call from ENT to schedule yet. [facility] Medical History Weak urinary stream History of [place] (myocardial infarction) Nicotine dependence, cigarettes, uncomplicated Left shoulder pain COPD (chronic obstructive pulmonary disease) Hypertension CAD (coronary artery disease) Surgical History History of colonoscopy History of coronary artery stent placement (~2018) History of hernia repair (~1969) Family History Father CAD (coronary artery disease) Mother No problems noted. Brother Hepatocellular carcinoma Social History Housing: Other Housing Other:: van Alcohol intake: current Alcohol intake frequency: holidays/special occasions only Alcohol type: beer Patient Tobacco Use Status: Current everyday Tobacco user Tobacco use type: Cigarette Cigarette Packs Per Day: 1 Cigarettes Per Day: 20 Years Smoked: 58 +/- e-Cigarette/Vaping Use: Never Used Second Hand Smoke Exposure: Yes Substance Use Type: Marijuana service: No Current occupational status: unemployed Cognitive needs: No Hearing needs: No Vision needs: No Telehealth Telehealth Telehealth Platform: Telephone Location of provider rendering services: practice address Location of patient: address on file Patient Identification confirmed using: Name, : Yes Telehealth method: voice only Patient verbally consented to treatment: Yes Patient verbally consented to billing insurance company: Yes Patient informed of any privacy concerns related to visit: Yes Minutes spent on Phone/Video with Pt.: 30 Results Reviewed Results Reviewed: Ordering Physician: Steffanie Barnett Date of Service: 09/13/24 Procedure(s): MR head/brain wo con Accession Number(s): [id number] cc: Anuj Lopez PA-C; Steffanie Barnett~ CLINICAL HISTORY: R29.898 - Other symptoms and signs involving the musculoskeletal system MR Brain without gadolinium Comparison: CT/NM/SR - CT HEAD/BRAIN WO IV CON - 08/08/24 19:08 EST Findings: No restricted diffusion. Brain volume is appropriate for age. There are numerous T2 hyperintensities within the white matter including flame shaped lesions and involvement of the periventricular white matter. No intracranial mass or hemorrhage. No midline shift. No hydrocephalus. Vascular flow voids are intact. The orbits are normal. The sinuses and mastoid air cells are clear. No focal bone lesion. IMPRESSION: There are numerous T2 hyperintensities within the white matter. The appearance raises the possibility of a demyelinating process such as multiple sclerosis. This document has been electronically signed by: Lindsay Ruano MD on 09/13/2024 19:28:30 Ordering Physician: Steffanie Barnett Date of Service: 09/19/24 Procedure(s): MR cervical spine wo con Accession Number(s): [id number] cc: Anuj Lopez PA-C; Steffanie Barnett~ EXAMINATION: MR CERVICAL SPINE WITHOUT CONTRAST CLINICAL INFORMATION: Radiculopathy, cervical region. COMPARISON: Correlated to CT dated August 08, 2024. TECHNIQUE: MRI of the cervical spine was obtained using routine sequences without contrast. FINDINGS: Craniocervical junction is intact. There is diffuse hypointense T1 and hyperintense T2 STIR signal within the vertebral bodies of C5-C6. Marginal osteophyte formation and endplate irregularity and decreased disc height at C5-6 and C6-7. Grade 1 anterolisthesis C4-5. Grade 1 retrolisthesis C5-6. There is buckling deformity of the dorsal aspect of the thecal sac from C2-3 to C5-6 related to ligamentum flavum hypertrophy. There is a questionable 2 mm hyperintense T2 signal in the left midline cervical spinal cord at C4-5 level only seen on the axial T2 sequence. C2-3: No disc herniation. No neuroforamina stenosis. C3-4: No disc herniation. No neuroforamina stenosis. Facet joint hypertrophy. Hypertrophy of the ligamentum flavum. C4-5: Broad-based disc osteophyte complex formation. Facet joint hypertrophy as well as ligamentum flavum. Reduced AP diameter of the thecal sac. Right neuroforamina and stenosis. C5-6: Broad-based disc osteophyte complex formation. Facet joint and ligamentum flavum hypertrophy. CSF effacement of the thecal sac in a circumferential fashion. Right neuroforamina stenosis. Facet joint hypertrophy bilaterally. C6-7: Broad-based disc osteophyte complex formation. Ligamentum flavum hypertrophy. CSF effacement of the thecal sac. Left neuroforamina stenosis. C7-T1: No disc herniation. No neuroforamina stenosis. Flow-void signal within the main vessels is normal. Codominant vertebral arteries. There is a 1.4 x 2 cm heterogeneous mixed fluid and solid component round lesion in the posterior superficial right parotid gland. No prevertebral compartment hematoma, mass or fluid collection. MR/MR cervical spine wo con IMPRESSION: Severe spondylosis at C5-6 and C6-7 resulting in cord compression without gross cord edema and or myelopathy. Right neuroforamina stenosis at C5-6 and left neuroforamina stenosis at C6-7 on a multifactorial basis. Grade 1 anterolisthesis C4-5 and grade 1 retrolisthesis C5-6 degenerative basis instability secondary to ligamentum flavum injury cannot be excluded.. Probable artifactual focal cord signal at C4-5. 1.4 x 2 cm mixed signal lesion/mass, superficial right parotid gland. Consider benign mixed tumor versus lymphadenopathy among other etiologies.. Electronically signed by: Paulie Pierre MD 09/20/2024 08:12 AM EDT Assessment & Plan Assessment & Plan (1) Spinal cord compression: Code(s): G95.20 - Unspecified cord compression Category: Medical (2) Cervical myelopathy: Code(s): G95.9 - Disease of spinal cord, unspecified Category: Medical (3) Neck pain: Code(s): M54.2 - Cervicalgia Category: Medical (4) Arm paresthesia, left: Code(s): R20.2 - Paresthesia of skin Category: Medical (5) Right arm weakness: Code(s): R29.898 - Other symptoms and signs involving the musculoskeletal system Category: Medical (6) Mass of right parotid gland: Code(s): K11.8 - Other diseases of salivary glands Category: Medical Plan 1. MRI cervical spine shows spondylosis causing possible cord compression, could explain his weakness and falls and poor balance. We have agreed to refer him to neuro spine. 2. Incidental finding of 1.4 x 2 cm mixed signal lesion/mass, superficial right parotid gland. Consider benign mixed tumor versus lymphadenopathy among other etiologies.. I have reached out to PCP brittny COOPER, who has in turn referred patient to ENT for biopsy be it patient is aware but he has not received any phone call from ENT to schedule yet. Assessment and plan discussed with patient, and patient was agreeable. All questions were answered thoroughly. Total of 30 minutes spent today including chart review, results review, history taking, physical examination, discussion of assessment and plan, and coordination of care. Steffanie Hermosillo MD, ELIGIO Board Certified, [place] [employer] and [employer] (ABPMR) Board Certified, [place] [employer] (ABEM) Orders: Referrals Neurosurgery Referral G95.20 - Unspecified cord compression, G95.9 - Disease of spinal cord, unspecified Coding Level of Care Code Tele Est Pt Level 4 (96665) Diagnoses Spinal cord compression G95.20 Cervical myelopathy G95.9 Neck pain M54.2 Arm paresthesia, left R20.2 Right arm weakness R29.898 Mass of right parotid gland K11.8
== END 2024-09-29 09:41 | disposition home or self-care (01) ==
LOC: HO.HOS 09:11
PROVIDERS: PCP Physician Assistant; Visit Provider Physical Medicine & Rehabilitation
DX: G95.29 Other cord compression (principal); G95.89 Other specified diseases of spinal cord; M54.2 Cervicalgia; R20.2 Paresthesia of skin; R29.898 Other symptoms and signs involving the musculoskeletal system; K11.8 Other diseases of salivary glands
CPT/HCPCS: 99214

== ENCOUNTER → 2024-09-29 09:11 | Outpatient (BNVA) | payer OTHER, SELFPAY | PROVIDERS: PCP Physician Assistant; Visit Provider Physical Medicine & Rehabilitation ==

== ENCOUNTER 2024-10-03 08:47 | Outpatient (AMB) | payer OTHER, SELFPAY ==
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
[2024-10-03 09:05] VITALS: BMI 24.4
== END 2024-10-03 10:00 | disposition home or self-care (01) ==
LOC: HO.HNS 08:48
PROVIDERS: PCP Physician Assistant; Visit Provider Physician Assistant
DX: S06.0XAA Concussion with loss of consciousness status unknown, initial encounter (principal)
CPT/HCPCS: 99204

== ENCOUNTER → 2024-10-03 08:47 | Outpatient (BNVA) | payer OTHER, SELFPAY | PROVIDERS: PCP Physician Assistant; Visit Provider Physician Assistant | DX: S06.0XAA Concussion with loss of consciousness status unknown, initial encounter (principal); X58.XXXA Exposure to other specified factors, initial encounter; Y93.9 Activity, unspecified; Y92.9 Unspecified place or not applicable; Y99.9 Unspecified external cause status | CPT/HCPCS: 99202 ==

== ENCOUNTER 2024-11-17 15:35 | Outpatient (AMB) | payer OTHER, SELFPAY ==
[2024-11-17 15:38] VITALS: BP 152/86; PULSE 62; TEMP 36.3; O2SAT 96; BMI 24.3
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
== END 2024-11-17 16:17 | disposition home or self-care (01) ==
LOC: HO.HMCH 15:35
PROVIDERS: PCP Physician Assistant; Visit Provider Physician Assistant
DX: G95.20 Unspecified cord compression (principal); K11.8 Other diseases of salivary glands

== ENCOUNTER → 2024-11-17 15:35 | Outpatient (BNVA) | payer OTHER, SELFPAY | PROVIDERS: PCP Physician Assistant; Visit Provider Physician Assistant | DX: G95.20 Unspecified cord compression (principal); K11.8 Other diseases of salivary glands | CPT/HCPCS: 96127; 99212 ==

== ENCOUNTER 2024-12-08 14:39 | Outpatient (AMB) | payer OTHER, SELFPAY ==
--- NOTE | 2024-12-08 14:40 | A.OFFVIS_ITS ---
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 The patient?s neck pain originated from a hockey injury at age 13, exacerbated by a fall in June at a [employer] parking lot. This fall caused a brief loss of consciousness and symptoms of a traumatic brain injury, including persistent headaches, chronic fatigue, low energy and dizziness. The neck pain is severe and worsened by movements like looking up or to the left, and has been constant since the fall. Previous MRI revealed severe cervical spondylosis and degenerative disc disease with spinal stenosis as noted below. The patient has not undergone physical therapy due to fatigue. The patient has a history of myocardial infarction with stent placement, smokes heavily (2PPD), and occasionally uses cannabis and daily energy drinks. The patient reports functional decline, difficulty with balance, and psychosocial stresses related to homelessness. Patient presents with elevated BP readings today, reports not taking today, when asked why, he replies because I did not feel like it. Patient is aware of potential complications of uncontrolled HTN and high risk of stroke, in combination of daily caffeine, energy drinks and smoking 2 PPD. Denies any fever, chills, chest pain, shortness of breaths, chest tightness or pressure, dizziness, headaches, or weakness. - Onset: Chronic since age 13, exacerbated by a fall in June. - Quality: Severe, constant, with stiffness, numbness, and tightness. - Primary Location: Neck, with radiation and numbness affecting hands. - Exacerbating Factors: Specific neck movements, including looking up and turning left. - Relieving Factors: Rest, Ibuprofen, stretching, activity modifications. - Interference: Affects ability to perform physical activities and maintain balance. - Affect: The pain impacts the patient's mood, causing fatigue and sleepiness. - Analgesia: Currently using ibuprofen and Aleve with minimal relief; has not taken prescribed baclofen and avoids other medications. - Adverse Effects: No specific side effects from pain medications reported. - Activities of Daily Living: Pain affects functional status, making physical activities and balance difficult. - Aberrant Drug Related Behaviors: Occasionally uses cannabis; avoids prescribed medications. [facility] Medical History Weak urinary stream History of [place] (myocardial infarction) Nicotine dependence, cigarettes, uncomplicated Left shoulder pain COPD (chronic obstructive pulmonary disease) Hypertension CAD (coronary artery disease) Surgical History History of colonoscopy History of coronary artery stent placement (~2018) History of hernia repair (~1969) Family History Father CAD (coronary artery disease) Mother No problems noted. Brother Hepatocellular carcinoma Social History Housing: Other Housing Other:: van Alcohol intake: current Alcohol intake frequency: holidays/special occasions only Alcohol type: beer Patient Tobacco Use Status: Current everyday Tobacco user Tobacco use type: Cigarette Cigarette Packs Per Day: 1 Cigarettes Per Day: 20 Years Smoked: 58 +/- e-Cigarette/Vaping Use: Never Used Second Hand Smoke Exposure: Yes Substance Use Type: Marijuana service: No Current occupational status: unemployed Cognitive needs: No Hearing needs: No Vision needs: No Review of Systems Const Details: - Neurological: Reports headaches, dizziness, and fatigue; denies loss of consciousness beyond initial fall. - Musculoskeletal: Reports chronic neck pain and stiffness; numbness and tingling in hands. - Cardiovascular: Reports history of myocardial infarction and stent placement; hypertension. - Psychological: Reports feeling tired and forgetful. - Substance Use: Reports heavy smoking and occasional cannabis use. All systems reviewed & are unremarkable except as noted in HPI and below Physical Exam General: Appears afebrile, tired and fatigued. No acute distress. Alert and oriented. Mood and affect appropriate. Follows and participates in conversation appropriately. Respiratory effort is unlabored. No cough. Able to transition from sit to stand unassisted. Ambulates with bilaterally normal heel strike and toe off. Neck Other: Patient with decreased cervical ROM in all planes/especially with left lateral rotation. Reports increased pain with cervical extension and flexion, worse with extension. Spurling compression test equivocal. Pain is unchanged by Spurling maneuver with retraction. Elvey's tension test positive bilaterally, with radiation of pain from neck to wrist and hands. Lhermitte's test was negative. DTR intact, +1 and symmetrical. Patient demonstrated 5/5 motor strength of bilateral upper extremities. 2 + radial pulses. Significant tightness throughout left upper trapezius as well as TTP throughout bilateral upper trapezius muscles. Neck: Yes normal visual inspection, Yes full ROM, Yes no lymphadenopathy, Yes supple, No anterior neck swelling, Yes no JVD, No prominent supraclavicular fat pad and No prominent dorsocervical fat pad Back/Spine/Pelvis Cervical Spine: cervical ROM normal, loss of normal cervical lordosis, cervical muscular tenderness, pain with cervical ROM, No Cervical spine scars present, cervical spasm, No Cervical spine tenderness and No step off deformity Thoracic/Lumbar Spine: thoracic and lumbar spine normal to inspection, No Thoracic/lumbar spine scar(s), No thoracic spinal tenderness and No lumbar spinal tenderness Extrem General: Yes capillary refill normal, Yes no clubbing, cyanosis or edema and Yes no calf tenderness Results Reviewed Results Reviewed: MR CERVICAL SPINE WITHOUT CONTRAST 09/19/24 CLINICAL INFORMATION: Radiculopathy, cervical region. COMPARISON: Correlated to CT dated August 08, 2024. TECHNIQUE: MRI of the cervical spine was obtained using routine sequences without contrast. FINDINGS: Craniocervical junction is intact. There is diffuse hypointense T1 and hyperintense T2 STIR signal within the vertebral bodies of C5-C6. Marginal osteophyte formation and endplate irregularity and decreased disc height at C5-6 and C6-7. Grade 1 anterolisthesis C4-5. Grade 1 retrolisthesis C5-6. There is buckling deformity of the dorsal aspect of the thecal sac from C2-3 to C5-6 related to ligamentum flavum hypertrophy. There is a questionable 2 mm hyperintense T2 signal in the left midline cervical spinal cord at C4-5 level only seen on the axial T2 sequence. C2-3: No disc herniation. No neuroforamina stenosis. C3-4: No disc herniation. No neuroforamina stenosis. Facet joint hypertrophy. Hypertrophy of the ligamentum flavum. C4-5: Broad-based disc osteophyte complex formation. Facet joint hypertrophy as well as ligamentum flavum. Reduced AP diameter of the thecal sac. Right neuroforamina and stenosis. C5-6: Broad-based disc osteophyte complex formation. Facet joint and ligamentum flavum hypertrophy. CSF effacement of the thecal sac in a circumferential fashion. Right neuroforamina stenosis. Facet joint hypertrophy bilaterally. C6-7: Broad-based disc osteophyte complex formation. Ligamentum flavum hypertrophy. CSF effacement of the thecal sac. Left neuroforamina stenosis. C7-T1: No disc herniation. No neuroforamina stenosis. Flow-void signal within the main vessels is normal. Codominant vertebral arteries. There is a 1.4 x 2 cm heterogeneous mixed fluid and solid component round lesion in the posterior superficial right parotid gland. No prevertebral compartment hematoma, mass or fluid collection. IMPRESSION: Severe spondylosis at C5-6 and C6-7 resulting in cord compression without gross cord edema and or myelopathy. Right neuroforamina stenosis at C5-6 and left neuroforamina stenosis at C6-7 on a multifactorial basis. Grade 1 anterolisthesis C4-5 and grade 1 retrolisthesis C5-6 degenerative basis instability secondary to ligamentum flavum injury cannot be excluded.. Probable artifactual focal cord signal at C4-5. 1.4 x 2 cm mixed signal lesion/mass, superficial right parotid gland. Consider benign mixed tumor versus lymphadenopathy among other etiologies.. XR thoracic spine 2V 07/02/24 EXAMINATION: Thoracic spine and left shoulder. CLINICAL INDICATION: Fall. Pain. COMPARISON: Left shoulder 10/03/2021. TECHNIQUE: Left shoulder 4 views. Thoracic spine 3 views. FINDINGS: THORACIC SPINE: There is normal thoracic kyphosis. The vertebral heights, alignment and disc heights are normal. There is no visible acute fracture, dislocation or subluxation seen. There is mild right T8-9 spondylosis. No visible acute fracture or lytic process seen. The soft tissues are normal. LEFT SHOULDER: The glenohumeral and AC joint spaces maintain normal. There is no visible acute fracture, dislocation or lytic process seen. The soft tissues are normal. IMPRESSION: Unremarkable dorsal spine exam. Unremarkable left shoulder exam. CT brain and CT cervical spine without contrast 07/02/24 CLINICAL INDICATION: Fall with head strike. COMPARISON: CT brain 04/10/2023 Findings: Brain: There is no acute intra-axial, extra-axial bleed, masses or midline shift. There is no acute infarction evolution. There is no edema the larry to white matter differentiation is maintained normal. The lateral ventricles are symmetrical in size and configuration without enlargement. Bone windows reveal no calvarial abnormality. Bilateral paranasal sinuses and mastoid sinuses are well-aerated with mild mucoperiosteal thickening right maxillary, ethmoid and bilateral frontal sinuses. There is no scalp soft tissue abnormality. Cervical spine: There is maintained cervical lordosis. Grade 1 anterolisthesis C4 over C5 is noted. Rest of the alignment is preserved. There is severe loss of C5-6 and C6-7 disc levels, endplate lucency and diffuse sclerosis of the C5, C6 and partially C7 vertebra. There is moderate ventral and posterior spondylosis at the C5-6 and C6-7 disc levels. There is no visible acute fracture or dislocation. The craniovertebral junction and the C1-C2 alignment is normal. The prevertebral and paravertebral soft tissues are normal. The lung apices are clear. IMPRESSION: 1. No acute intracranial process seen. 2. 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 3. Grade 1 anterolisthesis C4 over C5. There is no visible acute fracture or dislocation. 4. Severe degenerative disc changes C5-6 and C6-7 disc levels with moderate ventral and posterior spondylosis. Assessment & Plan Assessment & Plan (1) Cervical spine pain: Code(s): M54.2 - Cervicalgia Category: Medical (2) Neck pain: Code(s): M54.2 - Cervicalgia Category: Medical (3) Cervical spondylosis: Code(s): M47.812 - Spondylosis without myelopathy or radiculopathy, cervical region Category: Medical (4) Muscle spasms of neck: Code(s): M62.838 - Other muscle spasm Category: Medical (5) Degenerative disc disease, cervical: Code(s): M50.30 - Other cervical disc degeneration, unspecified cervical region Category: Medical (6) Homeless: Code(s): Z59.00 - Homelessness unspecified Category: Social Hx Plan I recommend beginning physical therapy for chronic neck pain to improve function, flexibility and reduce muscle spasms, stiffness and pain. If ineffective, diagnostic cervical medial branch block injections followed by radiofrequency ablation may be considered. Patient declined Sprint PNS trial. Patient requested PT in [place]. Monitor high blood pressure and advise smoking and energy drinks cessation. Reviewed red flags of uncontrolled and elevated BP and urged to go to ER for further evaluation. Provided information on local housing resources. All questions and concerns have been answered and patient agreed with the plan. Follow up after PT and sooner as needed. Patient was informed and verbally consented to the use of an ambient scribe for clinic note documentation during this visit. Orders: Orders PT Evaluation and Treatment Today M47.812 - Spondylosis without myelopathy or radiculopathy, cervical region, M50.30 - Other cervical disc degeneration, unspecified cervical region, M54.2 - Cervicalgia Patient Instructions: I discussed with the patient the likely diagnosis of cervical spondylosis and the management options, including physical therapy and potential interventions such as injections and radiofrequency ablation. I explained the risks and benefits of these treatments, emphasizing the importance of starting conservative treatment with physical therapy before considering more invasive options. We reviewed the importance of monitoring blood pressure and strongly advised smoking and energy drinks cessation. I provided information about local resources for temporary housing support, considering the patient's current homelessness. The patient expressed understanding and agreed to the proposed plan. Coding Level of Care Code New Pt Level 4 (93928) Diagnoses Cervical spine pain M54.2 Neck pain M54.2 Cervical spondylosis M47.812 Muscle spasms of neck M62.838 Degenerative disc disease, cervical M50.30 Homeless Z59.00
[2024-12-08 14:46] VITALS: BP 192/112; PULSE 85; O2SAT 98; BMI 24.0
--- OUTSIDE RECORDS SUMMARY | 2024-12-08 14:46 | XMS_ITS | Data Portability ---
Author Organization [place] [facility], Allergy Address [address] [place] [id number] Care Team Providers Care Store Worker Name Role Phone LULU THOMAS Primary Care Provider Assessment No assessment recorded. Plan of Treatment Reminders Order Date Submit Date Provider Last Modified By Organization Details Last Modified Time Details Appointments Test Results 15 2024 04:00P M DIANA LOPEZ MD Not available Not available Not available Lab microscop ic exam, cytology, tissue FNA (OBS) 2024 025 ROSS [facility] (Centralized Electronic Ordering - All Locations), Patient Can Go To The Location Of Their Choice, [id number] 12/08/2024 12:13:25 Referral None recorded. Procedures None recorded. Surgeries None recorded. Imaging None recorded. Medication Orders None recorded. Patient TargetsNo targets recorded. Patient Instructions Encounter Date Encounter Id Patient Instructions Last Modified By Organization Details Last Modified Time 12/02/2024 [id number] Patient seen for an opinion regarding incidental finding of a right parotid mass on MRI of his cervical spine. There is a palpable 1 cm mass at the angle of the mandible right side. After informed consent fine-needle aspiration was performed. A small amount of cystic fluid was evacuated. We discussed that these are usually benign lesions but the only way to know for sure would be with complete surgical removal. Hopefully the biopsy will be diagnostic and give us some information. 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 [email or web address] Not available 12/02/2024 13:55:19 Reason for Referral None Reported. Problems Name Problem SNOMED Code Status Onset Date Resolution Date Notes Provider Name and Address Organization Details Recorded Time Mass of right parotid gland 148756511782731 04 Active 2024 ANDRES YOUSSEF MD [address] [facility], [place], [address], [facility] - [facility] 13:50:15 Mass of head and/or neck 502907062 Active 2024 ANDRES YOUSSEF MD [address] [address], [place], [address], 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 Procedures Surgical History Date Name Laterality Status Provider Name and Address Organization Details Recorded Time Fine Needle Aspiration completed ANDRES BAILEY MD [address], [address], [facility] - [facility] 12/02/2024 13:54:20 hernia repair completed Bebe Basurto [facility] 12/02/2024 13:26:48 Coronary Artery Stent completed Bebe Basurto [facility] 12/02/2024 13:27:00 Imaging Results None recorded. Procedure Notes None recorded. Medical Equipment None Reported. Allergies Allergen ID Allergen Name Allergen Category Reaction Reaction Severity Criticality Documentation Date Start Date Code Code System Note Provider Name and Address Organization Details Recorded Time 199033 tadalafil medicatio n Not available Not available Not available 12/02/2024 13957 3 RxNorm Bebe reno [facility] 13:23:36 Medications Name Sig Start Date Stop Date Status Note LastModified by Organization Details LastModified Time atorvastati n 40 mg tablet TAKE 1 TABLET BY MOUTH ONCE DAILY 12/02 completed Not Available Not Available Not Available bupropion HCl SR 150 mg tablet,12 hr sustained-r elease Take 1 tablet twice a day by oral route. active Not Available Not Available No t Available atorvastati n 80 mg tablet TAKE 1 TABLET BY MOUTH DAILY active Not Available Not Available No t Available clindamycin HCl 300 mg capsule TAKE 1 CAPSULE BY MOUTH THREE TIMES DAILY UNTIL GONE 12/02 completed Not Available Not Available Not Available azithromyci n 250 mg tablet TAKE 2 TABLETS BY MOUTH ON DAY 1, AND THEN TAKE 1 TABLET BY MOUTH ONCE A DAY ON DAY 2 THROUGH DAY 5 12/02 completed Not Available Not Available Not Available ibuprofen 800 mg tablet TAKE 1 TABLET BY MOUTH EVERY 8 HOURS NEEDED FOR PAIN NOT MORE THAN 2400 MG/DAY active Not Available Not Available No t Available metoprolol succinate ER 50 mg tablet,exte nded release 24 hr TAKE 1 TABLET BY MOUTH ONCE DAILY active Not Available Not Available No t Available penicillin V potassium 500 mg tablet TAKE 2 TABLETS BY MOUTH FIRST TIME ONLY AND 1 EVERY 6 HOURS TILL GONE 12/02 completed Not Available Not Available Not Available topiramate 25 mg tablet TAKE 1 TABLET BY MOUTH DAILY active Not Available Not Available No t Available acetaminoph en 300 mg-codeine 30 mg tablet TAKE 1 TABLET BY MOUTH EVERY 12 HOURS FOR PAIN 12/02 completed Not Available Not Available Not Available baclofen 20 mg tablet TAKE 1 TABLET BY MOUTH DAILY FOR 15 DAYS 12/02 completed Not Available Not Available Not Available tamsulosin 0.4 mg capsule TAKE 1 CAPSULE BY MOUTH DAILY active Not Available Not Available No t Available lisinopril 30 mg tablet TAKE 1 TABLET BY MOUTH DAILY active Not Available Not Available No t Available aspirin 81 mg tablet Take 1 tablet every day by oral route. active Not Available Not Available No t Available ibuprofen 600 mg tablet TAKE 1 TABLET BY MOUTH EVERY 6 HOURS FOR 15 DAYS active Not Available Not Available No t Available methylpredn isolone 4 mg tablets in a dose pack FOLLOW PACKAGE DIRECTION S 12/02 completed Not Available Not Available Not Available sodium fluoride 1.1 % dental gel APPLY A THINN LAYER TO ALL TEETH BEFORE BEDTIME. NO EATING OR RINSING FOR 30 MINUTES 12/02 completed Not Available Not Available Not Available amoxicillin 875 mg-potassiu m clavulanate 125 mg tablet TAKE 1 TABLET BY MOUTH TWICE DAILY FOR 7 DAYS UNTIL FINISHED 12/02 completed Not Available Not Available Not Available cyclobenzap rine 5 mg tablet TAKE 1 TABLET BY MOUTH THREE TIMES DAILY FOR 5 DAYS NEEDED FOR MUSCLE SPASM 12/02 completed Not Available Not Available Not Available chlorhexidi ne gluconate 0.12 % mouthwash RINSE WITH 15ML FOR 30 SECONDS AND SPIT, USE TWICE DAILY AFTER BRUSHING AND FLOSSING . 12/02 completed Not Available Not Available Not Available Vitals Date Recorded Body height Body weight Provider Name and Address Organization Details Last Updated DateTime 12/02/2024 177.8 cm 39021.7 g Bebe Basruto [place] [facility] 12/02/2024 13:30:24 Social History None recorded. Functional Status None recorded. Mental Status None recorded. Family History Nothing Reported. Medical History Condition Response Heart Problems Y COPD Y Heart Attack (ID) Y Hypertension Y Past Encounters Encounter ID Performer Location Encounter Start Date Encounter Closed Date Diagnosis/Indication Diagnosis SNOMED-CT Code Diagnosis ICD10 Code Diagnosis Note [id number] ANDRES BENTON MD [facility] [address] [address] 12/02/2024 13:14:33 12/02/2024 14:01:40 Mass of right parotid gland 5986395936 3982512 K11.8 Mass of he ad and/or neck 930819860 R22.1 Neoplasm o f parotid gland 960063351 D49.0 Health Concerns Section Related Observation LastModified by Organization Detai ls LastModified Time None Recorded Concern Status LastModified by Organization Details LastModified Time None Recorded Advance Directives Directive None Recorded Payers Insurance Date Sequence Insurance Name Policy Number Policy Baker Covered Member ID Baker Member ID Guarantor Name 12/02/2024 1 [facility] (MEDICARE REPLACEMENT/ ADVANTAGE - HMO) Guru Zhang [id number] Guru Zhang 12/02/2024 2 [place] [facility] Guru Zhang [id number] Guru Zhang Notes Date Note Type Note Provider Name and Address Organization Details Recorded Time 12/02/2024 text/html Patient underwen t MRI scan for cervical spine and was incidentally found to have a right parotid lesion. He has no pain or facial weakness. Presently not on any blood thinners but takes 81 ASA and ibuprofen. Remote history of hockey-stick injury to the neck ANDRES BAILEY MD [address] [place] [address], [phone], [facility] - [facility] 12/02/2024 13:56:56
[2024-12-08 14:47] VITALS: BP 201/111
[2024-12-08 15:23] VITALS: BP 181/100; PULSE 84; RESP 18; O2SAT 99
== END 2024-12-08 15:31 | disposition home or self-care (01) ==
LOC: HO.PMC 14:39
PROVIDERS: PCP Physician Assistant; Referring Provider Physician Assistant; Visit Provider Nurse Practitioner Family
DX: M47.812 Spondylosis without myelopathy or radiculopathy, cervical region (principal); M62.838 Other muscle spasm; M50.30 Other cervical disc degeneration, unspecified cervical region; Z59.00 Homelessness unspecified
CPT/HCPCS: 99204

== ENCOUNTER → 2024-12-08 14:39 | Outpatient (BNVA) | payer OTHER, SELFPAY | PROVIDERS: PCP Physician Assistant; Referring Provider Physician Assistant; Visit Provider Nurse Practitioner Family | DX: M50.30 Other cervical disc degeneration, unspecified cervical region (principal); M47.812 Spondylosis without myelopathy or radiculopathy, cervical region; M62.838 Other muscle spasm; F17.210 Nicotine dependence, cigarettes, uncomplicated; Z59.00 Homelessness unspecified; Z87.820 Personal history of traumatic brain injury | CPT/HCPCS: 99202 ==

== ENCOUNTER 2024-12-23 10:38 | Outpatient (AMB) | payer OTHER, SELFPAY ==
[2024-12-23 10:43] VITALS: BMI 24.0
--- NOTE | 2024-12-23 10:43 | A.OFFVIS_ITS ---
Vital Signs 12/23/24 10:43 Height 5 ft 10 in Weight 167 lb BMI 24.0 Intake Visit Reasons: f/u neck/upper back pain Intake Note: Guru is a 69 year old male who presents today for a follow up of upper back and neck pain. At his last visit he was referred to neuro spine who did not think patient was a surgical candidate. Patient was then referred to pain management who referred patient to physical therapy for chronic neck pain to improve function, flexibility and reduce muscle spasms, stiffness and pain. If ineffective, diagnostic cervical medial branch block injections followed by radiofrequency ablation would be considered. At that time, patient declined Sprint PNS trial. Patient states that he has been forgetting his appointments and can't remember which ones he has missed. Patient states that the upper back and neck pain feel very tight, feels the same as last visit. Allergies tadalafil [From Cialis] Allergy (Unknown, Verified 12/23/24 10:46) anxiety Medication List - Last Reconciled 12/23/24 by Steffanie Hermosillo MD aspirin (Adult Aspirin Regimen) 81 mg PO DAILY atorvastatin 40 mg PO DAILY 90 days atorvastatin 80 mg PO DAILY 90 days baclofen 20 mg PO DAILY 15 days blood pressure test kit-medium As directed bupropion HCl SR 150 mg PO BID 90 days ibuprofen 600 mg PO Q6H 15 days lidocaine 5% 1 patch topical DAILY lisinopril 30 mg PO DAILY 90 days lorazepam 0.5 mg PO DAILY PRN 7 days metoprolol succinate ER 50 mg PO DAILY 90 days tamsulosin (Flomax) 0.4 mg PO DAILY topiramate (Topamax) 25 mg PO DAILY 30 days HPI Comments Details: Since last time I saw the patient, we had concerns about spinal cord compression, referred to Neurosurgery who did not think it was emergent (patient seen by Eloy COOPER 10/03/24). Neurosurgery then referred patient to pain management for interventions (seen by piter Gruber 1 time, no injections done yet). Patient admits that they've been calling him but he's been busy . He says he walks like he's in a stupor. But he admits to taking CBD gummies. Always slight headache. [facility] Medical History Weak urinary stream History of [place] (myocardial infarction) Nicotine dependence, cigarettes, uncomplicated Left shoulder pain COPD (chronic obstructive pulmonary disease) Hypertension CAD (coronary artery disease) Surgical History History of colonoscopy History of coronary artery stent placement (~2018) History of hernia repair (~1969) Family History Father CAD (coronary artery disease) Mother No problems noted. Brother Hepatocellular carcinoma Social History Housing: Other Housing Other:: van Alcohol intake: current Alcohol intake frequency: holidays/special occasions only Alcohol type: beer Patient Tobacco Use Status: Current everyday Tobacco user Tobacco use type: Cigarette Cigarette Packs Per Day: 1 Cigarettes Per Day: 20 Years Smoked: 58 +/- e-Cigarette/Vaping Use: Never Used Second Hand Smoke Exposure: Yes Substance Use Type: Marijuana service: No Current occupational status: unemployed Cognitive needs: No Hearing needs: No Vision needs: No Physical Exam Vital Signs: BMI result Body Mass Index 24.0 Constitutional: Patient appears to be in no acute distress, well nourished and well developed. Patient was appropriately conversant and oriented. Good historian. MSK: Inspection reveals appropriate head and neck positioning. No pain with palpation over the neck musculature. Cervical ROM was full. Spurling's sign negative. Bilateral shoulder, elbow and wrist ROM WNL. No ligamentous laxity or crepitance. No increased effusion. No specific abnormalities or instability found on inspection and palpation of the spine and extremities. No pronator drift. Strength is 5/5 in all muscle groups tested. No increased tone noted. Neurological: Neurologic examination of the upper and lower extremities was nonfocal with intact sensation, muscle stretch reflexes and without focal motor deficits . Negative pronator drift. Cuevas?s negative bilaterally. Babinski was down going bilaterally. Clonus was negative. Gait is non-antalgic without loss of balance. Results Reviewed Results Reviewed: Ordering Physician: Steffanie Barnett Date of Service: 09/13/24 Procedure(s): MR head/brain wo con Accession Number(s): [id number] cc: Anuj Lopez PA-C; Steffanie Barnett~ CLINICAL HISTORY: R29.898 - Other symptoms and signs involving the musculoskeletal system MR Brain without gadolinium Comparison: CT/MD/SR - CT HEAD/BRAIN WO IV CON - 08/08/24 19:08 EST Findings: No restricted diffusion. Brain volume is appropriate for age. There are numerous T2 hyperintensities within the white matter including flame shaped lesions and involvement of the periventricular white matter. No intracranial mass or hemorrhage. No midline shift. No hydrocephalus. Vascular flow voids are intact. The orbits are normal. The sinuses and mastoid air cells are clear. No focal bone lesion. IMPRESSION: There are numerous T2 hyperintensities within the white matter. The appearance raises the possibility of a demyelinating process such as multiple sclerosis. This document has been electronically signed by: Lindsay Ruano MD on 09/13/2024 19:28:30 Ordering Physician: Steffanie Barnett Date of Service: 09/19/24 Procedure(s): MR cervical spine wo con Accession Number(s): [id number] cc: Anuj Lopez PA-C; Steffanie Barnett~ EXAMINATION: MR CERVICAL SPINE WITHOUT CONTRAST CLINICAL INFORMATION: Radiculopathy, cervical region. COMPARISON: Correlated to CT dated August 08, 2024. TECHNIQUE: MRI of the cervical spine was obtained using routine sequences without contrast. FINDINGS: Craniocervical junction is intact. There is diffuse hypointense T1 and hyperintense T2 STIR signal within the vertebral bodies of C5-C6. Marginal osteophyte formation and endplate irregularity and decreased disc height at C5-6 and C6-7. Grade 1 anterolisthesis C4-5. Grade 1 retrolisthesis C5-6. There is buckling deformity of the dorsal aspect of the thecal sac from C2-3 to C5-6 related to ligamentum flavum hypertrophy. There is a questionable 2 mm hyperintense T2 signal in the left midline cervical spinal cord at C4-5 level only seen on the axial T2 sequence. C2-3: No disc herniation. No neuroforamina stenosis. C3-4: No disc herniation. No neuroforamina stenosis. Facet joint hypertrophy. Hypertrophy of the ligamentum flavum. C4-5: Broad-based disc osteophyte complex formation. Facet joint hypertrophy as well as ligamentum flavum. Reduced AP diameter of the thecal sac. Right neuroforamina and stenosis. C5-6: Broad-based disc osteophyte complex formation. Facet joint and ligamentum flavum hypertrophy. CSF effacement of the thecal sac in a circumferential fashion. Right neuroforamina stenosis. Facet joint hypertrophy bilaterally. C6-7: Broad-based disc osteophyte complex formation. Ligamentum flavum hypertrophy. CSF effacement of the thecal sac. Left neuroforamina stenosis. C7-T1: No disc herniation. No neuroforamina stenosis. Flow-void signal within the main vessels is normal. Codominant vertebral arteries. There is a 1.4 x 2 cm heterogeneous mixed fluid and solid component round lesion in the posterior superficial right parotid gland. No prevertebral compartment hematoma, mass or fluid collection. MR/MR cervical spine wo con IMPRESSION: Severe spondylosis at C5-6 and C6-7 resulting in cord compression without gross cord edema and or myelopathy. Right neuroforamina stenosis at C5-6 and left neuroforamina stenosis at C6-7 on a multifactorial basis. Grade 1 anterolisthesis C4-5 and grade 1 retrolisthesis C5-6 degenerative basis instability secondary to ligamentum flavum injury cannot be excluded.. Probable artifactual focal cord signal at C4-5. 1.4 x 2 cm mixed signal lesion/mass, superficial right parotid gland. Consider benign mixed tumor versus lymphadenopathy among other etiologies.. Electronically signed by: Paulie Pierre MD 09/20/2024 08:12 AM EDT Reviewed notes from neuro spine and pain management. Assessment & Plan Assessment & Plan (1) Degenerative disc disease, cervical: Code(s): M50.30 - Other cervical disc degeneration, unspecified cervical region Category: Medical (2) Cervical spondylosis: Code(s): M47.812 - Spondylosis without myelopathy or radiculopathy, cervical region Category: Medical Plan As mentioned above, patient seen by neuro spine then referred to pain management for intervention. They have not been able to get hold of patient for injections. Encouraged patient to trial cervical spine injections and see if that would help with neck pain and headaches. No red flag seen on exam today. No signs of myelopathy. I literally went with patient to pain management office so that he can inquire about scheduling injections. Assessment and plan discussed with patient, and patient was agreeable. All questions were answered thoroughly. Total of 30 minutes spent today including chart review, results review, history taking, physical examination, discussion of assessment and plan, and coordination of care. Steffanie Hermosillo MD, ELIGIO Board Certified, [place] [employer] and [employer] (ABPMR) Board Certified, [place] [employer] Electro[employer] (ABEM) Coding Level of Care Code Est Pt Level 4 (67137) Diagnoses Degenerative disc disease, cervical M50.30 Cervical spondylosis M47.812
== END 2024-12-23 11:07 | disposition home or self-care (01) ==
LOC: HO.HOS 10:39
PROVIDERS: PCP Physician Assistant; Visit Provider Physical Medicine & Rehabilitation
DX: M50.30 Other cervical disc degeneration, unspecified cervical region (principal); M47.812 Spondylosis without myelopathy or radiculopathy, cervical region
CPT/HCPCS: 99214

== ENCOUNTER → 2024-12-23 10:38 | Outpatient (BNVA) | payer OTHER, SELFPAY | PROVIDERS: PCP Physician Assistant; Visit Provider Physical Medicine & Rehabilitation | DX: M50.30 Other cervical disc degeneration, unspecified cervical region (principal); M47.812 Spondylosis without myelopathy or radiculopathy, cervical region | CPT/HCPCS: 99212 ==

== ENCOUNTER 2024-12-25 16:41 | Emergency (ER) | payer OTHER, SELFPAY ==
--- NOTE | ~2024-12-25 | XR_ITS ---
CLINICAL HISTORY: cough 1 view chest x-ray Comparison: None Findings: The lungs are clear. Normal size heart. No acute fracture. IMPRESSION: 1. No acute findings. This document has been electronically signed by: Aaron Ferrer MD on 12/25/2024 18:36:40
[2024-12-25 16:56] VITALS: BP 125/74; PULSE 68; RESP 18; TEMP 36.4; O2SAT 97; BMI 27.5
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
[2024-12-25 17:21] LABS: IDNOW Serial# 6674DD1D; Strep A Nucleic Acid Negative (Negative)
[2024-12-25 17:50] LABS: Influenza A PCR NEGATIVE (Negative); Influenza B PCR NEGATIVE (Negative); Resp Syncy Virus RNA Qual PCR NEGATIVE (Negative); SARS COV2 PCR INHOUSE NEGATIVE (Negative)
[2024-12-25 17:58] VITALS: BP 143/59; PULSE 88; RESP 13; O2SAT 99
[2024-12-25 18:00] VITALS: BP 164/79; PULSE 77; RESP 16; TEMP 36.9; O2SAT 100
[2024-12-25 18:28] VITALS: BP 164/79; PULSE 77; RESP 16; TEMP 36.9; O2SAT 100
== END 2024-12-25 18:28 | disposition home or self-care (01) ==
PROVIDERS: Nurse Practitioner Family; Emergency Provider Internal Medicine; PCP Physician Assistant
DX: H65.23 Chronic serous otitis media, bilateral (principal); J20.9 Acute bronchitis, unspecified; J02.9 Acute pharyngitis, unspecified; Z03.818 Encounter for observation for suspected exposure to other biological agents ruled out; F17.210 Nicotine dependence, cigarettes, uncomplicated
CPT/HCPCS: 0241U; 71045; 87651; 99283; 99284

== ENCOUNTER → 2024-12-25 17:37 | Outpatient (BNV) | payer OTHER, SELFPAY | PROVIDERS: Emergency Provider Internal Medicine; PCP Physician Assistant; Visit Provider Radiology Diagnostic Radiology | DX: R05.9 Cough, unspecified (principal) | CPT/HCPCS: 71045 ==

== ENCOUNTER 2025-03-20 11:08 | Outpatient (AMB) | payer OTHER, SELFPAY ==
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
[2025-03-20 11:52] VITALS: BP 140/80; PULSE 59; TEMP 36.2; O2SAT 99; BMI 26.4
== END 2025-03-20 12:39 | disposition home or self-care (01) ==
LOC: HO.HMCH 11:09
PROVIDERS: PCP Physician Assistant; Visit Provider Physician Assistant
DX: Z00.00 Encounter for general adult medical examination without abnormal findings (principal); I25.118 Atherosclerotic heart disease of native coronary artery with other forms of angina pectoris; I10 Essential (primary) hypertension; E78.2 Mixed hyperlipidemia; Z59.00 Homelessness unspecified; F17.210 Nicotine dependence, cigarettes, uncomplicated

== ENCOUNTER 2025-03-20 11:08 | Outpatient (REF) | payer OTHER, SELFPAY ==
[2025-03-20 13:55] LABS: Hematocrit 45.3 % (42.0-52.0); Hemoglobin 15.4 g/dl (14.0-18.0); Mean Corpuscular HGB Conc 34.0 g/dl (31.0-36.0); Mean Corpuscular Hemoglobin 30.3 pg (27.0-33.0); Mean Corpuscular Volume 89.2 fL (80.0-98.0); NRBC Abs Auto 0.000 X10*3/uL (0.0-0.012); NRBC Pct Auto 0.0 /100WBC (0.0-0.2); Platelet Count 273 X10*3/uL (160-400); Red Blood Count 5.08 X10*6/uL (4.60-5.80); White Blood Count 7.3 X10*3/uL (4.8-10.8)
[2025-03-20 14:33] LABS: Alanine Aminotransferase 39 U/L (0-40); Albumin Level 4.6 g/dL (3.5-5.0); Alkaline Phosphatase 116 U/L (39-117); Anion Gap 12 (12-20); Aspartate Amino Transferase 31 U/L (5-37); Blood Urea Nitrogen 10 mg/dL (9-16); Calcium 9.5 mg/dL (8.4-10.2); Carbon Dioxide 28 mmol/L (22-29); Chloride 105 mmol/L (96-108); Cholesterol 162 mg/dL (<200); Estimated Glomerular Filt Rate > 60; HDL Cholesterol 60 mg/dL (>40); Potassium 4.0 mmol/L (3.3-5.1); Sodium 141 mmol/L (135-145); Total Protein 7.8 g/dL (6.5-8.0); Triglycerides 78 mg/dL (<150)
[2025-03-25 15:33] LABS: Testosterone, Free 71.8 pg/mL (35.0-155.0)
== END 2025-03-20 11:09 | disposition home or self-care (01) ==
LOC: HO.LAB 11:08
PROVIDERS: PCP Physician Assistant; Visit Provider Physician Assistant
DX: Z12.5 Encounter for screening for malignant neoplasm of prostate (principal); Z00.00 Encounter for general adult medical examination without abnormal findings; I25.118 Atherosclerotic heart disease of native coronary artery with other forms of angina pectoris; N52.9 Male erectile dysfunction, unspecified; E78.2 Mixed hyperlipidemia; I10 Essential (primary) hypertension; F17.210 Nicotine dependence, cigarettes, uncomplicated; Z59.00 Homelessness unspecified; Z79.890 Hormone replacement therapy; Z79.82 Long term (current) use of aspirin; Z79.899 Other long term (current) drug therapy
CPT/HCPCS: 36415; 80053; 80061; 84153; 84402; 84403; 85027

== ENCOUNTER 2025-04-05 04:12 | Emergency (ER) | payer OTHER, SELFPAY ==
--- NOTE | 2025-04-05 | ECG_ITS ---
Test Reason : SOB Blood Pressure : */* mmHG Vent. Rate : 88 BPM Atrial Rate : 88 BPM P-R Int : 172 ms QRS Dur : 86 ms QT Int : 392 ms P-R-T Axes : 54 34 26 degrees QTcB Int : 474 ms Normal sinus rhythm Cannot rule out Inferior infarct , age undetermined Abnormal ECG When compared with ECG of 02-Jul-2024 08:56, Nonspecific T wave abnormality now evident in Inferior leads Referred By: Generic ED Physician Electronically Signed By: Alverto Mcfadden
--- NOTE | ~2025-04-05 | XR_ITS ---
CLINICAL HISTORY: sob 2 view chest x-ray Comparison: CR - XR CHEST 1V - 12/25/24 17:57 EDT Findings: No consolidation or effusion. Normal size heart. No acute fracture. IMPRESSION: 1. No acute findings. This document has been electronically signed by: Justin Anderson MD on 04/05/2025 05:25:15
[2025-04-05 04:14] VITALS: BP 192/114; PULSE 76; RESP 20; TEMP 36.9; O2SAT 95; BMI 23.2
--- NOTE | 2025-04-05 04:45 | PC.NURSE ---
Assumed care of pt presents with shortness of breath, states that during this time of the year he has a hard breathing due the air being heavier, pt is also a chain smoker and smokes multiple packs of cigarettes a day, aaox4, nad, hx of HTN
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
[2025-04-05 05:01] LABS: Hematocrit 42.0 % (42.0-52.0); Hemoglobin 14.8 g/dl (14.0-18.0); Imm Gran Abs Auto 0.02 X10*3/uL (0.00-0.03); Imm Gran Pct Auto 0.3 % (0.0-0.4); Lymphocytes Absolute Auto 1.9 X10*3/uL (1.2-4.9); MANUAL DIFF FLAG NO; Mean Corpuscular HGB Conc 35.2 g/dl (31.0-36.0); Mean Corpuscular Hemoglobin 31.4 pg (27.0-33.0); Mean Corpuscular Volume 89.0 fL (80.0-98.0); NRBC Abs Auto 0.000 X10*3/uL (0.0-0.012); NRBC Pct Auto 0.0 /100WBC (0.0-0.2); Platelet Count 225 X10*3/uL (160-400); Red Blood Count 4.72 X10*6/uL (4.60-5.80); White Blood Count 6.4 X10*3/uL (4.8-10.8)
[2025-04-05 05:15] LABS: Alanine Aminotransferase 31 U/L (0-40); Albumin Level 4.2 g/dL (3.5-5.0); Alkaline Phosphatase 106 U/L (39-117); Anion Gap 12 (12-20); Aspartate Amino Transferase 26 U/L (5-37); Blood Urea Nitrogen 13 mg/dL (9-16); Calcium 9.2 mg/dL (8.4-10.2); Carbon Dioxide 24 mmol/L (22-29); Chloride 111 mmol/L (96-108); Creatinine Clr Calc Pharmacy 73.7; Estimated Glomerular Filt Rate > 60; Potassium 3.8 mmol/L (3.3-5.1); Sodium 143 mmol/L (135-145); Total Protein 7.1 g/dL (6.5-8.0)
[2025-04-05 05:16] LABS: COVID-19 Test Negative (Negative); IDNOW Serial# 55D5AD1C; IDNOW Serial# 58CA691E
[2025-04-05 05:17] LABS: Influenza B2 Negative (Negative)
[2025-04-05 05:22] LABS: Troponin-I High Sensitivity 3.1 ng/L (<3.5-35.0)
[2025-04-05 06:12] VITALS: BP 193/105
[2025-04-05] MEDS: NIFEdipine ER 60 MG TAB.ER.24 PO (06:12)
[2025-04-05 06:13] VITALS: BP 193/105
[2025-04-05] MEDS: Albuterol Sulfate 2.5 MG, Albuterol/Iprat 2.5/0.5MG 3 ML 3 ML INHALE (06:15)
--- NOTE | 2025-04-05 06:21 | ED_ITS ---
HPI - SOB/Dyspnea General Chief Complaint: Dyspnea Stated Complaint: SOB Time Seen by Provider: 04/05/25 05:10 Source: patient, RN notes reviewed and old records reviewed Mode of arrival: ambulatory Limitations: no limitations History of Present Illness ED Provider: Dr. Evelyn Dutton HPI Narrative: 69-year-old male with a history of COPD, continued tobacco use, housing insecurity, hypertension and hyperlipidemia presenting with shortness of breath that woke him from sleep tonight immediately prior to arrival. States that he has been having issues with shortness of breath over the last several months and lost his inhaler. Tonight could not catch his breath so he came to the hospital for evaluation. Denies associated chest pain, abdominal pain, nausea, vomiting, lower extremity edema or pain, cough with sputum production, known sick contacts or travel. Related Data Previous Rx's ?Medication ?Instructions ?Recorded blood pressure test kit-medium #1 ea 09/06/24 albuterol sulfate 90 mcg/actuation 1 inh inhalation QI D PRN shortness 03/20/25 aerosol inhaler of breath or wheezing #6.7 [address] bree aspirin 81 mg tablet,delayed 81 mg PO DAILY #90 tabs 0 03/20/25 release (Adult Aspirin Regimen) atorvastatin 80 mg tablet 80 mg PO DAILY 90 days #90 t abs 03/20/25 baclofen 20 mg tablet 20 mg PO DAILY 15 days #15 t abs 03/20/25 bupropion HCl 150 mg tablet,12 hr 150 mg PO BID 90 day s #180 tabs 03/20/25 sustained-release ibuprofen 600 mg tablet 600 mg PO Q6H 15 days #60 ta bs 03/20/25 levocetirizine 5 mg tablet 10 mg (2 x 5 mg) PO DAILY # 90 tabs 03/20/25 lisinopril 30 mg tablet 30 mg PO DAILY 90 days #90 t abs 03/20/25 lorazepam 0.5 mg tablet 0.5 mg PO DAILY PRN anxiety 7 days 03/20/25 #7 tabs metoprolol succinate 50 mg 50 mg PO DAILY 90 days #90 tabs 03/20/25 tablet,extended release 24 hr tamsulosin 0.4 mg capsule (Flomax) 0.4 mg PO DAILY #90 caps 03/20/25 topiramate 25 mg tablet (Topamax) 25 mg PO DAILY 30 da ys #90 tabs 03/20/25 albuterol sulfate 90 mcg/actuation 2 inh inhalation Q4 H PRN shortness 04/05/25 breath activated powder inhaler of breath #1 ea prednisone 50 mg tablet 50 mg PO DAILY 5 days #5 tab s 04/05/25 Allergies Allergy/AdvReac Type Severity Reaction Status Date / Time tadalafil (From Cialis) Allergy Unknown anxiety Verified 04/05/25 04:17 Review of Systems 2 Review of Systems: as per HPI, full review of systems performed and negative but for the above mentioned pertinent positives and negatives. [facility] Past Medical History Medical History Weak urinary stream History of MO (myocardial infarction) Nicotine dependence, cigarettes, uncomplicated Left shoulder pain COPD (chronic obstructive pulmonary disease) Hypertension CAD (coronary artery disease) Surgical History History of colonoscopy History of coronary artery stent placement (~2018) History of hernia repair (~1969) Family History Family History Father CAD (coronary artery disease) Mother No problems noted. Brother Hepatocellular carcinoma Social History Social History Housing: Other Housing Other:: van Alcohol intake: never Patient Tobacco Use Status: Current everyday Tobacco user Tobacco use type: Cigarette Cigarette Packs Per Day: 2 Cigarettes Per Day: 40 Years Smoked: 58 +/- Smoked in Last 30 Days: Yes e-Cigarette/Vaping Use: Never Used Second Hand Smoke Exposure: Yes Use of substances other than those prescribed or required for medical reasons: No Substance Use Type: Marijuana Advance Directives: No Do you have a plan to hurt others: No Plan service: No Current occupational status: unemployed Cognitive needs: No Hearing needs: No Vision needs: No Physical Exam 2 Exam: Exam: GENERAL: Ill-appearing, moderate respiratory distress. SKIN: Normal skin color for ethnicity, warm, dry, no rashes noted. HEENT: Normocephalic, atraumatic, no stridor, EOMI. NECK: Soft, supple, full ROM, midline structures nontender, no step-offs, no deformities, no lymphadenopathy. CHEST: Heart regular rhythm, symmetric chest rise and fall. PULMONARY: Diffuse wheezes throughout, tachypnea, poor air movement bilaterally, moderate respiratory distress. ABDOMINAL: Soft, nontender, quiet bowel sounds in all quadrants. : Deferred. MUSCULOSKELETAL: Normal tone, full range of motion, no deformities, no peripheral edema. NEURO: Alert and oriented to person, CN II through XII intact, no focal neurologic deficits. PSYCHIATRIC: Anxious affect, appropriate demeanor. Vital Signs: Vital Signs: Last Vital Signs Temp 98.5 F 04/05/25 04:14 Pulse 86 04/05/25 06:36 Resp 16 04/05/25 06:36 BP 169/89 H 04/05/25 06:36 Pulse Ox 98 04/05/25 06:36 O2 Del Method Room Air 04/05/25 06:36 BMI result Body Mass Index 23.2 Medications Administered Discontinued Medications Generic Name Dose Route Start Last Admin Trade Name Freq PRN Reason Stop Dose Admin Clonidine HCl 0.1 mg 04/05/25 05:44 04/05/25 06:13 Clonidine Hcl 0.1 Mg Tablet PO 04/05/25 05:45 0.1 mg ONCE ONE Administration Protocol Albuterol Sulfate 2.5 mg/ 0 mg 04/05/25 06:11 04/05/25 06:15 Albuterol/Ipratropium 3 ml INHALE 04/05/25 06:12 1 dose ONCE ONE Administration Nifedipine 60 mg 04/05/25 05:44 04/05/25 06:12 Nifedipine Er 60 Mg Tab.Er.24 PO 04/05/25 05:45 60 mg ONCE ONE Administration Protocol Medical Decision Making Medical Decision Making [facility] Narrative: Patient presents today with chief complaint of shortness of breath. Differential diagnosis includes, but is not limited to, upper respiratory infection, pneumonia, COPD exacerbation, asthma exacerbation, CHF, pneumothorax, pleural effusion, pulmonary embolism, ACS. Broad-based work-up will be initiated to evaluate for etiology of patient's symptoms. Chest x-ray is clear. He has no evidence of pneumonia today. Cardiac enzyme is low. Very low suspicion for ACS today. EKG is not ischemic. Plan for DuoNeb and prednisone. Patient feeling significantly improved after DuoNeb treatment. His blood pressure is down as well. We had an extensive discussion regarding blood pressure medications, importance of taking all of his medications as prescribed as well as strict return precautions to the emergency department. Patient will be discharged home to follow up with his primary care doctor. Differential Diagnosis Differential Diagnoses: The differential diagnosis associated with the presentation includes (as above) Admission/Observation Consideration of admission/observation: Escalation of care including admission/observation considered Lab Data MDM Lab Attestation statement: I reviewed the patient's lab results. 04/05/25 04:55 04/05/25 04:55 Labs: Lab Results 04/05/25 Range/Units 04:55 WBC 6.4 (4.8-10.8) X10*3/uL RBC 4.72 (4.60-5.80) X10*6/uL Hgb 14.8 (14.0-18.0) g/dl Hct 42.0 (42.0-52.0) % MCV 89.0 (80.0-98.0) fL MCH 31.4 (27.0-33.0) pg MCHC 35.2 (31.0-36.0) g/dl RDW 14.7 (11.0-16.0) % Plt Count 225 (160-400) X10*3/uL MPV 9.4 (9.4-12.4) fL Immature Gran % (Auto) 0.3 (0.0-0.4) % Neut % (Auto) 52.1 (45-73) % Lymph % (Auto) 30.0 (20-40) % [place] % (Auto) 11.3 H (2-11) % Eos % (Auto) 5.5 H (0-4) % Baso % (Auto) 0.8 (0-2) % Lymph # (Auto) 1.9 (1.2-4.9) X10*3/uL [place] # (Auto) 0.7 (0.1-1.2) X10*3/uL Eos # (Auto) 0.4 (0.0-0.4) X10*3/uL Baso # (Auto) 0.1 (0.0-0.2) X10*3/uL Abs Immat Gran (auto) 0.02 (0.00-0.03) X10*3/uL Absolute Neuts (auto) 3.3 (2.0-8.3) x10*3/uL Absolute Nucleated RBC 0.000 (0.0-0.012) X10*3/uL Nucleated RBC % (auto) 0.0 (0.0-0.2) /100WBC Sodium 143 (135-145) mmol/L Potassium 3.8 (3.3-5.1) mmol/L Chloride 111 H (96-108) mmol/L Carbon Dioxide 24 (22-29) mmol/L Anion Gap 12 (12-20) BUN 13 (9-16) mg/dL Creatinine 0.99 (0.5-1.4) mg/dL Estim Creat Clear Calc 73.7 Estimated GFR > 60 Random Glucose 95 (60-115) mg/dL Calcium 9.2 (8.4-10.2) mg/dL Total Bilirubin 0.8 (0.0-1.0) mg/dL AST 26 (5-37) U/L ALT 31 (0-40) U/L Alkaline Phosphatase 106 (39-117) U/L Troponin I High Sens 3.1 (<3.5-35.0) ng/L Total Protein 7.1 (6.5-8.0) g/dL Albumin 4.2 (3.5-5.0) g/dL COVID-19 ([facility]) Negative (Negative) COVID-19 Clin Com See Note Influenza Type A ([facility]) Negative (Negative) Influenza Type B ([facility]) Negative (Negative) Influenza A & B Note See Note Independent Interpretation I performed an independent interpretation of an: EKG and Plain X-Ray Interpretation: My independent interpretation of the ECG reveals normal sinus rhythm with rate of 88, normal axis, normal intervals, no ST elevations or depressions, T-wave inversions in the inferior leads are new from previous on 07/02/2024. Radiology Impression Discussion of test interpretation with radiology: I have reviewed the radiologist's reading. External Record Review External record reviewed: Inpatient record and Office record Prescription Management I considered prescription management with: Other (Steroids, albuterol inhaler) Chronic Conditions Patient?s care impacted by: Hypertension and Other (COPD) Social Determinants Patient?s care significantly limited by Social Determinants of Health including: Inadequate housing, Problems related to primary support group and Other Social Determinant of Health Discharge Plan Discharge Clinical Impression: Acute exacerbation of chronic obstructive pulmonary disease Patient Disposition: Home, Self-Care Instructions: COPD (Chronic Obstructive Pulmonary Disease) (ED) Additional Instructions: Follow-up with your primary care doctor as soon as possible. Return to the ER with any new or worsening symptoms including: Worsening shortness of breath, chest pain, vomiting, fevers greater than 100?, any new symptom that concerns you. You may take your steroids for the next 5 days to help with the inflammation in your lungs. Use your inhaler as needed. Prescriptions: New albuterol sulfate 90 mcg/actuation aerosol powdr breath activated 2 inh inhalation Q4H PRN (Reason: shortness of breath) Qty: 1 0RF prednisone 50 mg tablet 50 mg PO DAILY 5 Days Qty: 5 0RF No Action (DME) blood pressure test kit-medium Kit See Rx Instructions .Route Qty: 1 0RF Rx Instructions: As directed bupropion HCl 150 mg tablet sustained-release 12 hr 150 mg PO BID 90 Days Qty: 180 0RF ibuprofen 600 mg tablet 600 mg PO Q6H 15 Days Qty: 60 0RF albuterol sulfate 90 mcg/actuation HFA aerosol inhaler 1 inh inhalation QID PRN (Reason: shortness of breath or wheezing) Qty: 6.7 2RF atorvastatin 80 mg tablet 80 mg PO DAILY 90 Days Qty: 90 1RF aspirin [Adult Aspirin Regimen] 81 mg tablet,delayed release (DR/EC) 81 mg PO DAILY Qty: 90 3RF Rx Instructions: Not to be taken with Ibuprofen. baclofen 20 mg tablet 20 mg PO DAILY 15 Days Qty: 15 0RF topiramate [Topamax] 25 mg tablet 25 mg PO DAILY 30 Days Qty: 90 1RF tamsulosin [Flomax] 0.4 mg capsule 0.4 mg PO DAILY Qty: 90 1RF metoprolol succinate 50 mg tablet extended release 24 hr 50 mg PO DAILY 90 Days Qty: 90 1RF lorazepam 0.5 mg tablet 0.5 mg PO DAILY PRN (Reason: anxiety) 7 Days Qty: 7 0RF lisinopril 30 mg tablet 30 mg PO DAILY 90 Days Qty: 90 4RF levocetirizine 5 mg tablet 10 mg PO DAILY Qty: 90 1RF Print Language: French
[2025-04-05 06:24] VITALS: PULSE 88; RESP 14; O2SAT 99
[2025-04-05 06:36] VITALS: BP 169/89; PULSE 86; RESP 16; O2SAT 98
[2025-04-05 07:05] VITALS: BP 169/89; PULSE 86; RESP 16; TEMP 36.2; O2SAT 98
== END 2025-04-05 07:07 | disposition home or self-care (01) ==
PROVIDERS: Emergency Provider Emergency Medicine; PCP Physician Assistant
DX: J44.1 Chronic obstructive pulmonary disease with (acute) exacerbation (principal); R06.02 Shortness of breath; R94.31 Abnormal electrocardiogram [ECG] [EKG]; F17.210 Nicotine dependence, cigarettes, uncomplicated; Z79.899 Other long term (current) drug therapy; Z11.52 Encounter for screening for COVID-19
CPT/HCPCS: 71046; 80053; 84484; 85025; 87502; 87635; 93005; 94640; 99284; 99285

== ENCOUNTER → 2025-04-05 04:20 | Outpatient (BNV) | payer OTHER, SELFPAY | PROVIDERS: Emergency Provider Emergency Medicine; PCP Physician Assistant; Visit Provider Radiology Diagnostic Radiology | DX: R06.02 Shortness of breath (principal) | CPT/HCPCS: 71046 ==

== ENCOUNTER → 2025-04-05 04:46 | Outpatient (BNV) | payer OTHER, SELFPAY | PROVIDERS: Emergency Provider Emergency Medicine; PCP Physician Assistant; Visit Provider Internal Medicine Cardiovascular Disease | DX: R06.02 Shortness of breath (principal) | CPT/HCPCS: 93010 ==